=== PATIENT | female | born 1945 | race Caucasian/White ===

== ENCOUNTER 2023-09-14 02:06 | Emergency (ER) | payer MEDICARE, SELFPAY ==
[2023-09-14] VITALS (9 sets, daily range): BP systolic 131–160; BP diastolic 70–80; PULSE 89–99; RESP 15–29; TEMP 37.3; O2SAT 95–96; BMI 35.7
--- NOTE | 2023-09-14 02:33 | ECG_ITS ---
[facility] Test Date: 2023-09-14 Pat Name: JOJO DE SANTIAGO Department: Room: - Gender: Female Family Services Coordinator: : 1945 Requested By: MICHELE BRIONES Order Number: [id number] Reading MD: SHAKIRA WILDER Measurements Intervals Western Rate: 96 P: 40 SD: 178 QRS: 1 QRSD: 86 T: -46 QT: 366 QTc: 419 Interpretive Statements 1100 Sinus rhythm 4664 Twave abnormality, possible inferolateral ischemia 9150 abnormal ECG No previous ECG available for comparison Electronically Signed On 09-14-2023 7:16:05 EST by SHAKIRA WILDER
--- NOTE | 2023-09-14 02:44 | ED_ITS ---
HPI - Nausea/Vomiting/Diarrhea General Chief complaint: Nausea/Vomiting/Diarrhea Stated complaint: VOMITING Time Seen by Provider: 09/14/23 02:23 Source: patient Mode of arrival: Wheelchair History of Present Illness HPI Narrative: This 78-year-old female presents for evaluation of one day of nausea vomiting and diarrhea. The patient states she woke up yesterday morning with some diarrhea and took an Imodium. Starting around 3 PM she started having nausea and has had 7 or 8 episodes of vomiting since that time. She has had some chills. She denies any chest pain or shortness of breath. She states that she and her went to a [employer] in [place] and everybody was sick. The patient states that the head host/hostess was sick with a vomiting illness that only lasted 1 day. She has had a hysterectomy and cholecystectomy. Dates that she is diabetic and gets gastroparesis. She took a Zofran earlier but is fairly certain that she promptly vomited it back up. Related Data Home Medications Medication Instructions Recorded Confirmed allopurinol 300 mg tablet mg 09/14/23 atorvastatin 20 mg tablet mg 09/14/23 baclofen 10 mg tablet mg 09/14/23 cyanocobalamin (vitamin B-12) mcg PO 09/14/23 1,000 mcg tablet,extended release diazepam 5 mg tablet mg 09/14/23 empagliflozin 10 mg tablet mg 09/14/23 (Jardiance) famotidine 40 mg tablet mg 09/14/23 fluoride (sodium) 1.1 % dental applic 09/14/23 cream (Denta 5000 Plus) gabapentin 300 mg capsule mg 09/14/23 hydrochlorothiazide 25 mg tablet mg 09/14/23 levothyroxine 88 mcg tablet mcg 09/14/23 meloxicam 15 mg tablet mg 09/14/23 metoprolol succinate 100 mg mg PO 09/14/23 tablet,extended release 24 hr cneuygux-hmkigrcsb-dfljhqzv 3.5 drp ophthalmic (eye) 09/14/23 mg/mL-10,000 unit/mL-0.1% eye drops omeprazole 40 mg capsule,delayed mg 09/14/23 release ondansetron HCl 8 mg tablet mg 09/14/23 Allergies Allergy/AdvReac Type Severity Reaction Status Date / Time meperidine [From Demerol] Allergy Intermediate Nausea Verified 09/14/23 02:24 CODINE Allergy Intermediate Nausea Uncoded 09/14/23 02:24 Review of Systems ROS Status of ROS 10 or more systems reviewed and unremark able except as noted in h istory and below [facility] Medical History (Updated 09/14/23 @ 05:19 by Lola Mclaughlin MD) Diabetes ?E11.9 - Type 2 diabetes mellitus without complications (ICD-10) Gastroparesis ?K31.84 - Gastroparesis (ICD-10) Hypertension ?I10 - Essential (primary) hypertension (ICD-10) Social History Smoking status: Never smoker Exam Narrative Exam Narrative: Nurses note and vital signs reviewed and patient is not hypoxic.Blood pressure is elevated at 160/80 General: Uncomfortable appearing female, no respiratory distress, no active vomiting Skin: Warm, dry, no pallor noted. There is no rash noted. Head: Normocephalic, atraumatic Eye: Normal conjunctiva, no drainage, EOMI.No scleral icterus Ears, Nose, Mouth, and Throat: oral mucosa is dry Cardiovascular: Regular Rate and Rhythm S1S2, pulses are brisk and equal bilaterally Respiratory: Patient is in no distress, no accessory muscle use, lungs are clear to auscultation, no wheezing, rales or rhonchi Back: non-tender, no CVA tenderness bilaterally to percussion. GI: Increased bowel sounds, no tenderness to palpation, no masses appreciated. No rebound, guarding, or rigidity noted. Musculoskeletal: The patient has no evidence of calf tenderness, no pitting edema, symmetrical pulses noted bilaterally Neurological: A&O x4, normal speech Psychiatric: Cooperative Constitutional Vital Signs, click to edit/add: Last Vital Signs Temp 99.2 F 09/14/23 02:18 Pulse 89 09/14/23 04:25 Resp 15 09/14/23 04:25 BP 131/70 09/14/23 05:14 Pulse Ox 96 09/14/23 03:50 O2 Del Method Room Air 09/14/23 02:18 Course Vital Signs Vital signs: Vital Signs Temperature 99.2 F 09/14/23 02:18 Pulse Rate 99 H 09/14/23 02:18 Respiratory Rate 18 09/14/23 02:18 Blood Pressure 160/80 H 09/14/23 02:18 Pulse Oximetry 95 09/14/23 02:18 Oxygen Delivery Method Room Air 09/14/23 02:18 Temperature 99.2 F 09/14/23 02:18 Pulse Rate 89 09/14/23 04:25 Respiratory Rate 15 09/14/23 04:25 Blood Pressure 131/70 09/14/23 05:14 Pulse Oximetry 96 09/14/23 03:50 Oxygen Delivery Method Room Air 09/14/23 02:18 MDM - Nausea/Vomiting/Diarrhea MDM Narrative Medical decision making narrative: 78 year old female presents for evaluation of nausea vomiting and diarrhea. She and her have similar symptoms. She states she had diarrhea yesterday morning and took an Imodium and around 3 PM started having nausea and multiple episodes of vomiting. Her developed similar symptoms later in the day. She does not have any jens abdominal pain. Upon arrival she was tearful and tremulous. She had a very low-grade fever at 99.2. An EKG done upon arrival was a sinus rhythm at 96 bpm with no acute changes. An IV was placed and she was medicated with IV fluids, Zofran and Pepcid. Routine labs are reviewed. She has a normal white count and hemoglobin.Her glucose is elevated at 191. Creatinine is mildly elevated. Lactic acid and lipase are normal. She was cold and shivering and was medicated with oral Tylenol when she was able to tolerate it. In reevaluation she is feeling better and tolerating clear liquids. She was negative for Covid 19 and influenza but tested positive for rhi novirus/enterovirus. The patient and her both went [place] [facility] celebration and which many of the people at the event were sick including the head host/hostess who had stomach flu symptoms. The patient does have Zofran at home. She will be remedicated with a dose of Zofran prior to the removal of her IV. Lab Data Labs: Lab Results 09/14/23 09/14/23 Range/Units 02:30 02:30 WBC 6.7 (4.0-11.0) 10^3/uL RBC 4.04 L (4.20-5.40) 10^6/uL Hgb 12.5 (12.0-16.0) g/dL Hct 39.6 (36.0-48.0) % MCV 98.0 (81.0-99.0) fL MCH 30.9 (26.7-34.0) pg MCHC 31.6 (29.9-35.2) g/dL RDW 13.5 (11.0-15.0) % Plt Count 199 (150-450) 10^3/uL MPV 12.3 (9.5-13.5) fL Neut % (Auto) 82.2 H (43.0-75.0) % Lymph % (Auto) 9.9 L (20.5-60.0) % [place] % (Auto) 4.5 (1.7-12.0) % Eos % (Auto) 1.8 (0.9-7.0) % Baso % (Auto) 0.1 L (0.2-2.0) % Neut # (Auto) 5.5 (1.4-6.5) 10^3/uL Lymph # (Auto) 0.7 L (1.2-3.8) 10^3/uL [place] # (Auto) 0.3 (0.3-0.8) 10^3/uL Eos # (Auto) 0.1 (0.0-0.7) 10^3/uL Baso # (Auto) 0.0 (0.0-0.1) 10^3/uL Abs Immat Gran (auto) 0.10 H (0.00-0.03) 10^3/uL Imm/Tot Granulo (auto) 1.5 H (0.0-0.5) % Sodium 143 (136-145) mmol/L Potassium 3.7 (3.5-5.1) mmol/L Chloride 104 (98-107) mmol/L Carbon Dioxide 25.4 (21.0-32.0) mmol/L Anion Gap 17.3 BUN 17.0 (7.0-18.0) mg/dL Creatinine 1.03 H (0.55-1.02) mg/dL Est GFR ( Amer) >60 (>=60) Est GFR (Non-Af Amer) 52 L (>=60) BUN/Creatinine Ratio 16.5 Glucose 191 H (74-106) mg/dL Lactate 1.4 (0.4-2.0) mmol/L Calcium 9.8 (8.5-10.1) mg/dL Total Bilirubin 2.1 H (0.2-1.0) mg/dL AST 24 (15-37) U/L ALT 27 (14-59) U/L Alkaline Phosphatase 105 (46-116) U/L Total Protein 7.1 (6.4-8.2) g/dL Albumin 3.9 (3.4-5.0) g/dL Globulin 3.2 g/dL Albumin/Globulin Ratio 1.2 Lipase 30.0 (16.0-77.0) U/L Adenovirus (PCR) Not detected (NOT DETECTE) C. pneumoniae DNA (PCR) Not detected (NOT DETECTE) Coronavirus Type OC43 Not detected (NOT DETECTE) Coronavirus Type HKU1 Not detected (NOT DETECTE) Coronavirus Type 229E Not detected (NOT DETECTE) SARS-CoV-2 (PCR) Negative Not detected (NEGATIVE) Coronavirus Type NL63 Not detected (NOT DETECTE) Human Metapneumovir PCR Not detected (NOT DETECTE) Influenza Type A Ag Negative Influenza Type B Ag Negative M. pneumoniae (PCR) Not detected (NOT DETECTE) Parainfluenza PCR Not detected (NOT DETECTE) Parainfluenza 2 (PCR) Not detected (NOT DETECTE) Parainfluenza 3 (PCR) Not detected (NOT DETECTE) Parainfluenza 4 (PCR) Not detected (NOT DETECTE) RSV (RT-PCR) Not detected (NOT DETECTE) Entero/Rhino (PCR) Detected A (NOT DETECTE) Bordetella pertussis (PCR) Not detected (NOT DETECTE) B parapertussis DNA PCR Not detected (NOT DETECTE) Influenza Type A (PCR) Not detected (NOT DETECTE) Influenza Type B (PCR) Not detected (NOT DETECTE) ECG Data Attestation: I personally reviewed and interpreted this ECG as follows: (Sinus rhythm at 96 beats for minute, nonspecific ST changes, normal axis, no acute ST segment elevation or T-wave inversion) Discharge Plan Discharge Chief Complaint: Nausea/Vomiting/Diarrhea Clinical Impression: Enteroviral infection, Rhinovirus infection, Gastroenteritis Patient Disposition: Home, Self-Care Time of Disposition Decision: 05:18 Condition: Good Prescriptions / Home Meds: No Action cyanocobalamin (vitamin B-12) 1,000 mcg tablet extended release PO atorvastatin 20 mg tablet ondansetron HCl 8 mg tablet meloxicam 15 mg tablet famotidine 40 mg tablet metoprolol succinate 100 mg tablet extended release 24 hr PO omeprazole 40 mg capsule,delayed release(DR/EC) levothyroxine 88 mcg tablet baclofen 10 mg tablet neomycin-polymyxin B-dexameth 3.5mg/mL-10,000 unit/mL-0.1 % drops,suspension OPHTHALMIC (EYE) gabapentin 300 mg capsule allopurinol 300 mg tablet hydrochlorothiazide 25 mg tablet diazepam 5 mg tablet fluoride (sodium) [Denta 5000 Plus] 1.1 % cream Jardiance 10 mg tablet Instructions: Gastroenteritis (ED), Acute Nausea and Vomiting (DC) Stand Alone Forms: Portal Instructions Referrals: MICHELE BRIONES [Primary Care Provider] - 1 week
[2023-09-14] MEDS: ONDANSETRON PF 4 MG/2 ML VIAL IV ×2 (02:50→05:38)
[2023-09-14] MEDS: 0.9 % SODIUM CHLORIDE 1,000 ML 1000 ML IV (02:50)
[2023-09-14] MEDS: FAMOTIDINE/PF 20 MG/2 ML VIAL IV (02:50)
[2023-09-14 03:18] LABS: Basophils Percent Auto 0.1 % (0.2-2.0); Eosinophils Absolute Auto 0.1 10^3/uL (0.0-0.7); Eosinophils Percent Auto 1.8 % (0.9-7.0); Hematocrit 39.6 % (36.0-48.0); Hemoglobin 12.5 g/dL (12.0-16.0); Immature Granulocytes Pct Auto 1.5 % (0.0-0.5); Lymphocytes Absolute Auto 0.7 10^3/uL (1.2-3.8); Lymphocytes Percent Auto 9.9 % (20.5-60.0); Mean Corpuscular HGB Conc 31.6 g/dL (29.9-35.2); Mean Corpuscular Hemoglobin 30.9 pg (26.7-34.0); Mean Platelet Volume 12.3 fL (9.5-13.5); Monocytes Absolute Auto 0.3 10^3/uL (0.3-0.8); Monocytes Percent Auto 4.5 % (1.7-12.0); Neutrophils Absolute Auto 5.5 10^3/uL (1.4-6.5); Neutrophils Percent Auto 82.2 % (43.0-75.0); Platelet Count 199 10^3/uL (150-450); Red Blood Count 4.04 10^6/uL (4.20-5.40); Red Cell Distribution Width 13.5 % (11.0-15.0); White Blood Count 6.7 10^3/uL (4.0-11.0)
[2023-09-14 03:26] LABS: Influenza Virus A Antigen Negative; Influenza Virus B Antigen Negative; Internal Control Within Normal Limits; SARS-CoV-2 Ag NEGATIVE (NEGATIVE)
[2023-09-14 03:32] LABS: Lactate/Lactic Acid 1.4 mmol/L (0.4-2.0)
[2023-09-14 03:39] LABS: Alanine Aminotransferase 27 U/L (14-59); Albumin Globulin Ratio 1.2; Albumin Level 3.9 g/dL (3.4-5.0); Alkaline Phosphatase 105 U/L (46-116); Anion Gap 17.3; Aspartate Amino Transferase 24 U/L (15-37); BUN Creatinine Ratio 16.5; Bilirubin Total 2.1 mg/dL (0.2-1.0); Calcium 9.8 mg/dL (8.5-10.1); Carbon Dioxide 25.4 mmol/L (21.0-32.0); Chloride 104 mmol/L (98-107); Estimated GFR (African America >60 (>=60); Estimated GFR (Non-African Ame 52 (>=60); Globulin 3.2 g/dL; Glucose 191 mg/dL (74-106); Potassium 3.7 mmol/L (3.5-5.1); Sodium 143 mmol/L (136-145); Total Protein 7.1 g/dL (6.4-8.2)
[2023-09-14 03:51] LABS: Adenovirus NOT DETECTED (NOT DETECTE); Bordetella parapertussis NOT DETECTED (NOT DETECTE); Coronavirus 229E NOT DETECTED (NOT DETECTE); Coronavirus HKU1 NOT DETECTED (NOT DETECTE); Coronavirus NL63 NOT DETECTED (NOT DETECTE); Coronavirus OC43 NOT DETECTED (NOT DETECTE); Human Metapneumovirus NOT DETECTED (NOT DETECTE); Influenza A NOT DETECTED (NOT DETECTE); Influenza B NOT DETECTED (NOT DETECTE); Mycoplasma pneumoniae NOT DETECTED (NOT DETECTE); Parainfluenza Virus 1 NOT DETECTED (NOT DETECTE); Parainfluenza Virus 2 NOT DETECTED (NOT DETECTE); Parainfluenza Virus 3 NOT DETECTED (NOT DETECTE); Parainfluenza Virus 4 NOT DETECTED (NOT DETECTE); Respiratory Syncytial Virus NOT DETECTED (NOT DETECTE); SARS-CoV-2 NOT DETECTED (NOT DETECTE)
[2023-09-14] MEDS: ACETAMINOPHEN 325 MG TABLET 650 MG PO (04:12)
[2023-09-14] MEDS: 0.9 % SODIUM CHLORIDE 500 ML IV (04:12)
[2023-09-14 04:41] LABS: Human Rhinovirus/Enterovirus DETECTED (NOT DETECTE)
[2023-09-15 08:29] LABS: SARS-CoV-2 NAA INCONCLUSIVE (NOT DETECTE)
== END 2023-09-14 06:00 | disposition home or self-care (01) ==
PROVIDERS: Emergency Provider Emergency Medicine; PCP Internal Medicine
DX: K52.9 Noninfective gastroenteritis and colitis, unspecified (principal); B34.8 Other viral infections of unspecified site; Z90.49 Acquired absence of other specified parts of digestive tract; B34.1 Enterovirus infection, unspecified; Z90.710 Acquired absence of both cervix and uterus; E11.9 Type 2 diabetes mellitus without complications; Z79.899 Other long term (current) drug therapy; I10 Essential (primary) hypertension; R50.9 Fever, unspecified; Z79.84 Long term (current) use of oral hypoglycemic drugs
CPT/HCPCS: 0202U; 36415; 80053; 83605; 83690; 85025; 87635; 87804; 87811; 93005; 96361; 96374; 96375; 96376; 99284

== ENCOUNTER 2023-12-21 12:41 | Emergency (ER) | payer MEDICARE, SELFPAY ==
[2023-12-21 12:53] VITALS: BP 169/88; PULSE 78; TEMP 36.7; O2SAT 96; BMI 34.2
--- NOTE | 2023-12-21 13:24 | ED.GENADUL1 ---
HPI HPI - General Adult General Chief complaint: Upper Respiratory Infection Stated complaint: FLU LIKE SYMPTOMS Time Seen by Provider: 12/21/23 13:05 Source: patient Mode of arrival: Wheelchair Limitations: no limitations History of Present Illness HPI narrative: Patient is a 78-year-old female who presents to the emergency department for 2-day history of flulike illness. She reports headache, nausea, diarrhea, body aches. She states she believes she had a fever at home, no medications taken prior to arrival. She denies sick contacts in the home. She has had no visual changes, neck pain, paresthesias. She denies abdominal pain or urinary symptoms.She states she has no significant cough or congestion, she denies sore throat. Related Data Home Medications ?Medication ?Instructions ?Recorded ?Confirmed allopurinol 300 mg tablet mg 09/14/23 atorvastatin 20 mg tablet mg 09/14/23 baclofen 10 mg tablet mg 09/14/23 cyanocobalamin (vitamin B-12) mcg PO 09/14/23 1,000 mcg tablet,extended release diazepam 5 mg tablet mg 09/14/23 empagliflozin 10 mg tablet mg 09/14/23 (Jardiance) famotidine 40 mg tablet mg 09/14/23 fluoride (sodium) 1.1 % dental applic 09/14/23 cream (Denta 5000 Plus) gabapentin 300 mg capsule mg 09/14/23 hydrochlorothiazide 25 mg tablet mg 09/14/23 levothyroxine 88 mcg tablet mcg 09/14/23 meloxicam 15 mg tablet mg 09/14/23 metoprolol succinate 100 mg mg PO 09/14/23 tablet,extended release 24 hr gtmhtwvd-awegnpkgl-bubdvkeb 3.5 drp ophthalmic (eye) 09/14/23 mg/mL-10,000 unit/mL-0.1% eye drops omeprazole 40 mg capsule,delayed mg 09/14/23 release ondansetron HCl 8 mg tablet mg 09/14/23 Previous Rx's ?Medication ?Instructions ?Recorded ondansetron 4 mg disintegrating 4 mg PO Q6H PRN nausea and 12/21/23 tablet vomiting #12 tabs Allergies Allergy/AdvReac Type Severity Reaction Status Date / Time meperidine [From Demerol] Allergy Intermediate Nausea Verified 12/21/23 12:53 CODINE Allergy Intermediate Nausea Uncoded 12/21/23 12:53 Opioid HPI Opioid Management Most Recent Opioid Data: Last Pain Scale 5 09/14/23 02:30 Last MAR Pain Assessment 12/21/23 13:49 Review of Systems ROS Constitutional Reports: chills Ears, nose, mouth, and throat Denies: throat pain or nasal congestion Respiratory Denies: shortness of breath or cough Gastrointestinal Reports: nausea and diarrhea; Denies: abdominal pain or vomiting Integumentary/Breast Denies: rash Neurological Reports: headache; Denies: numbness in extremities or dizziness Hematologic/Lymphatic Denies: easy bruising or easy bleeding [facility] Medical History (Updated 12/21/23 @ 14:45 by DWAYNE Bolaños) Diabetes ?E11.9 - Type 2 diabetes mellitus without complications (ICD-10) Gastroparesis ?K31.84 - Gastroparesis (ICD-10) Hypertension ?I10 - Essential (primary) hypertension (ICD-10) Social History Smoking status: Never smoker Exam Narrative Exam Narrative: Gen.: Awake, alert, in no distress Head: Normocephalic, atraumatic, No nuchal rigidity ENT: Moist mucous membranes, Bilateral TMs clear, no pharyngeal erythema Respiratory: No respiratory distress, lungs clear bilaterally Cardio: Regular rate and rhythm Gastrointestinal: Abdomen is soft, nondistended and nontender to palpation Extremities: Moves extremities equally Psych: Normal mood and affect Neuro: No focal neuro deficit Skin: Warm, dry, intact Constitutional Vital Signs, click to edit/add: Last Vital Signs Temp 98.1 F 12/21/23 12:53 Pulse 78 12/21/23 12:53 Resp 16 12/21/23 12:53 BP 169/88 H 12/21/23 12:53 Pulse Ox 96 12/21/23 12:53 O2 Del Method Room Air 12/21/23 12:53 Course Vital Signs Vital signs: Vital Signs Temperature 98.1 F 12/21/23 12:53 Pulse Rate 78 12/21/23 12:53 Respiratory Rate 16 12/21/23 12:53 Blood Pressure 169/88 H 12/21/23 12:53 Pulse Oximetry 96 12/21/23 12:53 Oxygen Delivery Method Room Air 12/21/23 12:53 Temperature 98.1 F 12/21/23 12:53 Pulse Rate 78 12/21/23 12:53 Respiratory Rate 16 12/21/23 12:53 Blood Pressure 169/88 H 12/21/23 12:53 Pulse Oximetry 96 12/21/23 12:53 Oxygen Delivery Method Room Air 12/21/23 12:53 Medical Decision Making MDM Narrative Medical decision making narrative: Patient was treated with IV fluids, Zofran, [place]. She is resting comfortably on reevaluation by attending physician. Lab studies and viral testing is negative. She has stable vital signs in the ER, benign exam consistent with viral syndrome. She was reevaluated by attending physician prior to discharge. She will be discharged home with nausea medication to follow-up with PCP. Return to the ER if symptoms change or worsen. At time of discharge, patient is still reporting significant headache and nausea and was remedicated with Reglan and Toradol. She was sent for CT of the brain to rule out other acute abnormalities. Medical Records Medical records reviewed: Yes I reviewed the patient's medical records Lab Data Lab results reviewed: Yes I reviewed the patient's lab results Labs: Lab Results 12/21/23 12/21/23 12/21/23 Range/Units 13:26 13:30 13:32 WBC 5.8 (4.0-11.0) 10^3/uL RBC 4.27 (4.20-5.40) 10^6/uL Hgb 12.9 (12.0-16.0) g/dL Hct 41.8 (36.0-48.0) % MCV 97.9 (81.0-99.0) fL MCH 30.2 (26.7-34.0) pg MCHC 30.9 (29.9-35.2) g/dL RDW 13.7 (11.0-15.0) % Plt Count 202 (150-450) 10^3/uL MPV 11.5 (9.5-13.5) fL Neut % (Auto) 55.5 (43.0-75.0) % Lymph % (Auto) 35.5 (20.5-60.0) % [place] % (Auto) 6.9 (1.7-12.0) % Eos % (Auto) 1.2 (0.9-7.0) % Baso % (Auto) 0.7 (0.2-2.0) % Neut # (Auto) 3.2 (1.4-6.5) 10^3/uL Lymph # (Auto) 2.1 (1.2-3.8) 10^3/uL [place] # (Auto) 0.4 (0.3-0.8) 10^3/uL Eos # (Auto) 0.1 (0.0-0.7) 10^3/uL Baso # (Auto) 0.0 (0.0-0.1) 10^3/uL Abs Immat Gran (auto) 0.01 (0.00-0.03) 10^3/uL Imm/Tot Granulo (auto) 0.2 (0.0-0.5) % Sodium 144 (136-145) mmol/L Potassium 3.9 (3.5-5.1) mmol/L Chloride 107 (98-107) mmol/L Carbon Dioxide 27.4 (21.0-32.0) mmol/L Anion Gap 13.5 BUN 12.0 (7.0-18.0) mg/dL Creatinine 0.85 (0.55-1.02) mg/dL Est GFR ( Amer) >60 (>=60) Est GFR (Non-Af Amer) >60 (>=60) BUN/Creatinine Ratio 14.1 Glucose 116 H (74-106) mg/dL Calcium 9.5 (8.5-10.1) mg/dL Total Bilirubin 1.6 H (0.2-1.0) mg/dL AST 14 L (15-37) U/L ALT 18 (14-59) U/L Alkaline Phosphatase 93 (46-116) U/L Total Protein 6.6 (6.4-8.2) g/dL Albumin 4.1 (3.4-5.0) g/dL Globulin 2.5 g/dL Albumin/Globulin Ratio 1.6 Influenza Type A Ag Negative Influenza Type B Ag Negative SARS-CoV-2 Ag (CV2AG) Negative (NEGATIVE) POC Glucose 104 (74-106) mg/dL Discharge Plan Discharge Stand Alone Forms: Portal Instructions Chief Complaint: Upper Respiratory Infection Clinical Impression: Flu-like symptoms Patient Disposition: Home, Self-Care Time of Disposition Decision: 14:45 Condition: Good Prescriptions / Home Meds: New ondansetron 4 mg tablet,disintegrating 4 mg PO Q6H PRN (Reason: nausea and vomiting) Qty: 12 0RF No Action cyanocobalamin (vitamin B-12) 1,000 mcg tablet extended release PO atorvastatin 20 mg tablet ondansetron HCl 8 mg tablet meloxicam 15 mg tablet famotidine 40 mg tablet metoprolol succinate 100 mg tablet extended release 24 hr PO omeprazole 40 mg capsule,delayed release(DR/EC) levothyroxine 88 mcg tablet baclofen 10 mg tablet neomycin-polymyxin B-dexameth 3.5mg/mL-10,000 unit/mL-0.1 % drops,suspension OPHTHALMIC (EYE) gabapentin 300 mg capsule allopurinol 300 mg tablet hydrochlorothiazide 25 mg tablet diazepam 5 mg tablet fluoride (sodium) [Denta 5000 Plus] 1.1 % cream Jardiance 10 mg tablet Print Language: Romansh Instructions: Viral Syndrome (ED) Referrals: MICHELE BRIONES [Primary Care Provider] - 1 week
[2023-12-21 13:35] LABS: Glucometer 104 mg/dL (74-106)
[2023-12-21] MEDS: 0.9 % SODIUM CHLORIDE 1,000 ML 1000 ML IV (13:49)
[2023-12-21] MEDS: HYDROCODONE/ACET 5-325 MG TABLET 1 TAB PO (13:49)
[2023-12-21] MEDS: ONDANSETRON PF 4 MG/2 ML VIAL IV (13:49)
[2023-12-21 14:07] LABS: Basophils Percent Auto 0.7 % (0.2-2.0); Eosinophils Absolute Auto 0.1 10^3/uL (0.0-0.7); Eosinophils Percent Auto 1.2 % (0.9-7.0); Hematocrit 41.8 % (36.0-48.0); Hemoglobin 12.9 g/dL (12.0-16.0); Immature Granulocytes Abs Auto 0.01 10^3/uL (0.00-0.03); Immature Granulocytes Pct Auto 0.2 % (0.0-0.5); Lymphocytes Absolute Auto 2.1 10^3/uL (1.2-3.8); Lymphocytes Percent Auto 35.5 % (20.5-60.0); Mean Corpuscular HGB Conc 30.9 g/dL (29.9-35.2); Mean Corpuscular Hemoglobin 30.2 pg (26.7-34.0); Mean Corpuscular Volume 97.9 fL (81.0-99.0); Mean Platelet Volume 11.5 fL (9.5-13.5); Monocytes Absolute Auto 0.4 10^3/uL (0.3-0.8); Monocytes Percent Auto 6.9 % (1.7-12.0); Neutrophils Absolute Auto 3.2 10^3/uL (1.4-6.5); Neutrophils Percent Auto 55.5 % (43.0-75.0); Platelet Count 202 10^3/uL (150-450); Red Blood Count 4.27 10^6/uL (4.20-5.40); Red Cell Distribution Width 13.7 % (11.0-15.0); White Blood Count 5.8 10^3/uL (4.0-11.0)
[2023-12-21 14:24] LABS: Alanine Aminotransferase 18 U/L (14-59); Albumin Globulin Ratio 1.6; Albumin Level 4.1 g/dL (3.4-5.0); Alkaline Phosphatase 93 U/L (46-116); Anion Gap 13.5; Aspartate Amino Transferase 14 U/L (15-37); BUN Creatinine Ratio 14.1; Bilirubin Total 1.6 mg/dL (0.2-1.0); Calcium 9.5 mg/dL (8.5-10.1); Carbon Dioxide 27.4 mmol/L (21.0-32.0); Chloride 107 mmol/L (98-107); Estimated GFR (African America >60 (>=60); Estimated GFR (Non-African Ame >60 (>=60); Globulin 2.5 g/dL; Glucose 116 mg/dL (74-106); Potassium 3.9 mmol/L (3.5-5.1); Sodium 144 mmol/L (136-145); Total Protein 6.6 g/dL (6.4-8.2)
[2023-12-21 14:27] LABS: Influenza Virus A Antigen Negative; Influenza Virus B Antigen Negative; Internal Control Within Normal Limits; SARS-CoV-2 Ag NEGATIVE (NEGATIVE)
--- NOTE | 2023-12-21 14:49 | CT_ITS ---
The [address] [address] Patient Name: JOJO DE SANTIAGO MRN: [id number] date: 1945 Sex: F Assigned Patient Location: ER Current Patient Location: ED.MAIN Accession/Order Number: [id number] Exam Date: 12/21/2023 14:52 Report Date: 12/21/2023 15:15 At the request of: ATA GALLARDO Procedure: CT head/brain wo con EXAM: CT head/brain wo con HISTORY: headache COMPARISON: None. TECHNIQUE: CT head without contrast. Multiplanar reformats obtained. The current study utilizes one or more of the following dose-reduction techniques: automated exposure control, iterative reconstruction, and/or manual adjustment of tube current and voltage for size. FINDINGS: No acute intracranial hemorrhage. No midline shift. Hernandez-white matter differentiation is maintained. Ventricles reflect volume loss. Basal cisterns are patent. Regional nonspecific white matter hypoattenuation. Prior lens replacement. Mastoid air cells clear. Partially imaged paranasal sinuses are clear. No displaced skull fracture. CT/CT head/brain wo con IMPRESSION: No acute intracranial findings. Electronically authenticated by: AGUEDA GRULLON Date: 12/21/2023 15:15
[2023-12-21] MEDS: METOCLOPRAMIDE HCL 10 MG/2 ML VIAL IVP (15:02)
[2023-12-21] MEDS: KETOROLAC TROMETHAMINE 30 MG/ML VIAL 15 MG IVP (15:02)
[2023-12-21 15:42] LABS: Bilirubin Urine NEGATIVE (NEGATIVE); Blood Urine TRACE-I (NEGATIVE); Clarity Urine SL CLOUDY (CLEAR); Color Urine LT. YELLOW (YELLOW); Glucose Urine UA >=1000 mg/dL (NEGATIVE); Ketones Urine 15 mg/dL (NEGATIVE); Leukocyte Esterase Urine SMALL (NEGATIVE); Nitrite Urine NEGATIVE (NEGATIVE); Protein Urine NEGATIVE (NEG/TRACE); Urobilinogen Urine 0.2 EU/dL (0.2-1.0); pH Urine 5.5 (5.0-9.0)
[2023-12-21 15:43] LABS: Urine Microscopic Indicated YES
[2023-12-21 15:55] LABS: Bacteria Urine LARGE #/HPF (NONE SEEN); Cast Seen? NONE SEEN #/LPF (NONE SEEN); Crystals Seen? None Seen #/HPF (None Seen); Mucus Urine NONE SEEN (NONE SEEN); Squamous Epithelial Cell Urine FEW #/LPF (NONE/RARE); Urine Culture Indicated YES; WBC Urine 20-50 #/HPF (NONE SEEN)
== END 2023-12-21 15:52 | disposition home or self-care (01) ==
PROVIDERS: Physician Assistant; Emergency Provider Emergency Medicine Emergency Medical Services; PCP Internal Medicine
DX: R19.7 Diarrhea, unspecified (principal); R11.0 Nausea; R51.9 Headache, unspecified; R68.83 Chills (without fever); Z79.85 Long-term (current) use of injectable non-insulin antidiabetic drugs; Z79.899 Other long term (current) drug therapy; E11.9 Type 2 diabetes mellitus without complications; I10 Essential (primary) hypertension
CPT/HCPCS: 36415; 36416; 70450; 80053; 81001; 82948; 85025; 87086; 87150; 87186; 87804; 87811; 96361; 96374; 96375; 99285

== ENCOUNTER 2024-01-24 18:07 | Emergency (ER) | payer MEDICARE, SELFPAY ==
[2024-01-24 18:11] VITALS: BP 200/94; PULSE 66; TEMP 36.6; O2SAT 97; BMI 32.6
--- NOTE | 2024-01-24 18:56 | ED_ITS ---
HPI - Abdominal Pain General Chief Complaint: Abdominal Pain Stated Complaint: Abdominal Pain Time Seen by Provider: 01/24/24 18:46 Source: patient Mode of arrival: Wheelchair Limitations: no limitations History of Present Illness HPI narrative: 78 year old female presents to the ED for LUQ pain, N/V. Onset was today. Denies fever, chills, diarrhea, back pain, urinary sx. Denies CP, SOB, cough. States she has hx gastroparesis. Related Data Home Medications ?Medication ?Instructions ?Recorded ?Confirmed allopurinol 300 mg tablet mg 09/14/23 atorvastatin 20 mg tablet mg 09/14/23 baclofen 10 mg tablet mg 09/14/23 cyanocobalamin (vitamin B-12) mcg PO 09/14/23 1,000 mcg tablet,extended release diazepam 5 mg tablet mg 09/14/23 empagliflozin 10 mg tablet mg 09/14/23 (Jardiance) famotidine 40 mg tablet mg 09/14/23 fluoride (sodium) 1.1 % dental applic 09/14/23 cream (Denta 5000 Plus) gabapentin 300 mg capsule mg 09/14/23 hydrochlorothiazide 25 mg tablet mg 09/14/23 levothyroxine 88 mcg tablet mcg 09/14/23 meloxicam 15 mg tablet mg 09/14/23 metoprolol succinate 100 mg mg PO 09/14/23 tablet,extended release 24 hr [id number] 3.5 drp ophthalmic (eye) 09/14/23 mg/mL-10,000 unit/mL-0.1% eye drops omeprazole 40 mg capsule,delayed mg 09/14/23 release ondansetron HCl 8 mg tablet mg 09/14/23 Previous Rx's ?Medication ?Instructions ?Recorded ondansetron 4 mg disintegrating 4 mg PO Q6H PRN nausea and 12/21/23 tablet vomiting #12 tabs dicyclomine 10 mg capsule 10 mg PO TID PRN abdominal pain 01/24/24 #10 caps metronidazole 500 mg tablet 500 mg PO Q8H 10 days #30 tabs 01/24/24 ondansetron 4 mg disintegrating 4 mg PO Q8H 3 days #9 tabs 01/24/24 tablet Allergies Allergy/AdvReac Type Severity Reaction Status Date / Time meperidine [From Demerol] Allergy Intermediate Nausea Verified 12/21/23 12:53 CODINE Allergy Intermediate Nausea Uncoded 12/21/23 12:53 Review of Systems ROS Constitutional Denies: fever or chills Ears, nose, mouth, and throat Denies: throat pain or neck pain Cardiovascular Denies: chest pain Respiratory Denies: shortness of breath or cough Gastrointestinal Reports: abdominal pain, nausea and vomiting; Denies: diarrhea Genitourinary Denies: painful urination, urinary frequency, urinary urgency or blood in urine Musculoskeletal Denies: back pain or neck pain Integumentary/Breast Denies: rash Neurological Denies: headache or dizziness [facility] Medical History Diabetes ?E11.9 - Type 2 diabetes mellitus without complications (ICD-10) Gastroparesis ?K31.84 - Gastroparesis (ICD-10) Hypertension ?I10 - Essential (primary) hypertension (ICD-10) Social History Smoking status: Never smoker Exam Constitutional Vital Signs, click to edit/add: Last Vital Signs Temp 97.8 F 01/24/24 18:11 Pulse 66 01/24/24 18:11 Resp 20 01/24/24 18:11 BP 168/98 H 01/24/24 20:01 Pulse Ox 97 01/24/24 18:11 O2 Del Method Room Air 01/24/24 18:11 Common normals: no apparent distress and oriented x3 General appearance: cooperative HENMT Mouth: oral and palatal mucosa normal, lip normal and tongue normal Eye Common normals: conjunctivae normal and no scleral icterus Neck & C-Spine Common normals: supple Chest Chest: symmetrical chest wall rise Respiratory Common normals: normal respiratory effort and clear to auscultation bilaterally Effort & inspection: able to speak in complete sentences and symmetric chest movement Cardio Common normals: regular rate and regular rhythm GI Common normals: Normal to inspection, nondistended, normoactive bowel sounds present and soft to palpation Palpation: tender Details: LUQ Neuro Common normals: oriented x3 Sensorium/orientation: awake and alert Speech: speech normal Course Vital Signs Vital signs: Vital Signs Temperature 97.8 F 01/24/24 18:11 Pulse Rate 66 01/24/24 18:11 Respiratory Rate 20 01/24/24 18:11 Blood Pressure 200/94 H 01/24/24 18:11 Pulse Oximetry 97 01/24/24 18:11 Oxygen Delivery Method Room Air 01/24/24 18:11 Temperature 97.8 F 01/24/24 18:11 Pulse Rate 66 01/24/24 18:11 Respiratory Rate 20 01/24/24 18:11 Blood Pressure 168/98 H 01/24/24 20:01 Pulse Oximetry 97 01/24/24 18:11 Oxygen Delivery Method Room Air 01/24/24 18:11 MDM - Abdominal Pain MDM Narrative Medical decision making narrative: Blood work was unremarkable when compared to previous. CT scan showed an area of questionable mild nonspecific colitis. Findings were discussed with the patient. She was given medication with relief of her symptoms. She has an appointment scheduled with Dr. Irizarry (GI) in [place] in 1-2 weeks. Prescriptions were provided for Zofran, Bentyl, and Flagyl. Return precautions were discussed. Differential Diagnosis Differential diagnosis: Likely abdominal pain, diverticulitis, gastroenteritis, small bowel obstruction and other (gastroparesis, colitis.) Medical Records Attestation: I reviewed the patient's medical records. Lab Data Attestation: I reviewed the patient's lab results. Labs: Lab Results 01/24/24 Range/Units 18:55 WBC 7.2 (4.0-11.0) 10^3/uL RBC 4.40 (4.20-5.40) 10^6/uL Hgb 13.4 (12.0-16.0) g/dL Hct 41.7 (36.0-48.0) % MCV 94.8 (81.0-99.0) fL MCH 30.5 (26.7-34.0) pg MCHC 32.1 (29.9-35.2) g/dL RDW 13.9 (11.0-15.0) % Plt Count 213 (150-450) 10^3/uL MPV 12.0 (9.5-13.5) fL Neut % (Auto) 53.2 (43.0-75.0) % Lymph % (Auto) 35.7 (20.5-60.0) % [place] % (Auto) 7.6 (1.7-12.0) % Eos % (Auto) 2.6 (0.9-7.0) % Baso % (Auto) 0.6 (0.2-2.0) % Neut # (Auto) 3.8 (1.4-6.5) 10^3/uL Lymph # (Auto) 2.6 (1.2-3.8) 10^3/uL [place] # (Auto) 0.6 (0.3-0.8) 10^3/uL Eos # (Auto) 0.2 (0.0-0.7) 10^3/uL Baso # (Auto) 0.0 (0.0-0.1) 10^3/uL Abs Immat Gran (auto) 0.02 (0.00-0.03) 10^3/uL Imm/Tot Granulo (auto) 0.3 (0.0-0.5) % Sodium 143 (136-145) mmol/L Potassium 3.6 (3.5-5.1) mmol/L Chloride 104 (98-107) mmol/L Carbon Dioxide 26.1 (21.0-32.0) mmol/L Anion Gap 16.5 BUN 13.0 (7.0-18.0) mg/dL Creatinine 0.97 (0.55-1.02) mg/dL Est GFR ( Amer) >60 (>=60) Est GFR (Non-Af Amer) 56 L (>=60) BUN/Creatinine Ratio 13.4 Glucose 120 H (74-106) mg/dL Calcium 10.1 (8.5-10.1) mg/dL Total Bilirubin 2.4 H (0.2-1.0) mg/dL AST 19 (15-37) U/L ALT 20 (14-59) U/L Alkaline Phosphatase 93 (46-116) U/L Total Protein 7.1 (6.4-8.2) g/dL Albumin 4.4 (3.4-5.0) g/dL Globulin 2.7 g/dL Albumin/Globulin Ratio 1.6 Lipase 33.0 (16.0-77.0) U/L Imaging Data CT scan - abdomen: Attestation: I have reviewed the pertinent imaging results. Radiologist's impression: ITS Impressions Abdomen/Pelvis CT 01/24/24 19:41 IMPRESSION: 1. Question of some mild nonspecific colitis involving segment near junction of descending and sigmoid colon is raised with some mild uniform wall thickening with questionable trace pericolonic inflammation. There is diffuse diverticulosis but no specific findings of diverticulitis. See comments above. 2. Distal colonic stool retention/constipation. 3. Hepatic steatosis. 4. Cholecystectomy. 5. Chronic pancreatic atrophy. 6. Left renal cysts. Electronically authenticated by: RENY VILLEDA Date: 01/24/2024 21:17 Discharge Plan Discharge Stand Alone Forms: Portal Instructions Chief Complaint: Abdominal Pain Clinical Impression: Colitis, Nausea & vomiting, Abdominal pain Patient Disposition: Home, Self-Care Time of Disposition Decision: 21:27 Condition: Good Mode of Transportation: Private Vehicle Prescriptions / Home Meds: New metronidazole 500 mg tablet 500 mg PO Q8H 10 Days Qty: 30 0RF ondansetron 4 mg tablet,disintegrating 4 mg PO Q8H 3 Days Qty: 9 0RF dicyclomine 10 mg capsule 10 mg PO TID PRN (Reason: abdominal pain) Qty: 10 0RF No Action ondansetron 4 mg tablet,disintegrating 4 mg PO Q6H PRN (Reason: nausea and vomiting) Qty: 12 0RF cyanocobalamin (vitamin B-12) 1,000 mcg tablet extended release PO atorvastatin 20 mg tablet ondansetron HCl 8 mg tablet meloxicam 15 mg tablet famotidine 40 mg tablet metoprolol succinate 100 mg tablet extended release 24 hr PO omeprazole 40 mg capsule,delayed release(DR/EC) levothyroxine 88 mcg tablet baclofen 10 mg tablet neomycin-polymyxin B-dexameth 3.5mg/mL-10,000 unit/mL-0.1 % drops,suspension OPHTHALMIC (EYE) gabapentin 300 mg capsule allopurinol 300 mg tablet hydrochlorothiazide 25 mg tablet diazepam 5 mg tablet fluoride (sodium) [Denta 5000 Plus] 1.1 % cream Jardiance 10 mg tablet Print Language: Azeri Instructions: Acute Nausea and Vomiting (ED), Abdominal Pain (ED), Colitis (ED) Additional Instructions: Return to the ER if your condition worsens. Follow up with Dr. Irizarry as scheduled. Referrals: MICHELE BRIONES [Primary Care Provider] - 1 week
[2024-01-24 19:03] LABS: Basophils Percent Auto 0.6 % (0.2-2.0); Eosinophils Absolute Auto 0.2 10^3/uL (0.0-0.7); Eosinophils Percent Auto 2.6 % (0.9-7.0); Hematocrit 41.7 % (36.0-48.0); Hemoglobin 13.4 g/dL (12.0-16.0); Immature Granulocytes Abs Auto 0.02 10^3/uL (0.00-0.03); Immature Granulocytes Pct Auto 0.3 % (0.0-0.5); Lymphocytes Absolute Auto 2.6 10^3/uL (1.2-3.8); Lymphocytes Percent Auto 35.7 % (20.5-60.0); Mean Corpuscular HGB Conc 32.1 g/dL (29.9-35.2); Mean Corpuscular Hemoglobin 30.5 pg (26.7-34.0); Mean Corpuscular Volume 94.8 fL (81.0-99.0); Monocytes Absolute Auto 0.6 10^3/uL (0.3-0.8); Monocytes Percent Auto 7.6 % (1.7-12.0); Neutrophils Absolute Auto 3.8 10^3/uL (1.4-6.5); Neutrophils Percent Auto 53.2 % (43.0-75.0); Platelet Count 213 10^3/uL (150-450); Red Cell Distribution Width 13.9 % (11.0-15.0); White Blood Count 7.2 10^3/uL (4.0-11.0)
[2024-01-24] MEDS: FAMOTIDINE/PF 20 MG/2 ML VIAL IV (19:22)
[2024-01-24] MEDS: ONDANSETRON PF 4 MG/2 ML VIAL IV (19:22)
[2024-01-24] MEDS: 0.9 % SODIUM CHLORIDE 1,000 ML 100 ML IV (19:22)
[2024-01-24] MEDS: METOCLOPRAMIDE HCL 10 MG/2 ML VIAL IVP (19:22)
[2024-01-24 19:23] LABS: Alanine Aminotransferase 20 U/L (14-59); Albumin Globulin Ratio 1.6; Albumin Level 4.4 g/dL (3.4-5.0); Alkaline Phosphatase 93 U/L (46-116); Anion Gap 16.5; Aspartate Amino Transferase 19 U/L (15-37); BUN Creatinine Ratio 13.4; Bilirubin Total 2.4 mg/dL (0.2-1.0); Calcium 10.1 mg/dL (8.5-10.1); Carbon Dioxide 26.1 mmol/L (21.0-32.0); Chloride 104 mmol/L (98-107); Estimated GFR (African America >60 (>=60); Estimated GFR (Non-African Ame 56 (>=60); Globulin 2.7 g/dL; Glucose 120 mg/dL (74-106); Potassium 3.6 mmol/L (3.5-5.1); Sodium 143 mmol/L (136-145); Total Protein 7.1 g/dL (6.4-8.2)
--- NOTE | 2024-01-24 19:41 | CT_ITS ---
The [address] [address] Patient Name: JOJO DE SANTIAGO MRN: [id number] date: 1945 Sex: F Assigned Patient Location: ER Current Patient Location: Accession/Order Number: [id number] Exam Date: 01/24/2024 20:00 Report Date: 01/24/2024 21:17 At the request of: NILAY GAGE Procedure: CT abdomen pelvis w con CT OF THE ABDOMEN AND PELVIS WITH CONTRAST: 01/24/2024 8:00 PM EDT CLINICAL HISTORY: Bilateral upper quadrant pain. COMPARISONS: None. TECHNIQUE: Thin section axial CT images were obtained from the lung bases to the pubis symphysis. This CT exam was performed using one or more of the following dose reduction techniques: Automated exposure control, adjustment of the mA and/or kV according to patient size, or use of iterative reconstruction technique. Thin section coronal and sagittal images were reconstructed from the axial data set. All images were reviewed and interpreted. CONTRAST: Omnipaque 300, 100 mL IV without event. FINDINGS: LUNG BASES: No consolidation or pleural fluid. LIVER: Diffuse hepatic steatosis. No hepatic mass or cyst. Normal portal vein enhancement. GALLBLADDER: Cholecystectomy. BILIARY TREE: No ductal dilatation. PANCREAS: Diffuse atrophic pancreas. No acute pancreatitis. Pancreas otherwise negative. No duct dilation. SPLEEN: Normal. ADRENALS: Normal. RIGHT KIDNEY AND URETER: Normal, without urolithiasis or hydronephrosis. LEFT KIDNEY AND URETER: MULTIPLE SMALL LEFT RENAL PARAPELVIC CYSTS CYSTS MID AND LOWER POLE. SMALL SIMPLE CORTICAL CYST LOWER POLE LEFT KIDNEY MEASURING 1.5 CM. BOSN[place]K 1 CYST. LEFT KIDNEY OTHERWISE NEGATIVE. NO HYDRONEPHROSIS OR RETAINED URETERAL CALCULUS. URINARY BLADDER: Grossly unremarkable. PELVIC STRUCTURES: Unremarkable. SMALL BOWEL: No evidence of obstruction, gross mass, or inflammatory change. LARGE BOWEL: There is extensive mostly descending and sigmoid diverticulosis. No evidence for acute diverticulitis. Moderate colonic stool throughout the rectosigmoid. Mild to moderate more proximal stool. There is segment of uniform wall thickening involving descending the proximal small bowel extending approximately 11 to 12 cm in length on the left. Uncertain if this is acute or chronic wall thickening. There is some very mild pericolonic stranding. Nonspecific colitis. Could be related to infection or inflammatory bowel disease. Does not have typical appearance of acute diverticulitis despite diverticular disease. Correlate with labs and symptoms and history. No evidence of large bowel obstruction. APPENDIX: The appendix is not clearly identified and there are no secondary findings to suggest acute appendicitis. LYMPH NODES: No pathologically enlarged lymph nodes identified. PERITONEUM: No intraperitoneal free air. No free intraperitoneal fluid. MESENTERY: Unremarkable. RETROPERITONEUM: The retroperitoneum is unremarkable. AORTA: Normal caliber aorta and iliac arteries. An aortic out BODY WALL: No body wall mass. OSSEOUS STRUCTURES: Dextroscoliosis mid lumbar spine with multilevel degenerative disc disease. No fractures. No lytic or blastic lesion. CT/CT abdomen pelvis w con IMPRESSION: 1. Question of some mild nonspecific colitis involving segment near junction of descending and sigmoid colon is raised with some mild uniform wall thickening with questionable trace pericolonic inflammation. There is diffuse diverticulosis but no specific findings of diverticulitis. See comments above. 2. Distal colonic stool retention/constipation. 3. Hepatic steatosis. 4. Cholecystectomy. 5. Chronic pancreatic atrophy. 6. Left renal cysts. Electronically authenticated by: RENY VILLEDA Date: 01/24/2024 21:17
[2024-01-24 20:01] VITALS: BP 168/98
[2024-01-24] MEDS: DIPHENHYDRAMINE HCL 50 MG/ML (1ML) VIAL 25 MG IV (20:08)
[2024-01-24 22:16] VITALS: BP 160/90; PULSE 70; O2SAT 100
== END 2024-01-24 22:00 | disposition home or self-care (01) ==
PROVIDERS: Nurse Practitioner Family; Emergency Provider Emergency Medicine; PCP Internal Medicine
DX: K52.9 Noninfective gastroenteritis and colitis, unspecified (principal); R11.2 Nausea with vomiting, unspecified; R10.9 Unspecified abdominal pain; E11.9 Type 2 diabetes mellitus without complications; I10 Essential (primary) hypertension; Z79.890 Hormone replacement therapy; Z79.899 Other long term (current) drug therapy
CPT/HCPCS: 36415; 74177; 80053; 83690; 85025; 96361; 96374; 96375; 99285; Q9967

== ENCOUNTER 2024-01-27 18:34 | Emergency (ER) | payer MEDICARE, SELFPAY ==
[2024-01-27 18:39] VITALS: BP 194/101; PULSE 87; TEMP 36.8; O2SAT 98; BMI 32.6
--- OUTSIDE RECORDS SUMMARY | 2024-01-27 18:42 | XMS_ITS | CCD ---
Author Organization [facility] Care Team Providers Care Technical Support Analyst Name Role Phone Aruna Damico Primary Care Provider ARUNA DAMICO Primary Care Unavailable MAMADOU LOZANO Attending Unavailable ARUNA DAMICO Primary Care Unavailable CHEMO MCCAULEY Referring Unavailable Aruna Damico Primary Care Provider [phone] ALO THOMPSON Attending Unavailable ARUNA DAMICO Primary Care Unavailable Jason Ramos Unavailable BRIEN LOMELI Admitting Unavailable BRIEN LOMELI Attending Unavailable JOHNATHAN, DR MERLE Parra Consulting Unavailable SALVADOR, DR BAUTISTA Primary Care Unavailable BRIEN LOMELI Consulting Unavailable Florentino Newman Consulting Unavailable SALVADOR, DR BAUTISTA Primary Care Unavailable SALVADOR, DR BAUTISTA Consulting Unavailable SALVADOR, DR BAUTISTA Attending Unavailable SALVADOR, DR BAUTISTA Admitting Unavailable SALVADOR, DR BAUTISTA Primary Care Unavailable SALVADOR, DR BAUTISTA Consulting Unavailable SALVADOR, DR BAUTISTA Attending Unavailable SALVADOR, DR BAUTISTA Admitting Unavailable EDISON HAWKINS Consulting Unavailable BRAXTON, DR BORDEN Consulting Unavailable BRAXTON, DR BORDEN Attending Unavailable SALVADOR, DR BAUTISTA Primary Care Unavailable BRAXTON, DR BORDEN Admitting Unavailable DANNY PRICE Consulting Unavailable Rita Bailey Admitting Unavailable Rita Bailey Attending Unavailable Enrique Gray Referring Unavail able HAYDER FRANCO Primary Care Unavailable Eagle Seymoural Admitting Unavailable Marco Seymour Attending Unavailable HAYDER FRANCO Primary Care Unavailable Lion, Marco Admitting Unavailable Lion, Marco Attending Unavailable Florentino Hollis Consulting Unavailable HAYDER FRANCO Primary Care Unavailable Lion, Marco Admitting Unavailable Marco Seymour Attending Unavailable HAYDER FRANCO Primary Care Unavailable Hayder Franco MD Primary Care Provider [phone] Aruna Damico MD Primary Care Provider JONN ZAMORA JR. Attending Unavailable NEDRA JR., JONN Referring Unavailable FRANCO, HAYDER B Primary Care Unavailable NEDRA JR., JONN Admitting Unavailable ZAMORA JR., JONN Attending Unavailable FRANCO, HAYDER B Referring Unavailable FRANCO, HAYDER B Primary Care Unavailable EDNA IBANEZ Attending Unavailable FRANCO, HAYDER B Primary Care Unavailable NIENBERGVIKY Attending Unavailable FRANCO, HAYDER B Referring Unavailable FRANCO, HAYDER B Primary Care Unavailable NIENBERG, VIKY Referring Unavailable FRANCO, HAYDER B Primary Care Unavailable NIENBERG, VIKY Attending Unavailable FRANCO, HAYDER B Referring Unavailable FRANCO, HAYDER B Primary Care Unavailable NIENBERG, VIKY Attending Unavailable NIENBERG, VIKY Referring Unavailable FRANCO, HAYDER B Primary Care Unavailable NIENBERG, VIKY Attending Unavailable FRANCO, HAYDER B Referring Unavailable FRANCO, HAYDER B Primary Care Unavailable ZAMORA JR., JONN Admitting Unavailable ZAMORA JR., JONN Attending Unavailable FRANCO, HAYDER B Referring Unavailable FRANCO, HAYDER B Primary Care Unavailable FRANCO, HAYDER B Referring Unavailable FRANCO, HAYDER B Primary Care Unavailable ALY, JARRED Admitting Unavailable ALY, JARRED Attending Unavailable ALY, JARRED Referring Unavailable FRANCO, HAYDER B Primary Care Unavailable KESHAV PIMENTEL Attending Unavailable FRANCO, HAYDER B Primary Care Unavailable ZAMORA JR., JONN Attending Unavailable ZAMORA JR., JONN Referring Unavailable FRANCO, HAYDER B Primary Care Unavailable MACARENA PAZ Attending Unavailable FRANCO, HAYDER B Primary Care Unavailable FRANCO, HAYDER B Referring Unavailable FRANCO, HAYDER B Primary Care Unavailable FRANCO, HAYDER B Referring Unavailable FRANCO, HAYDER B Primary Care Unavailable ALY, JARRED Referring Unavailable FRANCO, HAYDER B Primary Care Unavailable NIENBERGVIKY Attending Unavailable FRANCO, HAYDER B Referring Unavailable FRANCO, HAYDER B Primary Care Unavailable ALY, JARRED Admitting Unavailable ALY, JARRED Attending Unavailable ALY, JARRED Referring Unavailable FRANCO, HAYDER B Primary Care Unavailable KESHAV PIMENTEL Attending Unavailable FRANCO, HAYDER B Primary Care Unavailable SHAZIA SUH Attending Unavailable FRANCO, HAYDER B Referring Unavailable FRANCO, HAYDER B Primary Care Unavailable MARVIN BULL Attending Unavailable FRANCO, HAYDER B Referring Unavailable MARVIN BULL Attending Unavailable RFANCO, HAYDER B Referring Unavailable FRANCO, HAYDER B Attending Unavailable Salvador LOVE MD, Daniel B Primary Care Provider TRAVIS FRANCO Attending Unavailable ARUNA DAMICO Primary Care Unavailable DAMICO ARUNA ILANA [facility] Unavailable TRAVIS FRANCO Referring Unavailable ARUNA DAMICO [facility] Unavailable MARGUERITETRAVIS Quijano Attending Unavailable DAMICO ARUNA ILANA [facility] Unavailable TRAVIS FRANCO Referring Unavailable Allergies Allergy Classification Reported Allergen(s) Allergy Type Date of Onset Reaction(s) Facility (2 sources) Acetaminophen Drug Allergy 05-08-20 19 Nausea Only [facility] (10 sources) Acetaminophen / oxyCODONE; Translations: [OXYCODONE-ACETAM INOPHEN] Drug Allergy 06-30-20 15 Itching, Nausea And Vomiting [employer] Phone: (6 sources) Amoxicillin; Translations: [AMOXICILLIN] Drug Allergy 01-06-20 17 Other (See Comments), Other: See Comments [facility] (16 sources) Cephalexin; Translations: [CEPHALEXIN] Drug Allergy 06-10-20 15 Hives, Swelling, Rash, Other: See Comments [employer] Phone: (16 sources) Ciprofloxacin; Translations: [CIPROFLOXACIN] Drug Allergy 11-04-19 15 Hives, Swelling, Rash, Other: See Comments [employer] Phone: (16 sources) Clindamycin; Translations: [CLINDAMYCIN] Drug Allergy 12-08-19 17 Other (See Comments), Diarrhea [employer] Phone: (14 sources) Codeine; Translations: [CODEINE] Drug Allergy 12-09-19 11 Nausea And Vomiting, Intolerance [employer] Phone: (14 sources) cyclobenzaprine; Translations: [CYCLOBENZAPRINE] Drug Allergy 11-04-19 15 Hives, Nausea Only, Rash [employer] Phone: (16 sources) Meperidine; Translations: [MEPERIDINE] Drug Allergy 12-09-19 11 Nausea And Vomiting, Intolerance [employer] Phone: (10 sources) Penicillins; Translations: [PENICILLINS] Propensity to adverse reactions to drug 01-06-20 17 Other (See Comments) [employer] Phone: (3 sources) Thyrotropin-Relea sing Hormone Drug Allergy 09-14-20 15 [employer] [facility] Work Phone: (2 sources) Wheat gluten extract Drug Allergy 11-04-19 15 Nausea Only, Other (See Comments) [employer] Work Phone: (2 sources) Acetaminophen / oxyCODONE Drug Allergy Unknown [facility] Other (11 sources) Lisinopril; Translations: [lisinopril] Drug Allergy 04-11-20 18 Unknown [facility] Repository (3 sources) metFORMIN; Translations: [Glucophage] Drug Allergy Unknown [facility] (2 sources) Fexeril, Codeine Propensity to adverse reactions (Jacoby) 05/08/2013 Nausea/Vomitin g/Diarrhea Nausea/Vomitin g/Diarrhea [facility] Other (1 source) Acetaminophen / oxyCODONE Drug Allergy 10-13-19 16 [facility] (1 source) Amino Acids Drug Allergy 09-14-20 15 [facility] (1 source) Cephalexin Drug Allergy 10-13-19 16 [facility] (1 source) Ciprofloxacin Drug Allergy 10-13-19 16 [facility] (1 source) Codeine Drug Allergy 10-13-19 16 [facility] (2 sources) Meperidine; Translations: [Demerol] Drug Allergy 09-29-19 16 [facility] (1 source) Flu Vaccine tv 2011-08(60 yr+) Drug allergy (disorder) 10-13-19 16 [facility] (8 sources) metFORMIN; Translations: [METFORMIN] Drug Allergy 04-11-20 18 [employer] (4 sources) oxyCODONE; Translations: [OXYCODONE] Drug Allergy 03-10-20 17 Intolerance [facility] Work Phone: Medications Current Medications Medication Drug Class(es) Dates Sig (Normalized) Sig (Original) Albuterol (2 sources) beta2-Adrenergic Agonist take 1 puff(s) by inhalation three times daily as needed ALBUTEROL SULFATE HFA IN Indications: Bronchitis Inhale 1 puff into the lungs 3 times daily as needed. Indications: Bronchitis 0 Active allopurinol 300 mg oral tablet (10 sources) Xanthine Oxidase Inhibitor Start: 04-09-2018 take 1 tablet by mouth in the morning allopurinol (ZYLOPRIM) 300 mg tablet Take 1 tablet (300 mg total) by mouth in the morning. 0 04/09/2018 Active Allopurinol Acti ve amitriptyline hydrochloride 25 mg oral tablet (3 sources) Tricyclic Antidepressant Start: 12-08-2010 take 1 tablet by mouth once daily at bedtime amitriptyline 25 mg ORAL tablet Take 1 tablet by mouth daily at bedtime. 0 12/08/2010 Active Comment on above: Take 1 tablet by maddi th daily at bedtime. atorvastatin 20 mg oral tablet (8 sources) HMG-CoA Reductase Inhibitor Start: 06-21-2022 take 1 tablet by mouth in the morning atorvastatin (LIPITOR) 20 mg tablet Take 1 tablet (20 mg total) by mouth in the morning. 0 06/21/2022 Active Start: 10-06-2020 take 1 tablet by maddi th once daily atorvastatin (LIPITOR) 20 MG tablet Take 1 tablet by mouth daily 0 10/06/2020 Active bifidobacterium animalis [id number] unt / lactobacillus acidophilus [id number] unt oral capsule (2 sources) take 1 capsule by mouth once daily Probiotic Product (PROBIOTIC & ACIDOPHILUS EX ST) CAPS Take 1 capsule by mouth daily VSL #3 0 Active biotin 1 mg oral tablet (5 sources) Start: 12-08-2010 take 1 tablet by mouth once daily Biotin 1 mg ORAL Tab Take 1 tablet by mouth once daily. 0 12/08/2010 Active take 1 tablet by mouth once wyatt y Biotin 1000 MCG TABS Take 1 tablet by mouth daily. 0 Active Comment on above: Take 1 tablet by maddi th once daily. Calcium Carb-Cholecalciferol (CALCIUM + D3 PO) (2 sources) Start: 011 take 1 tablet by mouth twice daily Calcium Carb-Cholecalcifer ol (CALCIUM + D3 PO) Take 1 tablet by mouth 2 times daily 0 08/05/2011 Active calcium carbonate 1250 mg / cholecalciferol 200 unt oral tablet (3 sources) Vitamin D Start: 011 take 1 tablet by mouth three times daily at mealtime calcium-carbonate- vitamin D3 500 mg(1,250mg) -200 unit ORAL per tablet Take 1 tablet by mouth three times daily with meals. 90 tablet 1 08/05/2011 Active Comment on above: Take 1 tablet by maddi three times daily with meals. celecoxib 200 mg oral capsule (2 sources) Nonsteroidal Anti-inflammatory Drug Start: 021 take 1 capsule by mouth once daily celecoxib (CELEBREX) 200 MG capsule Take 1 capsule by mouth daily 0 09/20/2020 Active cholecalciferol 0.025 mg oral capsule (2 sources) Vitamin D Start: 015 take 1 capsule by mouth twice daily [facility] VITAMIN D3 1000 UNITS CAPS Take 1 capsule by mouth 2 times daily 0 10/17/2014 Active dicyclomine hydrochloride 20 mg oral tablet (5 sources) Anticholinergic Start: take 1 tablet by mouth twice daily dicyclomine (BENTYL) 20 MG tablet Take 1 tablet by mouth 2 times daily 0 09/20/2020 Active take 1 capsule by mouth at bedti me dicyclomine (BENTYL) 10 mg capsule Take 10 mg by mouth before meals and at bedtime. 0 Active Comment on above: Take 10 mg by mouth before meals and at bedtime. empagliflozin 10 mg oral tablet (6 sources) Sodium-Glucose Cotransporter 2 Inhibitor Start: 08-08-20 23 take 1 tablet by mouth in the morning empagliflozin (JARDIANCE) 10 mg tablet tablet Take 1 tablet (10 mg total) by mouth in the morning. 0 08/08/2023 Active estrogens, conjugated (chcf) 0.625 mg/ml vaginal cream (7 sources) Estrogen Start: 03-14-20 17 PREMARIN vaginal cream USE 0.5GR VAGINALLY EVERY MON, WED AND FRI, APPLY WITH FINGERTIP, STOP FOR 3 TO 5 DAYS PRIOR TO SURG 30 g 0 03/14/2017 Active conjugated estro gens (PREMARIN) 0.625 MG/GM vaginal cream Place vaginally three times a week 0 Active Premarin 0.625 M G/GM USE 0.5GR VAGINALLY EVERY MON, WED AND FRI, APPLY WITH FINGERTIP, STOP FOR 3 TO 5 DAYS PRIOR TO SURG Vaginal for 5 Active Comment on above: USE 0.5GR VAGINALLY EVERY MON, WED AND FRI, APPLY WITH FINGERTIP, STOP FOR 3 TO 5 DAYS PRIOR TO SURG famotidine 40 mg oral tablet (10 sources) Histamine-2 Receptor Antagonist Start: 08-02-2022 take 1 tablet by mouth once daily in the morning famotidine (PEPCID) 40 mg tablet TAKE 1 TABLET BY MOUTH EVERY MORNING AND 1 TABLET AT BEDTIME 0 08/02/2022 Active Start: 11-26-2021 End: 11-26-2021 famotidine (PEPCID) injectio n 20 mg Comment on above: Take 40 mg by mouth once daily. ferrous sulfate 325 mg oral tablet (2 sources) take 1 tablet by mouth once daily at breakfast ferrous sulfate (IRON 325) 325 (65 Fe) MG tablet Take 325 mg by mouth daily (with breakfast) 0 Active fluorouracil 50 mg/ml topical cream (2 sources) Nucleoside Metabolic Inhibitor Start: 12-08-19 17 fluorouracil (EFUDEX) 5 % cream Apply topically 2 times daily x 4 weeks. 1 Tube 0 12/07/2016 Active furosemide 20 mg oral tablet (2 sources) Loop Diuretic furosemide (LASI X) 20 MG tablet Take 20 mg by mouth as needed 0 Active gabapentin 300 mg oral capsule (9 sources) Anti-epileptic Agent Start: 09-13-20 17 take 1 capsule by mouth three times daily gabapentin (NEURONTIN) 300 mg capsule Indications: Bladder pain Take 1 capsule by mouth three times daily. 270 capsule 3 09/13/2017 Active take 2 capsules by m outh in the morning, then take 2 capsules by mouth at bedtime gabapentin (NEURONTIN) 300 mg capsule Take 2 capsules (600 mg total) by mouth in the morning and 2 capsules (600 mg total) before bedtime. 0 Active Comment on above: Take 1 capsule by mo uth three times daily. hydroCHLOROthiazide 25 mg oral tablet (8 sources) Thiazide Diuretic Start: 022 take 1 tablet by mouth once daily hydroCHLOROthiazide (HYDRODIURIL) 25 mg tablet Take 1 tablet (25 mg total) by mouth daily. 0 06/29/2022 Active Start: 10-20-2020 take 1 tablet by maddi th once daily hydroCHLOROthiazide (HYDRODIURIL) 25 MG tablet Take 1 tablet by mouth daily 0 10/20/2020 Active ibuprofen 600 mg oral tablet (4 sources) Nonsteroidal Anti-inflammatory Drug Start: 10-27-2020 take 1 tablet by mouth three times daily ibuprofen (ADVIL;MOTRIN) 600 MG tablet Take 1 tablet by mouth three times daily 120 tablet 1 10/27/2020 Active ibuprofen (ADVIL ;MOTRIN) 200 MG tablet Take 600-800 mg by mouth every 8 hours as needed for Pain 0 Active levothyroxine sodium 0.088 mg oral tablet (13 sources) l-Thyroxine Start: 08-22-2020 take 1 tablet by mouth once daily levothyroxine (SYNTHROID) 88 MCG tablet Take 1 tablet by mouth daily 0 08/22/2020 Active Start: 05-08-2013 Synthroid 112 MCG ORAL daily for -3 Apr, Active Start: 08-05-2011 take 1 tablet by maddi th once daily levothyroxine 137 mcg ORAL tablet Take 1 tablet by mouth once daily. 30 tablet 11 08/05/2011 Active Comment on above: Take 1 tablet by maddi th once daily. linaclotide 0.072 mg oral capsule (6 sources) Guanylate Cyclase-C Agonist take 1 capsule by mouth once daily as needed linaCLOtide (LINZESS) 72 mcg capsule Take 1 capsule (72 mcg total) by mouth daily as needed. 0 Active loperamide hydrochloride 2 mg oral tablet (2 sources) Opioid Agonist Start: 7 take 2 tablets by mouth every twenty-four hours Imodium A-D 2 MG 2 tablet Orally daily for 1 month Feb, Active losartan potassium 100 mg oral tablet (10 sources) Angiotensin 2 Receptor Ochoa Start: 2 take 1 tablet by mouth in the morning losartan (COZAAR) 100 mg tablet Take 1 tablet (100 mg total) by mouth in the morning. 0 06/29/2022 Active Start: 08-16-2014 take 1 tablet by maddi th once daily losartan (COZAAR) 100 MG tablet Take 100 mg by mouth daily. 0 08/16/2014 Active meloxicam 15 mg oral tablet (7 sources) Nonsteroidal Anti-inflammatory Drug Start: 2022 take 1 tablet by mouth once daily meloxicam (MOBIC) 15 mg tablet TAKE 1 TABLET BY MOUTH EVERY DAY FOR 90 DAYS 0 2022 Active Start: 07-29-2021 meloxicam (MOB IC) 15 MG tablet 24 hr metoprolol succinate 100 mg extended release oral tablet (13 sources) beta-Adrenergic Ochoa Start: 05-08-2013 Metopr olol Tartrate 100MG ORAL twice daily for -3 Apr, Active Start: 12-08-2010 take 1 tablet by maddi th once daily metoprolol succinate XL (TOPROL XL) 100 mg ORAL Tb24 Take 1 tablet by mouth once daily. 0 12/08/2010 Active take 1 tablet by maddi th every twenty-four hours in the morning metoprolol succinate XL (TOPROL-XL) 100 mg 24 hr tablet Take 1 tablet (100 mg total) by mouth in the morning. 0 Active Comment on above: Take 1 tablet by maddi th once daily. Multiple Vitamins-Minerals (THERAPEUTIC MULTIVITAMIN-MINERAL S) tablet (2 sources) take 1 tablet by mouth once daily Multiple Vitamins-Minerals (THERAPEUTIC MULTIVITAMIN-MINERALS) tablet Take 1 tablet by mouth daily 0 Active 24 hr naproxen 500 mg extended release oral tablet (3 sources) Nonsteroidal Anti-inflammatory Drug take 1 tablet by mouth once daily at breakfast Naproxen Sodium 500 mg 24 hr tablet Take 500 mg by mouth daily with breakfast. 0 Active Comment on above: Take 500 mg by mouth daily with breakfast. nitrofurantoin, macrocrystals 25 mg / nitrofurantoin, monohydrate 75 mg oral capsule (2 sources) Nitrofuran Antibacterial Start: 022 End: 022 nitrofurantoin (macrocrystal-monohydr ate) (MACROBID) capsule 100 mg olmesartan medoxomil 20 mg oral tablet (3 sources) Angiotensin 2 Receptor Ochoa Start: 011 take 1 tablet by mouth once daily olmesartan (BENICAR) 20 mg ORAL tablet Take 1 tablet by mouth once daily. 0 06/22/2011 Active Comment on above: Take 1 tablet by maddi th once daily. omeprazole 20 mg delayed release oral capsule (11 sources) Proton Pump Inhibitor Start: 022 take 1 capsule by mouth twice daily omeprazole (PRILOSEC) 20 MG delayed release capsule Indications: NSAID long-term use , Gastroesophageal reflux disease, unspecified whether esophagitis present TAKE 1 CAPSULE BY MOUTH TWICE A DAY 120 capsule 1 09/29/2021 Active Start: 12-08-2010 take 1 capsule by mo [facility] once daily omeprazole (PRILOSEC) 20 mg ORAL capsule Take 1 capsule by mouth once daily. 0 12/08/2010 Active take 1 capsule by mo [facility] at bedtime omeprazole (PriLOSEC) 40 mg capsule Take 1 capsule (40 mg total) by mouth in the morning and at bedtime. 0 Active Comment on above: Take 1 capsule by mo [facility] once daily. ondansetron 8 mg oral tablet (9 sources) Serotonin-3 Receptor Antagonist Start: 01-12-2023 ondansetron (ZOFRAN) 8 mg tablet Start: 11-26-2021 End: 11-26-2021 ondansetron (ZOFRAN) injecti on 4 mg Start: 07-27-2021 End: 07-27-2021 ondansetron (ZOFRAN) injecti on 4 mg pravastatin sodium 20 mg oral tablet (7 sources) HMG-CoA Reductase Inhibitor Start: 12-08-2010 take 1 tablet by mouth once daily at bedtime pravastatin (PRAVACHOL) 20 mg ORAL tablet Take 1 tablet by mouth daily at bedtime. 0 12/08/2010 Active Comment on above: Take 1 tablet by maddi th daily at bedtime. prednisoLONE acetate 10 mg/ml ophthalmic suspension (3 sources) Corticosteroid Start: 10-23-2023 take 1 drop(s) into the eye(s) in the morning prednisoLONE acetate (PRED FORTE) 1 % ophthalmic suspension Administer 1 drop into the left eye in the morning and 1 drop before bedtime. 0 10/23/2023 Active Probiotic - (2 sources) Probiotic - Oral ly Active Semaglutide (OZEMPIC, 0.25 OR 0.5 MG/DOSE, SC) (1 source) Semaglutide (OZEMPIC, 0.25 OR 0.5 MG/DOSE, SC) Inject into the skin 0 Active 5 ml sodium chloride 9 mg/ml injection (2 sources) Start: 11-26-2021 sodium chloride flush 0.9 % injection 10 mL Start: 11-26-2021 End: 11-26-2021 0.9 % sodium chloride bolus Specialty Vitamins Products ([facility] HAIR/SKIN/NAILS PO) (1 source) Specialty Vitami ns Products ([facility] HAIR/SKIN/NAILS PO) Take by mouth 0 Active sulfamethoxazole 800 mg / trimethoprim 160 mg oral tablet (1 source) Dihydrofolate Reductase Inhibitor Antibacterial, Sulfonamide Antimicrobial Start: End: take 1 tablet by mouth twice daily sulfamethoxazole-trim ethoprim (BACTRIM DS) 800-160 MG per tablet Take 1 tablet by mouth 2 times daily for 5 days 10 tablet 0 07/28/2021 08/02/2021 Active SUMAtriptan 50 mg oral tablet (3 sources) Serotonin-1b and Serotonin-1d Receptor Agonist Start: 011 sumatriptan 50 mg ORAL tablet Take 1 tablet by mouth as needed. 0 12/08/2010 Active Comment on above: Take 1 tablet by maddi th as needed. traMADol hydrochloride 50 mg oral tablet (3 sources) Opioid Agonist Start: 024 take 1 tablet by mouth in the morning traMADoL (ULTRAM) 50 mg tablet Indications: Lumbosacral spondylosis without myelopathy Take 1 tablet (50 mg total) by mouth in the morning. 30 tablet 0 11/30/2023 Active vitamin b12 2.5 mg sublingual tablet (9 sources) Vitamin B12 Start: 011 Cyanocobalamin 2,500 mcg SUBLINGUAL Subl Dissolve under the tongue once daily. 0 12/08/2010 Active take 1 tablet by mouth [facility] cyanocobalamin (vitamin B-12) 500 MCG tablet Take 1 tablet (500 mcg total) by mouth in the morning. 0 Active Comment on above: Dissolve under the t ongue once daily. vitamin b6 100 mg oral tablet (3 sources) Start: 12-08-2010 take 1 tablet by mouth once daily pyridoxine (VITAMIN B-6) 100 mg ORAL tablet Take 1 tablet by mouth once daily. 0 12/08/2010 Active Comment on above: Take 1 tablet by maddi th once daily. Vitamin D3 1000 UNIT (2 sources) take 1 capsule by mouth once daily Vitamin D3 1000 UNIT 1 capsule Orally Once a day Active Completed/Discontinued Medications Medication Drug Class(es) Dates Sig (Normalized) Sig (Original) acetaminophen 500 mg oral tablet (4 sources) Start: 11-26-2021 End: 11-26-2021 acetaminophen (TYLENOL) tablet 1,000 mg Start: 07-27-2021 End: 07-27-2021 acetaminophen (TYLENOL) tabl et 650 mg take 2 tablets by mo ut every six hours as needed for pain acetaminophen (TYLENOL EXTRA STRENGTH) 500 mg tablet Take 2 tablets (1,000 mg total) by mouth every 6 (six) hours as needed for pain. 0 Active baclofen 10 mg oral tablet (5 sources) gamma-Aminobutyric Acid-ergic Agonist Start: 12-22-2022 End: 12-04-2023 take 1 tablet by mouth in the morning, then take 1 tablet by mouth at bedtime baclofen (LIORESAL) 10 mg tablet Take 1 tablet (10 mg total) by mouth in the morning and 1 tablet (10 mg total) before bedtime. 60 tablet 3 12/22/2022 12/04/2023 Discontinued (Therapy completed) diazePAM 5 mg oral tablet (1 source) Benzodiazepine Start: 09-05-2023 End: 09-28-2023 take 1 tablet by mouth in the morning diazePAM (VALIUM) 5 mg tablet Indications: Test anxiety Take 1 tablet (5 mg total) by mouth in the morning. Before mri. 1 tablet 0 09/05/2023 09/28/2023 Discontinued (Therapy completed) 2 ml fentaNYL 0.05 mg/ml injection (3 sources) Opioid Agonist Start: 11-26-2021 End: 11-26-2021 fentaNYL (SUBLIMAZE) injection 50 mcg Start: 07-27-2021 End: 07-27-2021 fentaNYL (SUBLIMAZE) injecti on 50 mcg iopamidol (ISOVUE-370) 76 % injection 75 mL (2 sources) Start: 11-26-2021 End: 11-26-2021 iopamidol (ISOVUE-370) 76 % injection 75 mL Start: 07-28-2021 End: 07-28-2021 iopamidol (ISOVUE-370) 76 % injection 75 mL 1 ml ketorolac tromethamine 30 mg/ml cartridge (1 source) Nonsteroidal Anti-inflammatory Drug, Cyclooxygenase Inhibitor Start: 11-26-2021 End: 11-26-2021 ketorolac (TORADOL) injection 30 mg microencapsulated potassium chloride 20 meq extended release oral tablet (1 source) Start: 07-28-2021 End: 07-28-2021 potassium chloride (KLOR-CON M) extended release tablet 40 mEq Zinc (2 sources) End: 10-25-2023 take 1 tablet by mouth in the morning zinc 50 mg tablet tablet Take 1 tablet (50 mg total) by mouth in the morning. 0 10/25/2023 Discontinued (Therapy completed) take 1 tablet by mouth in the mo rning zinc 50 mg tablet tablet Take 1 tablet (50 mg total) by mouth in the morning. 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; Translations: [Combined forms of age-related cataract, left eye] Onset: 4 11-05-2023 Chronic Diabetes mellitus without complication (7 sources) Type 2 diabetes mellitus; Translations: [Type 2 diabetes mellitus without complications] Onset: 1 01-25-2021 Chronic 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; 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 Disorders of lipid metabolism (6 sources) Hyperlipidemia; Translations: [Hyperlipidemia, unspecified] Onset: 1 12-06-2016 Chronic Diverticulosis and diverticulitis (2 sources) Diverticular disease; Translations: [Diverticulosis of intestine, part unspecified, without perforation or abscess without bleeding] Chronic Esophageal disorders (6 sources) Gastroesophageal reflux disease; Translations: [Gastro-esophageal reflux disease without esophagitis] Onset: 1 12-06-2016 Chronic Essential hypertension (9 sources) Hypertensive disorder; Translations: [Essential (primary) hypertension] Onset: 1 12-06-2016 Chronic Fluid and electrolyte disorders (1 source) Hypokalemia; Translations: [Hypokalemia] Episodic Genitourinary symptoms and ill-defined conditions (5 sources) Incontinence; Translations: [Mixed incontinence] Onset: 6 12-06-2016 Chronic Heart valve disorders (2 sources) Mitral valve prolapse; Translations: [Nonrheumatic mitral (valve) prolapse] 05-04-2016 Chronic Heart valve disorders (2 sources) Heart murmur; Translations: [Cardiac murmur, unspecified] 05-04-2016 Episodic Menopausal disorders (5 sources) Atrophy of vagina; Translations: [Postmenopausal atrophic vaginitis] Onset: 6 12-06-2016 Chronic Neoplasms of unspecified nature or uncertain behavior (6 sources) Neoplastic disease; Translations: [Neoplasm of unspecified behavior of bone, soft tissue, and skin] Onset: 5 12-02-2014 Episodic Osteoarthritis (1 source) Unilateral primary osteoarthritis, left hip; Translations: [UNI PRIM OSTEOARTHRITIS LT HIP] Onset: 2 Chronic Other aftercare (1 source) Other shelter (current) drug therapy; Translations: [OTH [employer]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 DRUG THERAPY] Onset: 2 Episodic Other aftercare (1 source) manager terminal (current) use of opiate analgesic; Translations: [MCFP (current) use of opiate analgesic] Onset: 4 Episodic Other aftercare (1 source) Admission statuses; Translations: [MCFP (current) use of opiate analgesic] 11-30-2023 Episodic Other female genital disorders (5 sources) Dyspareunia due to non-psychogenic cause in the female; Translations: [Unspecified dyspareunia] Onset: 6 12-06-2016 Chronic Other gastrointestinal disorders (2 sources) Irritable bowel syndrome with diarrhea; Translations: [Irritable bowel syndrome with diarrhea] Chronic Other injuries and conditions due to external causes (1 source) History of falling; Translations: [HISTORY OF FALLING] Onset: 2 Episodic Other nervous system disorders (6 sources) Mononeuropathy of lower limb; Translations: [Other specified mononeuropathies of left lower limb] Onset: 3 06-20-2023 Chronic Other nervous system disorders (1 source) Idiopathic peripheral neuropathy; Translations: [Hereditary and idiopathic neuropathy, unspecified] 10-19-2023 Chronic Other nervous system disorders (1 source) Paresthesia; Translations: [Paresthesia of skin] 01-17-2024 Episodic Other non-epithelial cancer of skin (2 sources) History of malignant neoplasm of skin; Translations: [Personal history of other malignant neoplasm of skin] 05-04-2016 Episodic Other non-traumatic joint disorders (4 sources) Pain in left hip; Translations: [PAIN IN LEFT HIP] Onset: 2 Episodic Other nutritional; endocrine; and metabolic disorders (4 sources) Body mass index 30+ - obesity; Translations: [Body mass index (BMI) 36.0-36.9, adult] Chronic Other nutritional; endocrine; and metabolic disorders (2 sources) Obese class II; Translations: [Body mass index (BMI) 37.0-37.9, adult] Chronic Other screening for suspected conditions (not mental disorders or infectious disease) (8 sources) Other specified abnormal findings of blood chemistry; Translations: [Serum creatinine raised] Onset: 2 Episodic Prolapse of female genital organs (5 sources) Vaginal vault prolapse; Translations: [Female genital prolapse, unspecified] Onset: 6 12-06-2016 Chronic Residual codes; unclassified (2 sources) Denture present; Translations: [Presence of dental prosthetic device (complete) (partial)] 05-04-2016 Episodic Screening and history of mental health and substance abuse codes (3 sources) Ex-very heavy cigarette smoker (40+/day); Translations: [Personal history of nicotine dependence] Onset: 2 05-04-2016 Episodic Spondylosis; intervertebral disc disorders; other back problems (11 sources) Lumbosacral spondylosis without myelopathy; Translations: [Spondylosis without myelopathy or radiculopathy, lumbosacral region] Onset: 3 03-09-2023 Chronic Spondylosis; intervertebral disc disorders; other back problems (20 sources) Thoracic back pain; Translations: [Pain in thoracic spine] Onset: 2 09-28-2023 Episodic Thyroid disorders (6 sources) Goiter; Translations: [Nontoxic goiter, unspecified] Onset: 1 12-06-2016 Chronic Unclassified (1 source) Kidney Function Onset: 4 Urinary tract infections (2 sources) Bacterial urinary infection; Translations: [Urinary tract infection, site not specified] Episodic Past or Other Problems Problem Classification Problem Date Documented Da te Episodic/Chronic Abdominal pain (6 sources) Flank pain; Translations: [Unspecified abdominal pain] Onset: 10-21-2021 Episodic Administrative/social admission (4 sources) Patient encounter status; Translations: [Dietary counseling and surveillance] Episodic Bacterial infection; unspecified site (2 sources) Clostridioides difficile infection; Translations: [Other specified bacterial agents as the cause of diseases classified elsewhere] Episodic Diseases of mouth; excluding dental (2 sources) Lesion of tongue; Translations: [Other diseases of tongue] Onset: 09-18-2013 05-04-2016 Episodic Disorders of teeth and jaw (4 sources) Dental abscess; Translations: [Periapical abscess without sinus] Onset: 05-07-2019 05-07-2019 Episodic Gastritis and duodenitis (2 sources) Gastritis; Translations: [Other gastritis without bleeding] Episodic Genitourinary symptoms and ill-defined conditions (18 sources) Dysfunctional voiding of urine; Translations: [Other specified disorders of urinary system] Onset: 03-11-2016 12-06-2016 Episodic Hemorrhoids (2 sources) Hemorrhoids; Translations: [Unspecified hemorrhoids] Episodic Other and unspecified benign neoplasm (2 sources) Neoplasm of soft tissue; Translations: [Other benign neoplasm of skin, unspecified] Onset: 01-26-2017 01-26-2017 Episodic Other and unspecified benign neoplasm (2 sources) Benign neoplasm of soft tissue; Translations: [Melanocytic nevi, unspecified] Onset: 02-06-2017 02-06-2017 Episodic Other connective tissue disease (2 sources) Trigger thumb of right hand; Translations: [Trigger thumb, right thumb] Onset: 10-27-2020 10-27-2020 Episodic Other female genital disorders (2 sources) Vaginal discomfort; Translations: [Unspecified condition associated with female genital organs and menstrual cycle] Onset: 03-11-2016 12-06-2016 Episodic Other female genital disorders (5 sources) Stricture of vagina; Translations: [Stricture and atresia of vagina] Onset: 03-11-2016 12-06-2016 Episodic Other female genital disorders (2 sources) Disorder of female genital organs; Translations: [Unspecified condition associated with female genital organs and menstrual cycle] Episodic Other female genital disorders (3 sources) Burning sensation of vagina; Translations: [Unspecified condition associated with female genital organs and menstrual cycle] Onset: 03-11-2016 03-11-2016 Episodic Other gastrointestinal disorders (2 sources) Diarrhea; Translations: [Diarrhea, unspecified] Episodic Other gastrointestinal disorders (2 sources) Constipation alternates with diarrhea; Translations: [Other specified symptoms and signs involving the digestive system and abdomen] Episodic Other infections; including parasitic (5 sources) History of Clostridium difficile intestinal infection; Translations: [Personal history of other infectious and parasitic diseases] Onset: 03-10-2017 11-23-2020 Episodic Other non-traumatic joint disorders (6 sources) Pain in right hip joint; Translations: [Pain in right hip] Onset: 11-10-2022 12-15-2022 Episodic Other skin disorders (2 sources) Epidermoid cyst; Translations: [Epidermal cyst] Onset: 07-23-2015 07-23-2015 Episodic Residual codes; unclassified (5 sources) H/O: urinary disease; Translations: [Personal history of other specified conditions] Onset: 03-10-2017 11-23-2020 Episodic Results Test Name Value Interpretation Reference Range Facility CNOVon 01-17-2024 CNOV Office Visit (NEURAV ) -------- VIDA LIMA ([id number]) 1945 F Date Time Provider Department 01/17/24 12:00 PM TRAVIS FRANCO NEURAV During your visit today, we recorded the following information about you: Pulse Blood pressure 76/minute 140/66 Travis Franco MD 01/17/2024 11:28 AM Signed NEUROLOGY PROGRESS NOTE Vida Lima is a 78 year old female. Who has a history of paresthesias comes in for follow up. Interval History Vida Lima is a 78 year old female, with a history of chronic low back pain, weakness left lower extremity, diabetes, hypothyroidism, hypertension who presents with left lower extremity weakness? Daughter is here as well today patient states that about over a year ago she had fallen and landed on the left side of her hip and left lower extremity thigh area. Since then she has had chronic low back pain going to pain management. She has had weakness of the proximal left lower extremity has difficulty climbing up stairs. She also states that she does have a history of left shoulder pain but could not really tell if she also had weakness of the left upper extremity at that time. Symptoms persisting she has had physical therapy did not really help. EMG shows severe neuropathy. Did talk about doing upper extremity EMG but she wants to hold off on this for now. She does state that her diabetes has not been controlled. It is probably from neuropathy from the diabetes. She does have also low back pain so here pain actually is more of the left lower extremity not really consistent with neuropathy of the lower extremities when you would expect both feet involved. She has been seeing pain management already has been on the higher dose of gabapentin but to no avail. Will have her see spine medicine for another opinion as per her request. 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 Current Outpatient Medications on File Prior to Visit Medication Sig gabapentin (NEURONTIN) 300 mg capsule Take 1 capsule by mouth three times daily. PREMARIN vaginal cream USE 0.5GR VAGINALLY EVERY MON, WED AND FRI, APPLY WITH FINGERTIP, STOP FOR 3 TO 5 DAYS PRIOR TO SURG dicyclomine (BENTYL) 10 mg capsule Take 10 mg by mouth before meals and at bedtime. famotidine (PEPCID) 40 mg tablet Take 40 mg by mouth once daily. Naproxen Sodium 500 mg 24 hr tablet Take 500 mg by mouth daily with breakfast. levothyroxine 137 mcg ORAL tablet Take 1 tablet by mouth once daily. qxwplxt-tscsxchfw-wswzgw n D3 500 mg(1,250mg) -200 unit ORAL per tablet Take 1 tablet by mouth three times daily with meals. olmesartan (BENICAR) 20 mg ORAL tablet Take 1 tablet by mouth once daily. metoprolol succinate XL (TOPROL XL) 100 mg ORAL Tb24 Take 1 tablet by mouth once daily. pravastatin (PRAVACHOL) 20 mg ORAL tablet Take 1 tablet by mouth daily at bedtime. amitriptyline 25 mg ORAL tablet Take 1 tablet by mouth daily at bedtime. sumatriptan 50 mg ORAL tablet Take 1 tablet by mouth as needed. omeprazole (PRILOSEC) 20 mg ORAL capsule Take 1 capsule by mouth once daily. Cyanocobalamin 2,500 mcg SUBLINGUAL Subl Dissolve under the tongue once daily. pyridoxine (VITAMIN B-6) 100 mg ORAL tablet Take 1 tablet by mouth once daily. Biotin 1 mg ORAL Tab Take 1 tablet by mouth once daily. No current facility-administered medications on file prior to visit. Social History Tobacco Use Smoking status: Former Packs/day: 2.00 Years: 18.00 Additional pack years: 0.00 Total pack years: 36.00 Types: Cigarettes Quit date: 09/18/1988 Years since quittin.3 Smokeless tobacco: Former Substance Use Topics Alcohol use: No family history is not on file. GENERAL:No weight loss, malaise or fevers., SEE HPI HEENT:Negative for frequent or significant headaches, No changes in hearing or vision, no nose bleeds or other nasal problems NECK:Negative for lumps, goiter, pain and significant neck swelling RESPIRATORY: Negative for cough, wheezing or shortness of breath. CARDIOVASCULAR: Negative for chest pain, leg swelling or palpitations. GASTROINTESTINAL: Negative for abdominal discomfort, blood in stools or black stools or change in bowel habits See HPI. All systems reviewed and are negative 01/17/24 1112 BP: 140/66 Pulse: 76 PHYSICAL EXAMINATION: General appearance: well appearing, alert, in no acute distress Neck: Supple Neurological exam: MENTAL STATUS: Alert, oriented to person, place and time and Follows commands CRANIAL NERVES: PERRLA, EOM's intact, Face symmetric, No dys (more content not included)... Normal [facility] Benzodiazepines Screen Ql (U )on 11-30-2023 Benzodiazepines Ql (U) Negative Negative^Neg ative [facility] Comment on above: Benzodiazepines scre ening cut off value = 200 ng/mL This report is intended for use in clinical monitoring or management of patients. [facility] Benzodiazepines Ql (U) Negative Normal NEG [facility] Comment on above: Result Comment: Collin odiazepines screening cut off value = 200 ng/mL This report is intended for use in clinical monitoring or management of patients. Performed By: #### 1 [id number] #### [facility] ([id number]) [address] [place] [address], [place] [address] CCL GENERIC ORDERon 11-30-19 TEST NAME UQNTPP QUANTITATIVE PAIN PANEL,URINE Normal [facility] Comment on above: Result Comment: Mendez ected on 11/29 AT 2241: Previously reported as UQNTPP Performed By: #### C GO #### [facility] ([id number]) [address] [facility], [place] [address] TEST RESULT See Below Normal [facility] Comment on above: Result Comment: NOTE TEST RESULT FLAG UNIT REF.RANGE ---- Morphine Quant, Urine <10 ng/mL <10 Morphine is a metabolite of codeine and heroin. Oxymorphone Quant, Urine <5 ng/mL <5 Oxymorphone is a metabolite of oxycodone. Hydromorphone Quant, Urine <5 ng/mL <5 Hydromorphone is a metabolite of hydrocodone. Dihydrocodeine Quant, Urine <5 ng/mL <5 Codeine Quant, Urine <11 ng/mL <11 Amphetamine, Urine <5 ng/mL <5 Desmethyltramadol,Ur <20 ng/mL <20 Desmethyltramadol is a metabolite of tramadol. Benzoylecognine,Ur Qnt <24 ng/mL <24 Benzoylecgonine is a metabolite of cocaine. Oxycodone Quant, Urine <10 ng/mL <10 Methamphetamine, Urine <8 ng/mL <8 6-Acetylmorphine Quant, Urine <5 ng/mL <5 6-VICKI (6-monoacetylmorphine, also known as 6-acetylmorphine) is a unique metabolite of heroin. Presence of 6-VICKI indicates use of heroin. 6-VICKI is further metabolized to morphine and absence of 6-VICKI does not rule out the use of heroin. Hydrocodone Quant, Urine <8 ng/mL <8 Hydrocodone is a metabolite of dihydrocodeine. Norfentanyl, Urine <6 ng/mL <6 Norfentanyl is a metabolite of fentanyl. Tramadol, Urine <25 ng/mL <25 Norbuprenorphine, Ur <20 ng/mL <20 Norbuprenorphine is the primary active metabolite of buprenorphine. Cannabinoid, Urine <16 ng/mL <16 Tetrahydrocannabinol carboxylic acid (THCA) is a metabolite of jziep-2-mneowhhpfxknyrjemaho which is the main active component of marijuana. Fentanyl, Urine <6 ng/mL <6 Buprenorphine, Ur <20 ng/mL <20 Methadone Urine <16 ng/mL <16 Methadone metabolite Urine <6 ng/mL <6 EDDP is a metabolite of methadone. Note See Below This test is for medical use only. This test was developed and its performance characteristics determined by [facility] [place] ([facility]). It has not been cleared or approved by the FDA. [facility] is regulated under CLIA as qualified to perform high-complexity testing. This test is used for clinical purposes. It should not be regarded as investigational or for research. QUANTITATIVE PAIN PANEL,URINE Specimen Validity Quality See below Specimen quality results within acceptable limits Specimen Validity Creatinine 87.7 mg/dL 20.0-300.0 Specimen Validity PH 5.1 4.5-8.0 Specimen Validity Specific [place] 1.011 1.003-1.035 Specimen Validity Oxidants <38 mg/L <200 Specimen Validity Nitrites <50 mg/L <500 Specimen Validity Chromate <10 mg/L <50 QUANTITATIVE PAIN PANEL,URINE Test Performed By: [facility] [address] [place] [address] Medical Review Coordinator: Robb Hodges III, M.D. [facility] #[id number] Performed By: #### C GO #### [facility] ([id number]) [address] [place] [address], [place] [address] Glucose Glucometer (BldC) [M ass/Vol]on 11-17-2023 Glucose [Mass/Vol] 134 mg/dL High 65-99 [facility] CNPNena 11-01-2023 CNPN Telephone (NEURAV) -------- VIDA LIMA ([id number]) 1945 F Date Time Provider Department 11/01/23 TRAVIS FRANCO During your visit today, we recorded the following information about you: Allergies As of Date: 11/01/2023 Noted Allergy Reaction AMOXICILLIN 03/10/2017 14 - Other: See Comments Comments: History of c-dif; told to avoid this medication CEPHALEXIN 03/10/2017 14 - Other: See Comments Comments: Keflex may have caused diffuse rash / hives on hands, swelling of lower lip. However, this was started, abruptly stopped, and switched to Cipro, after which the hives on the hands became worse. CIPROFLOXACIN 03/10/2017 14 - Other: See Comments Comments: Cipro caused diffuse rash / hives on hands, swelling of lower lip. Cipro was prescribed after Keflex was started and abruptly discontinued to be switched to Cipro. However, after starting Cipro, hives worsened on hands. CLINDAMYCIN 03/10/2017 6 - Diarrhea Comments: History of c-dif after taking Clindamycin; told to avoid this medication CYCLOBENZAPRINE 03/10/2017 4 - Hives Comments: Hives and nausea DEMEROL (MEPERIDINE) 12/08/2010 5 - Intolerance Comments: N/V OXYCODONE 03/10/2017 5 - Intolerance Comments: Itching, N/V TYLENOL #3 (CODEINE) 12/08/2010 5 - Intolerance Comments: N/V Date Reviewed: 10/11/2023 Reviewed by: Albert De Luna LPN - Fully Assessed Reason for Visit: Results [95] Cmt: Discussed MRI brain and Emg. States that her diabetes is not well controlled. Does not really have pain from neuropathy she states. Prescriptions as of 11/01/2023 - gabapentin (NEURONTIN) 300 mg capsule Take 1 capsule by mouth three times daily. - PREMARIN vaginal cream USE 0.5GR VAGINALLY EVERY MON, WED AND FRI, APPLY WITH FINGERTIP, STOP FOR 3 TO 5 DAYS PRIOR TO SURG - dicyclomine (BENTYL) 10 mg capsule Take 10 mg by mouth before meals and at bedtime. - famotidine (PEPCID) 40 mg tablet Take 40 mg by mouth once daily. - Naproxen Sodium 500 mg 24 hr tablet Take 500 mg by mouth daily with breakfast. - levothyroxine 137 mcg ORAL tablet Take 1 tablet by mouth once daily. - ibtjmln-cflziidbh-qunesq n D3 500 mg(1,250mg) -200 unit ORAL per tablet Take 1 tablet by mouth three times daily with meals. - olmesartan (BENICAR) 20 mg ORAL tablet Take 1 tablet by mouth once daily. - metoprolol succinate XL (TOPROL XL) 100 mg ORAL Tb24 Take 1 tablet by mouth once daily. - pravastatin (PRAVACHOL) 20 mg ORAL tablet Take 1 tablet by mouth daily at bedtime. - amitriptyline 25 mg ORAL tablet Take 1 tablet by mouth daily at bedtime. - sumatriptan 50 mg ORAL tablet Take 1 tablet by mouth as needed. - omeprazole (PRILOSEC) 20 mg ORAL capsule Take 1 capsule by mouth once daily. - Cyanocobalamin 2,500 mcg SUBLINGUAL Subl Dissolve under the tongue once daily. - pyridoxine (VITAMIN B-6) 100 mg ORAL tablet Take 1 tablet by mouth once daily. - Biotin 1 mg ORAL Tab Take 1 tablet by mouth once daily. Problem List As Of Date 11/01/2023 Noted Resolved Goiter [E04.9] 12/08/2010 HTN (hypertension) [I10] 07/11/2011 GERD (gastroesophageal reflux disease) [K21.9] 07/11/2011 Hyperlipidemia [E78.5] 07/11/2011 Vaginal burning [N94.9] 03/11/2016 Mixed incontinence [N39.46] 03/11/2016 Vaginal vault prolapse [N81.9] 03/11/2016 Vaginal atrophy [N95.2] 03/11/2016 Dyspareunia due to medical condition in female *03/11/2016 Vaginal stricture [N89.5] 03/11/2016 Voiding dysfunction [N39.8] 03/11/2016 History of Clostridium difficile colitis [Z86.1*03/10/2017 H/O urinary retention [Z87.898] 03/10/2017 Urinary urgency [R39.15] 07/18/2017 Encounter Status:Closed by TRAVIS FRANCO on 11/01/23 Normal [facility] BASIC METABOLIC PANLon 10-25 Anion gap [Moles/Vol] 11 mmol/L Normal 5-15 [facility] Comment on above: Performed By: #### B MP #### [facility] ([id number]) [address] [place] [address] Calcium [Mass/Vol] 9.9 mg/dL Normal 8.5-10.5 [facility] Comment on above: Performed By: #### B MP #### [facility] ([id number]) [address] [address] [place] [address] Chloride [Moles/Vol] 105 mmol/L Normal 98-109 [facility] Comment on above: Performed By: #### B MP #### [facility] ([id number]) [address], [address] [place] [address] CO2 [Moles/Vol] 27 mmol/L Normal 22-32 [facility] Comment on above: Performed By: #### B MP #### [facility] ([id number]) [address] [address] [place] [address] Creatinine [Mass/Vol] 1.05 mg/dL High 0.40-1.00 [facility] Comment on above: Result Comment: METH OD TRACEABLE TO IDMS STANDARD Performed By: #### B MP #### [facility] ([id number]) [address] [place] [address] GFR/1.73 sq M.predicted among non-blacks MDRD (S/P/Bld) [Vol rate/Area] 55 mL/min/{1.73_m2} Low >59 [facility] Comment on above: Result Comment: Reported eGFR is based on the CKD-EPI 1 equation that does not use a race coefficient. Performed By: #### B MP #### [facility] ([id number]) [address] [address] [place] [address] Glucose [Mass/Vol] 150 mg/dL High 65-99 [facility] Comment on above: Performed By: #### B MP #### [facility] ([id number]) [address] [place] [address] Potassium [Moles/Vol] 3.7 mmol/L Normal 3.5-5.0 [facility] Comment on above: Performed By: #### B MP #### [facility] ([id number]) [address], [address] [place] [address] Sodium [Moles/Vol] 143 mmol/L Normal 134-146 [facility] Comment on above: Performed By: #### B MP #### [facility] ([id number]) [address] [place] [address] Urea nitrogen [Mass/Vol] 29 mg/dL High 5-27 [facility] Comment on above: Performed By: #### B MP #### [facility] ([id number]) [address], [address] [place] [address] MRI BRAIN WO IVCONon 024 MRI BRAIN WO IVCON * * *Final Report* * * DATE OF EXAM: Oct 24 2023 3:34PM [facility] 0294 - MRI BRAIN WO IVCON / PROCEDURE REASON: Transient cerebral ischemia, unspecified type * * * * Physician Interpretation * * * * EXAMINATION: MRI BRAIN WO IVCON CLINICAL HISTORY: Transient cerebral ischemia, unspecified type TECHNIQUE: Routine noncontrast MRI protocol including diffusion images. MQ: [id number] COMPARISON: None. RESULT: Acute Change: There is no evidence of restricted diffusion to suggest an acute infarct. Hemorrhage: No evidence of prior parenchymal hemorrhage on the gradient echo images. Mass Lesion/ Mass Effect: No evidence of an intracranial mass or extra-axial fluid collection. No significant mass effect. Chronic Change: Scattered punctate foci of increased T2 and FLAIR signal are noted in the supratentorial white matter which is a nonspecific finding, but likely represents minimal chronic microvascular ischemia. Parenchyma: There is mild generalized parenchymal volume loss. The brain parenchyma is otherwise within normal limits of signal intensity and morphology. Ventricles: Ventriculomegaly corresponds to the degree of parenchymal volume loss. Skull Base: Hypothalamic and pituitary region are grossly normal. Craniocervical junction is normal. No significant marrow replacement process. Vasculature: Major intracranial arterial structures, and dural venous sinuses show typical flow void, suggesting patency by spin echo criteria. Other: The visualized paranasal sinuses and mastoid air cells are clear. The orbits and extracranial soft tissues are unremarkable. IMPRESSION: No acute findings. No acute infarction, intracranial hemorrhage or intracranial mass lesion. Packing And Stamping Machine Operator: MAX Transcribe Date/Time: Oct 24 2023 4:01P Dictated by : MARIVEL MACKAY MD This examination was interpreted and the report reviewed and electronically signed by: MARIVEL MACKAY MD on Oct 24 2023 4:05PM EST [id number] Normal [facility] EMG(NEURO/NI)on 10-19-2023 [facility] Glucose Glucometer (BldC) [M ass/Vol]on 10-13-2023 Glucose [Mass/Vol] 189 mg/dL High 65-99 [facility] CNOVon 10-11-2023 CNOV Office Visit (NEURAV ) -------- VIDA LIMA ([id number]) 1945 F Date Time Provider Department 10/11/23 9:00 AM TRAVIS FRANCO NEURAV During your visit today, we recorded the following information about you: Pulse Blood pressure 71/minute 141/60 Travis Franco MD 10/11/2023 9:49 AM Signed NEUROLOGY CONSULT NOTE PATIENT NAME: Vida Lima DATE: October 11, 2023 PRIMARY CARE PHYSICIAN: Aruna Damico MD REASON FOR CONSULT: Left lower extremity weakness/left-sided weakness REQUESTING PHYSICIAN: Self My final recommendations will be communicated to the requesting health care provider by way of shared medical record for internal providers. ASSESSMENT: This is Vida Lima is a 78 year old female with a history of chronic low back pain, weakness left lower extremity, diabetes, hypothyroidism, hypertension who presents with left lower extremity weakness? Left-sided weakness. 1. 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 Left proximal lower extremity weakness PLAN: MRI of the brain will be ordered. EMG will be ordered as well. Any problems or concerns to call me or primary care physician immediately or go straight to the emergency department HISTORY OF PRESENT ILLNESS: Vida Lima is a 78 year old female, with a history of chronic low back pain, weakness left lower extremity, diabetes, hypothyroidism, hypertension who presents with left lower extremity weakness? Daughter is here as well today patient states that about over a year ago she had fallen and landed on the left side of her hip and left lower extremity thigh area. Since then she has had chronic low back pain going to pain management. She has had weakness of the proximal left lower extremity has difficulty climbing up stairs. She also states that she does have a history of left shoulder pain but could not really tell if she also had weakness of the left upper extremity at that time. Symptoms persisting she has had physical therapy did not really help. She was then advised to see neurology. COMPLETE REVIEW OF SYSTEMS: GENERAL: No weight loss, malaise or fevers RESPIRATORY: Negative for cough, hemoptysis, wheezing, COPD, dyspnea or shortness of breath CARDIOVASCULAR: Negative for chest pain, leg swelling, hypertension, CHF or palpitations GI: No nausea, vomiting, or diarrhea See HPI. All other systems reviewed and are negative. PAST MEDICAL HISTORY Diagnosis Date Fracture legs ankles nose tail bone GERD (gastroesophageal reflux disease) 07/11/2011 Goiter 12/08/2010 HTN (hypertension) 07/11/2011 Hyperlipidemia 07/11/2011 Personal history of unspecified urinary disorder Seizures (HCC) with migraines 4 years ago Thyroid cancer (HCC) s/p thyroidectomy No past surgical history on file. No family history on file. Social History Tobacco Use Smoking status: Former Packs/day: 2.00 Years: 18.00 Additional pack years: 0.00 Total pack years: 36.00 Types: Cigarettes Quit date: 09/18/1988 Years since quittin.0 Smokeless tobacco: Former Substance Use Topics Alcohol use: No MEDICATIONS: Current Outpatient Medications Medication Sig Dispense Refill gabapentin (NEURONTIN) 300 mg capsule Take 1 capsule by mouth three times daily. 270 capsule 3 PREMARIN vaginal cream USE 0.5GR VAGINALLY EVERY MON, WED AND FRI, APPLY WITH FINGERTIP, STOP FOR 3 TO 5 DAYS PRIOR TO SURG 30 g 0 dicyclomine (BENTYL) 10 mg capsule Take 10 mg by mouth before meals and at bedtime. famotidine (PEPCID) 40 mg tablet Take 40 mg by mouth once daily. Naproxen Sodium 500 mg 24 hr tablet Take 500 mg by mouth daily with breakfast. levothyroxine 137 mcg ORAL tablet Take 1 tablet by mouth once daily. 30 tablet 11 dvahfus-oqwilqisr-xkubff n D3 500 mg(1,250mg) -200 unit ORAL per tablet Take 1 tablet by mouth three times daily with meals. 90 tablet 1 olmesartan (BENICAR) 20 mg ORAL tablet Take 1 tablet by mouth once daily. 0 metoprolol succinate XL (TOPROL XL) 100 mg ORAL Tb24 Take 1 tablet by mouth once daily. 0 pravastatin (PRAVACHOL) 20 mg ORAL tablet Take 1 tablet by mouth daily at bedtime. 0 amitriptyline 25 mg ORAL tablet Take 1 tablet by mouth daily at bedtime. 0 sumatriptan 50 mg ORAL tablet Take 1 tablet by mouth as needed. 0 omeprazole (PRILOSEC) 20 mg ORAL capsule Take 1 capsule by mouth once daily. 0 Cyanocobalamin 2,500 mcg SUBLINGUAL Subl Dissolve under the tongue once daily. 0 pyridoxine (VITAMIN B-6) 100 mg ORAL tablet Take 1 tablet by mouth once daily. 0 Biotin 1 mg ORAL Tab Take 1 tablet by mouth once daily. 0 No current facility-administered medications for this visit. Problem List ACTIVE PROBLEM LIST Goiter Htn (Hypertension) Gerd (Gastroesophageal Reflux Disease) Hyperlipidemia Vaginal Burning Mixed Incontinence Vaginal Vault Prolapse Vaginal Atrophy Dyspareunia Du (more content not included)... Normal [facility] 10-03-2023 [facility] Telephone (INTMLN) -------- VIDA LIMA ([id number]) 1945 F Date Time Provider Department 10/03/23 TRAVIS FRANCO INTMLN During your visit today, we recorded the following information about you: Donn Syed 10/03/2023 11:53 AM Signed Vida is calling Travis Franco MD today has questions of what to expect at upcoming appointment. Please give a call back. No chief complaint on file. Patient has been identified by name and birthdate. Duration of symptoms: N/A Person calling: self Call patient at: at home [phone] (home) [phone] (cell) Was an appointment scheduled: No Closing statement: Results or non-symptom based questions: Thank you for calling [facility], your call will be returned within the next business day. Donn Syed Albert De Luna LPN 10/03/2023 1:28 PM Signed Called patient and spoke to her. Advised her appointment is just a consult. Patient verbalized understanding. Allergies As of Date: 10/03/2023 Noted Allergy Reaction AMOXICILLIN 03/10/2017 14 - Other: See Comments Comments: History of c-dif; told to avoid this medication CEPHALEXIN 03/10/2017 14 - Other: See Comments Comments: Keflex may have caused diffuse rash / hives on hands, swelling of lower lip. However, this was started, abruptly stopped, and switched to Cipro, after which the hives on the hands became worse. CIPROFLOXACIN 03/10/2017 14 - Other: See Comments Comments: Cipro caused diffuse rash / hives on hands, swelling of lower lip. Cipro was prescribed after Keflex was started and abruptly discontinued to be switched to Cipro. However, after starting Cipro, hives worsened on hands. CLINDAMYCIN 03/10/2017 6 - Diarrhea Comments: History of c-dif after taking Clindamycin; told to avoid this medication CYCLOBENZAPRINE 03/10/2017 4 - Hives Comments: Hives and nausea DEMEROL (MEPERIDINE) 12/08/2010 5 - Intolerance Comments: N/V OXYCODONE 03/10/2017 5 - Intolerance Comments: Itching, N/V TYLENOL #3 (CODEINE) 12/08/2010 5 - Intolerance Comments: N/V Date Reviewed: 12/19/2017 Reviewed by: Ale Arteaga ([facility]) - Fully Assessed Reason for Visit: Patient Question [7221] Prescriptions as of 10/04/2023 - gabapentin (NEURONTIN) 300 mg capsule Take 1 capsule by mouth three times daily. - PREMARIN vaginal cream USE 0.5GR VAGINALLY EVERY MON, WED AND FRI, APPLY WITH FINGERTIP, STOP FOR 3 TO 5 DAYS PRIOR TO SURG - dicyclomine (BENTYL) 10 mg capsule Take 10 mg by mouth before meals and at bedtime. - famotidine (PEPCID) 40 mg tablet Take 40 mg by mouth once daily. - Naproxen Sodium 500 mg 24 hr tablet Take 500 mg by mouth daily with breakfast. - levothyroxine 137 mcg ORAL tablet Take 1 tablet by mouth once daily. - fhweled-wyjobuame-rubxkt n D3 500 mg(1,250mg) -200 unit ORAL per tablet Take 1 tablet by mouth three times daily with meals. - olmesartan (BENICAR) 20 mg ORAL tablet Take 1 tablet by mouth once daily. - metoprolol succinate XL (TOPROL XL) 100 mg ORAL Tb24 Take 1 tablet by mouth once daily. - pravastatin (PRAVACHOL) 20 mg ORAL tablet Take 1 tablet by mouth daily at bedtime. - amitriptyline 25 mg ORAL tablet Take 1 tablet by mouth daily at bedtime. - sumatriptan 50 mg ORAL tablet Take 1 tablet by mouth as needed. - omeprazole (PRILOSEC) 20 mg ORAL capsule Take 1 capsule by mouth once daily. - Cyanocobalamin 2,500 mcg SUBLINGUAL Subl Dissolve under the tongue once daily. - pyridoxine (VITAMIN B-6) 100 mg ORAL tablet Take 1 tablet by mouth once daily. - Biotin 1 mg ORAL Tab Take 1 tablet by mouth once daily. Problem List As Of Date 10/03/2023 Noted Resolved Goiter [E04.9] 12/08/2010 HTN (hypertension) [I10] 07/11/2011 GERD (gastroesophageal reflux disease) [K21.9] 07/11/2011 Hyperlipidemia [E78.5] 07/11/2011 Vaginal burning [N94.9] 03/11/2016 Mixed incontinence [N39.46] 03/11/2016 Vaginal vault prolapse [N81.9] 03/11/2016 Vaginal atrophy [N95.2] 03/11/2016 Dyspareunia due to medical condition in female *03/11/2016 Vaginal stricture [N89.5] 03/11/2016 Voiding dysfunction [N39.8] 03/11/2016 History of Clostridium difficile colitis [Z86.1*03/10/2017 H/O urinary retention [Z87.898] 03/10/2017 Urinary urgency [R39.15] 07/18/2017 Encounter Status:Closed by DONN SYED on 10/04/23 Normal [facility] MR LUMBAR SPINE WO CONTon MR LUMBAR SPINE WO CONT MR LUMBAR SPINE WO CONT HISTORY: A 78-year-old female with the history of the chronic low back pain and lumbar radiculopathy. Lumbar spinal stenosis. TECHNIQUE: Multiplanar and multisequence MRI examination of the lumbar spine is performed. COMPARISON: Comparison is made with the CT scan of the abdomen and pelvis of 01/24/2018. FINDINGS: Vertebral heights are normal. There are diffuse degenerative changes in the lumbar spine. There is no evidence of spondylolisthesis. No marrow signal abnormality seen to suggest acute bony pathology. Both sacroiliac joints are intact. No significant paravertebral soft tissue abnormality seen. At L1-L2, there is no evidence of disc herniation, spinal stenosis or narrowing of the neural foramina. At L2-L3, there is a disc degenerative disease with minimal disc bulging causing mild degree of spinal stenosis but neural foramina are patent. At L3-L4 and L4-L5, there is a disc bulging causing mild degree of spinal stenosis but neural foramina are patent. At L5-S1, there is some minimal disc bulging without evidence of spinal stenosis or narrowing of the neural foramina. Facet arthropathy seen. Conus is seen at the level of T12-L1. No intrathecal signal abnormality is identified. IMPRESSION: * Diffuse degenerative arthritis in the lumbar spine and facet arthropathy at a few levels. Associated disc bulging is seen at multiple levels. Mild degree of spinal stenosis is seen at multiple levels as described above. Neural foramina are patent. * No evidence of spondylolisthesis. Finalized by Erick Singh MD on 09/20/2023 12:16 PM Normal [facility] Phone Message/Callon 08-09-2 022 Phone Message/Call - From: Naye Blum RN ([facility] Management Clerical [facility] [place] [place] To: Centralized Scheduling Pool [place] [place] Sent: 08/03/2022 15:04:48 EST Subject: PT Caller Name: VIDA LIMA; Caller Number: Ludin , M Please auth and schudule pt for aqua therapy. Pt to begin therapy after completion of pain management injection. Visit Summary For VIDA LIMA Age: 77 years Sex: FEMALE : 1945 Address: [address] [place] [address], [facility] Home: Work: -- Primary Care Provider: HAYDER FRANCO Race: White Ethnicity: Not or Language: Syrian Health Plan: 1?MEDICARE, 2?[employer] 1st ATTEMPT TO SCHED PT EVAL - NO VOICE MAIL/mb From: Meera Barrera (Centralized Scheduling Pool ([facility] [place] To: Pain Management Clerical Pool [place] [place] Sent: 08/09/2022 11:25:44 EST Subject: PT Caller Name: VIDA LIMA; Caller Number: Ludin , M PATIENT IS SCHEDULED FOR PT EVAL ON 08/18/2022 @ 1530/mb Patient called in and stated she wasn't supposed to get this done until after completion of her pain mgmt injection. I transferred the patient to Pain [facility] to get clarification on this. I told patient I wasn't going to cancel the appointment for 08/18/2022 at 1530, unless I heard from her. [facility] Advance Beneficiary Notifica tionson 08-08-2022 Advance Beneficiary Notifications [id number] TIFF [facility] Coding Summaryon 08-04-2022 Coding Summary HTMLBase 64 KlryoowdIVg0mEg+PGhlYWQ+ AI3OGGNqO23fqKDnbX5CX1fW AM9OEGTXSKWPIA1LKH3nvLI3 NHprL6LztqPr VaofdCNkXW72XXk9FFU5iHye WSygwI3yrEDyD4s7OpVnWE77 sG52FBqrIDPoNuZ1InQksnev bWFy D8cqZsOtlJUjXxu+PHRhYmxl IHdpZHRoPScxMDAlJyBzdHls RK0wLy8bEFQhOUQbyJpfbRQu OiBj r3kuUCXdUVasJZ0usRsaX7Do pQQ6VUDxt6x8Sb12cMS+PHRk SSA0dNvtUJixy200UzLna9cg IDM3 wYJcBGaeIMZ9Y44kn5G4SLZq OYQcCLY2tKM7wM3nwCsoxjxa F8PltURbIxG1SAI5rUXpiE9m bGln pgsdrH4vGno+W75MNA4VZIJH FE4JDie0W4MnXorlmRG+PC90 YARvQL29lVRlpDQjo8oytVh2 JzEw YKXpJYZ9lLufOItvr4YuEQIj N32ufHBau9Q4IBMmuDiacXBu PsEfiSQ0uK0sWMuhvwlnv6we dzsn Hsoqm2dqak99vG82A01eWEwj NCUfFMG3UUDcTQGjuBfaxa8z oI4nSl0+ERdbo1vau2adoSd7 IjIw KRYzxeAuaGzvLDP8d6VhBd08 Y1UmoQxrh3JqUap6uc27mTIe x7D2aOJ0SLizIERxzH1uYVqy ZnQ6 SNTqLdCelV79nFHeOMxvBq0t mTkgsWicLO6uGPVbqohrHMXy zW0pBMWavTFncPtbDO5pZUIw bjtm s867TrOwZFW3TZYigXXkO8Fq sV0oWwUoPSYbNXAlM7FqwEAk BFniH799EEubRsP3JFYslqKr Y2Fs WWGupOkmZzG0c0G2Xn6Ux6Al fjinGVP3LVybGEBxEpL9PtGe LwQ1A7JmNkt7VZCtlQwqVI9e J3Bh LJBdzhkplekveAP9LXWmDZGu xZ30eFNsSQvlZz7ix7T7d646 TUNlCWEatZ23Yy1vkHpdFLVo dCBU vG7nfiktk4kehllzUtZvOCMg SLb1TIk1PEJilNtyNwJfOYK8 SbD1CSH2bWSxbT5xpTtwfppt dG9w Oyc+D69tzH0lRXW9LTE8fnrn RCRkxiVeLM00PX03T4IbYqjo dGFibGU+KFIkvzVgiGutPJ9x YmFj q1yto0IpDNemE1LjYXNqCUwe Ekw4UBExLTF4xKU5fD1pUWZz PEzfx7Y6fPC3S5MaceNmaz0l b2xs QXKwRDdqZ06niGUyh7S1GGZu tAI2EGLrlFxmHhGbnI76Uce+ KMYzaDqck3ZgSbqtk1afq3df dGg9 JmNdTTTmtnDtfActGVU0a3Kr Hj98X88tCSueNZQbXAUjWCNp SVIprJqhpm7gqK5yXx1+PGNv bCB3 dMU9rG3pZPStYmP2PYixI773 RjJnfTGuXwjtn9fqy5ykwNk5 CvNmAAPwduGdrErjISD4m4Fb Lz48 S25dFRpjZHCcVRIqLFMrLSOw mGdvof6nqJ2eLo9+CX5va7dc ce56eW13eGY+JZJdGHS5nFmc PSdw HWHbzJ6eFOvmIvV7ERQiOqVt xB56vTTlQEffYm9ipPemaIqi PI0cMDMxbmhfz272EbQna0lv IDEw jNLjBWuyVJI0T59uy4Q2SJRs XRKbVDP2hUT3rW0jwHvmvmha bGVmdDsgdmVydGljYWwtYWxp Z246 IHRvcDsnPlBhdGllbnQgTmFt XIh5Y5CwOft6MCBmfGmsWD0p hFJzWIhjRe1dnMtjnOglKA3t NTBp nvqwd538CiDko3ojJENqwEWe SQxkNJK0P50tx7K7RGSrLGZc ASN8lXG9kT7hkYqttxjriVKw dDsg unJqhJytIEiuFEkpT545UBBw iQmbCrKcnkPwXPPmjIU4PS92 PT01qHWwp9M0pCS0A0JjZXYq bmct etdjdIV2JRQyNBLklR12Wq5y pJpsVq5pAOQhLUF9VMNdxDEv R9MmnG6qArKxMRHnHVVbN9If eHQt RPuiX395KOwbJxP0KAQatgWa W2BhWHAgeGrzGyZ0l7Z3Gn3W X4D6FI98VN17bWLuz1U0wOE8 J3Bh BKTveriegvburLW5FUVtSKEp wM08Zg7wkDdyDt3xAWGbPLQ4 NNIuzTOqM2AahS4wWgBbOMHm MDAw X3YulJCaSVcyF208XRldXkP6 XZFvslXcG7ToMWTvjUklLqH0 k0Y6Vl5KVZi2NQ98FF56hTQd c3R5 uSP9T5QcPJLwmnnbqjjptRK9 UCTiFNRuaA39Un6hzWdgCr7p OFNtBYL8PQGrmADaZ0VhxX0f OiAj YOBoNYUpY9YfwBCeTCmfH938 NRjxAxF3NRXnelHyI0AmREYj dGavTdI4k8Z3Eu9OXGBzMW78 IFR5 aAJ6HJ54QU40W3DmDnyghGOa bGU+PHRhYmxlIHdpZHRoPScx JZNvMsLwiLvpLG9lGh6wLCXo LWNv tReukAOaZkEld9ifMKTaKMal IL5uiPudI4MfxFW1OEXyy9m4 Gb32D59mR1CwcDP+PGNvbCB3 aWR0 aE4kLaWaIbX5KQgiK407JhMi wCDdEaejg9oud7npiPr7NnV6 NWYrawCosNzqUBK5v8KkSd32 Y29s IHdpZHRoPSIxNSUiIHZhbGln bm7inF8nOl6+KHCzpSD1uID5 zZ1bEdFrTtJ1JRxqA845OeZw cCIv Acmkf4ben9jubFy8FbHsKKLo aqCvhVaxUYH5g4LaGq75M7Ay rTixe7MdWtj1es27kYJxq0Z5 bGU9 T5NqBVXhhatcrTDbjYtgSK9b HJVvwxgnEFRssY4fKAJaX8n9 VkLoSrM6FPgbV0YkwoB3DBAi cHQg AZrkURA9S30vf1L4UIKuOJUg HFN2fVW4kB2obSmksdfweAYw gMvowlLkoBmbWOsoGMofI539 IHRv tOfsUJGysJ6fZWUneTKnqKvq UE7jYYXxwazlYpDCZWzYRSLa IEJFVFRZIEtBWTwvdGQ+PHRk IHN0 aJmwCQdlWNCbzS2vGSWmI8m1 CeEnNzZ8VRpbU6TaDTWdsvyv Tu09jF8fWbIlTsU8YUbxD2Ch bnQ6 APLonXVeAOroMNO5N66ry4T1 TSEqNDIyKGG8tAE3hB3ubFpj bjogbGVmdDsgdmVydGljYWwt YWxp O808OKBnpZciUfHxPrL6FmR2 RKd8C5FnOnh2MVZdaCpjAR3m sARgXSsgZt2alPphbHmkPH1v NTBp tltjTLMjlV1vGDXtoIQzqMdl BG1xPMJrwbjko393LgDhRHC2 ACDluHSnX0MhxD5xZwZyLRCf MDAw M0UpuCUvXBnrF475IAvwWwS6 RQVzegZeA9OgWDWysVrdLoM7 h9H1Rw21HSGOISQggrbjqGN+ PHRk DAR5lJghFOwgCMQwtE8pZHZa G7y5WjNnEgO0MKuaB5YkGLBs shkoIp17rI7kKvWlQcK1EIka O2Zv snO5MWKdqNEkUIfjLZJ5H00t p2O4GWBqKBUuMRC7fDG3mK3n bGlnbjogbGVmdDsgdmVydGlj YWwt JOidT242NVWujWjvFiJQCFGH RTwvdGQ+BZBvXNT0dQcjRYmy GJBzfO4yNKHzX9a0NvLyKaK8 MGlu M8EvVOJardziYn29mR2fGhAx AsV4KKjnU8IpcjB4JFOdxMLe QMghTGW2X56jb4O4VSAnZCGu MDA7 qQS4oL5axHjnzejakPMjtKrr ncYgoUosPDtrOAqyE186ZBIh lPinVh1UOB06WJ19C3AfXusz dGFi bGU+PHRhYmxlIHdpZHRoPScx SVJnTeCmdHcmRD3gKq7jDXGn NSSbmJdduCMqUtIuo2rwMBXs ZTsg YG0onQxaE2EijMF4SULnx4w4 Hx87T67uN4AzlFD+PGNvbCB3 mLI8vJ6dPcFcWyY2GUslK263 InRv xZIuAkfqn0nso9isvVf2TjFu TTGqunMhaBjeMNH6v7QiQd18 Z89lOJogPKDfCKEmDKRjSRYi bGln hb5dgB5rNo3+MBAboYV0hCR8 vZ5tWkNaCyW6DVesL105UiUk qSJrVmqdY32pG1GerLN+PHRy Pjx0 VCBqjZinMT6vaMRpPPzjAf2x WXG6NgXjYyFbYUbnU0UoJDNe fpmexryooJU2UCUeREQbwC04 Zm9u hIxvVk9tOHTgWDZ2FBCzkUQz H4WsvT8tOsHkGGRtNXLkY4Ei oEScTZpxU093GMzjNqV8VICa cnRp D4BqHZGzpAmuZkN1k5U7Pw0G lNqirINjOG9jEsOcUKt5D7Hd Nce8QMDybNhlEX4nqWZzNPrj Zy1y gYxsnVbfYZ0fOQSjwicsx241 NcSrw1rbOJCxpDMzPIlcTOF5 Q05gy0I3KOTfEUTmIQL0nGN2 dC1h bGlnbjogbGVmdDsgdmVydGlj AQvnDYkmH589NLLlgGxcSrQC Coi5Z5KkXol8LUMklRvrDY9s cGFk SHbjWs5xsNqjuWjxZX4sXYGq hkzbe013KjMcm8nyRVEfgRWy WDklKFU5F12gd9F5WXFoKSLb MDA7 pQL9yR7ibBuxkbsjyEPuxPgk nqXhuPciMJftRPruY727FBMe hGxfKg5KYqp5R9WaGhg6XULi dHls TB8gpEGlYAucQm8zcCnrlSvb YU9jOOGtcmokt348ExYje7pe LKZbyDRwXEotTXW6G96nt4J8 ICMw RGQjSPP8jPN3aD8dpGuaxfrm bGVmdDsgdmVydGljYWwtYWxp G858DLDwpRpzSpCtgBCnXuja dGQ+ CY73ho13V6KeQyjhIth4MCNu DBX5qDI9fJ7lPLPcIEliz9U0 dBR9X4FrqzKmpx0av1fxQPWm ZTog Y29 (more content not included)... Normal [facility] Progress Note - Provideron 1 10-04-2021 Progress Note - Provider [id number] TIFF Normal [facility] Progress Note-Physicianon Progress Note-Physician DATE OF VISIT: 08/03/2022 CHIEF COMPLAINT: 1. Low back pain. 2. Left lower extremity weakness. HISTORY OF PRESENT ILLNESS: This is a very pleasant 77-year-old female who is status post transforaminal epidural steroid injection at the level of L4 on the left-hand side. This afforded the patient improvement of her pain however, the patient is noticing weakness in her left leg to the point where she has difficulty in getting off of the bathroom stool. Standing, transitioning and walking aggravate the patient's pain. The patient currently takes Meloxicam 15 mg, hydrochlorothiazide/losa rtan, allopurinol, Biotin, a multi-vitamin and Reglan 5 mg along with gabapentin 800 mg bid which we will decrease to q pm. The patient's past medical history, surgical history and review of systems are noted on the chart along with a medication list, allergies, and radiological images including an MRI that the patient had done at [facility]. PHYSICAL EXAMINATION: This is a pleasant cooperative female who does not appear to be in any acute distress. VITAL SIGNS: Stable at 144/85 with a heart rate of 62. At a height of 157 cm, the patient weighs 79 kg. HEAD: Atraumatic. NECK: Crepitus is noted. HEART: No orthopnea. LUNGS: Non-labored breathing. ABDOMEN: Soft. BACK: Paravertebral tightness is noted. There is some discomfort. EXTREMITIES: No pedal edema. MUSCULOSKELETAL: Weakness along the quad on the left-hand side. Anterior tibialis is at 4/5. Extensor hallicis on the left-hand side is slightly weaker than compared to the right. The remainder are within normal to functional limits. NEUROLOGICALLY: Hyporeflexia on the right side with absence of patellar reflex on the left. Achilles are diminished bilaterally. CURRENT WORKING DIAGNOSES: 1. Chronic low back pain. 2. Lumbar radiculopathy, L3 with improvement of L4. PLAN: 1. We will request for the images again on the MRI. 2. We have instructed the patient to proceed with a rail in the bathroom to help with her safety. 3. With regards to her muscle deconditioning and atrophy, testosterone cypionate 75 mg will be given to her IM. 4. The patient will be scheduled for a lumbar epidural steroid injection at the level of L2-L3 on the left-hand side. 5. The patient will be following that with aquatics on a biweekly basis. 6. The patient understands and would like to proceed. Marco Seymour M.D. JOB #: [id number] ul [Electronically Signed on: 08/17/2022 11:59 EST] Marco Seymour MD [Verified on: 08/17/2022 11:59 EST] Marco Seymour MD [Transcribed on: 08/04/2022 11:43 EST] [facility] Coding Summaryon 07-14-2022 Coding Summary [facility] QaslpmklPLt6uMf+PGhlYWQ+ YG4GFBWbM45xkVWejL7LI1wY FD5GUUIEBLSCRF6NVN7iqND1 MZqdQ5CajqXg VlcbiUExVM33YLm6SHF9qIwz XGaynS7elSZiP5u3YhGpKR60 kG69MAfcMUFcEiL5HsPlodlx bWFy K4wbNqMgyYXkFtf+PHRhYmxl IHdpZHRoPScxMDAlJyBzdHls ZS5mTh2mZSNmFXSphRfdrPWg OiBj l9eaNKFoRSqpGP3yiDatZ1Tc rHH4ZVNeq5k3Nj24yLQ+PHRk HCB8iNbxGScsr438FiNmp7mm IDM3 nIPoXBtcCPA3F41zo8F6DHBy PGRhFCR3bAB7qR8yuRtdhobv I3MlvOMjMkS9AXP7pBUvtV2q bGln mvmtvM7vPtl+O58KXQ7XIBZG OY4CUwm4V2RpNkoyaDP+PC90 BXMiNT54qZCjoNIsh6onwBi1 JzEw NLKbZCS2nGslLYujz7BnVCJq V32flFLme4N5KOJbgNxrxAXl YjQrhOJ4tP0iSJxwbjfng8vw dzsn Fgzcr5cogv24iS04F64sCYyy FACnIXR9UULqNETvnQknhh6g qA6wWl0+DMwll4rzw8hahCl1 IjIw THQzleNzfBmqLDG5b8FyDv78 P8KriCjrr5JuXzf1lw27mJTu y0O0pXG2XTczODRgqO0qNQea ZnQ6 VDFfCjQdbG20zQCjYOoiYe0y vCqorWppIB2kOMZptkegKNYx bB4jFQJkqQJdtFygRE7nUJCc bjtm l415FaOmHWS4RRXkaRIpN2Yf kX9eZbEyXOCtDXVtI5ZcgAZj WGjoY793CWzjCaD8TECiqhYe Y2Fs CSUmoZrwSyB7m0I4Sp9Gp7Kl jtlgEGF4CKgwFXIzYyU1FwDr UaC1I3ZxHoo2WYSxrKlvHW7p J3Bh FRGbcevcrqsjcSL7JVUnHROg vE37aASnIDtiEl0dq0T5l879 PXJgKKMuxE90Db6mpUgnTNWa dCBU wS3xumuuq5unncpjPqPcAGCt KLy4FUc3YLHykFevMdGjUFU0 ObP3MHJ4hHFgpU9afCxrrikz dG9w Oyc+B22ecE2cGTS0KFJ1zeng JYQgehJdTE99VY86M3CzHtob dGFibGU+FOHfztNhnUdjXO6j YmFj w7prr8GfGUjfK1AqUXLwTNtr Oge3DCDnRFK6sBM4tL0fWGGc SXiwk0B3yDJ2W6UptlGymy4k b2xs TQWfZWngN43djRDsl6F9GZZb nPY1VUCzqJqfTlDgkD94Ruz+ TIZvdSrit7WjXduig0wmb1by dGg9 AiNkQMNtqlPyuPcyRPC0n5Sw Ow01Z96cUAqtHNSdVTFwODRq RQPtpZcxou0lzB8fOu6+PGNv bCB3 hEM5hB3hCLHxQbN6XStfS914 HaDqiGGaCreia7pzq7mimIs1 BjWsNMZwzrEqfUjdTFR6h1Zd Lz48 O42eDVgoFTNkJSPqVZWgZRZa vZgrok4jvF8qCr5+MG8wq3yc jp96zL12wRZ+UVKxLOU6iAsn PSdw LOPosQ0fNWuyZxZ5TLLmAoEa rT54zLQvJOllOk7apNbdaZfg LZ4fRSOymvtqn919NaAmk5nq IDEw jZYrDPwoXKY2N41jp8J9IMBg RAIdOXX0vSL7oF9dkZjtczcy bGVmdDsgdmVydGljYWwtYWxp Z246 IHRvcDsnPlBhdGllbnQgTmFt USf3C4VuSun2PIAndLvrWO2u gMQpGOlsWa9beNdnhHtxNL8o NTBp gtgpg104TcSwu7dpTUEqzXFr INioNRN2M01ry0I9GJYzMAPn XWF9dTX6wY8prCatfxtsdNUp dDsg quZixBgcJMmvSYylJ562AWBo iVmoBbIdhdMvMZPbdWB8PN95 PT53iEOdv6F2xVW1R4AvJZMa bmct gkgywYN3BKOdWUViqJ65Ev4j rOaiTn7aPKMzMGQ5LKUdzFJk V3WieD3eYgQuYCZhPSIbE5Us eHQt RMltB289IXikHrG3EPWphqJf W3PbWMRcfMtnXuN0z8S7Tp9L D6F2RY49HA22lEOwa0K2yJV0 J3Bh XDPalrhkncbmhLJ4FNPnKPMl mS82Mt3wdNvjFt1dAVYjMLT8 LCTheALsW5EioV8iAvGtHUNo MDAw S0FwsBGjVIgcD454YIwuXqS5 ILAehzGyD7UmSJYokAjoKiF5 a2O9Rm2EKCo5LU47DP89rTFy c3R5 kWD0E7JeERDvpdbcyivpeNG9 UXCyUCNoqZ06Dt5thIqmTp5t QVFiBVJ8DOFajFNbP1AguG0l OiAj XIYbFGXiL1AumXIgKDqgU058 FLieNzM9HOOnqjAtJ2OdYSUr oWhhJzS4p9M0Zk7UQDEgBQ27 IFR5 tIO7VI95OU57Q0YeXpntuPSd bGU+PHRhYmxlIHdpZHRoPScx UXNoTiCudNjtVF5sGc2xSDSg LWNv eUywhEFvHgVag8dtPGSsWOod KH8kvHflG6EryDI6BQZgh5m6 Vu62Q93mL3JpiWX+PGNvbCB3 aWR0 aM8eOeFmNdV8EQuoH760PuYk rGOhHswfi9wgs6lojLj0AvF6 MTLcrkXjkLrxNGY9q5QjBz09 Y29s IHdpZHRoPSIxNSUiIHZhbGln xn0fzI8rFv2+IOPvoSU4bYX5 dM1fWzIvBmU6RXvuY619VgTj cCIv Mhwqo2iky1mtvEf2FyXqPTWz riPswDllTOS4p3DeUf82K3Oe mLxxl1VjPon3tv64yWYnq4D1 bGU9 B0XfKRBpcmrziBBzdDzqYS4t TYGhkxgqXDSggG8qCWKmR3g2 YvLkEtN2QWaiV4DtmcP3CRRf cHQg DQmmSDC4B26te2Q2VVUdPLAi AGK7eGT3xH9ttMccmvjtmKHt wUmscjDdaHkdVYlvFLrfJ789 IHRv uVvbQNTljB4iIMQynNHqbPtf PM9sYSYbqeheZgUAVItRNXPx IEJFVFRZIEtBWTwvdGQ+PHRk IHN0 cKhzPWjoXMPsnR3zUAYxW3s4 KrMwPyP0TAfkI9WlGRVglebe Rj46zS7oJyFfZaK6JLncS3Ph bnQ6 LVCdtSAqWZmoUMY5I11pr7Y8 JPSwRYUfNIP7kBH1kW3wcYrm bjogbGVmdDsgdmVydGljYWwt YWxp I646HROwtDovFeRjJxP4ZlW2 ZOm6Q6GqFha0YRCpbKwbQM8a cDCiOUinTy7kgGhgqEskOM8j NTBp wicnMEKfgM2mGVUypGPypXjx CK7qHOKczohtf682CyNmAUZ1 TDOgaQSdZ0PugG6cFwErDWFd MDAw H5XzvNPzSOzgD531GRjtYcV7 TRIzddNmS3WyYKMiyPyqRsR3 y5E9Bk67GEOWHXRffbbblCG+ PHRk YFC6hAfeCTuzYURfwL3aYSTl F6t1XzGcRmD3PRgzH9MaMWNk vvguIh12rW7jVxRjOvH9SLsg O2Zv evQ4BHUddHHyPExhGQN8N47j g2W0TROyRYCyDDG9mNV7tF0h bGlnbjogbGVmdDsgdmVydGlj YWwt EMkyP744XMPmeSfeClSRETNY RTwvdGQ+TPHvBFO3cUrtBZyi GWSueL8zRMNdY2h2RdLnHxK6 MGlu Q8TvXBRpnuwsCh96oD1yBiKl MtC8QShuC2QsbyM9BQWxnZRh RUfxGRY7E25nr3X6EMBrDEIl MDA7 xYC0qZ0pqLwpynqdmSQtxAvo kkYcvOvqMTpuAMvxT278KLFn kXxvAjTxoUHXuQLuRVY2QB47 ZD48 P9NiWkodhLQgmSQ+PHRhYmxl IHdpZHRoPScxMDAlJyBzdHls CR4yWx3vTVMaUTQttPxjiWKf OiBj k5bwJLLiFSaiSM8jcTkjO1Dx pYO0RDWge8o9Hr99N62bJ6Ii dXA+UPLnzFB8aHN7mS8mLlIl IiB2 KLpmL462GsPvuAQfRlwvu3za y7jhsBv5UnWgZPPwuvKxwPcb NWW3o6WzDj01C27uOWysEJAs PSIy YKYbHAAwiSewpd5ukG2eIy6+ JLKyqWI8mEE1sL6yEbShEoB3 TLmqE223CnDryFIoJkalJ04t Z3Jv dXA+PCHeMgi1LKThhUdcZI5u xLEdYYdcFv8gSMF6RdVzZeJq YNtlE2DfMJYsutsdaeacdIS1 IDAu OICnfW74Ra9bxXkxQs9pUHCn FKG2MMErcPVnF5BxxR3lYgMf PNPjNUGpU0PhtAIzLUuaF687 IGxl WwF9WZAfmuNfD2MzWALbyUxo NoS5n4N0Nt2FxIfvpTBmAE8j KlWzNFu0N9EqLso9UOVdkFmm ZT0n eBBgLRatKf9rjLkpsFbkTP7f EQTuqlddl951SaGts0vqRADa xUXlGIgsDPD6S18mg5F2RQGn MDAw SWH4pTI5xL1qrVpgnmcoyXBf nCmqxcDreYcyHSdiDPnwV785 IPYwlBczDhKFLzz6J2SlTml4 ZCBz aDowJK6amINnRPniUn7emXpb rQneBG6oWPIfmhcyp912LoBl i8cxODDhbUDgGCgvOOY9L45v b3I6 SBLcALFfCYI1yOX7qQ6knLss bjogbGVmdDsgdmVydGljYWwt KKfzG985ACIdoJmfPa5FFti7 L3Rk Yaq3KFQpkXdiRG5ydQPaDIqv Jh8wtLvczQvoQZ4lXEWcvxfp z635XnQwg7udWPUfcRIlXCah ZXM7 E24qn6G9ZMJtJWUlVJR4rHE0 sV7ycGoaareqlEEhbTqfiyBf aSbtKMbwSJilU121WHDidDgu PlBh eWVyOjwvdGQ+KU61tm79X5Wf TngkJeo2FEZpJKG7mRQ9rN4p LHYdLCjqb8W9dCX0C9ZaivDc ci1j b2x (more content not included)... [facility] Consent Formson 07-14-2022 Consent Forms [id number] IFF [facility] Anesthesia Noteon 07-13-2022 Anesthesia Note Patient: PETER LIMA Age: 77 years Sex: FEMALE : 1945 Associated Diagnoses: None Author: Florentino Hollis DO Postoperative Information Post Operative Note: Post Anesthesia Care Unit. Physical Examination VS/Measurements Vital Signs 07/13/2022 9:07 EDT Heart Rate Monitored 66 bpm Respiratory Rate 16 br/min Systolic Blood Pressure 153 mmHg HI Diastolic Blood Pressure 79 mmHg Mean Arterial Pressure, Cuff 104 mmHg HI SpO2 99 % Oxygen Therapy Room air General: Alert and oriented. Review / Management Condition: Stable. Assessment Anesthetic outcome No anesthetic complications noted. Plan Transfer/ Discharge: Patient can be discharged from PACU when criteria met. Condition good. [Electronically Signed on: 07/13/2022 10:14 EDT] Florentino Hollis DO [Verified on: 07/13/2022 10:14 EDT] Florentino Hollis DO [facility] Anesthesia Note Patient: PETER LIMA Age: 77 years Sex: FEMALE : 1945 Associated Diagnoses: None Author: Florentino Hollis DO Preoperative Information Anesthesia history: Patient history: No difficult intubation, No malignant hyperthermia. Family history: No malignant hyperthermia, No prior anesthesia problems. Review of Systems Constitutional: Negative. Eye Ear/Nose/Mouth/Throat Respiratory: No shortness of breath, No cough. Cardiovascular: No chest pain. Gastrointestinal: Heartburn. Musculoskeletal: Back pain. Integumentary Neurologic: Alert and oriented X4. Health Status Allergies: Allergic Reactions (All) Moderate Lisinopril- Cough. Unknown Demerol- No reactions were documented. Glucophage- Stomach discomfort. Current medications: Home Medications (19) Active !-hydrochlorothiazide-tr iamterene 25 mg-50 mg oral capsule 1 cap(s), PO, Daily allopurinol 300 mg oral tablet 300 mg = 1 tab(s), PO, Daily biotin , PO, Daily cranberry 1 tab(s), PO, Daily dicyclomine 20 mg oral tablet gabapentin 300 mg oral capsule 300 mg = 1 cap(s), PO, BID Hair, skin and Nails Multiple Vitamins with Minerals oral tablet 1 tab(s), PO, Daily levothyroxine 77 mcg, PO, Daily Linzess 72 mcg oral capsule , Daily liothyronine 25 mcg oral tablet 25 mcg = 1 tab(s), PO, Once a day (at bedtime) losartan 100 mg oral tablet 100 mg = 1 tab(s), PO, Daily meloxicam 15 mg oral tablet 15 mg = 1 tab(s), PO, Daily metoclopramide 5 mg oral tablet metoprolol 100 mg, PO, Daily omeprazole 42 mg, PO, BID Pepcid 20 mg, PO, BID Vital-D , PO, Daily Vitamin D3 1 tab(s), PO, Daily Zinc , PO, Daily Problem list (past medical history): All Problems Nerve compression / SNOMED CT 715486968 / Confirmed Lumbar degenerative disc disease / SNOMED CT 79971082 / Confirmed Gastroparesis / SNOMED CT 406529074 / Confirmed History of hysterectomy / SNOMED CT 699624845 / Confirmed History of thyroid cancer / SNOMED CT 4087782803 / Confirmed High blood pressure / SNOMED CT 3077525006 / Confirmed Lumbago / SNOMED CT 420281965 / Confirmed Lumbar radiculitis / SNOMED CT 4538243619 / Confirmed Lumbar spondylosis / SNOMED CT 010734056 / Confirmed Foraminal stenosis of lumbar region / SNOMED CT 0260304712 / Confirmed Bladder stones / SNOMED CT 517250635 / Confirmed Histories Family History: No family history items have been selected or recorded. Procedure history: Bilateral ruptured cyst of ovaries ([id number]). Comments: 06/28/2022 8:27 Dinorah Head MA 1981 Bladder ([id number]). Comments: 06/28/2022 8:29 Dinorah Head MA prolapsed- 1989 Appendix ([id number]). Comments: 06/28/2022 8:26 Dinorah Head MA 1956 H/O: hysterectomy ([id number]). Comments: 06/28/2022 8:27 Dinorah Head MA 1979 Social History Electronic Cigarette/Vaping Assessment Electronic Cigarette Use: Never. Tobacco Assessment Never tobacco user Tobacco Use:. Substance Abuse Assessment Substance use: Never. . Social & Psychosocial Habits Substance Abuse 06/27/2022 Substance use: Never Tobacco 06/27/2022 Smoking tobacco use: Never tobacco user Electronic Cigarette/Vaping 06/27/2022 Electronic Cigarette Use: Never . Physical Examination VS/Measurements Measurements from flowsheet : Measurements 07/13/2022 7:24 EDT Height 157.480 cm Height/Length Dosing 157.480 cm Weight 79.900 kg Weight Dosing 79.900 kg Body Mass Index 32.220 kg/m2 , Vital Signs (last 24 hrs) Last Charted Heart Rate Peripheral 65 bpm (JUL 13 07:24) Resp Rate 16 br/min (JUL 13 07:24) SBP H 176 mmHg (JUL 13 07:24) DBP 83 mmHg (JUL 13 07:24) Weight 79.900 kg (JUL 13 07:24) Height 157.48 cm (JUL 13 07:24) General: Alert and oriented, No acute distress. Airway: Mallampati classification: II (soft palate, fauces, uvula visible). Temporomandibular joint mobility: Good. Mouth: Teeth ( Missing ). Respiratory: Lungs are clear to auscultation. Cardiovascular: Normal rate, Regular rhythm. Neurologic: Alert, Oriented. Review / Management Laboratory Results Plan [employer] [employer]#(ASA) physical status classification: Class III. Anesthetic Preoperative Plan Anesthesia: Monitored anesthesia care. Anesthetic plan, risks, benefits, and alternatives discussed with the patient and/or family. Patient verbalized understanding. Informed consent was given. Consent was signed by the patient. [Electronically Signed on: 07/13/2022 08:02 EDT] Florentino Hollis DO [Verified on: 07/13/2022 08:02 EDT] Florentino Hollis DO [facility] Inpatient Patient Summaryon 07-13-2022 Inpatient [place] [address] Patient Discharge Instructions Name: VIDA LIMA : 1945 Patient Address: [address] [address] Primary Care Provider: Name: HAYDER FRANCO After you are discharged if you find you have any questions, please, call [phone] ext [phone] to speak to a nurse. Discharge Diagnosis: Foraminal stenosis of lumbar region; Lumbar radiculitis Prescription Information: If you have been given a prescription for narcotics, seek immediate medical attention if you have any difficulty breathing or any sudden status changes such as confusion and sleepiness. If you or anyone you know is experiencing suicidal thoughts, mental health, alcohol and/or drug addiction problems; contact the [facility] 10/04 Crisis Hotline -Text 4HGYG to 132957. If you received any narcotics, sedation, or any other medication that causes drowsiness for the next 24 hours, unless otherwise directed: ? Do not drive a car. ? Do not operate machinery such as power tools, lawn mowers, drills, sewing machines, or stoves ? Avoid alcoholic beverages and drugs for allergies, nerves, or sleep ? Do not make important personal or business decisions or sign any legal documents [facility] would like to thank you for allowing us to assist you with your healthcare needs. The following includes patient education materials and information regarding your injury/illness. VIDA LIMA has been given the following list of follow-up instructions, prescriptions, and patient education materials: Follow-up Instructions Medications During the course of your visit, your medication list was updated with the most current information. The details of those changes are reflected below: Medications to Continue That Have Not Changed Other Medications allopurinol (allopurinol 300 mg oral tablet) 1 tab(s) Oral every day. biotin Oral every day. cholecalciferol (Vitamin D3) 1 tab(s) Oral every day. cranberry 1 tab(s) Oral every day. dicyclomine (dicyclomine 20 mg oral tablet) 0.5 tabs TID. famotidine (Pepcid) 20 Milligram Oral 2 times a day. gabapentin (gabapentin 300 mg oral capsule) 1 cap(s) Oral 2 times a day. hydrochlorothiazide-tria mterene (!-hydrochlorothiazide-t riamterene 25 mg-50 mg oral capsule) 1 cap(s) Oral every day. levothyroxine 77 Microgram Oral every day. linaclotide (Linzess 72 mcg oral capsule) every day. liothyronine (liothyronine 25 mcg oral tablet) 1 tab(s) Oral once a day (at bedtime). losartan (losartan 100 mg oral tablet) 1 tab(s) Oral every day. meloxicam (meloxicam 15 mg oral tablet) 1 tab(s) Oral every day. metoclopramide (metoclopramide 5 mg oral tablet) TAKE 1 TABLET BY MOUTH TWICE A DAY BEFORE MEALS FOR 30 DAYS. metoprolol 100 Milligram Oral every day. multivitamin with minerals (Hair, skin and Nails Multiple Vitamins with Minerals oral tablet) 1 tab(s) Oral every day. multivitamin with minerals (Vital-D) Oral every day. omeprazole 42 Milligram Oral 2 times a day. zinc sulfate (Zinc) Oral every day. It is important to always keep an active list of medications available so that you can share with other providers and manage your medications appropriately. As an additional courtesy, we are also providing you with your final active medications list that you can keep with you. allopurinol (allopurinol 300 mg oral tablet) 1 tab(s) Oral every day. biotin Oral every day. cholecalciferol (Vitamin D3) 1 tab(s) Oral every day. cranberry 1 tab(s) Oral every day. dicyclomine (dicyclomine 20 mg oral tablet) 0.5 tabs TID. famotidine (Pepcid) 20 Milligram Oral 2 times a day. gabapentin (gabapentin 300 mg oral capsule) 1 cap(s) Oral 2 times a day. hydrochlorothiazide-tria mterene (!-hydrochlorothiazide-t riamterene 25 mg-50 mg oral capsule) 1 cap(s) Oral every day. levothyroxine 77 Microgram Oral every day. linaclotide (Linzess 72 mcg oral capsule) every day. liothyronine (liothyronine 25 mcg oral tablet) 1 tab(s) Oral once a day (at bedtime). losartan (losartan 100 mg oral tablet) 1 tab(s) Oral every day. meloxicam (meloxicam 15 mg oral tablet) 1 tab(s) Oral every day. metoclopramide (metoclopramide 5 mg oral tablet) TAKE 1 TABLET BY MOUTH TWICE A DAY BEFORE MEALS FOR 30 DAYS. metoprolol 100 Milligram Oral every day. multivitamin with minerals (Hair, skin and Nails Multiple Vitamins with Minerals oral tablet) 1 tab(s) Oral every day. multivitamin with minerals (Vital-D) Oral every day. omeprazole 42 Milligram Oral 2 times a day. zinc sulfate (Zinc) Oral every day. Take only the medications listed above. Contact your doctor prior to taking any medications not on this list. Diet & Activity Patient Activity Level: Patient Diet: Patient Activity Restrictions: Comment: Patient education materials, if any, will display below Vir (more content not included)... Normal [facility] MAGR [facility] Intra-Op Record Summary Primary Physician: Marco Seymour MD Finalized Date/Time: 07/13/22 08:59:11 Pt. Name: ANYI VIDA ADWOA /Sex: 1945 FEMALE Med Rec #: [id number] Physician: Marco Seymour MD Financial #: [id number] Pt. Type: D Room/Bed: / Admit/Disch: 07/13/22 06:56:00 - Institution: Case Times MAGR Entry 1 Patient In Room Time 07/13/22 08:51:00 Out Room Time 07/13/22 08:58:00 Anesthesia Start Time 07/13/22 08:51:00 Stop Time 07/13/22 08:56:00 Surgery Start Time 07/13/22 08:54:00 Stop Time 07/13/22 08:56:00 Last Modified By: Amanda Ross RN 07/13/22 08:59:02 Case Attendance MAGR Entry 1 Entry 2 Entry 3 Case Attendee Seymour, Marco MD Ross, Amanda RN Kokinda, Michelle RN Role Performed Surgeon - Primary Tie Puller Tie Puller Time In 07/13/22 08:51:00 07/13/22 08:51:00 07/13/22 08:51:00 Time Out 07/13/22 08:58:00 07/13/22 08:58:00 07/13/22 08:58:00 Procedure Epidural Steroid Epidural Steroid Epidural Steroid Injection(Left) Injection(Left) Injection(Left) Last Modified By: Amanda Ross RN, Jacquelyn RN Burns, Jacquelyn RN 07/13/22 08:59:04 07/13/22 08:59:04 07/13/22 08:59:04 Entry 4 Entry 5 Entry 6 Case Attendee Dinorah Shields MA, David DO Calmes, Luke T RT (R) ARRT Role Performed Wood Car Builder Anesthesiologist of Senior Android Software Engineer Record Time In 07/13/22 08:51:00 07/13/22 08:51:00 07/13/22 08:51:00 Time Out 07/13/22 08:58:00 07/13/22 08:58:00 07/13/22 08:58:00 Procedure Epidural Steroid Epidural Steroid Epidural Steroid Injection(Left) Injection(Left) Injection(Left) Last Modified By: Amanda Ross RN, Jacquelyn RN Burns, Jacquelyn RN 07/13/22 08:59:04 07/13/22 08:59:04 07/13/22 08:59:04 Entry 7 Case Attendee Jacqueline Mcmullen FIRER KILN Role Performed Scrub Personnel Time In 07/13/22 08:51:00 Time Out 07/13/22 08:58:00 Procedure Epidural Steroid Injection(Left) Last Modified By: Amanda Ross RN 07/13/22 08:59:04 Surgical Procedures MAGR Pre-Care Text: A.20 Verifies operative procedure, surgical site, and laterality Im.150 Develops individualized plan of care Entry 1 Procedure Epidural Steroid Primary Procedure Yes Injection Primary Surgeon Marco Seymour MD Modifiers Left Surgeon Comment LEFT TRANSFORAMINAL Start 07/13/22 08:54:00 EPIDURAL STEROID INJECTION L4 Stop 07/13/22 08:56:00 Anesthesia Type MAC Surgical Service Pain Management Wound Class Clean Technique Details Closure Technique N/A Entire procedure No was performed via laparoscope or robotic assistance Last Modified By: Amanda Ross RN 07/13/22 08:56:20 Post-Care Text: O.730 The patient's care is consistent with the individualized perioperative plan of care General Case Data MAGR Pre-Care Text: A.350.1 Classifies surgical wound Entry 1 Case Information OR MAGR OR 02 Case Level None Wound Class Clean Specialty Pain Management ASA Class 3 Diagnosis Preop Diagnosis LOW BACK PAIN Postop Same As Preop Yes Postop Diagnosis LOW BACK PAIN Blunt or No Is the procedure No penetrating injury considered occured prior to Emergent/Urgent? the start of the procedure: Last Modified By: Amanda Ross RN 07/13/22 08:51:52 Post-Care Text: O.760 Patient receives consistent and comparable care regardless of the setting Time Out MAGR Entry 1 Time out date/time 07/13/22 08:53:00 All team members Yes have introduced themselves by name and role Surgeon, Yes Surgeon reviews Yes anesthesia, nurse critical or confirm patient, unexpected steps, site, procedure operative duration, anticipated blood loss Anesthesia team Yes Nursing team Yes reviews any reviews sterility patient-specific (including concerns indicator results) and equipment issues/concerns Antibiotic Antibiotic N/A prophylaxis given within the last 60 minutes Is essential Yes imaging displayed? Last Modified By: Amanda Ross RN 07/13/22 08:54:45 Patient Positioning MAGR Pre-Care Text: A.280 Identifies baseline musculoskeletal status Im.40 Positions the patient Im.80 Applies safety devices Entry 1 Procedure Epidural Steroid Body Position Prone Injection(Left) Left Arm Position Resting at Side Right Arm Position Resting at Side Left Leg Position Extended Right Leg Position Extended Feet Uncrossed? Yes Press Points Checked Yes Positioning Device Pillow, Safety Strap Outcome Met (O.80) Yes Last Modified By: Amanda Ross RN 07/13/22 08:52:04 Post-Care Text: E.290 Evaluates musculoskeletal status O.80 Patient is free from signs and symptoms of injury related to positioning Skin Prep MAGR Pre-Care Text: A.30 Verifies allergies Im.270 Performs skin preparation Im.270.1 Implements protective measures to prevent skin and tissue injury due to chemical sources Entry 1 Skin Prep Syntegrity Prep Agents (Im.270) Povidone-Iodine Prep By Jacqueline Mcmullen FIRER KILN (more content not included)... [facility] MAGR Preoperative Recordon 1 MAGR Preoperative Record MAGR Pre-Op Record Summary Primary Physician: Marco Seymour MD Finalized Date/Time: 07/13/22 09:16:14 Pt. Name: VIDA LIMA /Sex: 1945 FEMALE Med Rec #: [id number] Physician: Marco Seymour MD Financial #: [id number] Pt. Type: D Room/Bed: / Admit/Disch: 07/13/22 06:56:00 - Institution: Pre-Op Case Times MAGR Pre-Care Text: Patient will be optimally prepared for surgery. Patient is free from s/s of injury. Provide information to patient/family related to plan of care. Verify patient allergies. Confirm identity and verify consent before the operative or invasive procedure. Entry 1 Patient Arrival Time 07/13/22 07:16:00 Preop Departure 07/13/22 08:48:00 Last Modified By: Tash Og RN 07/13/22 09:16:07 Post-Care Text: Patient is prepared mentally and physically and is ready for surgery. The patient remains free from s/s of injury. Patient/family express understanding of plan of care and participate in decisions affecting his or her perioperrative plan of care. Allergies documented appropriately. Patient identifiers and consent correct. General Comments: Pt arrives to w ambulatroy. Pt denies cp, sob, cough or flu like symptoms. PT denies paceamker/defibillator or sleep apnea. Finalized By: Tash Og RN Document Signatures Signed By: Tash Og RN 07/13/22 09:16 [facility] Operative Report - Surgeon/P javier 07-13-2022 Operative Report - Surgeon/Physician Patient: VIDA LIMA Age: 77 years Sex: FEMALE : 1945 Associated Diagnoses: None Author: Marco Seymour MD Lumbar Transforaminal Epidural Preoperative Diagnosis: Lumbar Radiculitis, Chronic Low Back Pain Postoperative Diagnosis: Same Procedure Performed: Fluoroscopically guided Transforaminal Epidural L 4 on the left side Surgeon: Dr. Marco Seymour MD Anesthesia: mac Estimated Blood Loss: 1 ml Complications: None Description of procedure: Risks, benefits, and alternatives were reviewed with the patient. All questions were answered appropriately. Subsequent to obtaining consent, the patient was taken to the operative room. Time out was called. The operative site and procedure were confirmed with the patient. The patient was then placed in a prone position, Betadine was applied to the lumbar spine and sterile drapes were placed. Using oblique fluoroscopy, the chin and superior articular process of the Andrews dog of the above levels was identified; we used 22 gauge stimuplex needles for the procedure. The needle was guided by fluoroscopy just underneath the chin of the Andrews dog of L 4 vertebrum on the _ side. Under AP fluoroscopy, the needle was advanced to the 6 o'clock position of the pedicle. After negative aspiration for CSF, blood Injected with 1 mL of Omnipaque dye and an epidurogram defined, negative aspiration for CSF, blood .Marcaine 0.125 percent and Depo Medrol 80mg were injected per site. The patient tolerated the procedure well without any overt complications. The patient is taken to the recovery room where home going instructions and a pain diary is given for the follow-up [Electronically Signed on: 07/13/2022 08:56 EDT] Marco Seymour MD [Verified on: 07/13/2022 08:56 EDT] Marco Seymour MD [facility] Patient Handouton 07-13-2022 Patient Handout [facility] Controlled Substances Agreem entson 07-06-2022 Controlled Substances Agreements [id number] IFF [facility] Consent Formson 06-30-2022 Consent Forms [id number]#1.00[facility] 06-30-2022 Outside Records [id number]#1.00OTG [facility] Outside Records [id number]#1.00OTG [facility] Progress Note - Provideron 1 Progress Note - Provider [id number]#1.00OTG [facility] Provider Orderson 06-30-2022 Provider Orders [id number]#1.00OTG [facility] Coding Summaryon 06-28-2022 [facility]oding Summary [facility] BlfcoalkTVo6nVk+PGhlYWQ+ MN1JPTIwM92vjBEroS2RA9mP CA9ITBIKZYCJHL3VQU3njFY5 KPjvB7ClceTz NfanyANtFK04RSt0SRF6xJmb OIilcX9ghMEuD2d9SxUsBA31 pX75JRbcJZDnNbZ7MaGmqtmk bWFy O4ixIxKmcOKiAao+PHRhYmxl IHdpZHRoPScxMDAlJyBzdHls GL6vIp0bKHGsDFYgbNkrwGEz OiBj j4muULNsSGrvEA9zqXriY6Ql cQV7CAIbe5w8Lw50pDG+PHRk DGH3ePucXDbsw353DoSqh0ce IDM3 iUEbPMveLBJ3A13ia9C4FZSj TJKtDRI7rSB7xO7rnWhnbwts E8LnvOWpLyV0COJ8aIKmsQ9w bGln vyzgzL1rFlh+Z92ZHY8THRKF JL3TYke3L7JeEobpsCG+PC90 KNRjXN85dLVwtYKpn3nvxTb7 JzEw ILLjZRZ8mZtmOQrno8PlRCVn Z86xdNQsw7N6JGYorObphYRn ZuBkeOU4lG6uWEtatqvcw6ot dzsn Lqygq8xwzp64bW99Z83pOGjx NTSfQKZ3QFAqWIRekOylvd3g dU5hHt5+CCefk1ykf6ifuLp1 IjIw EGRfowFncCjlTLO6n7JoTc95 H6HpsXtij7OwEiz6ld03vOJq s6B1hGI1XIwwNGKuiH4tTElu ZnQ6 BOCuCfOwbR47bFRkPWgnKw9w oInpaKcfGN3iVNRwfnjhNWXu sP5dKKRtxGGsnCfkPZ6zVAMu bjtm r796YxOfGFA5HRJovACxH6Dl uO7uJwSxQOUyAWBiS2SubTAa AOuqB388SWraYnZ2LGVlvwCg Y2Fs VOUkqSfdJhD6k2F7Gc6Lp6Xk axmfMKB0ARhbDJKcIjXdTaVs YgL1X1OmIwi4URGjxCqmPQ1f J3Bh NKQpxuentrtusRF6HAUnVSEx dP75vTBdGDtuUm4ls9E9e417 BTPuTSFljB25Cd6ekPckACXs dCBU bT9rcpcrm2ldmfguOhUlZIZn PXw0NNh1GPLvkWhjPjBuDTK0 PfG4AWC6eEGlqT0waTxdwmyf dG9w Oyc+Z43qhQ8lIZV3CBL4qnyf ESKvxjOaUX90BI57B8KuYcea dGFibGU+OIEzunLdsOdjTS8n YmFj l4ijl3EhEUszC7KzQZAzZElt Wsa0PKRsHGW5qVN0uS6lRNCr JQtfo6W7tCI8C1KycqZlsj7t b2xs ARQdEIeeH27unEDeu4M9OYGh wKN5OQCnvMmzZkMxaT22Twx+ JKZrfHszv4BxInzai9gmz4qp dGg9 ZiPjSROnlkYgsAwuPQO2g3Gl Tz91K63eETbgTIUoEHMzIXTs XDAtgWqpjq8fcW7zDu6+PGNv bCB3 aLM9yC6hEXXwMvM1NYxyZ552 KsYayGLqQjymx6fkr0ylwAa5 EsTrEPLhsnFprWpyFPQ6j8Xm Lz48 J25kXTbaHWZbOHUfQUIuZLGq jKcrtc8kmW8lLg2+FR9tt6yi pw93yE98aZR+JNOjHTJ3gBlf PSdw HGBatE1lSLesXhY9YXJfGkMn hU24pTXbTOyhJm9xaCmlpSro OO2rZXCsprbbq047DiSzd0qg IDEw pQNhNNeoAXH0J86rc8C7JMCl TQNhOKY1vVT0jF0mjIqyzyqd bGVmdDsgdmVydGljYWwtYWxp Z246 IHRvcDsnPlBhdGllbnQgTmFt RPo7N9EjFnn2MMRqiGxrIE7i gLRiJQkvMm0fcDlrwAdnRF4v NTBp migzy851DsIak5qcQSYozRQg VVrrDCD9G23pr3V1CNHoBTDh TJX7yPU1tY5mlBrvydlixWJj dDsg slSkpKrkSScbAJxsX541YJMv rWmwNzBdozZsYEDleZB3FW06 GR01rWDif9O6cTN5O5ObEPIy bmct joptwYO8ITNoGHRjpL14Xn5j lTpoKe8mSHFgVDB7DFAivYXu G5GcfS9bYmEbCEOyARCbK0Fb eHQt GTswY409HXauReA7MZHaewWd V0IwWNFwnKdeEgF6j0N8Az6K N2E4CY02VA66eHEvl6O7qEC4 J3Bh UVQdbkiwyzrsoIH9HLKzDPTo wA48Ct0faMkqGb4aCSZxPTO6 CPIbzTOhE4TbsB0jFoQiFHGo MDAw F3ZgnJYnGJhvK569LSfkFjT9 JZNdqhRoS1FfDCMskRztVrV1 s9S9Eh6ZAOs1EF02IC04dKNg c3R5 qFW6T9IjWAGnflporelowSZ0 EKSvMZMdhN44Fv2nqRrkWl1s NXFwUXM2AUJtlUVjC1WmqT4b OiAj JOCeUQXmX9KpsDQaNHcnS788 ZHmfIqT9MRVlxgMwS9ByWNXn xShcHtK8p8O8Xf7EDXVzTY23 IFR5 eVS3OY23UY99E5EtJjcwwZJu bGU+PHRhYmxlIHdpZHRoPScx MSFrXmSzlFgpER1jMd5fNVRo LWNv uKkrkAXoJwLde4jaAWXdFZat IC4ewCbjF4NcbTO8OKUcn2p6 Gk23B70aI3TevIR+PGNvbCB3 aWR0 bI2cAfPbJvD4PEumD045OjCo nCPkMngwx8vsj9gfrAb8RzI7 HFLyhzYszWmcPYQ8m8XmHo68 Y29s IHdpZHRoPSIxNSUiIHZhbGln zt0qaN8fIx4+TPOjeUS3yXB6 pT7xMqNhFgQ4OMpzD148WjMz cCIv Cckue1jes3cwpGh4YlJjQJLk sfBcnHyeHZZ6q0HiRx07Z1Id aAzuy0RySkp0kr85tBLbl6L8 bGU9 C2SwWREfqslipNIquMqvDX7y LRGmgcsfPGUcgX3wJYGeG9q3 YtTiKbX5YRqbX1QhqeZ5YFTv cHQg PAxtGVX4Y43be9W0SWHdDWFk SYO2zOZ4fK7ceWnpsyfbsLQo aLtjebJunJfjNXbaRTagI463 IHRv nIxvYMCprP7jTOUqyRIpeMzh SG3tDUXjmmfvCtPDSAbGVDLx DZCFKSITFYy8W7YxTpk6ECXj dHls ER9qrDIyXQyfBs8xvBirmHfk AQ3zVWRrmehrNVOrvS4kFCMy bZQkyUrmHA5sUUZpoxihn492 OiAx RJW6NKPgxOVnE9EqiI0iZsJk GGFqOJQjF1NchMSfGOerH303 XUrbNsD2VBRpcoUdB3KyZLZa aWdu SsP3p9A7Xq8iDJ7eSa1mZSE0 PE89TG38hIDzn8G1jSM4R9Iu QRFderdgvfkvnHI3XAOvSTLl aW47 mUXuRDbpSv2ds8D0h628RDLr DZQpiJ74Va2biMoqGAJueIKH aJ7tcgjkj9eoswylPfZiDDIy MDt0 XRl8SOXfeQebFpXwNYY4RcS0 WQJ4jDWvwL1jvArelldqzF9e Oyc+RiImANUtrcL0Q8EuPce4 ZCBz zTarDV4apVJiGHfbBn5crLte xVdyQW7lEAHscvdrGSQehG9n FJMdyMGdzXlaJG9kOTJmcyeh b250 EqQuXWB5HXQozWXxK3OffH2v OdMiMJEtMBSuX0TtbQZnJVws B490SSqvNvX7QWZzqkCcO4Qa LWFs wKkjHeW2t6L3Si0XVJ0NPRK4 N9LnYub5ODKxlStzLA8mnVDw ILhhTl0azKnrmLgbVR2eHFWg bjtw FLVftA2aQQSxhIBgrWslOJ1y EKUhupuul225FnDoVZK7MSFa tRFbG9FteN9dCdWdAOPbNZPl O3Rl wTMzQGbfT645RYqmEwU8DYNu kaJuF8ShRNFqyRrjRfG8k1L2 Sy9RQVrmxYO+XV42le54J3Ng Ymxl Uml8XAQpAAO2oIG3jT9aVEAe HBpkm7R6aCW9R0XcqfGnaa8a v7hvOMZkLGucF26feCIeb0H1 IGVt kTL7LZTmoJqaYzJmcG16Pmz+ KTSwrNqzk9FpQknxl9yau8jr xHt9AiHmEXUgyqKtsKrlXZZ1 b3Ai Vb17F86qULmfHIMcOPMhGHWw PWWrwXxgtk9hgK7lXv2+PGNv cDQ9eUM2wV4kQmCmZyL7NGme Z249 HfWurMNoPfttl5xji3hnhRu5 FbUsABXrlmBmqSkpKCQ1p2We Pp33E0XxyHrgy0KuMhv1tq08 dGQg y4U7dWW2Z7SwFIYmootpoZQh hHzqBO8bLEPythybCEQwpO4r IZYgI7l4OeJvDcG6JZtkH0Jt bnQ6 XHCadGBlEXWagZUGcC9bcolh i4ebylbeXiTtZCKvRXy5IZx9 LPUwoQuiZqYrDQM2WsK4QYA0 aWNh wY1vbPrncenqcZ8lQhh+UGh5 t3hrbQQzHE8fnQH8MK59GJ60 nLGir8B8uDC4Q5FfKXWjixtg cmln iDG6VNNyQQBfjZ61Ud0cxMdv Ny8kMUAiZTT3FZCgxWQkZ6Fc sW4uYdMcEXJeLELnM4SwjYMa YWxp D781FRylJtI9NDDlulDnU5Nv IDVfjAmoXpX8p2E9Jj7JMF71 WV75NL95fJZgt8M1eEA0X7Bw ZGRp ynzityoqpZW5GFWsZYMhkA84 Cp3rvFogEu2rZUFcFMY9YJAv vWIcO0LhrQ5wOuPoGNMkXXAp O3Rl aRZiNIroD400TAbuXxC0DXBo pbAmL5KcQEZkwYxvEdV9t7W5 Mh4OOo90ZO06JN02qIVsp3N0 bGU9 P6ZmKGCsmdvoctqjtBD3PHJp MLKvrB68Bg6rwSnnQf3qCCZg GKM8USTlgVTjM2RmmK1cEvPs MDAw QWMrV1GhhDDeSTmiC224LMpe EzP4IQUevfGcQ8LvYBUefPzn FjI9i8L9Vk2WUDznsdz3F3Mr Pjwv dHI+PN43CWGhZN77fRZdxIOl a6uivOv4NeUtJCMtVAP6oAws GSpnb9EmWOFgD95yoGXmb0K9 IGNv bGx (more content not included)... Normal [facility] XR HIP LT 2 3V W PELVISon XR HIP LT 2 3V W PELVIS IMAGES REVIEWED: XR HIP LT 2 3V W PELVIS COMPARISON: 05/27/2022. CLINICAL INDICATION: History of fall FINDINGS/IMPRESSION: 1. No evidence of acute osseous abnormality of the left hip/pelvis. 2. Osteopenia. Electronically authenticated by: DANNY PRICE Date: 2022-06-17 18:[address] [facility] [address] HIP LT WO CONon 2 CT HIP LT WO CON EXAMINATION: CT HIP LT WO CON HISTORY: Pain ; acute left hip pain since falling 5 days ago COMPARISON: No relevant comparison available. TECHNIQUE: Multi-planar CT images were created without IV contrast. Dose reduction techniques were achieved by using automated exposure control and/or adjustment of mA and/or kV according to patient size and/or use of iterative reconstruction technique. FINDINGS: BONES: No significant arthropathy or acute abnormality. SOFT TISSUES: Negative. No visible soft tissue swelling. EFFUSION: None visible. OTHER: Marked diverticulosis of the distal colon without appreciable inflammatory changes. IMPRESSION: 1. No acute bone abnormality or significant degenerative changes of the left hip joint. 2. No appreciable mass, hematoma, fluid collection. 3. Colonic diverticulosis. Electronically authenticated by: MERLE MANN Date: 2022-05-27 18:48 Normal [facility] XR HIP LT 2 3V W PELVISon XR HIP LT 2 3V W PELVIS EXAM: XR HIP LT 2 3V W PELVIS HISTORY: Pain COMPARISON: Abdomen and pelvic CT 01/24/2018. TECHNIQUE: AP pelvis and 2 views of the left hip FINDINGS: IMPRESSION: Persistent pelvic side bending to the left No fracture, dislocation, subluxation or osseous lesion. The hip joints are normal. Degenerative changes of the pubic symphysis. Age-related changes of the sacroiliac joints. Spondylitic changes of the lumbar spine. Surgical clips within the right upper quadrant. The bowel gas pattern is nonobstructed. Electronically authenticated by: FLORENTINO NEWMAN Date: 2022-05-27 17:30 Normal [facility] FREE T3on 03-19-2022 FREE T3 1.95 pg/mlL Critically low 2.18-3.98 [facility] Comment on above: Performed By: #### T SH, FT3 #### [facility] [address] [address] [address] Carmen Esqueda FREE T4on 03-19-2022 Free T4 [Mass/Vol] 1.06 ng/dL Normal 0.76-1.46 [facility] Comment on above: Performed By: #### F T4 #### [facility] [address] [address] [address] Carmen Esqueda TSHon 03-19-2022 TSH 0.581 uIU/mL Normal 0.358-3.740 [facility] Comment on above: Performed By: #### T SH, FT3 #### [facility] [address] [address] [address] Carmen Esqueda CLOSTRIDIUM DIFFICILE (RT-PC R)on 12-18-2021 C. DIFFICILE BY PCR, STOOL Negative Normal (NEG) [facility] Comment on above: Result Comment: Dete ction of C. difficle nucleic acid in stools confirms the presence of these organisms in diarrheal patients but may not indicate that C. difficile are the etiologic agents of the diarrhea. False-negative results may occur when the infecting organism has genomic mutations, insertions, deletions, or re-arrangements or when performed very early in the course of illness. Results should be interpreted in conjunction with other laboratory and clinical data. Performed By: #### L IP, TIBC+, CHEM-C, CBC/D #### [facility] [address] [facility], [id number] DGP,IGA/IGG + TTG, IGA/IGGon 12-18-2021 ANTI-TTG, IGA <0.2 Normal (0.0 - 10.0) [facility] Comment on above: Order Comment: FACIL ITY: [facility] [id number] Performed By: #### C ELIC4, ESRCRP, TSHFX, C-STL, O/P, CDPCR, IGA #### [facility] [address] [facility], [id number] ANTI-TTG, IGG <0.6 Normal (0.0 - 10.0) [facility] Comment on above: Order Comment: FACIL ITY: [facility] [id number] Result Comment: REFERENCE RANGE DEAMIDATED GLIADIN PEPTIDE, IGA & IGG : < 7.0 U/mL = NEGATIVE 7.0 - 10.0 U/mL = BORDERLINE > 10.0 U/mL = POSITIVE REFERENCE RANGE ANTI-TTG, IGA & IGG: < 7.0 U/mL = NEGATIVE 7.0 - 10.0 U/mL = BORDERLINE > 10.0 U/mL = POSITIVE PERFORMED ON NextGxDX EFFECTIVE 12-03-2021 Performed By: #### C ELIC4, ESRCRP, TSHFX, C-STL, O/P, CDPCR, IGA #### [facility] [address] [facility], [id number] DEAMIDATED GLIADIN PEPTIDE, IGA <0.2 Normal (0.0 - 10.0) [facility] Comment on above: Order Comment: FACIL ITY: [facility] [id number] Performed By: #### C ELIC4, ESRCRP, TSHFX, C-STL, O/P, CDPCR, IGA #### [facility] [address] [place] [address] Rd. [facility], [address] DEAMIDATED GLIADIN PEPTIDE, IGG <0.6 Normal (0.0 - 10.0) [facility] Comment on above: Order Comment: FACIL ITY: [facility] [place] [id number] Performed By: #### C ELIC4, ESRCRP, TSHFX, C-STL, O/P, CDPCR, IGA #### [facility] [address] [place] [address] Rd. [facility], [address] IgA, TOTALon 12-18-2021 IgA, TOTAL 72 MG/DL Normal (70 - 400) [facility] Comment on above: Performed By: #### L IP, TIBC+, CHEM-C, CBC/D #### [facility] [address] [place] [address] Rd. [facility], [address] OVA AND PARASITEon CRYPTOSPORIDIUM, STOOL Negative Normal (NEG) [facility] Comment on above: Performed By: #### C ELIC4, ESRCRP, TSHFX, C-STL, O/P, CDPCR, IGA #### [facility] [address] [place] [address] Rd. [facility], [address] GIARDIA, STOOL Negative [facility]NEG[facility] Comment on above: Performed By: #### C ELIC4, ESRCRP, TSHFX, C-STL, O/P, CDPCR, IGA #### [facility] [address] [place] [address] Rd. [facility], [address] SED RATE - CRPon 12-18-2021 CRP EXTENDED RANGE 0.44 MG/L Normal (0.00 - 3.20) [facility] Comment on above: Performed By: #### C ELIC4, ESRCRP, TSHFX, C-STL, O/P, CDPCR, IGA #### [facility] [address] [facility], [address] SED RATE WEST. 0 MM/HR Normal (0 - 25) [facility] Comment on above: Performed By: #### C ELIC4, ESRCRP, TSHFX, C-STL, O/P, CDPCR, IGA #### [facility] [address] [facility], [address] STOOL CULTUREon 12-18-2021 CONSISTENCY UNFORM Normal (FORME - LIQUI) [facility] Comment on above: Performed By: #### C ELIC4, ESRCRP, TSHFX, C-STL, O/P, CDPCR, IGA #### [facility] [address] [facility], [address] TSH WITH REFLEXon 12-18-2021 REFLEX T4, FREE NO Normal () [facility] Comment on above: Performed By: #### C ELIC4, ESRCRP, TSHFX, C-STL, O/P, CDPCR, IGA #### [facility] [facility], [address] TSH Qn 0.745 m[IU]/L Normal (0.470 - 4.680) [facility] Comment on above: Performed By: #### C ELIC4, ESRCRP, TSHFX, C-STL, O/P, CDPCR, IGA #### [facility] [address] [facility], [address] SARS COV-2 NASAL - PCRon COV-2 NASAL by PCR Negative Normal (NEG) [facility] Comment on above: Order Comment: LISA MERCER: [facility] FACILITY: [facility] BLDG 4 - LAB SERV [id number] Result Comment: This Ruth Direct SARS-CoV-2 assay is a nucleic acid amplified probe PCR test intended for the qualitative detection and differentiation of SARS-CoV-2 viral RNA. SARS-CoV-2 RNA identified by this test is generally detectable in upper respiratory specimens during the acute phase of infection. Positive results are indicative of the presence of the identified virus, but do not rule out bacterial infection or co-infection with other pathogens not detected by the test. Clinical correlation with patient history and other diagnostic information is necessary to determine patient infection status. The agent detected may not be the definite cause of disease. Negative results do not preclude SARS-CoV-2, and should not be used as the sole basis for treatment or other patient management decisions. Negative results must be combined with clinical observations, patient history, and/or epidemiological information. Performed By: #### C V-L #### [facility] [address] [facility], [address] Cult,Urineon 11-28-2021 Cult,Urine Specimen Description .CLEAN CATCH URINE Culture NO SIGNIFICANT GROWTH Report Status FINAL 11/27/[address] [facility] Comment on above: Performed By: #### U RC #### [facility] [address] [place], [place] [id number] Lace Cutter: Ciro Cui MD [facility] [employer] [address] [place], [place] [id number] Lace Cutter: Jimmy Fernandez MD CBC with Auto Differentialon 11-26-2021 Absolute Eos # 0.12 [facility] th Absolute Immature Granulocyte 0.03 [facility] Absolute Lymph # 3.17 [facility] alth Absolute [place] # 0.45 [facility] lt Basophils (Bld) [#/Vol] 0.03 10*3/uL [facility] Basophils/100 WBC (Bld) 0 % 0 - 2 % [facility] Eosinophils/100 WBC (Bld) 2 % 1 - 4 % [facility] Hematocrit (Bld) [Volume fraction] 37.2 % 36.3 - 47.1 % [facility] Hemoglobin.gastroin testinal spec 1 Ql (Stl) 12.1 g/dL 11.9 - 15.1 g/dL [facility] Immature granulocytes/100 WBC (Bld) 0 % 0 [facility] Interpretation and review of laboratory results Abnormal [facility] Lymphocytes/100 WBC (Bld) 40 % 24 - 43 % [facility] MCH (RBC) [Entitic mass] 30.7 pg 25.2 - 33.5 pg [facility] MCHC (RBC) [Mass/Vol] 32.5 g/dL 28.4 - 34.8 g/dL [facility] MCV (RBC) [Entitic vol] 94.4 fL 82.6 - 102.9 fL [facility] Monocytes/100 WBC (Bld) 6 % 3 - 12 % [facility] NRBC Automated 0.0 0.0 per 100 WBC [facility] Platelet distribution width (Bld) [Ratio] 12.7 % 11.8 - 14.4 % [facility] Platelet mean volume (Bld) [Entitic vol] 12.1 fL 8.1 - 13.5 fL [facility] Platelets (Bld) [#/Vol] 212 10*3/uL [facility] RBC (Bld) [#/Vol] 3.94 10*6/uL Low 3.95 - 5.1 1 m/uL [facility] Segmented neutrophils/100 WBC (Bld) 52 % 36 - 65 % [facility] Segs Absolute 4.22 [facility] W[facility] (Bld) [#/Vol] 8.0 10*3/uL [facility] CBC with Diffon 11-26-2021 Abs. Basophil 0.03 k/uL Normal 0.00-0.20 [facility] Comment on above: Performed By: #### L IP, MG, CMPX, CDP #### [facility] [address] [place] [address] Lace Cutter: Ciro Cui MD Abs.Imm.Granulocyte 0.03 k/uL Normal 0.00-0.30 [facility] Comment on above: Performed By: #### L IP, MG, CMPX, CDP #### [facility] [address] [place] [address] Lace Cutter: Ciro Cui MD Abs.Neutrophil (Seg) 4.22 k/uL Normal 1.50-8.10 [facility] Comment on above: Performed By: #### L IP, MG, CMPX, CDP #### [facility] [address] [place] [address] Lace Cutter: Ciro Cui MD Basophils/100 WBC (Bld) 0 % Normal 0-2 [facility] Comment on above: Performed By: #### L IP, MG, CMPX, CDP #### [facility] [place] [address] Lace Cutter: Ciro Cui MD Eosinophils (Bld) [#/Vol] 0.12 10*3/uL Normal 0.00-0.44 [facility] Comment on above: Performed By: #### L IP, MG, CMPX, CDP #### [facility] [address] [place] [address]. [place] [address] Lace Cutter: Ciro Cui MD Eosinophils/100 WBC (Bld) 2 % Normal 1-4 [facility] Comment on above: Performed By: #### L IP, MG, CMPX, CDP #### [facility] [address] [place] [address]. [place] [address] Lace Cutter: Ciro Cui MD Erythrocyte distribution width (RBC) [Ratio] 12.7 % Normal 11.8-14.4 [facility] Comment on above: Performed By: #### L IP, MG, CMPX, CDP #### [facility] [address] [place], [place] [address]ia [facility] [place] [address] Lace Cutter: Ciro Cui MD Hematocrit (Bld) [Volume fraction] 37.2 % Normal 36.3-47.1 [facility] Comment on above: Performed By: #### L IP, MG, CMPX, CDP #### [facility] [address] [place], [place] [address] [place] [address] Lace Cutter: Ciro Cui MD Hemoglobin (Bld) [Mass/Vol] 12.1 g/dL Normal 11.9-15.1 [facility] Comment on above: Performed By: #### L IP, MG, CMPX, CDP #### [facility] [address] [place] [address]. [place] [address] Lace Cutter: Ciro Cui MD Immature granulocytes/100 WBC (Bld) 0 % Normal 0 [facility] Comment on above: Performed By: #### L IP, MG, CMPX, CDP #### [facility] [address] [place] [address]. [place] [address] Lace Cutter: Ciro Cui MD Lymphocytes (Bld) [#/Vol] 3.17 10*3/uL Normal 1.10-3.70 [facility] Comment on above: Performed By: #### L IP, MG, CMPX, CDP #### [facility] [address] [place] [address]. [place] [address] Lace Cutter: Ciro Cui MD Lymphocytes/100 WBC (Bld) 40 % Normal 24-43 [facility] Comment on above: Performed By: #### L IP, MG, CMPX, CDP #### [facility] [address] [place] [address]. [place] [address] Lace Cutter: Ciro Cui MD MCH (RBC) [Entitic mass] 30.7 pg Normal 25.2-33.5 [facility] Comment on above: Performed By: #### L IP, MG, CMPX, CDP #### [facility] [address] [place] [address]. [place] [address] Lace Cutter: Ciro Cui MD MCHC (RBC) [Mass/Vol] 32.5 g/dL Normal 28.4-34.8 [facility] Comment on above: Performed By: #### L IP, MG, CMPX, CDP #### [facility] [address] [place], [place] [address], [place] [address] Lace Cutter: Ciro Cui MD MCV (RBC) [Entitic vol] 94.4 fL Normal 82.6-102.9 [facility] Comment on above: Performed By: #### L IP, MG, CMPX, CDP #### [facility] [address] [place] [address]. [place] [address] Lace Cutter: Ciro Cui MD Monocytes (Bld) [#/Vol] 0.45 10*3/uL Normal 0.10-1.20 [facility] Comment on above: Performed By: #### L IP, MG, CMPX, CDP #### [facility] [address] [place] [address]. [place] [address] Lace Cutter: Ciro Cui MD Monocytes/100 WBC (Bld) 6 % Normal 3-12 [facility] Comment on above: Performed By: #### L IP, MG, CMPX, CDP #### [facility] [address] [place] [address]. [place] [address] Lace Cutter: Ciro Cui MD Neutrophil (Seg) 52 % Normal 36-65 [facility] Comment on above: Performed By: #### L IP, MG, CMPX, CDP #### [facility] [address] [place] [address]. [place] [address] Lace Cutter: Ciro Cui MD NRBC Automated 0.0 per [address] [facility] Comment on above: Performed By: #### L IP, MG, CMPX, CDP #### [facility] [address] [place] [address]. [place] [address] Lace Cutter: Ciro Cui MD Platelet mean volume (Bld) [Entitic vol] 12.1 fL Normal 8.1-13.5 [facility] Comment on above: Performed By: #### L IP, MG, CMPX, CDP #### [facility] [address] [place] [address] Lace Cutter: Ciro Cui MD Platelets (Bld) [#/Vol] 212 10*3/uL Normal 138-453 [facility] Comment on above: Performed By: #### L IP, MG, CMPX, CDP #### [facility] [address] [place] [address] Lace Cutter: Ciro Cui MD RBC (Bld) [#/Vol] 3.94 10*6/uL Low 3.95-5.11 [facility] Comment on above: Performed By: #### L IP, MG, CMPX, CDP #### [facility] [address] [facility] [place] [address] Lace Cutter: Ciro Cui MD WBC (Bld) [#/Vol] 8.0 10*3/uL Normal 3.5-11.3 [facility] Comment on above: Performed By: #### L IP, MG, CMPX, CDP #### [facility] [address] [facility] [place] [address] Lace Cutter: Ciro Cui MD CT[facility]A ABDOMEN PELVIS W WO CONTRAST EXAMINATION: CTA OF THE ABDOMEN AND PELVIS WITH AND WITHOUT CONTRAST 11/26/2021 8:12 pm: TECHNIQUE: CTA of the abdomen and pelvis was performed without and with the administration of intravenous contrast. Multiplanar reformatted images are provided for review. MIP images are provided for review. Dose modulation, iterative reconstruction, and/or weight based adjustment of the mA/kV was utilized to reduce the radiation dose to as low as reasonably achievable. COMPARISON: CT abdomen pelvis done 07/28/2021. HISTORY: ORDERING SYSTEM PROVIDED HISTORY: R sided flank pain that radiates to RLQ with BM and eating TECHNOLOGIST PROVIDED HISTORY: R sided flank pain that radiates to RLQ with BM and eating Decision Support Exception - unselect if not a suspected or confirmed emergency medical condition->Emergency Medical Condition (MA) Reason for Exam: Right flank pain that radiates to RLQ, intermittent x 6 months but occurring consistantly after eating or having a bowel movement. R/O stone or stenosis. Hx hysterectomy, hernia repair, gallbladder, appendectomy FINDINGS: CTA ABDOMEN: The abdominal aorta is patent. No hemodynamically significant stenosis, aneurysm, acute injury or dissection. Nijv-aj-fhdhquzg atherosclerotic disease. The celiac trunk, superior mesenteric artery, bilateral renal arteries and inferior mesenteric artery are patent. No hemodynamically significant stenosis at the origins of these vessels. No periaortic hemorrhage. Asymmetric beading of the right renal artery. No intraperitoneal free air, ascites or drainable fluid collection. No pathologic lymphadenopathy in the abdomen or pelvis. No obvious mesenteric mass. Prior cholecystectomy. The liver, spleen, pancreas and adrenal glands demonstrate no focal abnormality. Diffuse heterogeneous enhancement in the spleen likely relates to arterial phase of contrast. Diffuse pancreatic atrophy without focal mass, main duct dilatation or peripancreatic inflammation. Similar-appearing small bilateral renal cysts, left greater than right. No suspicious hyperenhancing renal mass. No hydronephrosis. No urinary stones. Both ureters are normal in course and caliber. The stomach is decompressed and not well evaluated. The small bowel and colon are normal in caliber. Colonic diverticulosis without acute diverticulitis. Prior appendectomy. No acute fracture or destructive osseous lesion. Multilevel degenerative changes in the visualized spine. No acute abnormality in the visualized lower chest. Small fat containing periumbilical hernia. CTA PELVIS: Mild to moderate atherosclerotic disease in the large arteries in the pelvis. No hemodynamically significant stenosis, aneurysm, acute injury or dissection. Normal aortic bifurcation. No suspicious pelvic mass or fluid collection. The inferior margin of the urinary bladder is low lying suggesting cystocele. This is similar to the prior study. Prior hysterectomy. No acute fracture or destructive osseous lesion. Degenerative changes in the pelvis. IMPRESSION: 1. Normal caliber abdominal aorta without acute injury or dissection. Kciu-ii-kaubqezs atherosclerotic disease. 2. Asymmetric beading of the right renal artery may relate to senescent changes or component of fibromuscular dysplasia. 3. Otherwise, no acute abnormality in the abdomen or pelvis. No obstructive uropathy. Interpreted by: Shahzad Miles DO Signed by: Shahzad Miles DO 3/11/[address] [facility] 1. Normal caliber abdominal aorta without acute injury or dissection. Zcvh-sx-xokrmbwd atherosclerotic disease. 2. Asymmetric beading of the right renal artery may relate to senescent changes or component of fibromuscular dysplasia. 3. Otherwise, no acute abnormality in the abdomen or pelvis. No obstructive uropathy. [facility] RIS CONSOLIDATED EXAMINATION: CTA OF THE ABDOMEN AND PELVIS WITH AND WITHOUT CONTRAST 11/26/2021 8:12 pm: TECHNIQUE: CTA of the abdomen and pelvis was performed without and with the administration of intravenous contrast. Multiplanar reformatted images are provided for review. MIP images are provided for review. Dose modulation, iterative reconstruction, and/or weight based adjustment of the mA/kV was utilized to reduce the radiation dose to as low as reasonably achievable. COMPARISON: CT abdomen pelvis done 07/28/2021. HISTORY: ORDERING SYSTEM PROVIDED HISTORY: R sided flank pain that radiates to RLQ with BM and eating TECHNOLOGIST PROVIDED HISTORY: R sided flank pain that radiates to RLQ with BM and eating Decision Support Exception - unselect if not a suspected or confirmed emergency medical condition->Emergency Medical Condition (MA) Reason for Exam: Right flank pain that radiates to RLQ, intermittent x 6 months but occurring consistantly after eating or having a bowel movement. R/O stone or stenosis. Hx hysterectomy, hernia repair, gallbladder, appendectomy FINDINGS: CTA ABDOMEN: The abdominal aorta is patent. No hemodynamically significant stenosis, aneurysm, acute injury or dissection. Umzg-pq-fnyfoazr atherosclerotic disease. The celiac trunk, superior mesenteric artery, bilateral renal arteries and inferior mesenteric artery are patent. No hemodynamically significant stenosis at the origins of these vessels. No periaortic hemorrhage. Asymmetric beading of the right renal artery. No intraperitoneal free air, ascites or drainable fluid collection. No pathologic lymphadenopathy in the abdomen or pelvis. No obvious mesenteric mass. Prior cholecystectomy. The liver, spleen, pancreas and adrenal glands demonstrate no focal abnormality. Diffuse heterogeneous enhancement in the spleen likely relates to arterial phase of contrast. Diffuse pancreatic atrophy without focal mass, main duct dilatation or peripancreatic inflammation. Similar-appearing small bilateral renal cysts, left greater than right. No suspicious hyperenhancing renal mass. No hydronephrosis. No urinary stones. Both ureters are normal in course and caliber. The stomach is decompressed and not well evaluated. The small bowel and colon are normal in caliber. Colonic diverticulosis without acute diverticulitis. Prior appendectomy. No acute fracture or destructive osseous lesion. Multilevel degenerative changes in the visualized spine. No acute abnormality in the visualized lower chest. Small fat containing periumbilical hernia. CTA PELVIS: Mild to moderate atherosclerotic disease in the large arteries in the pelvis. No hemodynamically significant stenosis, aneurysm, acute injury or dissection. Normal aortic bifurcation. No suspicious pelvic mass or fluid collection. The inferior margin of the urinary bladder is low lying suggesting cystocele. This is similar to the prior study. Prior hysterectomy. No acute fracture or destructive osseous lesion. Degenerative changes in the pelvis. [facility] Ginger, Shahzad, DO - 11/26/2021 EXAMINATION: CTA OF THE ABDOMEN AND PELVIS WITH AND WITHOUT CONTRAST 11/26/2021 8:12 pm: TECHNIQUE: CTA of the abdomen and pelvis was performed without and with the administration of intravenous contrast. Multiplanar reformatted images are provided for review. MIP images are provided for review. Dose modulation, iterative reconstruction, and/or weight based adjustment of the mA/kV was utilized to reduce the radiation dose to as low as reasonably achievable. COMPARISON: CT abdomen pelvis done 07/28/2021. HISTORY: ORDERING SYSTEM PROVIDED HISTORY: R sided flank pain that radiates to RLQ with BM and eating TECHNOLOGIST PROVIDED HISTORY: R sided flank pain that radiates to RLQ with BM and eating Decision Support Exception - unselect if not a suspected or confirmed emergency medical condition->Emergency Medical Condition (MA) Reason for Exam: Right flank pain that radiates to RLQ, intermittent x 6 months but occurring consistantly after eating or having a bowel movement. R/O stone or stenosis. Hx hysterectomy, hernia repair, gallbladder, appendectomy FINDINGS: CTA ABDOMEN: The abdominal aorta is patent. No hemodynamically significant stenosis, aneurysm, acute injury or dissection. Wzkl-qm-halsduaq atherosclerotic disease. The celiac trunk, superior mesenteric artery, bilateral renal arteries and inferior mesenteric artery are patent. No hemodynamically significant stenosis at the origins of these vessels. No periaortic hemorrhage. Asymmetric beading of the right renal artery. No intraperitoneal free air, ascites or drainable fluid collection. No pathologic lymphadenopathy in the abdomen or pelvis. No obvious mesenteric mass. Prior cholecystectomy. The liver, spleen, pancreas and adrenal glands demonstrate no focal abnormality. Diffuse heterogeneous enhancement in the spleen likely relates to arterial phase of contrast. Diffuse pancreatic atrophy without focal mass, main duct dilatation or peripancreatic inflammation. Similar-appearing small bilateral renal cysts, left greater than right. No suspicious hyperenhancing renal mass. No hydronephrosis. No urinary stones. Both ureters are normal in course and caliber. The stomach is decompressed and not well evaluated. The small bowel and colon are normal in caliber. Colonic diverticulosis without acute diverticulitis. Prior appendectomy. No acute fracture or destructive osseous lesion. Multilevel degenerative changes in the visualized spine. No acute abnormality in the visualized lower chest. Small fat containing periumbilical hernia. CTA PELVIS: Mild to moderate atherosclerotic disease in the large arteries in the pelvis. No hemodynamically significant stenosis, aneurysm, acute injury or dissection. Normal aortic bifurcation. No suspicious pelvic mass or fluid collection. The inferior margin of the urinary bladder is low lying suggesting cystocele. This is similar to the prior study. Prior hysterectomy. No acute fracture or destructive osseous lesion. Degenerative changes in the pelvis. IMPRESSION: 1. Normal caliber abdominal aorta without acute injury or dissection. Dzkc-qu-tubzxlru atherosclerotic disease. 2. Asymmetric beading of the right renal artery may relate to senescent changes or component of fibromuscular dysplasia. 3. Otherwise, no acute abnormality in the abdomen or pelvis. No obstructive uropathy. [employer] Phone: Radiology Study observation (narrative) [employer] Phone: CTA ABDOMEN PELVIS W WO CONT RASTOrdered By: Shahzad Miles on 11-26-2021 [employer] Phone: Comp Metabolic Pr/rfx MGon 0 11-26-2021 Potassium [Moles/Vol] 3.4 mmol/L Low 3.7-5.3 [facility] Comment on above: Performed By: #### L IP, MG, CMPX, CDP #### [facility] [address] [place] [address] Lace Cutter: Ciro Cui MD (cont.) Normal [facility] Comment on above: Result Comment: Aver age GFR for 70 or more years old: 75 mL/min/1.73sq m Chronic Kidney Disease: <60 mL/min/1.73sq m Kidney failure: <15 mL/min/1.73sq m eGFR calculated using average adult body mass. Additional eGFR calculator available at: http://www.[employer].Epocrates/multiple_crcl_2012.htm Performed By: #### L IP, MG, CMPX, CDP #### [facility] [address] [facility] [place] [address] Lace Cutter: Ciro Cui MD Albumin [Mass/Vol] 4.7 g/dL Normal 3.5-5.2 [facility] Comment on above: Performed By: #### L IP, MG, CMPX, CDP #### [facility] [place] [address] Lace Cutter: Ciro Cui MD Alkaline Phos 83 U/L Normal 35-104 [facility] Comment on above: Performed By: #### L IP, MG, CMPX, CDP #### [facility] [facility] [place] [address] Lace Cutter: Ciro Cui MD ALT [Catalytic activity/Vol] 23 U/L Normal 5-33 [facility] Comment on above: Performed By: #### L IP, MG, CMPX, CDP #### [facility] [facility] [place] [address] Lace Cutter: Ciro Cui MD Anion gap [Moles/Vol] 11 mmol/L Normal 9-17 [facility] Comment on above: Performed By: #### L IP, MG, CMPX, CDP #### [facility] [facility] [place] [address] Lace Cutter: Ciro Cui MD AST [Catalytic activity/Vol] 23 U/L Normal <32 [facility] Comment on above: Performed By: #### L IP, MG, CMPX, CDP #### [facility] [address] [place] [address] Lace Cutter: Ciro Cui MD Bilirubin [Mass/Vol] 1.32 mg/dL High 0.3-1.2 [facility] Comment on above: Performed By: #### L IP, MG, CMPX, CDP #### [facility] [address] [place] [address]. [place] [address] Lace Cutter: Ciro Cui MD BUN/CRE Ratio 38 High 9-20 [facility] Comment on above: Performed By: #### L IP, MG, CMPX, CDP #### [facility] [address] [place] [address]. [place] [address] Lace Cutter: Ciro Cui MD Calcium [Mass/Vol] 10.3 mg/dL Normal 8.6-10.4 [facility] Comment on above: Performed By: #### L IP, MG, CMPX, CDP #### [facility] [address] [place] [address]. [place] [address] Lace Cutter: Ciro Cui MD Chloride [Moles/Vol] 97 mmol/L Low 98-107 [facility] Comment on above: Performed By: #### L IP, MG, CMPX, CDP #### [facility] [address] [place] [address]. [place] [address] Lace Cutter: Ciro Cui MD CO2 [Moles/Vol] 28 mmol/L Normal 20-31 [facility] Comment on above: Performed By: #### L IP, MG, CMPX, CDP #### [facility] [address] [place] [address]. [place] [address] Lace Cutter: Ciro Cui MD Creatinine [Mass/Vol] 0.77 mg/dL Normal 0.50-0.90 [facility] Comment on above: Performed By: #### L IP, MG, CMPX, CDP #### [facility] [facility] [place] [address] Lace Cutter: Ciro Cui MD GFR, Amer >60 Normal >60 [facility] Comment on above: Performed By: #### L IP, MG, CMPX, CDP #### [facility] [address] [place] [address]. [place] [address] Lace Cutter: Ciro Cui MD GFR,non Amer >60 Normal >60 [facility] Comment on above: Performed By: #### L IP, MG, CMPX, CDP #### [facility] [address] [place] [address]. [place] [address] Lace Cutter: Ciro Cui MD Glucose [Mass/Vol] 112 mg/dL High 70-99 [facility] Comment on above: Performed By: #### L IP, MG, CMPX, CDP #### [facility] [address] [place] [address]. [place] [address] Lace Cutter: Ciro Cui MD Protein [Mass/Vol] 7.1 g/dL Normal 6.4-8.3 [facility] Comment on above: Performed By: #### L IP, MG, CMPX, CDP #### [facility] [address] [place] [address]. [place] [address] Lace Cutter: Ciro Cui MD Sodium [Moles/Vol] 136 mmol/L Normal 135-144 [facility] Comment on above: Performed By: #### L IP, MG, CMPX, CDP #### [facility] [address] [place] [address]. [place] [address] Lace Cutter: Ciro Cui MD Urea nitrogen [Mass/Vol] 29 mg/dL High 8-23 [facility] Comment on above: Performed By: #### L IP, MG, CMPX, CDP #### [facility] [address] [place] [address] Lace Cutter: Ciro Cui MD Comprehensive Metabolic Pane l w/ Reflex to MGon 11-26-2021 Albumin [Mass/Vol] 4.7 g/dL 3.5 - 5.2 g/dL [facility] ALP (Bld) [Catalytic activity/Vol] 83 U/L 35 - 104 U/L [facility] [employer] ALT [Catalytic activity/Vol] 23 U/L 5 - 33 U/L [facility] [employer] Anion gap [Moles/Vol] 11 mmol/L 9 - 17 mmol/L [facility] AST [Catalytic activity/Vol] 23 U/L <32 [facility] Bilirubin [Mass/Vol] 1.32 mg/dL High 0.3 - 1.2 mg/dL [employer] Calcium [Mass/Vol] 10.3 mg/dL 8.6 - 10. 4 mg/dL [facility] [employer] Chloride [Moles/Vol] 97 mmol/L Low 98 - 107 mmol/L [facility] CO2 [Moles/Vol] 28 mmol/L 20 - 31 mmol/L [facility] [employer] Creatinine [Mass/Vol] 0.77 mg/dL 0.50 - 0.90 mg/dL [facility] PSA/Total PSA [Mass fraction] 7.1 g/dL 6.4 - 8.3 g/dL [employer] GFR >60 >60 mL/min [facility] GFR Non- >60 >60 mL/min [facility] GFR/1.73 sq M.predicted MDRD (S/P/Bld) [Vol rate/Area] [facility] Comment on above: Average GFR for 70 o r more years old: 75 mL/min/1.73sq m Chronic Kidney Disease: <60 mL/min/1.73sq m Kidney failure: <15 mL/min/1.73sq m eGFR calculated using average adult body mass. Additional eGFR calculator available at: http://www.Software [employer].Epocrates/multiple_crcl_2011.htm Glucose [Mass/Vol] 112 mg/dL High 70 - 99 mg/dL [facility] Interpretation and review of laboratory results Abnormal [facility] Potassium [Moles/Vol] 3.4 mmol/L Low 3.7 - 5.3 mmol/L [facility] Sodium [Moles/Vol] 136 mmol/L 135 - 144 mmol/L [facility] Urea nitrogen (BldV) [Mass/Vol] 29 mg/dL High 8 - 23 mg/dL [facility] Urea nitrogen/Creatinine (Bld) [Mass ratio] 38 High [facility] Lipaseon 11-26-2021 Lipase [Catalytic activity/Vol] 60 U/L Normal 13-60 [facility] Comment on above: Performed By: #### L IP, MG, CMPX, CDP #### [facility] [address] [place] [id number] Lace Cutter: Ciro Cui MD Lipase [Catalytic activity/Vol] 60 U/L 13 - 60 U/L [facility] Magnesiumon 11-26-2021 Magnesium [Mass/Vol] 1.6 mg/dL Normal 1.6-2.6 [facility] Comment on above: Performed By: #### L IP, MG, CMPX, CDP #### [facility] [address] [place] [address] Lace Cutter: Ciro Cui MD Magnesium [Mass/Vol] 1.6 mg/dL 1.6 - 2.6 mg/dL [facility] Urinalysis w/ Microon 2021 ----- Normal [facility] Comment on above: Performed By: #### U AMIC #### [facility] [address] [place] [address] Lace Cutter: Ciro Cui MD Bacteria MODERATE Abnormal NONE [facility] Comment on above: Performed By: #### U AMIC #### [facility] [address] [place] [address] Lace Cutter: Ciro Cui MD Bilirubin, SemiQt,Ur Negative Normal NEG [facility] Comment on above: Performed By: #### U AMIC #### [facility] [address] [facility] [place] [address] Lace Cutter: Ciro Cui MD Blood, Urine Negative Normal NEG [facility] Comment on above: Performed By: #### U AMIC #### [facility] [address] [facility] [place] [address] Lace Cutter: Ciro Cui MD Clarity (U) SLIGHTLY CLOUDY Abnormal CLEAR [facility] Comment on above: Performed By: #### U AMIC #### [facility] [address] [place] [address]. [place] [address] Lace Cutter: Ciro Cui MD Color (U) Yellow Normal YEL [facility] Comment on above: Performed By: #### U AMIC #### [facility] [address] [facility] [place] [address] Lace Cutter: Ciro Cui MD Epithelial cells LM Ql (Urine sed) 20 TO 50 Normal 0-5 [facility] Comment on above: Performed By: #### U AMIC #### [facility] [facility] [place] [address] Lace Cutter: Ciro Cui MD Glucose Ql (U) Negative Normal NEG [facility] Comment on above: Performed By: #### U AMIC #### [facility] [address] [place] [address]. [place] [address] Lace Cutter: Ciro Cui MD Ketones Ql (U) Negative Normal NEG [facility] Comment on above: Performed By: #### U AMIC #### [facility] [place] [address] Lace Cutter: Ciro Cui MD Leukocyte esterase Test strip Ql (U) SMALL Abnormal NEG [facility] Comment on above: Performed By: #### U AMIC #### [facility] [address] [place] [address] Lace Cutter: Ciro Cui MD Nitrite,Ur Negative Normal NEG [facility] Comment on above: Performed By: #### U AMIC #### [facility] [address] [place] [address] Lace Cutter: Ciro Cui MD PH,Ur 5.5 Normal 5.0-8.0 [facility] Comment on above: Performed By: #### U AMIC #### [facility] [address] [place] [address] Lace Cutter: Ciro Cui MD Protein Ql (U) Negative Normal NEG [facility] Comment on above: Performed By: #### U AMIC #### [facility] [address] [place] [address] Lace Cutter: Ciro Cui MD Spec. [place],Ur 1.025 Normal 1.005-1.030 [facility] Comment on above: Performed By: #### U AMIC #### [facility] [address] [place] [address] Lace Cutter: Ciro Cui MD Urine RBC's 0 TO 2 Normal 0-2 [facility] Comment on above: Performed By: #### U AMIC #### [facility] [place] [address] Lace Cutter: Ciro Cui MD Urine WBC's 10 TO 20 Normal 0-5 [facility] Comment on above: Performed By: #### U AMIC #### [facility] [address] [place] [address] Lace Cutter: Ciro Cui MD Urobilinogen,Ur Normal Normal NORM [facility] Comment on above: Performed By: #### U AMIC #### [facility] [address] [place], [place] [id number] Lace Cutter: Ciro Cui MD Urinalysis with Microscopico n 11-26-2021 - [facility] Bacteria, UA MODERATE Abnormal None [facility] Bilirubin Urine Negative [facility] Color, UA Yellow Yellow [facility] Epithelial Cells UA 20 TO 50 [facility] Glucose, Ur Negative NEGATIVE [facility] Interpretation and review of laboratory results Abnormal [facility] Ketones Ql (U) Negative NEGATIVE [facility] Leukocyte esterase Test strip Ql (U) SMALL Abnormal NEGATIVE [facility] Nitrite, Urine Negative NEGATIVE [facility] pH, UA 5.5 [facility] Protein, UA Negative NEGATIVE [facility] RBC, UA 0 TO 2 [facility] Specific [place], UA 1.025 [facility] Turbidity UA SLIGHTLY CLOUDY Abnormal Clear [facility] ealt Urine Hgb Negative NEGATIVE [facility] Urobilinogen, Urine Normal Normal [facility] WBC, UA 10 TO 20 [facility] CBC WITH DIFFon 11-25-2021 ABS BASOPHIL 0.05 x10^3ul Normal (0.00 - 0.16) [facility] Comment on above: Order Comment: FACIL ITY: [facility] [id number] Performed By: #### L IP, TIBC+, CHEM-C, CBC/D #### [facility] [address] [place] [address] ABS EOSINOPHIL 0.18 x10^3ul Normal (0.00 - 0.40) [facility] Comment on above: Order Comment: FACIL ITY: [facility] [id number] Performed By: #### L IP, TIBC+, CHEM-C, CBC/D #### [facility] [address] [facility] ABS IMMATURE GRANS 0.03 x10^3ul Normal (0.00 - 0.11) [facility] Comment on above: Order Comment: FACIL ITY: [facility] [id number] Performed By: #### L IP, TIBC+, CHEM-C, CBC/D #### [facility] [address] [facility], [address] ABS LYMPHOCYTE 3.24 x10^3ul Normal (0.96 - 5.40) [facility] Comment on above: Order Comment: FACIL ITY: [facility] [id number] Performed By: #### L IP, TIBC+, CHEM-C, CBC/D #### [facility] [address] [facility], [address] ABS MONOCYTE 0.48 x10^3ul Normal (0.10 - 1.00) [facility] Comment on above: Order Comment: FACIL ITY: [facility] [id number] Performed By: #### L IP, TIBC+, CHEM-C, CBC/D #### [facility] [address] [facility], [address] ABS NEUTROPHIL 3.92 x10^3ul Normal (1.50 - 7.00) [facility] Comment on above: Order Comment: FACIL ITY: [facility] [id number] Performed By: #### L IP, TIBC+, CHEM-C, CBC/D #### [facility] [address] [facility], [address] Basophils/100 WBC (Bld) 0.6 % Normal () [facility] Comment on above: Order Comment: FACIL ITY: [facility] [id number] Performed By: #### L IP, TIBC+, CHEM-C, CBC/D #### [facility] [address] [facility], [address] Eosinophils/100 WBC (Bld) 2.3 % Normal () [facility] Comment on above: Order Comment: FACIL ITY: [facility] [id number] Performed By: #### L IP, TIBC+, CHEM-C, CBC/D #### [facility] Lab [address] [place], [address] Hematocrit (Bld) [Volume fraction] 38.6 % Normal (37.0 - 47.0) [facility] Comment on above: Order Comment: FACIL ITY: HS LAB [facility] [id number] Performed By: #### L IP, TIBC+, CHEM-C, CBC/D #### [facility] [facility] [address] [place], [address] Hemoglobin (Bld) [Mass/Vol] 12.6 g/dL Normal (12.0 - 16.0) [facility] Comment on above: Order Comment: FACIL ITY: LAB SERVICE CENTER [id number] Performed By: #### L IP, TIBC+, CHEM-C, CBC/D #### [facility] [facility] [address] [place], [address] IMMATURE GRANS (IG) 0.4 % Normal () [facility] Comment on above: Order Comment: FACIL ITY: LAB SERVICE [facility] [id number] Performed By: #### L IP, TIBC+, CHEM-C, CBC/D #### [facility] [facility] [address] [place], [address] LYMPS 41.0 % Normal () [facility] Comment on above: Order Comment: FACIL ITY: [facility] [id number] Performed By: #### L IP, TIBC+, CHEM-C, CBC/D #### [place] [facility] [address] [place], [address] MCH (RBC) [Entitic mass] 30.6 pg Normal (27.0 - 33.0) [facility] Comment on above: Order Comment: FACIL ITY: [facility] [id number] Performed By: #### L IP, TIBC+, CHEM-C, CBC/D #### [place] [facility] [address] [place], [address] MCHC (RBC) [Mass/Vol] 32.6 g/dL Normal (30.0 - 37.0) [facility] Comment on above: Order Comment: FACIL ITY: [facility] [id number] Performed By: #### L IP, TIBC+, CHEM-C, CBC/D #### [facility] [address] [facility], [address] MCV (RBC) [Entitic vol] 93.7 fL Normal (81.0 - 99.0) [facility] Comment on above: Order Comment: FACIL ITY: HS [facility] [id number] Performed By: #### L IP, TIBC+, CHEM-C, CBC/D #### [facility] [address] [facility], [address] MONOS 6.1 % Normal () [facility] Comment on above: Order Comment: FACIL ITY: HS [facility] [id number] Performed By: #### L IP, TIBC+, CHEM-C, CBC/D #### [facility] [address] [facility], [address] PLT 232 x10^3ul Normal (130 - 400) [place] [facility] Comment on above: Order Comment: FACIL ITY: LAB SERVICE CENTER [id number] Performed By: #### L IP, TIBC+, CHEM-C, CBC/D #### [facility] [address] [facility], [address] RBC 4.12 x10^6ul Low (4.20 - 5.40) [facility] Comment on above: Order Comment: FACIL ITY: [facility] [id number] Performed By: #### L IP, TIBC+, CHEM-C, CBC/D #### [facility] [address] [facility], [address] RDW-SD 43.8 fl Normal (37.0 - 49.0) [facility] Comment on above: Order Comment: FACIL ITY: [facility] [id number] Performed By: #### L IP, TIBC+, CHEM-C, CBC/D #### [place] [facility] [address] [place], [address] SEGS 49.6 % Normal () [facility] Comment on above: Order Comment: FACIL ITY: LAB SERVICE CENTER [id number] Performed By: #### L IP, TIBC+, CHEM-C, CBC/D #### [place] [facility] [address] [place], [address] WBC 7.91 x10^3ul Normal (3.80 - 10.60) [facility] Comment on above: Order Comment: FACIL ITY: LAB SERVICE [facility]ENTER [id number] Performed By: #### L IP, TIBC+, CHEM-C, CBC/D #### [place] [facility] [address] [place], [address] COMP METABOLIC PANEL W/GFRon 11-25-2021 Albumin [Mass/Vol] 5.1 g/dL High (3.5 - 5.0) [facility] Comment on above: Performed By: #### L IP, TIBC+, CHEM-C, CBC/D #### [place] [facility] [address] [place], [address] ALK PHOS 88 U/L Normal (38 - 126) [facility] Comment on above: Performed By: #### L IP, TIBC+, CHEM-C, CBC/D #### [place] [facility] [address] [place], [address] ALT [Catalytic activity/Vol] 24 U/L Normal (1 - 35) [facility] Comment on above: Performed By: #### L IP, TIBC+, CHEM-C, CBC/D #### [place] [facility] [address] [place], [address] AST [Catalytic activity/Vol] 34 U/L Normal (15 - 46) [facility] Comment on above: Performed By: #### L IP, TIBC+, CHEM-C, CBC/D #### [place] [facility] [address] [place], [address] Bilirubin [Mass/Vol] 1.5 mg/dL High (0.2 - 1.3) [place] [facility] Comment on above: Performed By: #### L IP, TIBC+, CHEM-C, CBC/D #### [place] [facility] [address] [place], [address] Calcium [Mass/Vol] 10.1 mg/dL Normal (8.6 - 10.6) [facility] Comment on above: Performed By: #### L IP, TIBC+, CHEM-C, CBC/D #### [place] [facility] [address] [place], [address] Chloride [Moles/Vol] 99 mmol/L Normal (98 - 107) [place] [facility] Comment on above: Performed By: #### L IP, TIBC+, CHEM-C, CBC/D #### [place] [facility] [address] [place], [address] CO2 [Moles/Vol] 29 mmol/L Normal (22 - 30) [place] [facility] Comment on above: Performed By: #### L IP, TIBC+, CHEM-C, CBC/D #### [place] [facility] [address] [place], [address] Creatinine [Mass/Vol] 0.79 mg/dL Normal (0.52 - 1.04) [place] [facility] Comment on above: Performed By: #### L IP, TIBC+, CHEM-C, CBC/D #### [place] [address] [place], [address] GFR- AMER 86.1 ML/M1.7 Normal (60.0 - 140.1) [place] [facility] Comment on above: Performed By: #### L IP, TIBC+, CHEM-C, CBC/D #### [place] [facility] [address] [place], [address] GFR-NON AFRIC-AMER 71.1 ML/M1.7 Normal (60.0 - 115.8) [facility] Comment on above: Performed By: #### L IP, TIBC+, CHEM-C, CBC/D #### [place] [facility] [address] [place], [address] Glucose [Mass/Vol] 101 mg/dL Normal (74 - 106) [facility] Comment on above: Performed By: #### L IP, TIBC+, CHEM-C, CBC/D #### [facility] [address] [place], [address] Potassium [Moles/Vol] 3.8 mmol/L Normal (3.5 - 5.1) [facility] Comment on above: Performed By: #### L IP, TIBC+, CHEM-C, CBC/D #### [facility] [address] [place], [address] Protein [Mass/Vol] 7.1 g/dL Normal (6.3 - 8.2) [facility] Comment on above: Performed By: #### L IP, TIBC+, CHEM-C, CBC/D #### [place] [facility] [address] [place], [address] Sodium [Moles/Vol] 139 mmol/L Normal (137 - 145) [facility] Comment on above: Performed By: #### L IP, TIBC+, CHEM-C, CBC/D #### [place] [facility] [address] [place], [address] Urea nitrogen [Mass/Vol] 21 mg/dL High (7 - 17) [facility] Comment on above: Performed By: #### L IP, TIBC+, CHEM-C, CBC/D #### [place] [facility] [address] [place], [address] IRON, TIBC AND FERRITINon % SATURATION 24 % Normal (20 - 55) [place] [facility] Comment on above: Performed By: #### L IP, TIBC+, CHEM-C, CBC/D #### [place] [facility] [address] [place], [address] Ferritin [Mass/Vol] 410.0 ng/mL Normal (11.0 - 415.0) [place] [facility] Comment on above: Performed By: #### L IP, TIBC+, CHEM-C, CBC/D #### [place] [facility] [address] [place], [address] Iron [Mass/Vol] 67 ug/dL Normal (37 - 170) [place] [facility] Comment on above: Performed By: #### L IP, TIBC+, CHEM-C, CBC/D #### [place] [facility] [address] [place], [address] TIBC 285 UG/DL Normal (250 - 450) [facility] [facility] Comment on above: Performed By: #### L IP, TIBC+, CHEM-C, CBC/D #### [place] [facility] [address] [place], [address] LIPASEon 11-25-2021 Lipase [Catalytic activity/Vol] 243 U/L Normal (23 - 300) [place] [facility] Comment on above: Performed By: #### L IP, TIBC+, CHEM-C, CBC/D #### [place] [facility] [address] [place], [address] MRI ABDOMEN WO CONon 022 MRI ABDOMEN WO CON EXAM: MRI ABDOMEN WO CON, 10/19/2021 HISTORY: Liver pain COMPARISON: CT scan from 2013. TECHNIQUE: Multiplanar MRI of the liver was performed including T1, T2 and fat-suppressed images with attention to the biliary tree. Some of the images are partially degraded due to motion artifact. FINDINGS: The patient is status post cholecystectomy. No focal liver mass lesion is seen. The intra and extrahepatic bile ducts demonstrate no dilatation or obvious filling defect. Status post cholecystectomy. Mild diffuse atrophy of the pancreas. The spleen shows no focal lesion and appears normal in size. Probable renal cortical cysts. IMPRESSION: No obvious liver mass given the limitation of noncontrast study. No intra or extrahepatic biliary dilatation. Postcholecystectomy. Mild diffuse atrophy of pancreas. Electronically authenticated by: EDISON HAWKINS Date: 2021-10-21 08:24 Normal [facility] Comprehensive Metabolic Pane milka 10-14-2021 Albumin [Mass/Vol] 5.3 g/dL High 3.6-5.1 [facility] Comment on above: Performed By: #### C KETTY, LIPD #### [facility] [address] [place], [place] [id number] Albumin/Globulin [Mass ratio] 3.1 {ratio} High 1.0-2.5 [facility] Comment on above: Performed By: #### C KETTY, LIPD #### [facility] [address] [place], [place] [id number] ALP [Catalytic activity/Vol] 121 U/L High 35-119 [facility] Comment on above: Performed By: #### C KETTY, LIPD #### [facility] [address] [place], [place] [id number] ALT [Catalytic activity/Vol] 19 U/L Normal 6-33 [facility] Comment on above: Result Comment: 08/18 Female reference range changed. Performed By: #### C KETTY, LIPD #### [facility] [address] [place], [place] [id number] Anion gap [Moles/Vol] 20 mmol/L Normal 12-20 [facility] Comment on above: Result Comment: Effe ctive 09/23/2019 reference range changed. Performed By: #### C KETTY, LIPD #### [facility] [address] [place], [place] [id number] AST [Catalytic activity/Vol] 21 U/L Normal 9-34 [facility] Comment on above: Performed By: #### C MP, LIPD #### [facility] [address] [place], [place] [id number] Bilirubin [Mass/Vol] 1.47 mg/dL High 0.30-1.20 [facility] Comment on above: Performed By: #### C KETTY LIPJacques #### [facility] [address] [place], [place] [id number] BUN/CREA 26 Ratio High 6-22 [facility] Comment on above: Performed By: #### C KETTY LIPD #### [facility] [address] [place], [place] [id number] Calcium [Mass/Vol] 10.6 mg/dL High 8.6-10.2 [facility] Comment on above: Performed By: #### C KETTY LIPD #### [facility] [address] [place], [place] [id number] Chloride [Moles/Vol] 101 mmol/L Normal 98-107 [facility] Comment on above: Performed By: #### C KETTY LIPD #### [facility] [address] [place], [place] [id number] CO2 [Moles/Vol] 25 mmol/L Normal 20-31 [facility] Comment on above: Performed By: #### C KETTY LIPD #### [facility] [address] [place], [place] [id number] Creatinine [Mass/Vol] 0.6 mg/dL Normal 0.6-1.4 [facility] Comment on above: Performed By: #### C KETTY LIPD #### [facility] [address] [place], [place] [id number] eGFRAA 116 mL/min/1.73m2 Normal >60 [facility] Comment on above: Performed By: #### C KETTY LIPD #### [facility] [address] [place], [place] [id number] eGFRNAA 96 mL/min/1.73m2 Normal >60 [facility] Comment on above: Performed By: #### C KETTY LIPD #### [facility] [address] [place], [place] [id number] Globulin (S) [Mass/Vol] 1.7 g/dL Low 1.9-3.7 [facility] Comment on above: Performed By: #### C KETTY LIPD #### [facility] [address] [place], [place] [id number] Glucose [Mass/Vol] 119 mg/dL High 65-99 [facility] Supervisor Comment on above: Result Comment: For FASTING Glucose --- ADA reference ranges: Normal 65-99 mg/dl Prediabetes 100-125 Diabetes >/= 126 Performed By: #### C MP, LIPD #### [facility] [address] [place], [place] [id number] Potassium [Moles/Vol] 3.8 mmol/L Normal 3.5-5.5 [facility] Supervisor Comment on above: Performed By: #### C MP, LIPD #### [facility] [address] [place], [place] [id number] Protein [Mass/Vol] 7.0 g/dL Normal 6.1-8.1 [facility] [place] [facility] [employer] Supervisor Comment on above: Performed By: #### C MP, LIPD #### [facility] [address] [place], [place] [id number] Sodium [Moles/Vol] 141 mmol/L Normal 135-146 [facility] Supervisor Comment on above: Performed By: #### C MP, LIPD #### [facility] [address] [place], [place] [id number] Urea nitrogen [Mass/Vol] 16 mg/dL Normal 7-25 [facility] Supervisor Comment on above: Performed By: #### C MP, LIPD #### [facility] [address] [place], [place] [id number] Lipid Panelon 10-14-2021 Cholesterol [Mass/Vol] 191 mg/dL Normal 125-200 [facility] Supervisor Comment on above: Result Comment: Low risk < 200mg/dL Borderline risk 201-239 mg/dl High risk > or equal to 240 Performed By: #### C MP, LIPD #### [facility] [address] [place], [place] [id number] Cholesterol in HDL [Mass/Vol] 72 mg/dL Normal >40 [facility] Supervisor Comment on above: Result Comment: High Cardiovascular Risk HDL <40 mg/dL Low Cardiovascular Risk HDL > or equal to 60 mg/dl Performed By: #### C MP, LIPD #### [facility] [address] [place], [place] [id number] Cholesterol in LDL [Mass/Vol] 93 mg/dL Normal [facility] Comment on above: Result Comment: LDL ATP III CLASSIFICATION LDL less than 100 mg/dl Optimal LDL 100-129 mg/dl Near or above optimal LDL 130-159 Borderline high LDL 160-189 High LDL greater than 189 mg/dl Very High Performed By: #### C MP, LIPD #### [facility] [address] [place], [place] [id number] Cholesterol in VLDL [Mass/Vol] 26 mg/dL Normal [facility] Comment on above: Performed By: #### C KETTY, LIPD #### [facility] [address] [place], [place] [id number] Cholesterol.total/C holesterol in HDL [Mass ratio] 3 {ratio} Normal [facility] Comment on above: Performed By: #### C KETTY, LIPD #### [facility] [address] [place], [place] [id number] Triglyceride [Mass/Vol] 131 mg/dL Normal 30-150 [facility] Comment on above: Result Comment: TRIG ATPIII CLASSIFICATIONS TRIG less than 150 mg/dl Normal TRIG 150-199 mg/dl Borderline High TRIG 200-500 mg/dl High TRIG greather than 500 mg/dl Very High Performed By: #### C KETTY, LIPD #### [facility] [address] [place], [place] [id number] Complete Blood Counton 10-04 Erythrocyte distribution width (RBC) [Ratio] 12.7 % Normal 11.0-15.0 [facility] Comment on above: Performed By: #### C BC #### [facility] [address] [place], [place] [id number] #### FERR #### [facility] [address] [place] [address] Hematocrit (Bld) [Volume fraction] 38.7 % Normal 35.0-47.0 [facility] Comment on above: Performed By: #### C BC #### [facility] [address] [place], [place] [id number] #### FERR #### [facility] [address] [place] [address] Hemoglobin (Bld) [Mass/Vol] 12.3 g/dL Normal 11.6-15.5 [facility] Comment on above: Performed By: #### C BC #### [facility] [address] [place], [place] [id number] #### FERR #### [facility] [address] [place] [address] MCH (RBC) [Entitic mass] 30.6 pg Normal 27.0-33.0 [facility] Comment on above: Performed By: #### C BC #### [facility] [address] [facility] [place] [id number] #### FERR #### [facility] [address] [place] [address] MCHC (RBC) [Mass/Vol] 31.8 g/dL Low 32.0-36.0 [facility] Comment on above: Performed By: #### C BC #### [facility] [address] [place], [place] [id number] #### FERR #### [facility] [address] [place] [address] MCV (RBC) [Entitic vol] 96 fL Normal 80-100 [facility] Comment on above: Performed By: #### C BC #### [facility] [address] [facility] [place] [id number] #### FERR #### [facility] [address] [place] [address] Platelet mean volume (Bld) [Entitic vol] 12.10 fL Normal 7.50-12.50 [facility] Comment on above: Performed By: #### C BC #### [facility] [address] [facility] [place] [place] [id number] #### FERR #### [facility] [address] [place] [address] Platelets (Bld) [#/Vol] 223 10*3/uL Normal 140-400 [facility] Comment on above: Performed By: #### C BC #### [facility] [address] [facility] [place] [place] [id number] #### FERR #### [facility] [address] [place] [address] RBC (Bld) [#/Vol] 4.02 10*6/uL Normal 3.90-5.20 [facility] Comment on above: Performed By: #### C BC #### [facility] [address] [place], [place] [id number] #### FERR #### [facility] [address] [place] [address] RDW-SD 45.1 fL Normal 37.0-50.0 [facility] Comment on above: Performed By: #### C BC #### [facility] [address] [place], [place] [id number] #### FERR #### [facility] [address] [place] [address] WBC (Bld) [#/Vol] 8.0 10*3/uL Normal 3.8-11.0 [facility] Comment on above: Performed By: #### C BC #### [facility] [address] [place], [place] [id number] #### FERR #### [facility] [address] [place] [address] Ferritinon 10-04-2021 FERR 447 ng/mL High 16-288 [facility] Comment on above: Order Comment: [facility] Testing performed at: QPT, [facility], [address] [place] [address], [address] [place] [address], [phone], Medical Review Coordinator: José Luis Andre MD [facility] Collection Date/Time: [facility] Results Received Date/Time: [facility] Reported Date/Time: Performed By: #### C BC #### [facility] [address] [place], [place] [id number] #### FERR #### [facility] [address] [place] [address] Cult,Urineon 07-29-2021 Cult,Urine Specimen Description .CLEAN CATCH URINE Special Requests NOT REPORTED Culture NO SIGNIFICANT GROWTH Report Status FINAL 07/28/2021 Normal [facility] Comment on above: Performed By: #### U RC #### [address] [address] Lace Cutter: Jimmy Fernandez MD CT ABDOMEN PELVIS W IV CONTR Daniel 07-28-2021 CT ABDOMEN PELVIS W IV CONTRAST EXAMINATION: CT OF THE ABDOMEN AND PELVIS WITH CONTRAST 07/28/2021 12:01 am TECHNIQUE: CT of the abdomen and pelvis was performed with the administration of intravenous contrast. Multiplanar reformatted images are provided for review. Dose modulation, iterative reconstruction, and/or weight based adjustment of the mA/kV was utilized to reduce the radiation dose to as low as reasonably achievable. COMPARISON: None. HISTORY: ORDERING SYSTEM PROVIDED HISTORY: Abdominal pain TECHNOLOGIST PROVIDED HISTORY: Abdominal pain Decision Support Exception - unselect if not a suspected or confirmed emergency medical condition->Emergency Medical Condition (MA) Reason for Exam: abd pain FINDINGS: Lower Chest: The heart is at the upper limits of normal in size. No pericardial effusion. Asymmetric atelectasis is noted in the lingula. Organs: The liver is unremarkable. Cholecystectomy clips are noted. The adrenal glands are unremarkable. The pancreas is atrophic. The spleen is normal in appearance. There are several benign cysts noted in the kidneys including parapelvic cysts. No suspicious renal masses. No hydronephrosis or nephrourolithiasis. GI/Bowel: Stool is noted in the colon. Scattered colonic diverticula are noted without adjacent inflammatory changes. The appendix is not visualized. No inflammatory changes are noted in the right lower quadrant of the abdomen. There is a duodenal diverticulum. No bowel obstruction. Pelvis: There is nonspecific thickening of the bladder wall which could be related to incomplete distension. Underlying infection cannot be excluded. Collateral veins are noted in the left inguinal region and to a lesser extent the right inguinal region. No inguinal or pelvic sidewall adenopathy. The uterus is surgically absent. Peritoneum/Retroperitone um: Atherosclerotic plaque is noted in the aorta and its branch vessels. No retroperitoneal adenopathy. There is an umbilical hernia containing fat. Bones/Soft Tissues: Degenerative changes are noted in the spine and sacroiliac joints. No areas of abnormal soft tissue swelling. IMPRESSION: 1. Nonspecific thickening of the bladder wall. This could be related to incomplete distension versus infection. Correlate with urinalysis. 2. No other acute findings in the abdomen or pelvis to account for the patient's pain. Interpreted by: Jayson Person MD Signed by: Jayson Person MD 07/28/21 Final result Normal [facility] Comp Metabolic Profon 2020 (cont.) Normal [facility] Comment on above: Result Comment: Aver age GFR for 70 or more years old: 75 mL/min/1.73sq m Chronic Kidney Disease: <60 mL/min/1.73sq m Kidney failure: <15 mL/min/1.73sq m eGFR calculated using average adult body mass. Additional eGFR calculator available at: http://[email or web address]/multiple_crcl_2011.htm Performed By: #### C BC CP, LIP #### [facility] [address] [place] [address] Lace Cutter: Jimmy Fernandez MD Albumin [Mass/Vol] 4.6 g/dL Normal 3.5-5.2 [facility] Comment on above: Performed By: #### C BC CP, LIP #### [address] [address] Lace Cutter: Jimmy Fernandez MD Albumin/Glob Ratio 2.0 Normal 1.0-2.5 [facility] Comment on above: Performed By: #### C BC CP, LIP #### [facility] [address] [place] [address] Lace Cutter: Jimmy Fernandez MD Alkaline Phos 93 U/L Normal 35-104 [facility] Comment on above: Performed By: #### C BC CP, LIP #### [facility] [address] [place] [address] Lace Cutter: Jimmy Fernandez MD ALT [Catalytic activity/Vol] 19 U/L Normal 5-33 [facility] Comment on above: Performed By: #### C BC CP, LIP #### [facility] [address] [place] [address] Lace Cutter: Jimmy Fernandez MD Anion gap [Moles/Vol] 14 mmol/L Normal 9-17 [facility] Comment on above: Performed By: #### C BC, CP, LIP #### [facility] [address] [place] [address] Lace Cutter: Jimmy Fernandez MD AST [Catalytic activity/Vol] 20 U/L Normal <32 [facility] Comment on above: Performed By: #### C BC, CP, LIP #### [facility] [address] [place] [address] Lace Cutter: Jimmy Fernandez MD Bilirubin [Mass/Vol] 1.15 mg/dL Normal 0.3-1.2 [facility] Comment on above: Performed By: #### C BC, CP, LIP #### [facility] [address] [place] [address] Lace Cutter: Jimmy Fernandez MD Calcium [Mass/Vol] 10.1 mg/dL Normal 8.6-10.4 [facility] Comment on above: Performed By: #### C BC, CP, LIP #### [facility] [address] [place] [address] Lace Cutter: Jimmy Fernandez MD Chloride [Moles/Vol] 104 mmol/L Normal 98-107 [facility] Comment on above: Performed By: #### C BC, CP, LIP #### [facility] [address] [place] [address] Lace Cutter: Jimmy Fernandez MD CO2 [Moles/Vol] 24 mmol/L Normal 20-31 [facility] Comment on above: Performed By: #### C BC, CP, LIP #### [facility] [facility] [address] [place] [address] [phone] Lace Cutter: Jimmy Fernandez MD Creatinine [Mass/Vol] 0.81 mg/dL Normal 0.50-0.90 [facility] Comment on above: Performed By: #### C BC, CP, LIP #### [facility] [address] [place] [address] [phone] Lace Cutter: Jimmy Fernandez MD GFR, Amer >60 Normal >60 [facility] Comment on above: Performed By: #### C BC, CP, LIP #### [facility] [address] [place] [address] [phone] Lace Cutter: Jimmy Fernandez MD GFR,non Amer >60 Normal >60 [facility] Comment on above: Performed By: #### C BC, CP, LIP #### [facility] [address] [place] [address] [phone] Lace Cutter: Jimmy Fernandez MD Glucose [Mass/Vol] 95 mg/dL Normal 70-99 [facility] Comment on above: Performed By: #### C BC, CP, LIP #### [facility] [address] [place] [address] 28438 Lace Cutter: Jimmy Fernandez MD Potassium [Moles/Vol] 3.3 mmol/L Low 3.7-5.3 [facility] Comment on above: Performed By: #### C BC, CP, LIP #### [facility] [address] [place] [address] [phone] Lace Cutter: Jimmy Fernandez MD Protein [Mass/Vol] 6.9 g/dL Normal 6.4-8.3 [facility] Comment on above: Performed By: #### C BC, CP, LIP #### [facility] [address] [place] [address] [phone] Lace Cutter: Jimmy Fernandez MD Sodium [Moles/Vol] 142 mmol/L Normal 135-144 [facility] Comment on above: Performed By: #### C BC, CP, LIP #### [facility] [address] [place] [address] [phone] Lace Cutter: Jimmy Fernandez MD Urea nitrogen [Mass/Vol] 20 mg/dL Normal 8-23 [facility] Comment on above: Performed By: #### C BC, CP, LIP #### [facility] [place] [address] Lace Cutter: Jimmy Fernandez MD Lipaseon 07-28-2021 Lipase [Catalytic activity/Vol] 39 U/L Normal 13-60 [facility] Comment on above: Performed By: #### C BC, CP, LIP #### [facility] [address] [place] [address] [phone] Lace Cutter: Jimmy Fernandez MD Urinalysis, Routineon 2020 Bilirubin, SemiQt,Ur Negative Normal NEG [facility] Comment on above: Performed By: #### U A, UMICAO #### [facility] [address] [place] [address] [phone] Lace Cutter: Jimmy Fernandez MD Blood, Urine Negative Normal NEG [facility] Comment on above: Performed By: #### U A, UMICAO #### [facility] [address] [place] [address] [phone] Lace Cutter: Jimmy Fernandez MD Clarity (U) Turbid Abnormal CLEAR [facility] Comment on above: Performed By: #### U A, UMICAO #### [facility] [address] [place] [address] [phone] Lace Cutter: Jimmy Fernandez MD Color (U) Yellow Normal YEL [facility] Comment on above: Performed By: #### U A, UMICAO #### [facility] [address] [place] [address] 47206 Lace Cutter: Jimmy Fernandez MD Glucose Ql (U) Negative Normal NEG [facility] Comment on above: Performed By: #### U A, UMICAO #### [facility] [address] [place] [address] [phone] Lace Cutter: Jimmy Fernandez MD Ketones Ql (U) Negative Normal NEG [facility] Comment on above: Performed By: #### U A, UMICAO #### [address] [address] Lace Cutter: Jimmy Fernadnez MD Leukocyte esterase Test strip Ql (U) MODERATE Abnormal NEG [facility] Comment on above: Performed By: #### U A, UMICAO #### [address] [address] Lace Cutter: Jimmy Fernandez MD Nitrite,Ur Negative Normal NEG [facility] Comment on above: Performed By: #### U A, UMICAO #### [address] [address] Lace Cutter: Jimmy Fernandez MD PH,Ur 5.5 Normal 5.0-8.0 [facility] Comment on above: Performed By: #### U A, UMICAO #### [address] [address] Lace Cutter: Jimmy Fernandez MD Protein Ql (U) Negative Normal NEG [facility] Comment on above: Performed By: #### U A, UMICAO #### [address] [address] Lace Cutter: Jimmy Fernandez MD Spec. [place],Ur 1.006 Normal 1.005-1.030 [facility] Comment on above: Performed By: #### U A, UMICAO #### [address] [address] Lace Cutter: Jimmy Fernandez MD Urobilinogen,Ur Normal Normal NORM [facility] Comment on above: Performed By: #### U A, UMICAO #### [address] [address] Lace Cutter: Jimmy Fernandez MD Urinalysis,Microon 1 ----- Normal [facility] Comment on above: Performed By: #### U SOLEDAD Burleson #### [facility] [address] [place] [address] [phone] Lace Cutter: Jimmy Fernandez MD Bacteria MODERATE Abnormal NONE [facility] Comment on above: Performed By: #### U SOLEDAD Burleson #### [facility] [address] [place] [address] 68254 Lace Cutter: Jimmy Fernandez MD Casts 0 TO 2 HYALINE Normal 0-8 [facility] Comment on above: Result Comment: Refe rence range defined for non-centrifuged specimen. Performed By: #### U SOLEDAD Burleson #### [facility] [address] [place] [address] [phone] Lace Cutter: Jimmy Fernandez MD Epithelial cells LM Ql (Urine sed) None Normal 0-5 [facility] Comment on above: Performed By: #### U SOLEDAD Burleson #### [facility] [address] [place] [address] [phone] Lace Cutter: Jimmy Fernandez MD Urine RBC's None Normal 0-4 [facility] Comment on above: Result Comment: Refe rence range defined for non-centrifuged specimen. Performed By: #### SOLEDAD Sanon #### [facility] [address] [place] [address] [phone] Lace Cutter: Jimmy Fernandez MD Urine WBC's 20 TO 50 Normal 0-5 [facility] Comment on above: Performed By: #### U CURTIS BurlesonO #### [facility] [address] [place] [address] [phone] Lace Cutter: Jimmy Fernandez MD CBCon 07-27-2021 Erythrocyte distribution width (RBC) [Ratio] 13.2 % Normal 11.8-14.4 [facility] Comment on above: Performed By: #### C BC, CP, LIP #### [facility] [address] [place] [address] [phone] Lace Cutter: Jimmy Fernandez MD Hematocrit (Bld) [Volume fraction] 35.8 % Low 36.3-47.1 [facility] Comment on above: Performed By: #### C BC, CP, LIP #### [facility] [address] [place] [address] [phone] Lace Cutter: Jimmy Fernandez MD Hemoglobin (Bld) [Mass/Vol] 11.9 g/dL Normal 11.9-15.1 [facility] Comment on above: Performed By: #### C BC, CP, LIP #### [facility] [address] [place] [address] 45446 Lace Cutter: Jimmy Fernandez MD MCH (RBC) [Entitic mass] 31.6 pg Normal 25.2-33.5 [facility] Comment on above: Performed By: #### C BC, CP, LIP #### [facility] [address] [place] [address] [phone] Lace Cutter: Jimmy Fernandez MD MCHC (RBC) [Mass/Vol] 33.2 g/dL Normal 28.4-34.8 [facility] Comment on above: Performed By: #### C BC, CP, LIP #### [facility] [address] [place] [address] 22118 Lace Cutter: Jimmy Fernandez MD MCV (RBC) [Entitic vol] 95.0 fL Normal 82.6-102.9 [facility] Comment on above: Performed By: #### C BC, CP, LIP #### [facility] [address] [place] [address] 92828 Lace Cutter: Jimmy Fernandez MD NRBC Automated 0.0 per 100 WBC Normal 0.0 [facility] Comment on above: Performed By: #### C BC, CP, LIP #### [facility] [address] [place] [address] Lace Cutter: Jimmy Fernandez MD Platelet mean volume (Bld) [Entitic vol] 12.3 fL Normal 8.1-13.5 [facility] Comment on above: Performed By: #### C BC, CP, LIP #### [facility] [place] [address] Lace Cutter: Jimmy Fernandez MD Platelets (Bld) [#/Vol] 213 10*3/uL Normal 138-453 [facility] Comment on above: Performed By: #### C BC, CP, LIP #### [facility] [address] [place] [address] [phone] Lace Cutter: Jimmy Fernandez MD RBC (Bld) [#/Vol] 3.77 10*6/uL Low 3.95-5.11 [facility] Comment on above: Performed By: #### C BC, CP, LIP #### [facility] [address] [place] [address] [phone] Lace Cutter: Jimmy Fernandez MD WBC (Bld) [#/Vol] 8.7 10*3/uL Normal 3.5-11.3 [facility] Comment on above: Performed By: #### C BC, CP, LIP #### [facility] [address] [place] [address] [phone] Lace Cutter: Jimmy Fernandez MD Hematocrit (Bld) [Volume fraction] 35.8 % Low 36.3 - 47.1 % [facility] Hemoglobin.gastroin testinal spec 1 Ql (Stl) 11.9 g/dL 11.9 - 15.1 g/dL [facility] Interpretation and review of laboratory results Abnormal [facility] MCH (RBC) [Entitic mass] 31.6 pg 25.2 - 33.5 pg [facility] MCHC (RBC) [Mass/Vol] 33.2 g/dL 28.4 - 34.8 g/dL [facility] MCV (RBC) [Entitic vol] 95.0 fL 82.6 - 102.9 fL [facility] NRBC Automated 0.0 0.0 per 100 WBC [facility] Platelet distribution width (Bld) [Ratio] 13.2 % 11.8 - 14.4 % [facility] Platelet mean volume (Bld) [Entitic vol] 12.3 fL 8.1 - 13.5 fL [facility] Platelets (Bld) [#/Vol] 213 10*3/uL [facility] RBC (Bld) [#/Vol] 3.77 10*6/uL Low 3.95 - 5.1 1 m/uL [facility] WBC (Bld) [#/Vol] 8.7 10*3/uL [facility] Comp Metabolic Profon 2020 BUN/CRE Ratio NOT REPORTED Normal 06-07 [facility] Comment on above: Performed By: #### C BC, CP, LIP #### [facility] [address] [place] [address] Lace Cutter: Jimmy Fernandez MD Staging: NOT REPORTED Normal [facility] Comment on above: Performed By: #### C BC, CP, LIP #### [facility] [address] [place] [address] Lace Cutter: Jimmy Fernandez MD Comprehensive Metabolic Pane milka 07-27-2021 Albumin [Mass/Vol] 4.6 g/dL 3.5 - 5.2 g/dL [facility] Albumin/Globulin [Mass ratio] 2.0 {ratio} [facility] ALP (Bld) [Catalytic activity/Vol] 93 U/L 35 - 104 U/L [facility] ALT [Catalytic activity/Vol] 19 U/L 5 - 33 U/L [facility] Anion gap [Moles/Vol] 14 mmol/L 9 - 17 mmol/L [facility] AST [Catalytic activity/Vol] 20 U/L <32 [facility] Bilirubin [Mass/Vol] 1.15 mg/dL 0.3 - 1.2 mg/dL [facility] Calcium [Mass/Vol] 10.1 mg/dL 8.6 - 10. 4 mg/dL [facility] Chloride [Moles/Vol] 104 mmol/L 98 - 107 mmol/L [employer] CO2 [Moles/Vol] 24 mmol/L 20 - 31 mmol/L [facility] Creatinine [Mass/Vol] 0.81 mg/dL 0.50 - 0.90 mg/dL [facility] Free PSA/Total PSA [Mass fraction] 6.9 g/dL 6.4 - 8.3 g/dL [facility] GFR >60 >60 mL/min [facility] GFR Non- >60 >60 mL/min [facility] GFR/1.73 sq M.predicted MDRD (S/P/Bld) [Vol rate/Area] [facility] Comment on above: Average GFR for 70 o r more years old: 75 mL/min/1.73sq m Chronic Kidney Disease: <60 mL/min/1.73sq m Kidney failure: <15 mL/min/1.73sq m eGFR calculated using average adult body mass. Additional eGFR calculator available at: http://www.Avtal[employer]/multiple_crcl_2012.htm GFR/1.73 sq M.predicted MDRD (S/P/Bld) [Vol rate/Area] NOT REPORTED [facility] Glucose [Mass/Vol] 95 mg/dL 70 - 99 mg/dL [facility] Interpretation and review of laboratory results Abnormal [employer] Potassium [Moles/Vol] 3.3 mmol/L Low 3.7 - 5.3 mmol/L [facility] Sodium [Moles/Vol] 142 mmol/L 135 - 144 mmol/L [facility] Urea nitrogen (BldV) [Mass/Vol] 20 mg/dL 8 - 23 mg/dL [facility] Urea nitrogen/Creatinine (Bld) [Mass ratio] NOT REPORTED [facility] Lipaseon 07-27-2021 Lipase [Catalytic activity/Vol] 39 U/L 13 - 60 U/L [facility] Microscopic [facility] Amorphous, UA NOT REPORTED None [facility] Bacteria, UA MODERATE Abnormal None [employer] Casts UA 0 TO 2 HYALINE Refer ence range defined for non-centrifuged specimen. [employer] Crystals, UA NOT REPORTED None /HPF [facility] th Epithelial Cells UA None [employer] Interpretation and review of laboratory results Abnormal [facility] Mucus, UA NOT REPORTED None [facility] Other Observations UA NOT REPORTED NOT REQ. [facility] RBC, UA None [facility] Comment on above: Reference range defi kal for non-centrifuged specimen. Renal Epithelial, UA NOT REPORTED 0 /HPF [facility] Trichomonas, UA NOT REPORTED None [facility] ealt WBC, UA 20 TO 50 [facility] Yeast, UA NOT REPORTED None [facility] No Panel Informationon 07-27 [facility] URINALYSISon 07-27-2021 Bilirubin Urine Negative NEGATIVE [facility] Color, UA Yellow Yellow [facility] Glucose, Ur Negative NEGATIVE [facility] Interpretation and review of laboratory results Abnormal [facility] Ketones Ql (U) Negative NEGATIVE [facility] Leukocyte esterase Test strip Ql (U) MODERATE Abnormal NEGATIVE [facility] Nitrite, Urine Negative NEGATIVE [facility] pH, UA 5.5 [facility] Protein, UA Negative NEGATIVE [facility] Specific [place], UA 1.006 [facility] Turbidity UA Turbid Abnormal Clear [facility] Urinalysis Comments NOT REPORTED [facility] Urine Hgb Negative NEGATIVE [facility] Urobilinogen, Urine Normal Normal [facility] Urinalysis, Routineon 2020 Comment NOT REPORTED Normal [facility] Comment on above: Performed By: #### U SOLEDAD Burleson #### [employer] [address] [place] [address] [phone] Lace Cutter: Jimmy Fernandez MD Urinalysis,Microon 1 Amorphous sediment LM Ql (Urine sed) NOT REPORTED Normal [facility] Comment on above: Performed By: #### U SOLEDAD Burleson #### [employer] [address] [place] [address] [phone] Lace Cutter: Jimmy Fernandez MD Crystals LM Nom (Urine sed) NOT REPORTED Normal [facility] Comment on above: Performed By: #### U SOLEDAD Burleson #### [employer] [address] [place] [address] [phone] Lace Cutter: Jimmy Fernandez MD Epithelial, Renal NOT REPORTED Normal 0 [facility] Comment on above: Performed By: #### U A, UMICAO #### [facility] [address] [place] [address] Lace Cutter: Jimmy Fernandez MD Mucus Strands NOT REPORTED Normal NONE [facility] Comment on above: Performed By: #### U A, UMICAO #### [facility] [address] [place] [phone] Lace Cutter: Jimmy Fernandez MD Other Observations NOT REPORTED Normal [facility] Comment on above: Performed By: #### U A, UMICAO #### [facility] [address] [place] [address] [phone] Lace Cutter: Jimmy Fernandez MD Trichomonas NOT REPORTED Normal [facility] Comment on above: Performed By: #### U A, UMICAO #### [facility] [address] [place] [address] 26190 Lace Cutter: Jimmy Fernandez MD Yeast NOT REPORTED Normal NONE [facility] Comment on above: Performed By: #### U A, UMICAO #### [facility] [address] [place] [address] [phone] Lace Cutter: Jimmy Fernandez MD Stool Occult Bl. Scr. (Guaia c)on 12-02-2020 Stool Occult Bl. Scr. (Guaiac) Reason for Exam Alternating constipation and diarrhea Stool Reason for Exam: Alternating constipation and diarrhea : Stool Occult Blood Negative for Occult Blood by Guaiac Methodology Reference range = Negative PERFORMED BY: [facility] [address] [place] [id number] PATHOLOGIST MAILING MANAGER TAYLOR LEMUS M.D. Normal [facility] Comment on above: Performed By: #### O BS-GUAIAC #### [facility] [address] Clinical Event Noteon 08-27- 2019 Clinical Event Note Event: Details: Hospitalist Follow Up Call Phone Number Called: [phone] Call Type: follow up call Patient Reports Symptoms are: pretty good Any Medication Issues: no Discharge Instructions Clear: yes Patient Has Follow Up Appointment: pending Comments: Electronic Signatures: Sherry Taylor (GLADYS) (Signed 14-May-2019 00:48) Authored: Event Last Updated: 14-May-2019 00:48 by Sherry Taylor (GLADYS) Normal [facility] CBCon 05-11-2019 Erythrocyte distribution width (RBC) [Ratio] 12.9 % Normal 11.5 - 14.5 [facility] Comment on above: Performed By: #### C BC ####[id number] [place] [address] Hematocrit (Bld) [Volume fraction] 37.6 % Normal 36.0 - 46.0 [facility] Comment on above: Performed By: #### C BC ####[id number] [place] [address] Hemoglobin (Bld) [Mass/Vol] 12.2 g/dL Normal 12.0 - 16.0 [facility] Comment on above: Performed By: #### C BC ####[id number] [place] [address] MCHC (RBC) [Mass/Vol] 32.4 g/dL Normal 32.0 - 36.0 [facility] Comment on above: Performed By: #### C BC ####[id number] [place] [address] MCV (RBC) [Entitic vol] 96 fL Normal 80 - 100 [facility] Comment on above: Performed By: #### C BC ####[id number] [place] [address] Nucleated RBC/100 WBC (Bld) [Ratio] 0.0 /100 WBC Normal 0.0-0.0 [facility] Comment on above: Performed By: #### C BC ####[id number] [place] [address] Platelets (Bld) [#/Vol] 230 10*3/uL Normal 150 - 450 [facility] Comment on above: Performed By: #### C BC ####[id number] [place] [address] RBC (Bld) [#/Vol] 3.92 x10E12/L Low 4.00 - 5.20 [facility] Comment on above: Performed By: #### C BC ####[id number] [place] [address] WBC (Bld) [#/Vol] 7.2 10*3/uL Normal 4.4 - 11.3 [facility] Comment on above: Performed By: #### C BC ####[id number] [place] [address] Daily Progress Note-Oral and Maxillofacial Surgeryon 05-11-2019 Daily Progress Note-guest services coordinator Service: Oral & Maxillofacial Surgery Subjective Data: VIDA LIMA is a 73 year old Female who is Hospital Day # 3. Overnight Events: Patient had an uneventful night. Objective Data: Objective Information: T PRBPSpO2 [id number]% Date/Time05/11 7: 7: 7: 7: 7:46 Range(36.8C - 37C ) (59 - 63 ) (18 - 20 ) (117 - 127 )/ (70 - 78 ) (93% - 95% ) Highest temp of 37 C was recorded at 05/11 7:46 Pain reported at 05/11 9:39: 2 = Mild Pain reported at 05/11 8:40: 6 = Moderate T PRBPSpO2 [id number]% Date/Time05/11 7: 7: 7: 7: 7:46 Range(36.8C - 37C ) (59 - 63 ) (18 - 20 ) (117 - 127 )/ (70 - 78 ) (93% - 95% ) Highest temp of 37 C was recorded at 05/11 7:46 Pain reported at 05/11 9:39: 2 = Mild Pain reported at 05/11 8:40: 6 = Moderate Physical Exam: Constitutional: Well developed, awake/alert/oriented x3, no distress, alert and cooperative Eyes: PERRL, EOMI, clear sclera ENMT: Extraction socket in lower left quadrant hemostatic. submandibular abscess noted on imaging. floor of the mouth firm to the touch. mouth opening limited to 20 mm and increases to 35 with digital assistance, guarding present. No pus observed draining intraorally. Ecchymosis observed on floor of the mouth. Head/Neck: Left facial swelling, left lateral neck firm to the touch. Respiratory/Thorax: Patent airways, CTAB, normal breath sounds with good chest expansion Cardiovascular: Regular, rate and rhythm Gastrointestinal: Nondistended, soft, non-tender, no rebound tenderness or guarding Genitourinary: No Discharge, vesicles or other abnormalities Musculoskeletal: ROM intact, no joint swelling, normal strength Extremities: normal extremities Neurological: alert and oriented x3, intact senses, motor, response and reflexes, normal strength. Senses and motor function intact following Incision and drainage of submandibular abscess. Psychological: Appropriate mood and behavior Skin: Warm and dry, no lesions, no rashes Medication: Medications: Continuous Medications -------- No continuous medications are active Scheduled Medications -------- 1. Allopurinol: 300 mg Oral Every 24 Hours 2. Ampicillin - Sulbactam 3 gm/NaCL 0.9% IVPB Soln 100 mL: 3 gram(s) IntraVenous Piggyback Every 6 Hours 3. Atorvastatin: 20 mg Oral Daily 4. Chlorhexidine Gluconate 0.12% Mucous Mem: 15 mL Topical 2 Times a Day 5. Cholecalciferol (Vitamin D3): 1000 International Unit(s) Oral Daily 6. Docusate: 100 mg Oral 2 Times a Day 7. Ferrous Sulfate: 325 mg Oral Daily 8. Insulin Lispro Mild Corrective Scale: unit(s) SubCutaneous 3 Times a Day Before Meals 9. Levothyroxine: 88 microgram(s) Oral Daily 10. Lidocaine 2% Injectable: 10 mL SubCutaneous Once 11. Metoprolol Succinate Extended Release: 100 mg Oral Daily 12. Multivitamin with Minerals: 1 tablet(s) Oral Daily 13. Non-Formulary Medication: Visbiome Probiotic Capsule Dose = 1 capsule(s) Oral 2 Times a Day PATIENTS OWN MEDS: 14. Pantoprazole: 20 mg Oral Daily PRN Medications -------- 1. Dextrose 50% in Water Injectable: 25 gram(s) IntraVenous Push Every 15 Minutes 2. Glucagon Injectable: 1 mg IntraMuscular Every 15 Minutes 3. Loperamide: 2 mg Oral Every 4 Hours 4. Magnesium Hydroxide -Al Hydrox -Simethicone Oral Liquid: 30 mL Oral Every 6 Hours 5. Morphine Injectable: 2 mg IntraVenous Push Every 4 Hours 6. Morphine Injectable: 4 mg IntraVenous Push Every 4 Hours Currently Suspended Medications -------- 1. hydroCHLOROthiazide: 25 mg Oral Daily Recent Lab Results: Results: I have reviewed these laboratory results: Glucose_POCT 11-May-2019 12:01:00 ResultValue Glucose-POCT 128 H Renal Function Panel 11-May-2019 06:58:00 ResultValue Glucose, Serum 73 L NA 143 K 3.6 CL 106 Bicarbonate, Serum 25 Anion Gap, Serum 16 BUN 12 CREAT 0.56 GFR-Non >60 GFR- >60 Calcium, Serum 9.2 Phosphorus, Serum 2.9 ALB 3.7 Complete Blood Count 11-May-2019 06:58:00 ResultValue White Blood Cell Count 7.2 Nucleated Erythrocyte Count 0.0 Red Blood Cell Count 3.92 L HGB 12.2 HCT 37.6 MCV 96 MCHC 32.4 PLT 230 RDW-CV 12.9 Radiology Results: Results: uploaded ct scan shows well defined collection of fluid in the lower left lingual mandibular area consistent with abscess Assessment and Plan: Admitting Dx: Abscess of mandible: Entered Date: 09-May-2019 22:53 Assessment: Assessment: 73yo female with medical history of HTN, HLD, DM, Hypothyroidism, IBS, Vitamin D deficiency, Yeast infection while on Jardiance (on Fluconazole Q3days), Iron deficiency anemia, Hx of Cdiff transferred from [facility] to [facility] with diagnosis of mandibular abscess. Assessment/Plan: Acute Medical Issues: # Left mandibular abscess - CT Neck @ outside facility showed developing abscess formation around left mandible likely sequelae of recently pulled tooth. No significant osseus destruction of bone (image uploaded). F- patient on soft food diet and aggressive hydration protocol by mouth. A- Morphine, Hydromorphone ( 2 doses ) , Local lidocaine 2% injectable for surgical Incision and drainage of submandibular abscess. V- Intake total: 200ml Output total: 0 ml Net total 200ml O- Chlorhexidine swish and spit. R- Normal breath sounds with appropriate chest expansions. I - Unisen course day 3, fluconazole. Wound culture sent in. T- No drains placed. E- moderate risk. T- CBC, Blood culture H- HTN management : Hydrochlorothiazide. Rec: augmentin PO BID for a total of 7 days antibiotic coverage. [facility] [address] Call to schedule with Jeremy [phone] preferably by monday05/13/19. Patient is cleared for discharge from OMFS perspective. Impression 1: Abscess of mandible Signature/Cosignature/At testation: Note Completion: Attending AttestationI saw and evaluated the patient. I personally obtained the kauffman and critical portions of the history and physical exam or was physically present for kauffman and critical portions performed by the resident/fellow. I reviewed the resident/fellows documentation and discussed the patient with the resident/fellow. I agree with the resident/fellows medical decision making as documented in the note. I personally evaluated the patient [id number] Electronic Signatures: Stefan Guillen (DDS) (Signed 11-May-2019 14:53) Authored: Service, Assessment/Plan Review, Subjective Data, Objective Data, Assessment and Plan, Signature/Cosignature/At testation Philip Jacinto (BUCKY) (Signed 31-May-2019 14:21) Authored: Signature/Cosignature/At testation Co-Signer: Assessment and Plan, Signature/Cosignature/At testation Last Updated: 31-May-2019 14:21 by Philip Jacinto (BUCKY) Normal [facility] Discharge [id number] Discharge Profile2 Discharge Orders: Anticipated Discharge Date: Anticipated Discharge [id number] Anticipated Discharge Time10:00 Problem List: Admitting Dx: Abscess of mandible: Catalog Name: Inflammatory conditions of jaws Diet: Dietregular, soft Call Provider If (Homegoing Patients): Breathing harder than normal or having retractions. Fever of 100.4 F (38 C) or higher. Chills. Not being able to go 4-6 hours between albuterol treatments. Vomiting (throwing up) and not able to eat or drink for 12 hours. worsening diarrhea, increased jaw swelling or pain, drainage from mouth. Hospital Course (Home Care/Gold Form): Hospital Course: Hospital Course: include significant abnormal lab values 73yo female with medical history of HTN, HLD, DM, Hypothyroidism, IBS, Vitamin D deficiency, Yeast infection while on Jardiance (on Fluconazole Q3days), Iron deficiency anemia, Hx of Cdiff transferred from [facility] to [facility] with diagnosis of mandibular abscess. Patient assessed and OSH image reviewed by OMFS which showed developing abscess formation around left mandible likely sequelae of recently pulled tooth. No significant osseus destruction of bone. She underwent drainage of abscess at bedside, no organism seen on smear, culture pending. She was switched from IV unasyn to PO Augmentin and will complete a 7 day course of abx (last day 05/17) and peridex (chlorhexidine gluconate 0.12%) mouth rinse, rinse twice daily for 5 days (last day 05/16) and follow up with [facility] department [address] Provider FINAL REVIEW of Orders: Final Review: Final Review of Medication Reconciliation and Orders Completedby Physician Reviewing ProviderShanna Otero MD at 11-May-2019 17:37:01 Appointments: Follow-Up Appointment 01: Physician/Dept/ServiceOr omaxillary facial surgery clinic Reason for Referralmandibular abscess 2/2 recently pulled tooth Call to Schedule in2-3 days [facility] department [address] Commentsplease call Jeremy [phone], needs appt preferably by monday05/13/19 Electronic Signatures: Shanna Otero) (Signed 11-May-2019 17:37) Authored: Discharge Orders, Hospital Course (Home Care/Gold Form), Provider FINAL REVIEW of Orders, Appointments, Gold Form - Marine Oiler Summary Last Updated: 11-May-2019 17:37 by Shanna Otero) Normal [facility] GLUCOSE-POCTon 05-11-2019 Glucose [Mass/Vol] 128 mg/dL High 74 - 99 [facility] Comment on above: Performed By: #### G KARLEE ####[id number] [place] [address] Glucose [Mass/Vol] 78 mg/dL Normal 74 - 99 [facility] Comment on above: Performed By: #### G KARLEE ####[id number] [place] [address] RENAL FUNCTION PANELon 05-11 Albumin [Mass/Vol] 3.7 g/dL Normal 3.4 - 5.0 [facility] Comment on above: Performed By: #### R ENAL ####[id number] [place] [address] Anion gap [Moles/Vol] 16 mmol/L Normal 10 - 20 [facility] Comment on above: Performed By: #### R ENAL ####[id number] [place] [address] Calcium [Mass/Vol] 9.2 mg/dL Normal 8.6 - 10.6 [facility] Comment on above: Performed By: #### R ENAL ####[id number] [place] [address] Chloride [Moles/Vol] 106 mmol/L Normal 98 - 107 [facility] Comment on above: Performed By: #### R ENAL ####[id number] [place] [address] Creatinine [Mass/Vol] 0.56 mg/dL Normal 0.50 - 1.05 [facility] Comment on above: Performed By: #### R ENAL ####[id number] [place] [address] GFR- AM. >60 Normal >60 [facility] [place] Comment on above: Result Comment: CALC ULATIONS OF ESTIMATED GFR ARE PERFORMED USING THE MDRD STUDY EQUATION FOR THE IDMS-TRACEABLE CREATININE METHODS. CLIN CHEM 2007;53:766-72 Performed By: #### R ENAL ####[id number] [place] [address] GFR-NON AM. >60 Normal >60 [facility] Comment on above: Performed By: #### R ENAL ####[id number] [place] [address] Glucose [Mass/Vol] 73 mg/dL Low 74 - 99 [facility] Comment on above: Performed By: #### R ENAL ####[id number] [place] [address] HCO3 (Bld) [Moles/Vol] 25 mmol/L Normal 21 - 32 [facility] Comment on above: Performed By: #### R ENAL ####[id number] [place] [address] Phosphate [Mass/Vol] 2.9 mg/dL Normal 2.5 - 4.9 [facility] Comment on above: Result Comment: The performance characteristics of phosphorus testing in heparinized plasma have been validated by the individual laboratory site where testing is performed. Testing on heparinized plasma is not approved by the FDA; however, such approval is not necessary. Performed By: #### R ENAL ####[id number] [place] [address] Potassium [Moles/Vol] 3.6 mmol/L Normal 3.5 - 5.3 [facility] Comment on above: Performed By: #### R ENAL ####[id number] [place] [address] Sodium [Moles/Vol] 143 mmol/L Normal 136 - 145 [facility] Comment on above: Performed By: #### R ENAL ####[id number] [place] [address] Urea nitrogen [Mass/Vol] 12 mg/dL Normal 6 - 23 [facility] Comment on above: Performed By: #### R ENAL ####[id number] [place] [address] CBC AND DIFFERENTIALon 05-10 % AUTOMATED IMMATURE GRAN 2.2 % High 0.0 - 0.9 [facility] Comment on above: Result Comment: Perc ent differential counts (%) should be interpreted in the context of the absolute cell counts (cells/L). Performed By: #### C BCDF #### [facility] [address] [place] [address] Basophils (Bld) [#/Vol] 0.02 10*3/uL Normal 0.00 - 0.10 [facility] Comment on above: Performed By: #### C BCDF #### [facility] [address] [place] [address] Basophils/100 WBC (Bld) 0.3 % Normal 0.0 - 2.0 [facility] Comment on above: Performed By: #### C BCDF #### [facility] [address] [place] [address] Eosinophils (Bld) [#/Vol] 0.00 10*3/uL Normal 0.00 - 0.40 [facility] Comment on above: Performed By: #### C BCDF #### [facility] [address] [place] [address] Eosinophils/100 WBC (Bld) 0.0 % Normal 0.0 - 6.0 [facility] Comment on above: Performed By: #### C BCDF #### [facility] [address] [place] [address] Erythrocyte distribution width (RBC) [Ratio] 12.9 % Normal 11.5 - 14.5 [facility] Comment on above: Performed By: #### C BCDF #### [facility] [address] [place] [address] Hematocrit (Bld) [Volume fraction] 39.8 % Normal 36.0 - 46.0 [facility] Comment on above: Performed By: #### C BCDF #### [place] [address] [place] [address] Hemoglobin (Bld) [Mass/Vol] 12.5 g/dL Normal 12.0 - 16.0 [facility] Comment on above: Performed By: #### C BCDF #### [facility] [address] [place] [address] Lymphocytes (Bld) [#/Vol] 1.25 10*3/uL Normal 0.80 - 3.00 [facility] Comment on above: Performed By: #### C BCDF #### [facility] [address] [place] [address] Lymphocytes/100 WBC (Bld) 20.9 % Normal 13.0 - 44.0 [facility] Comment on above: Performed By: #### C BCDF #### [facility] [address] [place] [address] MCHC (RBC) [Mass/Vol] 31.4 g/dL Low 32.0 - 36.0 [facility] Comment on above: Performed By: #### C BCDF #### [facility] [address] [place] [address] MCV (RBC) [Entitic vol] 97 fL Normal 80 - 100 [facility] Comment on above: Performed By: #### C BCDF #### [facility] [address] [place] [address] Monocytes (Bld) [#/Vol] 0.27 10*3/uL Normal 0.05 - 0.80 [facility] Comment on above: Performed By: #### C BCDF #### [facility] [address] [place] [address] Monocytes/100 WBC (Bld) 4.5 % Normal 2.0 - 10.0 [facility] Comment on above: Performed By: #### C BCDF #### [facility] [address] [place] [address] Neutrophils (Bld) [#/Vol] 4.31 10*3/uL Normal 1.60 - 5.50 [facility] Comment on above: Performed By: #### C BCDF #### [facility] [address] [place] [address] Neutrophils/100 WBC (Bld) 72.1 % Normal 40.0 - 80.0 [facility] Comment on above: Performed By: #### C BCDF #### [facility] [address] [place] [address] Nucleated RBC/100 WBC (Bld) [Ratio] 0.2 /100 WBC Normal 0.0-0.0 [facility] Comment on above: Performed By: #### C BCDF #### [facility] [address] [place] [address] Platelets (Bld) [#/Vol] 234 10*3/uL Normal 150 - 450 [facility] Comment on above: Performed By: #### C BCDF #### [facility] [address] [place] [address] RBC (Bld) [#/Vol] 4.10 x10E12/L Normal 4.00 - 5.20 [facility] Comment on above: Performed By: #### C BCDF #### [facility] [address] [place] [address] WBC (Bld) [#/Vol] 6.0 10*3/uL Normal 4.4 - 11.3 [facility] Comment on above: Performed By: #### C BCDF #### [facility] [address] [place] [address] COAGULATION SCREENon 019 aPTT Coag (Bld) [Time] 34 s Normal 28 - 38 [facility] Comment on above: Result Comment: THE APTT IS NO LONGER USED FOR MONITORING UNFRACTIONATED HEPARIN THERAPY. FOR MONITORING HEPARIN THERAPY, USE THE HEPARIN ASSAY. Performed By: #### C OAGS #### [facility] [address] [place] [address] INR Coag (PPP) [Relative time] 1.0 {INR} Normal 0.9 - 1.1 [facility] Comment on above: Performed By: #### C OAGS #### [facility] [address] [place] [address] PT Coag (PPP) [Time] 11.1 s Normal 9.7 - 12.7 [facility] Comment on above: Performed By: #### C OAGS #### [facility] [address] [place] [address] COMPREHENSIVE PANELon 2018 Albumin [Mass/Vol] 3.9 g/dL Normal 3.4 - 5.0 [facility] Comment on above: Performed By: #### C MP #### [facility] [address] [place] [address] ALP [Catalytic activity/Vol] 114 U/L Normal 33 - 136 [facility] Comment on above: Performed By: #### C MP #### [facility] [address] [place] [address] ALT [Catalytic activity/Vol] 24 U/L Normal 7 - 45 [facility] Comment on above: Result Comment: Santa ents treated with Sulfasalazine may generate falsely decreased results for ALT. Performed By: #### C MP #### [facility] [address] [place] [address] Anion gap [Moles/Vol] 16 mmol/L Normal 10 - 20 [facility] Comment on above: Performed By: #### C MP #### [facility] [address] [place] [address] AST [Catalytic activity/Vol] 21 U/L Normal 9 - 39 [facility] Comment on above: Performed By: #### C MP #### [facility] [address] [place] [address] Bilirubin [Mass/Vol] 0.5 mg/dL Normal 0.0 - 1.2 [facility] Comment on above: Performed By: #### C MP #### [facility] [address] [place] [address] Calcium [Mass/Vol] 9.6 mg/dL Normal 8.6 - 10.6 [facility] Comment on above: Performed By: #### C MP #### [facility] [address] [place] [address] Chloride [Moles/Vol] 107 mmol/L Normal 98 - 107 [facility] Comment on above: Performed By: #### C MP #### [facility] [address] [place] [address] Creatinine [Mass/Vol] 0.59 mg/dL Normal 0.50 - 1.05 [facility] Comment on above: Performed By: #### C MP #### [facility] [address] [place] [address] GFR- AM. >60 Normal >60 [facility] [place] Comment on above: Result Comment: CALC ULATIONS OF ESTIMATED GFR ARE PERFORMED USING THE MDRD STUDY EQUATION FOR THE IDMS-TRACEABLE CREATININE METHODS. CLIN CHEM 2007;53:766-72 Performed By: #### C MP #### [facility] [address] [place] [address] GFR-NON AM. >60 Normal >60 [facility] Comment on above: Performed By: #### C MP #### [facility] [address] [place] [address] Glucose [Mass/Vol] 112 mg/dL High 74 - 99 [facility] Comment on above: Performed By: #### C MP #### [facility] [address] [place] [address] HCO3 (Bld) [Moles/Vol] 25 mmol/L Normal 21 - 32 [facility] Comment on above: Performed By: #### C MP #### [facility] [address] [place] [address] Potassium [Moles/Vol] 4.1 mmol/L Normal 3.5 - 5.3 [facility] Comment on above: Performed By: #### C MP #### [facility] [address] [place] [address] Protein [Mass/Vol] 6.1 g/dL Low 6.4 - 8.2 [facility] Comment on above: Performed By: #### C MP #### [facility] [address] [place] [address] Sodium [Moles/Vol] 144 mmol/L Normal 136 - 145 [facility] Comment on above: Performed By: #### C MP #### [facility] [address] [place] [address] Urea nitrogen [Mass/Vol] 14 mg/dL Normal 6 - 23 [facility] Comment on above: Performed By: #### C MP #### [facility] [address] [place] [address] Consult-Oral and Maxillofaci al Surgeryon 05-10-2019 Consult-guest services coordinator Service: Service: Oral & Maxillofacial Surgery History of Present Illness: HPI: CC: Patient is a 73yo female who presented to the [facility] transferred from [facility] with diagnosis of mandibular abscess. HPI: pt reports that she had her tooth extracted on April 24 2019 which she reported as a complicated procedure , shortly after the extraction patient reported increase pain around tooth site, where she returned to her dentist twice at which she was given antibiotic at each occasion. after the 2nd treatment course she noted return of pain as prior but also with worsening swelling around the left mandibular region, never had any pus or drainage intraorally. pain now is sharp radiating to the ear with tenderness and swelling on the lower left area , pain is relieved by ice pack and aggravated by eating or touching of the affected area. limited mouth openning Past Medical History: HTN, HLD, DM, Hypothyroidism, IBS, Iron deficiency anemia, HX of C. Diff Allergies: percocet, keflex, cipro, codeine, lisnopril, meperidine and metformin Medications:ibuprofen 800mg, tylenol 1000 mg, probiotic, synthroid, jardiance, fluconazole, Imodium, metoprolol succinate, losartan, HCTZ, nabumetone, omeprazole, allopurinol, atorvastatin, Biotin, Vit. D3, Iron and mutlivitmin Past Surgical History:Appendectomy, bladder suspension surgery, hysterectomy, thyroidectomy and cholecystectomy Social History Alcohol: denies Tobacco:former smoker quit 1988 Recreational Drugs: denies Review of Systems (Negative unless otherwise noted): GENERAL Recent Weight loss/gain: Denies Fatigue: Denies Fever/Chills/Night sweats: Denies Difficulty Sleeping: Denies Appetite Changes: Denies EYES/VISION Visual Changes: Denies Double Vision: Denies HEENT Chronic Neck Pain: Denies Changes in Hearing Acuity: Denies Ear Pain or Discharge: ear pain that radiate from the lower left abscess area Nasal Discharge: Denies Difficulty Swallowing: Denies PULMONARY Shortness of Breath at rest or exertion: Denies Cough: Denies Wheezing: Denies Snoring: Denies CARDIOVASCULAR Chest Pain: Denies Orthopnea: Denies Lower Extremity Edema: Denies Physical Exam: Constitutional: Well developed, awake/alert/oriented x3 EYES PERRLA, EOMI ORAL CAVITY/ORAL CAVITY GINA: 25mm TMJ Clicking or Popping: Negative Throat: Uvula Symmetric on Animation, Patient tolerating own secretions. Neck: left area below the mandible tender to palpation, moderate indurated swelling at the left sub-mandibular area Cardiovascular: No edema in hands/feet, normal S1,S2 Neuro: CN V and VII intact Psych: Appropriate mood and behavior Labs/Imaging: uploaded ct scan shows well defined collection of fluid in the lower left lingual mandibular area consistent with abscess Procedure: went over the procedure with the patient , consent form signed, risk and benefit discussed with the patient with the alternative options . time out was done before starting the procedure. Pt anasthezied with 15 cc 2% Lidocaine IA block and infiltration on the buccal and lingual area, crestal incision made over the edentulous ridge on the left posterior area with care to avoid extension of incision to the retromolar region to avoid lingual nerve , a small caliber blunt hemostat was then used to elevate and access the abscess cavity in a subperiosteal plane, abscess was drained and sent for culture, copious irrigation with normal saline was performed at the area. Recommendation : -continue Unasyn until the culture result for more specific antibiotic -peridex (chlorhexidine gluconate 0.12%) mouth rinse, rinse twice daily for 5 days -regular diet -follow up at the [facility] within a week. Contact Jeremy at [phone] for scheduling -Okay to resume DVT prophylaxis Vita Stark [facility] correctional corporal ([id number]) Allergies: Cipro: Hives/Urticaria lisinopril: Other metformin: Other meperidine: Other oxycodone: Other codeine: Other Keflex: Hives/Urticaria Electronic Signatures: Philip Jacinto (BUCKY) (Signed 31-May-2019 14:21) Authored: Signature/Cosignature/At testation Co-Signer: Service, History of Present Illness, Allergies, Signature/Cosignature/At testation Vita Stark (BUCKY) (Signed 10-May-2019 22:11) Authored: Service, History of Present Illness, Allergies, Signature/Cosignature/At testation Last Updated: 31-May-2019 14:21 by Philip Jacinto (BUCKY) Normal [facility] Daily Progress Note-General Internal Medicineon 05-10-2019 Daily Progress Note-General Internal Medicine ANYI Service: General Internal Medicine Subjective Data: VIDA LIMA is a 73 year old Female who is Hospital Day # 2. No acute event overnight. Denies fever, does endorse chills, denies dyspnea or wheezing. Feels left jaw swelling not improving and causing ear pain as well. Objective Data: Objective Information: T PRBPSpO2 [id number]/7395% Date/Time05/10 7: 7: 7: 7: 7:37 Range(36.5C - 37C ) (62 - 86 ) (18 - 18 ) (108 - 136 )/ (62 - 73 ) (92% - 95% ) Highest temp of 37 C was recorded at 05/10 2:20 Pain reported at 05/10 12:27: 4 = Moderate Pain reported at 05/10 11:39: 6 = Moderate Physical Exam: Constitutional: NAD, resting comfortably in bed Eyes: PERRLA, EOMI, no scleral icterus Head/Neck: NCAT, unable to open mouth completely open due to moderate left lower jaw swelling, +fluctulance around jaw tender to palpation, no significant lymphadenopathy appreciated Respiratory/Thorax: normal resp effort, clear to auscultation bilaterally Cardiovascular: rrr, normal s1s2, no mrg Gastrointestinal: soft, NTND, no rebound or guarding Extremities: moving all 4 extremities, no LE edema Neurological: Aox3, PERRLA, nonfocal, moving all 4 extremities Psychological: pleasant and cooperative Skin: warm, dry Medication: Medications: 1. Non-Formulary Medication: Visbiome Probiotic Capsule Dose = 1 capsule(s) Oral 2 Times a Day PATIENTS OWN MEDS: ANTI-INFECTIVES: 1. Ampicillin - Sulbactam 3 gm/NaCL 0.9% IVPB Soln 100 mL: 3 gram(s) IntraVenous Piggyback Every 6 Hours CARDIOVASCULAR AGENTS: 1. Metoprolol Succinate Extended Release: 100 mg Oral Daily CENTRAL NERVOUS SYSTEM AGENTS: 1. Morphine Injectable: 2 mg IntraVenous Push Every 4 Hours PRN 2. Morphine Injectable: 4 mg IntraVenous Push Every 4 Hours PRN GASTROINTESTINAL AGENTS: 1. Magnesium Hydroxide -Al Hydrox -Simethicone Oral Liquid: 30 mL Oral Every 6 Hours PRN 2. Loperamide: 2 mg Oral Every 4 Hours PRN 3. Docusate: 100 mg Oral 2 Times a Day 4. Pantoprazole: 20 mg Oral Daily HORMONES/HORMONE MODIFIERS: 1. Levothyroxine: 88 microgram(s) Oral Daily METABOLIC AGENTS: 1. Insulin Lispro Mild Corrective Scale: unit(s) SubCutaneous 3 Times a Day Before Meals 2. Allopurinol: 300 mg Oral Every 24 Hours 3. Atorvastatin: 20 mg Oral Daily 4. Dextrose 50% in Water Injectable: 25 gram(s) IntraVenous Push Every 15 Minutes PRN 5. Glucagon Injectable: 1 mg IntraMuscular Every 15 Minutes PRN NUTRITIONAL PRODUCTS: 1. Ferrous Sulfate: 325 mg Oral Daily 2. Multivitamin with Minerals: 1 tablet(s) Oral Daily 3. Cholecalciferol (Vitamin D3): 1000 International Unit(s) Oral Daily TOPICAL AGENTS: 1. Chlorhexidine Gluconate 0.12% Mucous Mem: 15 mL Topical 2 Times a Day Currently Suspended Medications -------- 1. hydroCHLOROthiazide: 25 mg Oral Daily Recent Lab Results: Results: I have reviewed these laboratory results: Glucose_POCT Trending View [id number] 12:11:00 10-May-2019 07:35:00 Glucose-POCT91 105 H Complete Blood Count + Differential 10-May-2019 06:50:00 ResultValue White Blood Cell Count 6.0 Nucleated Erythrocyte Count 0.2 Red Blood Cell Count 4.10 HGB 12.5 HCT 39.8 MCV 97 MCHC 31.4 L PLT 234 RDW-CV 12.9 Neutrophil % 72.1 Immature Granulocytes % 2.2 H Lymphocyte % 20.9 Monocyte % 4.5 Eosinophil % 0.0 Basophil % 0.3 Neutrophil Count 4.31 Lymphocyte Count 1.25 Monocyte Count 0.27 Eosinophil Count 0.00 Basophil Count 0.02 Comprehensive Metabolic Panel 10-May-2019 06:49:00 ResultValue Glucose, Serum 112 H NA 144 K 4.1 CL 107 Bicarbonate, Serum 25 Anion Gap, Serum 16 BUN 14 CREAT 0.59 GFR-Non >60 GFR- >60 Calcium, Serum 9.6 ALB 3.9 ALKP 114 T Pro 6.1 L T Bili 0.5 Alanine Aminotransferase, Serum 24 Aspartate Transaminase, Serum 21 Assessment and Plan: Assessment: 73yo female with medical history of HTN, HLD, DM, Hypothyroidism, IBS, Vitamin D deficiency, Yeast infection while on Jardiance (on Fluconazole Q3days), Iron deficiency anemia, Hx of Cdiff transferred from [facility] to [facility] with diagnosis of mandibular abscess. Assessment/Plan: Acute Medical Issues: # Left mandibular abscess - CT Neck @ outside facility showed developing abscess formation around left mandible likely sequelae of recently pulled tooth. No significant osseus destruction of bone (image uploaded to PACS) - Continue Unasyn 3g IV Q6hr for antibiotic therapy - Pain regimen: Morphine 2mg IV Q4hr PRN moderate, Morphine 4mg IV Q4hr PRN severe (Note patient allergies to other opiate) - consult oromaxillafacial service # Difficulty swallowing whole foods - Secondary to pain related to mandibular abscess/swelling - CT neck did not report any significant oropharyngeal involvement - Can consider ENT if unresolving issue for evaluation of oral cavity/throat - Full liquid diet for now. # Mild leukocytosis - While definitely can be related to mandibular abscess also likely that collected sample may have been hemoconcentrated from patient dehydration as has not been able to tolerate significant oral intake. Chronic Medical Issues: # Hypertension Continue Losartan 100mg QD, Metoprolol succinate 100mg QD, HCTZ 25mg QD # Hyperlipidemia Continue Atorvastatin 20mg QD # Diabetes mellitus type 2 If patient can bring Jardiance then can have pharmacy verify and give pt. Mild Insulin Lispro Mealtime sliding scale for now # Hypothyroidism Continue Synthroid 88mcg QD # Vitamin D deficiency Continue Vitamin D3 1000IU QD # IBS Loperamide PRN. Stool softeners as getting pain meds # Iron deficiency anemia Continue Ferrous sulfate 325mg PO QD # History of Cdiff Cautious with antibiotic use. Probiotic verified Fluids: No maintenance fluids for now. May need D5 if NPO if sugars dropping Electrolytes: Monitor and replete as needed Nutrition: Full liquid diet, NPO for now GI prophylaxis: Protonix 20mg QD DVT prophylaxis: SCD Disposition: Patient transferred from [facility] to [facility] for further management of mandibular abscess. IV antibiotics at this time and pain control. Pending oromaxillofacial recommendation based on review of OSH image. Anticipate hospitalization >2 midnights. FULL CODE confirmed with patient Electronic Signatures: Shanna Otero) (Signed 10-May-2019 15:50) Authored: Service, Subjective Data, Objective Data, Assessment and Plan, Signature/Cosignature/At testation Last Updated: 10-May-2019 15:50 by Shanna Otero) Normal [facility] GLUCOSE-POCTon 05-10-2019 Glucose [Mass/Vol] 98 mg/dL Normal 74 - 99 [facility] Comment on above: Performed By: #### G KARLEE ####[id number] [place] [address] Glucose [Mass/Vol] 91 mg/dL Normal 74 - 99 [facility] Comment on above: Performed By: #### G KARLEE #### [place] [id number] [place] [address] Glucose [Mass/Vol] 105 mg/dL High 74 - 99 [facility] Comment on above: Performed By: #### G KARLEE #### [facility] [address] [place] [address] History and Physicalon 05-10 History and Physical History of Present Illness: Admission Reason: Left mandibular abscess HPI: This is a 73yo female with medical history of HTN, HLD, DM, Hypothyroidism, IBS, Vitamin D deficiency, Yeast infection while on Jardiance (on Fluconazole Q3days), Iron deficiency anemia, Hx of Cdiff transferred from [facility] to [facility] with diagnosis of mandibular abscess. Patient reports that she initially had a tooth pulled on April 24, 2019 which she reports as very complicated procedure. Shortly after procedure patient reported increased pain around tooth site. She returned to her dentist on 2 separate occasionals at which time she was given a 5 day course of Azithromycin x 2 treatments. After completion of each treatment, her pain returned. Note that she did feel improvement while on the antibiotic. After the 2nd treatment of Azithromycin, she noted return of pain as prior but also progressively worsening swelling around the left mandibular region. Never noticed any pus or drainage from oral cavity as well as exterior mandibular region. She does then state that on initial followup with dentist, the dentist did scrape some pus from the site of tooth extraction and then on another visit packed her tooth area with some kind of pellet. Pain is now a 10/10, sharp pain mainly in area of swelling but also has some progression up towards her left ear. No tinnitus reported. No fever but associated chills. Due to swelling she does report difficulty opening mouth fully and has not been able to tolerate much oral solid intake and has only been consuming liquids to maintain some form of hydration and intake. She does have some discomfort in her throat which she thinks is related to the swelling occurring on left side. No difficulty breathing though patient states that if swelling progresses, she worries about being able to breath. Hospital Course @ [facility]: Vitals Stable Labs Review: Mild leukocytosis (11.1) otherwise unremarkable labs CT Neck Soft Tissue: Developing abscess formation around left mandible likely sequelae of recently pulled tooth. No significant osseus destruction of bone. Allergies/Intolerances: Percocet, Keflex, Cipro, Codeine, Lisinopril, Meperidine, Metformin Home medications: Ibuprofen 800mg @630PM, Tylenol 1000mg @0830, Probiotic daily, Synthroid 88mcg QD, Jardiance 25mg QD, Fluconazole 100mg Q3days, Imodium PRN, Metoprolol succinate 100mg QD, Losartan 100mg QD, HCTZ 25mg QD, Nabumetone 500mg QD/BID, Omeprazole 20mg QD, Allopurinol 300mg QD, Atorvastatin 20mg QD, Biotin 1000mcg QD, Vitamin D3 1000IU QD, Iron 65mg, Multivitamin, Cranberry Past Medical History: HTN, HLD, DM, Hypothyroidism, IBS, Vitamin D deficiency, Yeast infection while on Jardiance (on Fluconazole Q3days), Iron deficiency anemia, Hx of Cdiff Past Surgical History: Appendectomy, Bladder suspension surgery, Hysterectomy, Thyroidectomy, Cholecystectomy Family History: Denies Social History: Former smoker Quit 1988 / No alcohol or illicit drug use Comorbidities: Comorbid Conditionsdiabetes, hypertension Diabtetes TypeType 2 Insulin Dependentno DM Acuity or Statusunknown DM Complicationsunknown Family History: Family History: reviewed and not pertinent to presenting problem Social History: Social History: Smoking Statusformer smoker Alcohol Usedenies Drug Usedenies Allergies: Cipro: Hives/Urticaria lisinopril: Other metformin: Other meperidine: Other oxycodone: Other codeine: Other Keflex: Hives/Urticaria Medications Prior to Admission: Ibuprofen 800mg @630PM, Tylenol 1000mg @0830, Probiotic daily, Synthroid 88mcg QD, Jardiance 25mg QD, Fluconazole 100mg Q3days, Imodium PRN, Metoprolol succinate 100mg QD, Losartan 100mg QD, HCTZ 25mg QD, Nabumetone 500mg QD/BID, Omeprazole 20mg QD, Allopurinol 300mg QD, Atorvastatin 20mg QD, Biotin 1000mcg QD, Vitamin D3 1000IU QD, Iron 65mg, Multivitamin, Cranberry. Review of Systems: Constitutional: POSITIVE: Chills; NEGATIVE: Fever, Malaise Eyes: NEGATIVE: Vision Loss/ Change ENMT: POSITIVE: Throat Pain; NEGATIVE: Nasal Congestion; COMMENTS: Left mandibular pain radiating to left ear Respiratory: NEGATIVE: Dry Cough, Productive Cough, Shortness of Breath Cardiac: NEGATIVE: Chest Pain, Palpitations Gastrointestinal: NEGATIVE: Nausea, Vomiting, Diarrhea, Constipation, Abdominal Pain Genitourinary: NEGATIVE: Flank Pain Musculoskeletal: NEGATIVE: Pain, Swelling, Weakness Neurological: NEGATIVE: Dizziness, Headache Psychiatric: NEGATIVE: Anxiety Endocrine: NEGATIVE: Sweat All Other Systems: All other systems reviewed and are negative Objective: Objective Information: T PRBPSpO2 [id number]% Date/Time05/09 23: 23: 23: 23: 23:25 Range(36.5C - 36.7C ) (62 - 70 ) (18 - 18 ) (113 - 117 )/ (69 - 72 ) (92% - 93% ) Physical Exam: Constitutional: Pleasant. Awake/Alert/Oriented to person, place and time. No acute distress noted Eyes: EOMI, ANTOLIN, Clear sclera. ENMT: On dry end of normal mucus membranes. Unable to open oral cavity fully due to pain from left sided swelling. Cannot appreciate posterior pharynx view. Site of left lower tooth extraction appears clear without any erythema, significant swelling and drainage noted. Head/Neck: Atraumatic, Normocephalic. No lymphadenopathy noted on exam but note as above the swelling around the left mandibular region. Respiratory/Thorax: Clear to auscultation bilaterally in anterior and posterior lung godwin. No wheezing, rales or rhonchi. Good chest wall expansion with adequate airflow throughout. No stridor Cardiovascular: Regular rate and rhythm, S1, S2. No extra heart sounds or murmurs. Radial and dorsalis pedis pulses 2+/4 bilaterally. Negative for peripheral edema Gastrointestinal: Soft and nontender. Obese. Bowel sounds present x4. No guarding or rigidity. Musculoskeletal: Muscle strength of upper and lower extremity 5/5 bilaterally. Incinerator Operator strength 5/5 bilaterally. Extremities: Warm and dry. No acute lesions noted on examination. No peripheral edema appreciated Neurological: Sensation grossly intact throughout upper and lower extremities. Lymphatic: No significant lymphadenopathy noted on examination Psychological: Appropriate mood and affect Skin: Warm and dry. She does however have swelling appreciated around the left mandibular region with what feels to be some fluctuance in the area likely where abscess located. No erythema. Area is painful. No trismus. No lymphadenopathy. Medications: Medications: 1. Non-Formulary Medication: Visbiome Probiotic Capsule Dose = 1 capsule(s) Oral 2 Times a Day PATIENTS OWN MEDS: ANTI-INFECTIVES: 1. Ampicillin - Sulbactam 3 gm/NaCL 0.9% IVPB Soln 100 mL: 3 gram(s) IntraVenous Piggyback Every 6 Hours CARDIOVASCULAR AGENTS: 1. Metoprolol Succinate Extended Release: 100 mg Oral Daily 2. hydroCHLOROthiazide: 25 mg Oral Daily CENTRAL NERVOUS SYSTEM AGENTS: 1. Morphine Injectable: 2 mg IntraVenous Push Every 4 Hours PRN 2. Morphine Injectable: 4 mg IntraVenous Push Every 4 Hours PRN GASTROINTESTINAL AGENTS: 1. Magnesium Hydroxide -Al Hydrox -Simethicone Oral Liquid: 30 mL Oral Every 6 Hours PRN 2. Loperamide: 2 mg Oral Every 4 Hours PRN 3. Docusate: 100 mg Oral 2 Times a Day 4. Pantoprazole: 20 mg Oral Daily HORMONES/HORMONE MODIFIERS: 1. Levothyroxine: 88 microgram(s) Oral Daily METABOLIC AGENTS: 1. Insulin Lispro Mild Corrective Scale: unit(s) SubCutaneous 3 Times a Day Before Meals 2. Allopurinol: 300 mg Oral Every 24 Hours 3. Atorvastatin: 20 mg Oral Daily 4. Dextrose 50% in Water Injectable: 25 gram(s) IntraVenous Push Every 15 Minutes PRN 5. Glucagon Injectable: 1 mg IntraMuscular Every 15 Minutes PRN NUTRITIONAL PRODUCTS: 1. Ferrous Sulfate: 325 mg Oral Daily 2. Multivitamin with Minerals: 1 tablet(s) Oral Daily 3. Cholecalciferol (Vitamin D3): 1000 International Unit(s) Oral Daily TOPICAL AGENTS: 1. Chlorhexidine Gluconate 0.12% Mucous Mem: 15 mL Topical 2 Times a Day Recent Lab Results: Results: Labs from [facility]: CBC: 11.1 / 13.3 / 39.8 / 234 BMP: 137/ 3.5 / 102 / 23 / 27 / 1.03 / Glu 118 Radiology Results: Results: CT Neck Soft Tissue @ [facility]: Developing abscess formation around left mandible likely sequelae of recently pulled tooth. No significant osseus destruction of bone Assessment and Plan: Assessment: This is a 73yo female with medical history of HTN, HLD, DM, Hypothyroidism, IBS, Vitamin D deficiency, Yeast infection while on Jardiance (on Fluconazole Q3days), Iron deficiency anemia, Hx of Cdiff transferred from [facility] to [facility] with diagnosis of mandibular abscess. Assessment/Plan: Acute Medical Issues: # Left mandibular abscess - CT Neck @ outside facility showed developing abscess formation around left mandible likely sequelae of recently pulled tooth. No significant osseus destruction of bone - Continue Unasyn 3g IV Q6hr for antibiotic therapy - Pain regimen: Morphine 2mg IV Q4hr PRN moderate, Morphine 4mg IV Q4hr PRN severe (Note patient allergies to other opiate) - Recommend consult oromaxillafacial service in AM as mandibular abscess more relating to their service vs ENT - Can consider a dental consult as well however likely is not required given no mention of abscess of oral cavity and physical examination of oral cavity albeit limited based on inability to open mouth entirely appeared benign without sign of oral abscess and drainage. # Difficulty swallowing whole foods - Secondary to pain related to mandibular abscess/swelling - CT neck did not report any significant oropharyngeal involvement - Can consider ENT if unresolving issue for evaluation of oral cavity/throat - Full liquid diet for now. # Mild leukocytosis - While definitely can be related to mandibular abscess also likely that collected sample may have been hemoconcentrated from patient dehydration as has not been able to tolerate significant oral intake. Chronic Medical Issues: # Hypertension Continue Losartan 100mg QD, Metoprolol succinate 100mg QD, HCTZ 25mg QD # Hyperlipidemia Continue Atorvastatin 20mg QD # Diabetes mellitus type 2 If patient can bring Jardiance then can have pharmacy verify and give pt. Mild Insulin Lispro Mealtime sliding scale for now # Hypothyroidism Continue Synthroid 88mcg QD # Vitamin D deficiency Continue Vitamin D3 1000IU QD # IBS Loperamide PRN. Stool softeners as getting pain meds # Iron deficiency anemia Continue Ferrous sulfate 325mg PO QD # History of Cdiff Cautious with antibiotic use. Probiotic verified Fluids: No maintenance fluids for now. May need D5 if NPO if sugars dropping Electrolytes: Monitor and replete as needed Nutrition: Full liquid diet, NPO for now GI prophylaxis: Protonix 20mg QD DVT prophylaxis: SCD Disposition: Patient transferred from [facility] to [facility] for further management of mandibular abscess. IV antibiotics at this time and pain control. Likely Oromaxillofacial consult in AM for evaluation vs ENT service. Anticipate hospitalization >2 midnights. Signatures/Attestation/C ertification: Note Completion: Attending Provider Inpatient Certification StatementI certify this patients need for inpatient care based on the above documentation including; the order to admit as inpatient, the anticipated length of stay, diagnosis, problem list and plan of care, and discharge plan. Admission Order - View OnlyCurrent Admission Order. Admit to Inpatient Adult [facility] Admitting Diagnosis, M27.2 Abscess of mandible Transfer to, [facility]: [place] [address] Division Admitting Service, General Internal Medicine Level of Care, Med/Surg Enrique Zhou Admission Order Certification order has been placed by Enrique Zhou Electronic Signatures: Enrique Zhou () (Signed 09-May-2019 23:41) Authored: History of Present Illness, Comorbidities, Family History, Social History, Allergies, Medications Prior to Admission, Review of Systems, Objective, Assessment and Plan, Signatures/Attestation/C ertification Last Updated: 09-May-2019 23:41 by Enrique Zhou () Normal [facility] MISCELLANEOUS CULT./SM.BACT. on 05-10-2019 MISCELLANEOUS CULT./SM.BACT. PATIENT: VIDA LIMA LOCATION: [place] [address] BILL#: [id number] : 49 AGE: SEX: F ORDERED BY: SHANNA OTERO SOURCE: WOUND/ABSCESS COLLECTED: 05/10/19 20:18 ANTIBIOTICS AT [facility].: RECEIVED : 05/10/19 22:47 SITE: left mandibular abcess R E S U L T S GRAM STAIN FINAL 05/11/19 15:20 2+ GRANULOCYTES. NO ORGANISMS SEEN. MISCELLANEOUS CULT./SM.BACT. FINAL 05/17/19 09:11 1+ AEROBIC MIXED GRAM POSITIVE BACTERIA Normal [facility] Comment on above: Performed By: #### M [facility] ####[id number] [place] [address] Patient Profile - Adult v2on 05-10-2019 Patient Profile - Adult v2 Profile: Initial Info: How to be AddressedBetty Spoken Language PreferredEnglish Are you currently using the Personal Electronic Health Record or InCorta Stated Reason for AdmissionTooth pain Arrived Fromemergency department Patient Belongingsremains with patient Medications Brought to Hospitalyes Medication Dispositionlocked in unit medication cabinet General Health: Weight in kg84.9 kilogram(s) Weight in anu361.2 pound(s) Height in feet5 feet Height in inches2 inch(es) Height in cm157.4 centimeter(s) BMI (kg/m2)34.268 square meter Weight Methodactual (measured) Scale Typebed Height Methodstated [facility] Based Care: How would you like to participate in your carenone What is the number one concern for you during this hospitalizationTooth pain What is the most important thing we can do to support you during this hospitalizationnone Is there anything we need to know to best care for younone Substance: Current or Former Substance Use never: Cigarette/Tobacco, e-Cigarette/Vaping, Alcohol, Street Drugs Health Mgmt: Symptoms/Conditions Managed at HomeHEENT (head, eyes, ears, nose, throat) HEENT Symptoms/Conditionstooth problem(s) HEENT Managementnot managed Relationship/Environ: Primary Source of Support/Comfortspouse Lives Withspouse Living Arrangementshouse Resource/Environmental Concernsnone [facility] Anticipated at Transitionnone Significant IndicatorsComplete Information Review: Allergies, Home Meds and Significant Events have been Reviewed and Verified with Patient/Familyyes ALLERGY, INTOLERANCE, ADVERSE EVENT: Allergies: Cipro: Drug, Hives/Urticaria, Active lisinopril: Drug, Other, Active metformin: Drug, Other, Active meperidine: Drug, Other, Active oxycodone: Drug, Other, Active codeine: Drug, Other, Active Keflex: Drug, Hives/Urticaria, Active Electronic Signatures: Claudia Helton (STAFF N) (Signed 09-May-2019 23:26) Authored: Profile, Additional Information Last Updated: 09-May-2019 23:26 by Claudia Helton (STAFF N) Normal [facility] TYPE + SCREENon 05-10-2019 ABO TYPE O Normal [facility] Comment on above: Performed By: #### T +S #### [facility] [id number] [place] [address] RH TYPE Positive Normal [facility] Comment on above: Performed By: #### T +S #### [facility] [id number] [place] [address] Admission Risk Screen - Adul ton 05-09-2019 Admission Risk Screen - Adult Allergies: Allergies: No Known Allergies: Patient Verification: New W ID Band Applied in my Departmentyes Patient Identity Verified Bypatient ID Band FULL Name, include Middle, spelling matches patient's ID used for verificationyes ID Band Matches Patient ID used for Verficationyes ID Band MRN Matches EMR MRNyes Advance Directive: Advance Directive/DNRyes Advance Directive typeDurable Power of Honey Producer for Healthcare Durable Power of Honey Producer AvailabilityDPOA not available now Durable Power of Honey Producer [id number] Durable Power of Honey Producer contact (name and number)Gali Alex [phone] Falls Screen: Type of Assessmentadmission Moderate Risk Factorspatient care equipment (scds, ivs, chest tubes, smith, etc) Risk for Injury Associated with Fallnone Fall Risk Conclusionmoderate falls risk with low risk for associated injury [place] Safety InterventionsWDL *orient to call system *instruct to call for assistance before getting out of bed *non-slip footwear when patient is out of bed *call russo in reach *personal items and telephone in reach *physically safe environment (no spills or clutter) *bed in lowest position with wheels locked *appropriate side rails in place *room/bathroom lighting operational, light cord in reach *appropriate signage on door Family Violence Screen: Are you or have you been threatened or abused physically, emotionally, or sexually by anyoneno Do you feel UNSAFE going back to the place where you are livingno Clinical assessment: Are there any apparent signs of injuries/behaviors that could be related to abuse/neglectno Social Service Consult for abuse/neglect needed this visitno Functional screen: Functional Screen: In the recent/past 2-4 weeks, patient or family have noticedno issues that require a rehabilitation consult at this time Learning Assessment (Patient): Patient is Able to be Assessed for Learningyes Factors Influencing Readiness to Learnacuteness of illness Factors that Impact Ability to Learnacuteness of illness Devices/Methods Used to Communicatenone Learning Preferencesverbal instruction Cultural Considerationsnone Developmental Considerationsnone Moravian Considerationsnone Learning Assessment (Other Learner): Other learner availableno Suicide/Depression Screen: During the past month, have you often been bothered by feeling down, depressed or hopelessno During the past month, have you often had little interest or pleasure in doing thingsno Have you had any thoughts of harming yourselfno Have you had any thoughts of harming anyone elseno Adult Nutrition Screen: Have you recently lost weight without tryingyes; unsure Have you been eating poorly because of a decreased appetiteyes Malnutrition Screening Tool Score3 Malnutrition Screening Tool RiskMST = 0 or 1 Not at risk. Eating well with little or no weight loss Nutrition Consult needed this visitno Can Patient Participate in Room Serviceyes Patient requires Paper Dishes/Plastic Utensilsno Pain Screen: Pain Scalenumerical 0-10 Pain Scale Educationteaching provided Current Pain Level8 = Severe Acceptable Pain Level0 = None Expression of Pain (nonverbal)none Chronic Painno Spiritual Screen: Are there any cultural, spiritual, synagogue practices/values/needs that are important for us to knowno CAGE: Is this an injured patient at a Trauma Center ([facility]/[place] /[place]): no Vaccinations: Vaccination - Influenza Vaccination Screen: Is it flu season (between and January 15)No Vaccination - Pneumonia Vaccination Screen: Patient has received a previous pneumonia vaccine:yes Neri: Skin - Neri Scale: Neri: Sensory Perception (response to environment)(4) no impairment Neri: Moisture (degree skin exposed to moisture)(4) rarely moist Neri: Activity (ability to walk)(4) walks frequently Neri: Mobility (amount/control of body movement)(4) no limitation Neri: Nutrition (quality of food intake)(2) probably inadequate Neri: Friction and Shear(3) no apparent problem Neri: Score21 Significant Indicatiors: Significant Indicators: Complete Pressure Injury: Pressure Injury Present on Admissionno Electronic Signatures: Claudia Helton (STAFF N) (Signed 09-May-2019 22:52) Authored: Admission Risk Screens, Vaccinations, Neri, Pressure Injury Last Updated: 09-May-2019 22:52 by Claudia Helton (STAFF N) Normal [facility] Vital Signs Date Time Vital Sign Value Performing Clinician Facility 01-17-2024 11:12-0400 Diastolic blood pressure 66 mm[Hg] Travis Franco MD Work Phone: [facility] 01-17-2024 11:12-0400 Heart rate 76 /min Travis Franco MD Work Phone: [facility] 01-17-2024 11:12-0400 Systolic blood pressure 140 mm[Hg] Travis Franco MD Work Phone: [facility] 12-06-2023 13:39-0400 Body height 157.5 cm Shazia Suh MD Work Phone: [facility] 12-06-2023 13:39-0400 Body mass index (BMI) [Ratio] 34.2 kg/m2 [facility] Su[facility] 12-06-2023 13:39-0400 Body weight 84.82 kg [facility] Su[facility] [employer] [facility] 12-06-2023 13:39-0400 Diastolic blood pressure 74 mm[Hg] Shazia Suh MD [facility] 12-06-2023 13:39-0400 Heart rate 65 /min [facility]az[facility] Suh [facility] 12-06-2023 13:39-0400 Systolic blood pressure 141 mm[Hg] Shaz[facility] Suh MD [facility] 11-30-2023 12:39-0400 Body height 157.5 cm Viky RICE [facility] Comment on above: stated 11-30-2023 12:39-0400 Body mass index (BMI) [Ratio] 34.2 kg/m2 Viky RICE [facility] [employer] [facility] 11-30-2023 12:39-0400 Body weight 84.82 kg Viky Nienberg PA Work Phone: [facility] 11-30-2023 12:39-0400 Diastolic blood pressure 73 mm[Hg] Viky Micheleenberg PA Work Phone: [facility] 11-30-2023 12:39-0400 Heart rate 72 /min Viky Nienberg PA Work Phone: [facility] 11-30-2023 12:39-0400 Respiratory rate 14 /min Viky Nienberg PA Work Phone: [facility] 11-30-2023 12:39-0400 SaO2% (BldA) [Mass fraction] 100 % Viky Nienberg PA Work Phone: [facility] 11-30-2023 12:39-0400 Systolic blood pressure 143 mm[Hg] Viky Nienberg PA Work Phone: [facility] 10-31-2023 11:01-0500 Diastolic blood pressure 73 mm[Hg] Viky Micheleenberg PA Work Phone: [facility] 10-31-2023 11:01-0500 Heart rate 69 /min Viky Nienberg PA Work Phone: [facility] 10-31-2023 11:01-0500 Respiratory rate 18 /min Viky Nienberg PA Work Phone: [facility] 10-31-2023 11:01-0500 SaO2% (BldA) [Mass fraction] 99 % Viky Micheleenberg PA Work Phone: [facility] 10-31-2023 11:01-0500 Systolic blood pressure 159 mm[Hg] Viky Nienberg PA Work Phone: [facility] 10-25-2023 14:27-0500 Body height 157.5 cm Pmh 2 [facility] 10-25-2023 14:27-0500 Body mass index (BMI) [Ratio] 34.2 kg/m2 Pm 2 [facility] 10-25-2023 14:27-0500 Body [facility] 84.82 [facility] 11:30-0500 Body height 157.5 cm [facility]y RICE [facility] 09-28-2023 11:30-0500 Body mass index (BMI) [Ratio] 36.03 kg/m2 Viky RICE [facility] 09-28-2023 11:30-0500 Body weight 89.36 kg Viky RICE [facility] 09-28-2023 11:30-0500 Diastolic blood pressure 76 mm[Hg] Viky RICE [facility] 09-28-2023 11:30-0500 Heart rate 67 /min Viky RICE [facility] 09-28-2023 11:30-0500 Respiratory rate 18 /min Viky RICE [facility] 09-28-2023 11:30-0500 SaO2% (BldA) [Mass fraction] 98 % Viky RICE [facility] 09-28-2023 11:30-0500 Systolic blood pressure 156 mm[Hg] Viky RICE [facility] 11-26-2021 18:42-0500 Body temperature 98.4 [degF] Valentina Lopes DO Work Phone: [employer] 11-26-2021 18:41-0500 Body height 157.5 cm Valentina Lopes DO Work Phone: [employer] 11-26-2021 18:41-0500 Body mass index (BMI) [Ratio] 31.09 kg/m2 Valentina Lopes DO Work Phone: [employer] 11-26-2021 18:41-0500 Body weight 77.11 kg Valentina Lopes DO Work Phone: [employer] 11-26-2021 18:41-0500 Diastolic blood pressure 94 mm[Hg] Valentina Lopes DO Work Phone: [employer] 11-26-2021 18:41-0500 Heart rate 72 /min Valentina Lopes DO Work Phone: [employer] 11-26-2021 18:41-0500 Respiratory rate 16 /min Valentina Lopes DO Work Phone: [employer] 11-26-2021 18:41-0500 SaO2% (BldA) [Mass fraction] 99 % Valentina Lopes DO Work Phone: [employer] 11-26-2021 18:41-0500 Systolic blood pressure 138 mm[Hg] Valentina Lopes DO Work Phone: [employer] 07-28-2021 01:39-0500 Heart rate 77 /min [employer] 07-28-2021 01:39-0500 Respiratory rate 18 /min [employer] 07-28-2021 01:39-0500 SaO2% (BldA) [Mass fraction] 98 % [employer] 07-27-2021 18:07-0500 Body temperature 97.9 [degF] [employer] 07-27-2021 18:07-0500 Diastolic blood pressure 76 mm[Hg] [employer] 07-27-2021 18:07-0500 Systolic blood pressure 138 mm[Hg] [facility] En[facility]ters Encounter Date Encounter Type Care Provider Facility Start: 01-17-2024 End: 01-17-2024 ambulatory ARUNA PRECIADO DAMICO Facility:[facility] Start: 01-17-2024 End: 01-17-2024 Patient encounter procedure Travis Franco MD Work Phone: Neurology Comment on above: Paresthesia of skin (Primary Dx); Mechanical low back pain Start: 01-04-2024 End: 01-04-2024 ambulatory HAYDER FRANCO Not Available Start: 12-07-2023 End: 12-07-2023 ambulatory MARVIN BULL Not Available Start: 12-06-2023 End: 12-06-2023 ambulatory SHAZIA SUH [facility] Start: 12-06-2023 End: 12-06-2023 Office outpatient new 45 minutes Shazia Suh MD Work Phone: [facility] Comment on above: Kidney stone (Primar y Dx); Elevated serum creatinine Start: 12-04-2023 End: 12-04-2023 Evaluation and management of inpatient KESHAV PIMENTEL [facility] Start: 12-04-2023 End: 12-04-2023 Evaluation and management of inpatient JARRED NIFANTE [facility] Start: 12-01-2023 End: 12-01-2023 ambulatory [facility] Pat Phone Call Provider 1 [facility] Start: 11-30-2023 End: 12-01-2023 ambulatory [facility] Start: 11-30-2023 End: 11-30-2023 ambulatory [facility] Start: 11-30-2023 End: 11-30-2023 Office outpatient visit 25 minutes Viky RICE Work Phone: [facility] Comment on above: 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 [facility] Start: 11-06-2023 End: 11-06-2023 Evaluation and management of inpatient KESHAV PIMENTEL [facility] Start: 11-06-2023 End: 11-06-2023 Evaluation and management of inpatient JARRED INFANTE [facility] Start: 11-01-2023 Telephone encounter Travis roberts MD Work Phone: Neurology Comment on above: Results (Discussed M RI brain and Emg. States that her diabetes is not well controlled. Does not really have pain from neuropathy she states.) Start: 10-31-2023 End: 10-31-2023 ambulatory VIKY PRETTY [facility] Start: 10-31-2023 End: 10-31-2023 Office outpatient visit 25 minutes Viky RICE Work Phone: [facility] Comment on above: Lumbosacral spondylo sis without myelopathy (Primary Dx) Start: 10-25-2023 End: 10-26-2023 ambulatory JARRED ALY [facility] Start: 10-25-2023 Encounter for other preprocedural examination JONN ZAMORA JR. [facility] Start: 10-25-2023 End: 10-25-2023 Patient encounter procedure P[facility] Pre-Admission Testing 2 [facility] Start: 10-24-2023 End: 10-24-2023 ambulatory [facility] Facility:[facility] Start: 10-19-2023 End: 10-19-2023 ambulatory [facility] Facility:[facility] Start: 10-19-2023 End: 10-19-2023 ambulatory Emg 400) Work Phone: Neurology Comment on above: EMG Start: 10-19-2023 End: 10-19-2023 Patient encounter procedure Emg 2 [facility]ur [facility] Rej (Max Weight: 400) Work Phone: [facility] Start: 10-14-2023 End: 10-14-2023 ambulatory MACARENA PAZ [facility] Start: 10-13-2023 End: 10-14-2023 ambulatory JONN ZAMORA JR. [facility] Start: 10-11-2023 End: 10-11-2023 ambulatory TRAVIS FRANCO Facility:[facility] Start: 09-28-2023 End: 09-28-2023 ambulatory [facility] Start: 09-28-2023 End: 09-28-2023 Office outpatient visit 25 minutes Viky RICE Work Phone: [facility] Comment on above: Spinal stenosis of l umbar region with neurogenic claudication (Primary Dx) Start: 09-20-2023 End: 09-21-2023 ambulatory [facility] Start: 09-05-2023 End: 09-05-2023 ambulatory [facility] Start: 08-08-2023 End: 08-08-2023 ambulatory MARVIN BULL Not Available Start: 10-24-2022 End: 10-24-2022 ambulatory [facility] Facility:[facility] Start: 08-03-2022 End: 08-04-2022 ambulatory [facility] Facility:[facility] Start: 07-13-2022 End: 07-13-2022 ambulatory [facility] Facility:[facility] Start: 06-27-2022 End: 06-28-2022 ambulatory Rita Bailey Facility:[facility] Start: 06-17-2022 End: 06-17-[address] SUHA LIMON Facility:[facility] Start: 05-27-2022 End: 05-27-2022 ambulatory BRIEN LOMELI Facility:[facility] Start: 03-19-2022 End: 03-20-[address] HAYDER FRANCO Facility:[facility] Start: 11-26-2021 End: 11-27-2021 Emergency department patient visit ALO Parra [facility] Start: 11-26-2021 End: 11-26-2021 Emergency department patient visit Valentina Lopes DO Work Phone: [facility] Comment on above: Flank pain (Primary Dx); Acute cystitis without hematuria; Hypokalemia Start: 10-19-2021 End: 10-20-[address] HAYDER FRANCO Facility:[facility] Start: 10-11-2021 End: 10-11-2021 ambulatory Jason Ramos Other [employer] Other Start: 10-11-2021 Telephone encounter Jason Yepez [facility] Start: 10-05-2021 End: 10-05-2021 ambulatory Jason Ramos Other [employer] Other Start: 10-05-2021 Telephone encounter Jason Yepez [facility]k [facility] Start: 08-16-2021 End: 08-21-2021 ambulatory [facility] Start: 07-27-2021 End: 07-28-2021 Emergency department patient visit ARUNA A [facility] Start: 07-27-2021 End: 07-28-2021 Emergency department patient visit Hu Perez DO [facility] ED Comment on above: UTI (urinary tract i nfection), bacterial (Primary Dx) Procedures Date Procedure Procedure Detail Performing Clinician Start: 10-19-2023 Nerve conduction radha dies 5-6 studies Travis Franco MD Work Phone: Start: 12-18-2021 Stool culture Comment on above: Result Comment: SOUR CE: STOOL NO PATHOGENS ISOLATED - NORMAL WESLEY NO CAMPYLOBACTER, NO SALMONELLA, NO SHIGELLA, NO PLESIOMONAS AND NO AEROMONAS ISOLATED. Performed By: #### C ELIC4, ESRCRP, TSHFX, C-STL, O/P, CDPCR, IGA #### [facility] [address] [facility], [address] Start: 11-26-2021 Ct angio abd&plvis c ntrst mtrl w/wo cntrst img Valentina Lopes DO Work Phone: Start: 11-26-2021 Assay of lipase Bunny Lopes DO Work Phone: Start: 11-26-2021 Urnls dip stick/tabl et reagent auto microscopy Valentina Lopes DO Work Phone: Start: 07-28-2021 Ct abdomen & pelvis w/contrast material Kerline Luis MD Work Phone: Start: 07-27-2021 Urinalysis microscopic only Kerline Luis MD Work Phone: Start: 07-27-2021 Urnls dip stick/tabl et rgnt auto w/o microscopy Kerline Luis MD Work Phone: Start: 07-27-2021 Comprehensive metabo lic panel Hu Perez DO Start: 05-10-2019 Antibody screen Comment on above: Performed By: #### T +S #### [facility] [address] [place] [address] Plan of Treatment Date Care Activity Detail Author Start: 08-31-2032 DTaP,Tdap and Td Vaccines (2 - Td or Tdap) DTaP,Tdap and Td Vaccines (2 - Td or Tdap) [facility] Start: 08-31-2032 Urine microalbumin profile DTaP,Tdap,Td Vaccine (2 - Td or Tdap) [facility] Start: 12-06-2026 Diabetes Screening Diabetes Screening [facility] Start: 12-08-2025 Diabetes Screening Diabetes Screening [facility] Start: 12-05-2024 Adult BMI Screening Adult BMI Screening [facility] Start: 12-05-2024 Tobacco Screening Tobacco Screening [facility] Start: 11-29-2024 Adult BMI Screening Adult BMI Screening [facility] Start: 11-29-2024 Tobacco Screening Tobacco Screening [facility] Start: 10-31-2024 Tobacco Screening Tobacco Screening [facility] Start: 10-25-2024 Adult BMI Screening Adult BMI Screening [facility] Start: 10-25-2024 Tobacco Screening Tobacco Screening [facility] Start: 09-28-2024 Adult BMI Screening Adult BMI Screening [facility] Start: 09-28-2024 Tobacco Screening Tobacco Screening [facility] Start: 07-19-2024 End: 07-19-2024 Patient encounter procedure 07/19/2024 11:20 AM EDT Office Visit Neurology [address] [place] [address] [place] [address] [place] [address] Return in about 6 months (around 07/19/2024). Neurology Comment on above: Return in about 6 months (around 07/19/20 24). Start: 01-31-2024 End: 01-31-2024 Patient encounter procedure 01/31/2024 1:15 PM EDT Office Visit Spine Medicine [address] [place] [address] Shazia Fountain, PA-C [address] [place] [address] Mechanical low back pain [M54.59] Spine Medicine Comment on above: Mechanical low back pain [M54.59] Start: 01-29-2024 End: 01-29-2024 Patient encounter procedure 01/29/2024 3:45 PM EDT Office Visit [facility] [address] [place] [address] [place] [address] Shazia Suh MD [address] [place] [address] [facility] Start: 12-28-2023 End: 12-28-2023 Patient encounter procedure 12/28/2023 9:15 AM EDT Office Visit [facility] [address] [place] [phone] Viky Pretty PA [address] [place] [address] [facility] Start: 12-06-2023 End: 12-06-2023 Patient encounter procedure 12/06/2023 3:30 PM EDT Office Visit [facility] [address] [place] [address] [place] [address] Shazia Suh MD [address] [place] [address] [phone] [facility] Start: 12-06-2023 End: 12-05-2024 US Retroperitoneum Ultrasound retroperitoneal complete Imaging Routine Kidney stone Expected: 12/06/2023, Expires: 12/05/2024 [facility] Work Phone: Comment on above: Expected: 12/06/2023, Expires: Start: 12-06-2023 End: 12-05-2024 XR Abdomen AP X-ray abdomen ap 1 view Imaging Routine Kidney stone Expected: 12/06/2023, Expires: 12/05/2024 [facility] Comment on above: Expected: 12/06/2023, Expires: Start: 12-04-2023 End: 12-04-2023 Admission to same day surgery center 12/04/2023 10:15 AM EDT - 12/04/2023 11:[address] [facility] [address] [place] [address] Jarred Infante, [address] [place] [address] EXTRACTION CATARACT INTRAOCULAR LENS [51129 (CPT )] [facility] Comment on above: EXTRACTION CATARACT INTRAOCULAR LENS [66 984 (CPT )] Start: 12-04-2023 End: 12-04-2023 Anesthesia consultation 12/04/2023 10:15 AM EDT An[address] [facility] [address] [place] [address] Keshav Pimentel, DO [address] [place], [place] [id number] [facility] Start: 12-04-2023 Subsequent hospital visit by physician 12/04/2023 10:15 AM EDT Hospital Encounter [facility] [address] [place] [address] Jarred Infante, DO [address] [place] [address] [facility] Start: 12-04-2023 End: 03-18-2024 Xcapsl ctrc rmvl insj io lens prosth w/o ecp EXTRACTION CATARACT INTRAOCULAR LENS cataract right eye 12/04/2023 10:15 AM EDT [facility] Start: 11-30-2023 End: 11-30-2023 Patient encounter procedure 11/30/2023 12:30 PM EDT Office Visit [facility] [address] [place] [phone] Viky Pretty PA [address] [place] [address] [facility] Start: 11-17-2023 End: 11-17-2023 Admission to same day surgery center 11/17/2023 9:16 AM EST - 11/17/2023 9:23 AM EST Surgery [facility] [address] [place] [phone] Jonn Zamora MD [address], [place] [phone] INJECTION BLOCK NERVE MEDIAL BRANCH: bilat L45 51 [26065 (CPT )] [facility] Comment on above: INJECTION BLOCK NERVE MEDIAL BRANCH: eula at L45 51 [72036 (CPT )] Start: 11-17-2023 End: 11-17-2023 Njx dx/ther agt pvrt facet jt lmbr/sac 1 level INJECTION BLOCK NERVE MEDIAL BRANCH Lumbosacral spondylosis without myelopathy 11/17/2023 9:16 AM EST [facility] Start: 11-17-2023 Subsequent hospital visit by physician 11/17/2023 9:16 AM EST Hospital Encounter [facility] [address] [place] [phone] Jonn Zamora MD [address], [place] [phone] [facility] Start: 11-06-2023 End: 11-06-2023 Admission to same day surgery center 11/06/2023 8:00 AM EST - 11/06/2023 8:[address] [facility] [address] [place] [address] Jarred Infante, DO [address] [place], [place] [phone] EXTRACTION CATARACT INTRAOCULAR LENS [01056 (CPT )] [facility] Comment on above: EXTRACTION CATARACT INTRAOCULAR LENS [66 984 (CPT )] Start: 11-06-2023 End: 11-06-2023 Anesthesia consultation 11/06/2023 8:00 AM EST Anesthesia Event [facility] [address] [place] [address] Keshav Pimentel, DO [address] [place] [address] [facility] Start: 11-06-2023 Subsequent hospital visit by physician 11/06/2023 8:00 AM EST Hospital Encounter [facility] [address] [place] [address] Jarred Infante, DO [address] [place], [place] [phone] [facility] Start: 11-06-2023 End: 11-06-2023 Xcapsl ctrc rmvl insj io lens prosth w/o ecp EXTRACTION CATARACT INTRAOCULAR LENS cataract left eye 11/06/2023 8:00 AM [facility] Start: 11-03-2023 Covid-19 Vaccine ( season) Covid-19 Vaccine () [facility] Start: 10-31-2023 End: 10-31-2023 Patient encounter procedure 10/31/2023 10:45 AM EST Office Visit [facility] [address] [place] [address] Viky Pretty PA [address] [place] [address] [facility] Start: 10-13-2023 End: 10-13-2023 Admission to same day surgery center 10/13/2023 7:10 AM EST - 10/13/2023 7:16 AM EST Surgery [facility] [address] [place] [phone] Jonn Zamora MD [address] [place] [phone] INJECTION BLOCK EPIDURAL CAUDAL STEROID [24211 (CPT )] [facility] Comment on above: INJECTION BLOCK EPIDURAL CAUDAL STEROID [33955 (CPT )] Start: 10-13-2023 End: 10-13-2023 Njx dx/ther sbst intrlmnr lmbr/sac w/img gdn INJECTION BLOCK EPIDURAL CAUDAL STEROID Spinal stenosis of lumbar region with neurogenic claudication 10/13/2023 7:10 AM EST [facility] Start: 10-13-2023 Subsequent hospital visit by physician 10/13/2023 7:10 AM EST Hospital Encounter [facility] [address] [place] [phone] Jonn Zamora MD [address] [facility] [place] [phone] [facility] Start: 09-18-2023 Advance Directive Discussion Advance Directive Discussion [facility] Start: 09-18-2023 Behavioral Health Screening Behavioral Health Screening [facility] Start: 09-18-2023 Depression Assessment Depression Assessment [facility] Start: 03-11-2023 Screening for malignant neoplasm of breast Breast cancer screen [facility] Start: 11-26-2022 Creatinine measurement Creatinine monitoring [facility] Start: 11-26-2022 Potassium monitoring Potassium monitoring [facility] Start: 07-27-2022 Creatinine measurement Creatinine monitoring [facility] Start: 07-27-2022 Potassium monitoring Potassium monitoring [facility] Start: 07-16-2022 Hemoglobin A1c measurement A1C test (Diabetic or Prediabetic) [facility] Start: 10-18-2020 Annual Wellness Visit (AWV) Annual Wellness Visit (AWV) [facility] Start: 2012 Fall Risk Screening Fall Risk Screening [facility] Start: 2012 Screening for osteoporosis Bone Density Screening [facility] Start: 2007 RSV Vaccine (1 - 1-dose 60+ series) RSV Vaccine (1 - 1-dose 60+ series) [facility] Start: 2002 Screening for osteoporosis DEXA (modify frequency per FRAX score) [facility] Start: 1997 Administration of varicella zoster vaccine Zoster (Shingles) Vaccine (1 of 2) [facility] Start: 1997 Shingles Vaccine (1 of 2) Shingles Vaccine (1 of 2) [facility] Start: 1997 Shingrix Vaccine (1 of 2) Shingrix Vaccine (1 of 2) [facility] Start: 1992 Screening for malignant neoplasm of colon [facility] Start: 1966 DTaP/Tdap/Td vaccine (1 - Tdap) DTaP/Tdap/Td vaccine (1 - Tdap) [facility] Start: 1965 Adult BMI Follow Up Plan Adult BMI Follow Up Plan [facility] Start: 1965 Annual PCP Team Chronic Disease Visit Annual PCP Team Chronic Disease Visit [facility] Start: 1965 BP Controlled (<130/80) BP Controlled (<130/80) [facility] Start: 1965 Diabetic microalbuminuria test Diabetic microalbuminuria test [facility] Start: 1965 Diabetic retinal exam Diabetic retinal exam [facility] Start: 1965 Hepatitis C screening Hepatitis C Screening [facility] Start: 1965 Urine screening for protein Diabetic microalbuminuria test [facility] Start: 1959 Depression Screen Depression Screen [facility] Start: 1959 Depression Screening Depression Screening [facility] Start: 1957 Diabetic foot examination Diabetic foot exam [employer] Start: 1957 Diabetic retinal exam Diabetic retinal exam [employer] [facility] Start: 1957 Hemoglobin A1c measurement A1C test (Diabetic or Prediabetic) [employer] Start: 1957 Lipid panel Lipid screen [employer] Start: 1947 Hepatitis C screening Hepatitis C screen [employer] [facility] Start: 1947 Medicare Annual Wellness Visit Medicare Annual Wellness Visit [facility] End: 12-05-2024 Basic metabolic 2000 panel - Serum or Plasma Basic Metabolic Panel Lab Routine Kidney stone 1 Occurrences starting 12/06/2023 until 12/05/2024 [facility] Comment on above: 1 Occurrences starting 12/06/2023 until 12/05/2024 CT ABDOMEN PELVIS W IV CONTRAST Additional Contrast? None CT ABDOMEN PELVIS W IV CONTRAST Additional Contrast? None Imaging STAT 07/28/2021 12:28 AM EST [employer] Phone: End: 07-27-2021 Culture, Urine [employer] Phone: Comment on above: One Time for 1 Occurrences starting 05/2021 until 07/27/2021 End: 11-26-2021 Culture, Urine [employer] Phone: Comment on above: One Time for 1 Occurrences starting 11/16 until 11/26/2021 [facility] Immunizations Immunization Date Immunization Notes Care Provider Demarcus zheng 11-04-2020 COVID-19, Pfizer, PF , 30mcg/0.3mL Hu Chris [employer] Phone: 10-12-2020 COVID-19, Pfizer, PF , 30mcg/0.3mL Hu Chris [employer] Phone: 06-18-2020 influenza, high dose seasonal, preservative-free Hu Chris [employer] Phone: 06-30-2019 influenza, high dose seasonal, preservative-free Hu Chris [facility] Work Phone: 05-31-2018 influenza, high dose seasonal, preservative-free Hu Perez DO [employer] Phone: 05-31-2018 pneumococcal conjuga te vaccine, 13 valent Hu Perez [employer] Phone: 08-06-2015 influenza, high dose seasonal, preservative-free Hu Perez [employer] Phone: 06-18-2015 influenza, injectabl e, madin aly canine kidney, preservative free Hu Perez [employer] Phone: 06-18-2014 pneumococcal polysaccharide vaccine, 23 valent Hu Perez [employer] Phone: 08-06-2011 pneumococcal polysaccharide vaccine, 23 valent Hu Perez [employer] Phone: Payers Date Payer Category Payer Private Health Insurance [id number] 2012 Medicare [id number] 1959 Medicare [id number] 1959 Private Health Insurance [id number] [id number] 1947 Unknown [id number] 2.16.8 40.1.949200.3.579.2.175 1947 Unknown [id number] 2.16.8 40.1.992124.3.579.2.176 1947 Unknown [id number] 2.16.8 40.1.447205.3.579.2.177 1947 Unknown [id number] 2.16.84 0.1.767655.3.579.2.593 1947 Unknown [id number] 2.16.84 0.1.775936.3.579.2.593 1947 Unknown [id number] 2.16.84 0.1.274655.3.579.2.593 1947 Unknown [id number] 2.16.84 0.1.428380.3.579.2.593 1947 Unknown [id number] 2.16.8 40.1.769096.3.579.2.718 1947 Unknown [id number] 2.16.84 0.1.185446.3.579.2.718 1947 Unknown [id number] 2.16.84 0.1.238813.3.579.2.718 1947 Unknown [id number] 2.16.84 0.1.828646.3.579.2.718 1947 Unknown [id number] 2.16.8 40.1.831789.3.579.2.1286 1947 Unknown [id number] 2.16.8 40.1.853623.3.579.2.1286 1947 Unknown [id number] 2.16.8 40.1.663743.3.579.2.1286 1947 Unknown [id number] 2.16.8 40.1.940577.3.579.2.1286 1947 Unknown [id number] 2.16.8 40.1.836857.3.579.2.1286 1947 Unknown [id number] 2.16.8 40.1.826154.3.579.2.1286 1947 Unknown [id number] 2.16.8 40.1.724808.3.579.2.1286 1947 Unknown [id number] 2.16.8 40.1.496675.3.579.2.1286 1947 Unknown [id number] 2.16.8 40.1.617386.3.579.2.1286 1947 Unknown [id number] 2.16.8 40.1.406659.3.579.2.1286 1947 Unknown [id number] 2.16.8 40.1.287998.3.579.2.1285 1947 Unknown [id number] 2.16.8 40.1.130446.3.579.2.1286 1947 Unknown [id number] 2.16.8 40.1.179658.3.579.2.1285 1947 Unknown [id number] 2.16.8 40.1.862810.3.579.2.1285 1947 Unknown [id number] 2.16.8 40.1.322912.3.579.2.1285 1947 Unknown [id number] 2.16.8 40.1.147640.3.579.2.128 1947 Unknown [id number] 2.16.8 40.1.281288.3.579.2.6 1947 Unknown [id number] 2.16.8 40.1.673584.3.579.2.1285 1947 Unknown [id number] 2.16.8 40.1.947492.3.579.2.6 1947 Unknown [id number] 2.16.8 40.1.711318.3.579.2.128 1947 Unknown [id number] 2.16.8 40.1.203606.3.579.2.1285 1947 Unknown [id number] 2.16.84 0.1.916600.3.579.2.1285 1947 Unknown [id number] 2.16.84 0.1.962459.3.579.2.1287 Unknown [id number] 2.16.840 .1.244765.3.579.2.1286 1947 Unknown [id number] 2.16.8 40.1.647681.3.579.2.1286 1947 Unknown [id number] 2.16.84 0.1.210755.3.579.2.1259 1947 Unknown [id number] 2.16.84 0.1.839016.3.579.2.1259 1947 Unknown [id number] 2.16.840 .1.567943.3.579.2.1259 Social History Date Type Detail Facility Start: 11-04-2014 End: 10-11-2023 Tobacco smoking status DCIS Ex-smoker [employer] Phone: End: 04-11-1989 History of tobacco use Current smoker [employer] Phone: End: 04-11-1989 History of tobacco use Cigarette Smoker [employer] Phone: Start: 11-04-2014 End: 10-11-2023 Cigarettes smoked current (pack per day) - Reported 3 [facility] Start: 11-04-2014 End: 11-06-2023 Tobacco use and exposure Smokeless tobacco non-user [employer] Phone: Start: 07-27-2021 End: 08-03-2021 Alcohol intake Current drinker of alcohol (finding) [employer] Phone: Start: 11-04-2014 History SDOH Alcohol Comment Occasional, maybe once every few months, if that. [employer] Phone: Start: 11-04-2014 Tobacco Comment Quit at 1:13p m on 04/11/1989. [employer] Phone: Start: 1945 Sex Assigned At Not on file [facility] [employer] Phone: Exposure to SARS-CoV -2 (event) Not sure [employer] Start: 09-28-2023 End: 10-11-2023 Sex Assigned At [facility] Start: 09-28-2023 End: 01-17-2024 Alcohol intake Current non-drinker of alcohol (finding) [facility] Housing Instability Unknown [facility] Start: 10-11-2023 Tobacco use and exposure [facility] smokeless tobacco user [facility] Medical Equipment Procedure Code Equipment Code Equipment Origin al Text Equipment Identifier Dates USE DIRECTED TO TEST ONCE DAILY [id number] Start: 03-08-2023 [facility] [id number] Start: 11-06-2023 [facility] [id number] Start: 12-04-2023 Clinical Notes 06-03-2013 to 01-17-2024 Albert De Luna LPN - 01/17/2024 11:12 AM Travis Long MD - 01/17/2024 11:10 AM Rubi Suh MD - 12/06/2023 1:30 PM DWAYNE Ludwig - 11/30/2023 12:30 PM EDTInstructions Note Date & Type Note Facility 01-17-2024 Note HNO ID: [id number] Author: ALBERT DE LUNA LPN Service: ? Author Type: LICENSED NURSE Type: Progress Notes Filed: 01/17/2024 11:28 Note Text: [facility] 01-17-2024 Note HNO ID: [id number] Author: TRAVIS FRANCO MD Service: ? Author Type: Physician Type: Progress Notes Filed: 01/17/2024 11:28 Note Text: NEUROLOGY PROGRESS NOTE Vida Lima is a 78 year old female. Who has a history of paresthesias comes in for follow up. Interval History Vida Lima is a 78 year old female, with a history of chronic low back pain, weakness left lower extremity, diabetes, hypothyroidism, hypertension who presents with left lower extremity weakness? Daughter is here as well today patient states that about over a year ago she had fallen and landed on the left side of her hip and left lower extremity thigh area. Since then she has had chronic low back pain going to pain management. She has had weakness of the proximal left lower extremity has difficulty climbing up stairs. She also states that she does have a history of left shoulder pain but could not really tell if she also had weakness of the left upper extremity at that time. Symptoms persisting she has had physical therapy did not really help. EMG shows severe neuropathy. Did talk about doing upper extremity EMG but she wants to hold off on this for now. She does state that her diabetes has not been controlled. It is probably from neuropathy from the diabetes. She does have also low back pain so here pain actually is more of the left lower extremity not really consistent with neuropathy of the lower extremities when you would expect both feet involved. She has been seeing pain management already has been on the higher dose of gabapentin but to no avail. Will have her see spine medicine for another opinion as per her request. 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 Current Outpatient Medications on File Prior to Visit Medication Sig gabapentin (NEURONTIN) 300 mg capsule Take 1 capsule by mouth three times daily. PREMARIN vaginal cream USE 0.5GR VAGINALLY EVERY MON, WED AND FRI, APPLY WITH FINGERTIP, STOP FOR 3 TO 5 DAYS PRIOR TO SURG dicyclomine (BENTYL) 10 mg capsule Take 10 mg by mouth before meals and at bedtime. famotidine (PEPCID) 40 mg tablet Take 40 mg by mouth once daily. Naproxen Sodium 500 mg 24 hr tablet Take 500 mg by mouth daily with breakfast. levothyroxine 137 mcg ORAL tablet Take 1 tablet by mouth once daily. nfwrwvb-todpijtqz-ctftmrd D3 500 mg(1,250mg) -200 unit ORAL per tablet Take 1 tablet by mouth three times daily with meals. olmesartan (BENICAR) 20 mg ORAL tablet Take 1 tablet by mouth once daily. metoprolol succinate XL (TOPROL XL) 100 mg ORAL Tb24 Take 1 tablet by mouth once daily. pravastatin (PRAVACHOL) 20 mg ORAL tablet Take 1 tablet by mouth daily at bedtime. amitriptyline 25 mg ORAL tablet Take 1 tablet by mouth daily at bedtime. sumatriptan 50 mg ORAL tablet Take 1 tablet by mouth as needed. omeprazole (PRILOSEC) 20 mg ORAL capsule Take 1 capsule by mouth once daily. Cyanocobalamin 2,500 mcg SUBLINGUAL Subl Dissolve under the tongue once daily. pyridoxine (VITAMIN B-6) 100 mg ORAL tablet Take 1 tablet by mouth once daily. Biotin 1 mg ORAL Tab Take 1 tablet by mouth once daily. No current facility-administered medications on file prior to visit. Social History Tobacco Use Smoking status: Former Packs/day: 2.00 Years: 18.00 Additional pack years: 0.00 Total pack years: 36.00 Types: Cigarettes Quit date: 09/18/1988 Years since quittin.3 Smokeless tobacco: Former Substance Use Topics Alcohol use: No family history is not on file. GENERAL:No weight loss, malaise or fevers., SEE HPI HEENT:Negative for frequent or significant headaches, No changes in hearing or vision, no nose bleeds or other nasal problems NECK:Negative for lumps, goiter, pain and significant neck swelling RESPIRATORY: Negative for cough, wheezing or shortness of breath. CARDIOVASCULAR: Negative for chest pain, leg swelling or palpitations. GASTROINTESTINAL: Negative for abdominal discomfort, blood in stools or black stools or change in bowel habits See HPI. All systems reviewed and are negative 01/17/24 1112 BP: 140/66 Pulse: 76 PHYSICAL EXAMINATION: General appearance: well appearing, alert, in no acute distress Neck: Supple Neurological exam: MENTAL STATUS: Alert, oriented to person, place and time and Follows commands CRANIAL NERVES: PERRLA, EOM's intact, Face symmetric, No dysarthria, and Tongue protrudes midline MOTOR: Normal tone MOTOR STRENGTH: Moves all 4 extremities IMPRESSION: 1. Paresthesias of the skin 2. Mechanical low back pain PLAN: As above. Any problems or concerns to call me or (more content not included)... [facility] 01-17-2024 History of Presen t illness Narrative NEUROLOGY PROGRESS NOTE Vida Lima is a 78 year old female. Who has a history of paresthesias comes in for follow up. Interval History Vida Lima is a 78 year old female, with a history of chronic low back pain, weakness left lower extremity, diabetes, hypothyroidism, hypertension who presents with left lower extremity weakness? Daughter is here as well today patient states that about over a year ago she had fallen and landed on the left side of her hip and left lower extremity thigh area. Since then she has had chronic low back pain going to pain management. She has had weakness of the proximal left lower extremity has difficulty climbing up stairs. She also states that she does have a history of left shoulder pain but could not really tell if she also had weakness of the left upper extremity at that time. Symptoms persisting she has had physical therapy did not really help. EMG shows severe neuropathy. Did talk about doing upper extremity EMG but she wants to hold off on this for now. She does state that her diabetes has not been controlled. It is probably from neuropathy from the diabetes. She does have also low back pain so here pain actually is more of the left lower extremity not really consistent with neuropathy of the lower extremities when you would expect both feet involved. She has been seeing pain management already has been on the higher dose of gabapentin but to no avail. Will have her see spine medicine for another opinion as per her request. 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 Current Outpatient Medications on File Prior to Visit Medication Sig gabapentin (NEURONTIN) 300 mg capsule Take 1 capsule by mouth three times daily. PREMARIN vaginal cream USE 0.5GR VAGINALLY EVERY MON, WED AND FRI, APPLY WITH FINGERTIP, STOP FOR 3 TO 5 DAYS PRIOR TO SURG dicyclomine (BENTYL) 10 mg capsule Take 10 mg by mouth before meals and at bedtime. famotidine (PEPCID) 40 mg tablet Take 40 mg by mouth once daily. Naproxen Sodium 500 mg 24 hr tablet Take 500 mg by mouth daily with breakfast. levothyroxine 137 mcg ORAL tablet Take 1 tablet by mouth once daily. ynbnnbr-dsqbmghio-xrezqcs D3 500 mg(1,250mg) -200 unit ORAL per tablet Take 1 tablet by mouth three times daily with meals. olmesartan (BENICAR) 20 mg ORAL tablet Take 1 tablet by mouth once daily. metoprolol succinate XL (TOPROL XL) 100 mg ORAL Tb24 Take 1 tablet by mouth once daily. pravastatin (PRAVACHOL) 20 mg ORAL tablet Take 1 tablet by mouth daily at bedtime. amitriptyline 25 mg ORAL tablet Take 1 tablet by mouth daily at bedtime. sumatriptan 50 mg ORAL tablet Take 1 tablet by mouth as needed. omeprazole (PRILOSEC) 20 mg ORAL capsule Take 1 capsule by mouth once daily. Cyanocobalamin 2,500 mcg SUBLINGUAL Subl Dissolve under the tongue once daily. pyridoxine (VITAMIN B-6) 100 mg ORAL tablet Take 1 tablet by mouth once daily. Biotin 1 mg ORAL Tab Take 1 tablet by mouth once daily. No current facility-administered medications on file prior to visit. Social History Tobacco Use Smoking status: Former Packs/day: 2.00 Years: 18.00 Additional pack years: 0.00 Total pack years: 36.00 Types: Cigarettes Quit date: 09/18/1988 Years since quittin.3 Smokeless tobacco: Former Substance Use Topics Alcohol use: No family history is not on file. GENERAL:No weight loss, malaise or fevers., SEE HPI HEENT:Negative for frequent or significant headaches, No changes in hearing or vision, no nose bleeds or other nasal problems NECK:Negative for lumps, goiter, pain and significant neck swelling RESPIRATORY: Negative for cough, wheezing or shortness of breath. CARDIOVASCULAR: Negative for chest pain, leg swelling or palpitations. GASTROINTESTINAL: Negative for abdominal discomfort, blood in stools or black stools or change in bowel habits See HPI. All systems reviewed and are negative 01/17/24 1112 BP: 140/66 Pulse: 76 PHYSICAL EXAMINATION: General appearance: well appearing, alert, in no acute distress Neck: Supple Neurological exam: MENTAL STATUS: Alert, oriented to person, place and time and Follows commands CRANIAL NERVES: PERRLA, EOM's intact, Face symmetric, No dysarthria, and Tongue protrudes midline MOTOR: Normal tone MOTOR STRENGTH: Moves all 4 extremities IMPRESSION: 1. Paresthesias of the skin 2. Mechanical low back pain PLAN: As above. Any problems or concerns to call me or primary care physician immediately or go straight to the emergency department Return in about 6 months (around 07/19/2024). ASSESSMENT/PLAN: 1. Paresthesia of skin - ICD9: 782.0, ICD10: R20.2 (primary diagnosis) 2. Mechanical low back pain - ICD9: 724.2, ICD10: M54.59 - [facility] TO [facility] Travis Franco MD I spent a total of 30 minutes on the date of the service which included preparing to see the patient, gyud-tp-mkec patient care, completing clinical documentation, obtaining and/or reviewing separately obtained history, performing a medically appropriate examination, and counseling and educating the patient/family/caregiver. SIGNATURE: Travis Franco MD PATIENT NAME: Vida Lima DATE: January 17, 2024 TIME: 11:26 AM documented in this encounter [facility] 12-06-2023 History of Presen t illness Narrative Images from the original note were not included. [address] [place] [address] [facility] [id number] Patient: Vida Lima Date of : 1945 Encounter Date: 12/06/2023 History of Present Illness: The patient is a 78 y.o. female, a new patient, and is here for to self referral history of some elevation creatinine. History stones in the past. No gross hematuria no dysuria no flank pain. She feels well otherwise. I reviewed laboratory studies reviewed others as well. Just mildly elevated.. Chief Complaint: Urinalysis today: No results for input(s): EXTPOCURCO , EXTPOCURCH , EXTPOCAPP , EXTPOCURBS , EXTPOCURBIL , EXTPOCUKET , EXTPOCUSPG , EXTPOCUHGB , EXTPOCUPRO , EXTPOCUURO , EXTPOCULEU , EXTPOCUNIT , EXTPOCUWBC , EXTPOCUBLD , EXTPOCURBC , EXTPOCUCRY , EXTPOCUBAC , EXTPOCUTREP , EXTPOCUPH , EXTPOCULEE in the last 72 hours. Last BUN and creatinine: Lab Results Component Value Date BUN 29 (H) 10/25/2023 Lab Results Component Value Date CREATININE 1.05 (H) 10/25/2023 Last PSA: No results found for: PSA No results found for: PROSTATICSP Past Medical, Family, and Social History Update: The following portions of the patient's history were reviewed and updated as appropriate: allergies, current medications, past family history, past medical history, past social history, past surgical history and problem list. Past Medical History: Diagnosis Date Anemia Arthritis Back pain Cancer ([facility]) thyroid Cataract Chronic pain disorder Diabetes mellitus ([facility]) Diabetes mellitus type 2, controlled [place] Fractures Gastroparesis GERD (gastroesophageal reflux disease) Hypercholesterolemia Hypertension IBD (inflammatory bowel disease) Kidney stone Low back pain Migraine Numbness Phlebitis Seizures ([facility] precipitated by a migraine Shingles Sleep apnea Stroke [place] Patient reports she did not have a stroke Thyroid disease Visual impairment Weakness Past Surgical History: Procedure Laterality Date APPENDECTOMY BLADDER SURGERY suspension CHOLECYSTECTOMY CYSTOSCOPY UM SOLUTION N/A 06/20/2018 Performed by Shazia Suh MD at [facility] EXTRACTION CATARACT INTRAOCULAR LENS Right 12/04/2023 Performed by Jarred Infante DO at [facility] EXTRACTION CATARACT INTRAOCULAR LENS Left 11/06/2023 Performed by Jarred Infante DO at [facility] HYSTERECTOMY INJECTION BLOCK EPIDURAL CAUDAL STEROID N/A 10/13/2023 Performed by Jonn Zamora MD at [facility] BLOCK NERVE MEDIAL BRANCH: bilat L 2/3 3/4 Bilateral 02/17/2023 Performed by Jonn Zamora MD at [facility] BLOCK NERVE MEDIAL BRANCH: bilat L 2/3 3/4 Bilateral 01/20/2023 Performed by Jonn Zamora MD at [facility] BLOCK NERVE MEDIAL BRANCH: bilat L 4/5, 5/1 Bilateral 11/17/2023 Performed by Jonn Zamora MD at [facility] BLOCK NERVE: left cluneal Left 06/02/2023 Performed by Jonn Zamora MD at [facility] BLOCK NERVE: left cluneal Left 05/12/2023 Performed by Jonn Zamora MD at [facility] BLOCK SACROILIAC JOINT Right 10/28/2022 Performed by Jonn Zamora MD at [facility] BLOCK SACROILIAC JOINT Bilateral 10/07/2022 Performed by Jonn Zamora MD at [facility] BLOCK SACROILIAC JOINT: Left 09/02/2022 Performed by Jonn Zamora MD at [facility] INJECTION BURSA LARGE JOINT: left hip Left 01/06/2023 Performed by Jonn Zamora MD at [facility] INJECTION BURSA LARGE JOINT: right hip Right 12/02/2022 Performed by Jonn Zamora MD at [facility] INJECTION SPINE TRANSFORAMINAL: left L 4,5 Nroot Left 08/18/2023 Performed by Jonn Zamora MD at [facility] NASAL SEPTUM SURGERY OTHER SURGICAL HISTORY TVT x 2 OTHER SURGICAL HISTORY bowel surgery RADIOFREQUENCY ABLATION PERIPHERAL NERVE Left Cluneal Left 07/07/2023 Performed by Jonn Zamora MD at [facility] RADIOFREQUENCY ABLATION SPINAL: left L 2/3 3/4 Left 04/07/2023 Performed by Jonn Zamora MD at [facility] RADIOFREQUENCY ABLATION SPINAL: right L 2/3 3/4 Right 03/24/2023 Performed by Jonn Zamora MD at [facility] SHOULDER SURGERY Left VEIN LIGATION AND STRIPPING Family History Problem Relation Age of Onset Depression Father Mental illness Father Prostate cancer Father Arthritis Mother Diabetes Mother Heart disease Mother Current Outpatient Medications Medication Sig Dispense Refill acetaminophen (TYLENOL EXTRA STRENGTH) 500 mg tablet Take 2 tablets (1,000 mg total) by mouth every 6 (six) hours as needed for pain. allopurinol (ZYLOPRIM) 300 mg tablet Take 1 tablet (300 mg total) by mouth in the morning. atorvastatin (LIPITOR) 20 mg tablet Take 1 tablet (20 mg total) by mouth in the morning. cyanocobalamin (vitamin B-12) 500 MCG tablet Take 1 tablet (500 mcg total) by mouth in the morning. empagliflozin (JARDIANCE) 10 mg tablet tablet Take 1 tablet (10 mg total) by mouth in the morning. famotidine (PEPCID) 40 mg tablet TAKE 1 TABLET BY MOUTH EVERY MORNING AND 1 TABLET AT BEDTIME gabapentin (NEURONTIN) 300 mg capsule Take 2 capsules (600 mg total) by mouth in the morning and 2 capsules (600 mg total) before bedtime. hydroCHLOROthiazide (HYDRODIURIL) 25 mg tablet Take 1 tablet (25 mg total) by mouth daily. levothyroxine (SYNTHROID, LEVOTHROID) 88 MCG tablet Take 1 tablet (88 mcg total) by mouth in the morning. linaCLOtide (LINZESS) 72 mcg capsule Take 1 capsule (72 mcg total) by mouth daily as needed. losartan (COZAAR) 100 mg tablet Take 1 tablet (100 mg total) by mouth in the morning. meloxicam (MOBIC) 15 mg tablet TAKE 1 TABLET BY MOUTH EVERY DAY FOR 90 DAYS metoprolol succinate XL (TOPROL-XL) 100 mg 24 hr tablet Take 1 tablet (100 mg total) by mouth in the morning. omeprazole (PriLOSEC) 40 mg capsule Take 1 capsule (40 mg total) by mouth in the morning and at bedtime. ondansetron (ZOFRAN) 8 mg tablet uBeamTOCono-C VERIO TEST STRIPS strip USE DIRECTED TO TEST ONCE DAILY prednisoLONE acetate (PRED FORTE) 1 % ophthalmic suspension Administer 1 drop into the left eye in the morning and 1 drop before bedtime. traMADoL (ULTRAM) 50 mg tablet Take 1 tablet (50 mg total) by mouth in the morning. (Patient taking differently: Take 1 tablet (50 mg total) by mouth in the morning. Pt currently taking half a tab.) 30 tablet 0 No current facility-administered medications for this visit. (All medications reviewed and updated by provider since last office visit or hospitalization) Allergies: Cephalexin, Ciprofloxacin, Clindamycin, Codeine, Cyclobenzaprine, Demerol [meperidine], Glucophage [metformin], Lisinopril, Penicillins, and Percocet [oxycodone-acetaminophen] Tobacco History: Social History Tobacco Use Smoking Status Former Packs/day: 3.00 Years: 21.00 Additional pack years: 0.00 Total pack years: 63.00 Types: Cigarettes Quit date: 1988 Years since quittin.2 Smokeless Tobacco Never (If patient a smoker, smoking cessation counseling offered) Social History: Social History Substance and Sexual Activity Alcohol Use No Review of Systems: Constitutional: Weight loss or gain Eyes: Patient denies vision changes or diplopia (double vision). Ears, Nose, Nose and Throat: Patient denies tinnitus (ringing in ears), hearing loss, epistaxis (nose bleed), hoarseness, and dysphagia (hard to swallow). Respiratory: Patient denies dyspnea (shortness of breath), cough, hemotypsis (blood in sputum), and wheezing. Cardiovascular: Patient denies chest pain, palpitations, and shortness of breath. Gastrointestinal: Abdominal pain, Nausea, Vomiting, Bloating, and Diarrhea (chronic) Musculoskeletal: Joint pain/stiffness, Weakness, Swelling, and Backache Neurologic: Weakness Integument: Patient denies rashes and non-healing lesions. Psychiatric: Patient denies increased nervousness, mood changes, or depression. Endocrine: Thyroid trouble, Heat or cold intolerance, Diabetes, and Excessive urination Blood Disorders: Easy Bruising Physical Exam: BP 141/74 Pulse 65 Ht 157.5 cm (5' 2 ) Wt 84.8 kg (187 lb) BMI 34.20 kg/m General Alert., Cooperative. Not in acute distress. Non-toxic. Orientation - Oriented X3. Head and Neck Normocephalic, atraumatic with no lesions. No abnormal movements. Trachea - midline. Integumentary Normal coloration of skin. Skin Moisture - normal skin moisture. Chest and Lung Exam Quiet, even and easy respiratory effort with no use of accessory muscles. Neurologic NON-focal Uses a cane Assessment and Plan: Vida was seen today for kidney function . Diagnoses and all orders for this visit: Kidney stone - Ultrasound retroperitoneal complete; Future - Basic Metabolic Panel; Future - X-ray abdomen ap 1 view; Future Elevated serum creatinine Problem List High Kidney stone - Primary Overview ==== 12/06/2023 ==== no recent episode stones no flank pain ==== 04/25/2018 ==== has passed numerous script stone fragments. Had CT scan performed outside institution last few months. Plan: Patient bring CT on a disc. Bring her past fragments so we can send for analysis Relevant Orders Ultrasound retroperitoneal complete Basic Metabolic Panel X-ray abdomen ap 1 view Elevated serum creatinine Overview ==== 12/06/2023 ==== patient's self referral because of elevation creatinine for preoperative visit. I did review all of her creatinine studies. It is mildly elevated. She is on nitroglycerin thighs as well. History stones in the past. Workup elsewhere in the note. Follow-up: Shazia Suh MD Undiagnosed new problem with uncertain prognosis Equal to or greater than 3 distinct studies were ordered and or reviewed during this encounter This note was created with the assistance of a speech recognition program. While intending to generate a timely document that accurately reflects the content of the visit, no guarantee can be provided that every grammatical or spelling mistake has been or will be identified or corrected. Thank you for your understanding. documented in this encounter [facility] 12-01-2023 Nurse Note Preoperative Education Checklist- General Surgery date: 12/04/23 Surgery time: 1015a Arrival time: 815a 1. Bring a photo ID and your insurance card with you the day of surgery. You will check in at the main lobby of the [facility]- registration desk is straight ahead as soon as you walk in. Tell them you are here for surgery. 2. If you have a Living Will/Durable Power of [employer] for Health Care that is not on file here, please bring a copy the day of surgery. 3. Please shower/bathe the night before surgery with the provided soap or wipes. Do not shower the morning of surgery- you will do use wipes when you arrive here at the hospital before getting into your surgical gown. Do not shave the area of your procedure for 2 days prior to your surgery. 4. NO powder, lotion, perfume/cologne, aftershave, make-up, deodorant, or hair products after you have bathed. 5. NO nail ukrainian/acrylic on at least one finger. If you are having a hand, wrist or foot surgery then all nail ukrainian and artificial/acrylic nails must be removed from that hand or foot. 6. Avoid ALL Aspirin and non-steroidal anti-inflammatory drugs and certain vitamins (Ibuprofen, Advil, Aleve, Excedrin, Meloxicam, Celebrex, fish/krill oil, etc.) for 7 days prior to surgery as instructed by your surgeon and/or your prescribing doctor. Tylenol IS ALLOWED. If you are on Ticlid, Xarelto, Eliquis, Pradaxa, Plavix or Coumadin, please check with your prescribing doctor for instructions for when to stop them. 7. If you use an inhaler, continue to use it routinely. 8. Nothing to eat or drink (not even water, gum, mints, or hard candy!) AFTER midnight prior to your surgery. 9. Take only medications that you are instructed to on the morning of surgery with a TINY SIP OF WATER. 10. Choose a responsible adult that will be able to drive you home when you are discharged from your hospital stay for your surgery and can stay with you in your home for 24 hours after your procedure. You must NOT drive any vehicle or operate any machinery for 24 hours after surgery. 11. When you dress for your appointment, please wear loose fitting clothing that is appropriate to accommodate your surgical area procedure. BRING WITH YOU ANY DEVICES YOU MAY NEED: NINO hose, ice machine, sling/swath, brace or special shoe, oversized zip-up or button up shirt, CPAP machine if staying overnight. 12. Do NOT wear jewelry, watches, or any piercings or metal for surgery- leave these valuables and money at home. 13. Do NOT wear contact lenses for surgery- glasses are okay if needed. 14. The anesthesiologist will talk with you the day of surgery and will ask you to sign a Consent Form. 15. Refrain from smoking or any type of tobacco use for at least 8 hours and marijuana for 24 hours prior to arrival for your surgery. 16. If a GREEN BLOOD band is given to you, please bring it with you for the day of surgery. 17. Notify your surgeon if you develop any illness before your surgery. 18. If you are staying overnight, please DO NOT BRING your home medications with you. 19. If you have any questions prior to surgery, please call the Preadmission Testing office at [phone], Mon.-Fri. 7 a.m.-3 p.m. Leave a voicemail if needed. Pre-Surgery Instructions: Medication Instructions acetaminophen (TYLENOL EXTRA STRENGTH) 500 mg tablet Stop taking 0 days prior to procedure allopurinol (ZYLOPRIM) 300 mg tablet Stop taking 0 days prior to procedure atorvastatin (LIPITOR) 20 mg tablet Stop taking 0 days prior to procedure baclofen (LIORESAL) 10 mg tablet Stop taking 0 days prior to procedure cyanocobalamin (vitamin B-12) 500 MCG tablet Stop taking 0 days prior to procedure empagliflozin (JARDIANCE) 10 mg tablet tablet Stop taking 0 days prior to procedure famotidine (PEPCID) 40 mg tablet Stop taking 0 days prior to procedure gabapentin (NEURONTIN) 300 mg capsule Stop taking 0 days prior to procedure hydroCHLOROthiazide (HYDRODIURIL) 25 mg tablet Stop taking 0 days prior to procedure levothyroxine (SYNTHROID, LEVOTHROID) 88 MCG tablet Take morning of procedure linaCLOtide (LINZESS) 72 mcg capsule Stop taking 0 days prior to procedure losartan (COZAAR) 100 mg tablet Take morning of procedure meloxicam (MOBIC) 15 mg tablet Stop taking 0 days prior to procedure metoprolol succinate XL (TOPROL-XL) 100 mg 24 hr tablet Take morning of procedure omeprazole (PriLOSEC) 40 mg capsule Take morning of procedure ondansetron (ZOFRAN) 8 mg tablet Take morning of procedure if needed ONETOUCH VERIO TEST STRIPS strip Take morning of procedure prednisoLONE acetate (PRED FORTE) 1 % ophthalmic suspension Check with prescribing doctor for instructions traMADoL (ULTRAM) 50 mg tablet Stop taking 0 days prior to procedure [employer] [facility] 12-01-2023 Miscellaneous Notes Preoperative Education Checklist- General Surgery date: 12/04/23 Surgery time: 1015a Arrival time: 815a 1. Bring a photo ID and your insurance card with you the day of surgery. You will check in at the main lobby of the [facility]- registration desk is straight ahead as soon as you walk in. Tell them you are here for surgery. 2. If you have a Living Will/Durable Power of [employer] Pro[employer] for Health Care that is not on file here, please bring a copy the day of surgery. 3. Please shower/bathe the night before surgery with the provided soap or wipes. Do not shower the morning of surgery- you will do use wipes when you arrive here at the hospital before getting into your surgical gown. Do not shave the area of your procedure for 2 days prior to your surgery. 4. NO powder, lotion, perfume/cologne, aftershave, make-up, deodorant, or hair products after you have bathed. 5. NO nail ukrainian/acrylic on at least one finger. If you are having a hand, wrist or foot surgery then all nail ukrainian and artificial/acrylic nails must be removed from that hand or foot. 6. Avoid ALL Aspirin and non-steroidal anti-inflammatory drugs and certain vitamins (Ibuprofen, Advil, Aleve, Excedrin, Meloxicam, Celebrex, fish/krill oil, etc.) for 7 days prior to surgery as instructed by your surgeon and/or your prescribing doctor. Tylenol IS ALLOWED. If you are on Ticlid, Xarelto, Eliquis, Pradaxa, Plavix or Coumadin, please check with your prescribing doctor for instructions for when to stop them. 7. If you use an inhaler, continue to use it routinely. 8. Nothing to eat or drink (not even water, gum, mints, or hard candy!) AFTER midnight prior to your surgery. 9. Take only medications that you are instructed to on the morning of surgery with a TINY SIP OF WATER. 10. Choose a responsible adult that will be able to drive you home when you are discharged from your hospital stay for your surgery and can stay with you in your home for 24 hours after your procedure. You must NOT drive any vehicle or operate any machinery for 24 hours after surgery. 11. When you dress for your appointment, please wear loose fitting clothing that is appropriate to accommodate your surgical area procedure. BRING WITH YOU ANY DEVICES YOU MAY NEED: NINO hose, ice machine, sling/swath, brace or special shoe, oversized zip-up or button up shirt, CPAP machine if staying overnight. 12. Do NOT wear jewelry, watches, or any piercings or metal for surgery- leave these valuables and money at home. 13. Do NOT wear contact lenses for surgery- glasses are okay if needed. 14. The anesthesiologist will talk with you the day of surgery and will ask you to sign a Consent Form. 15. Refrain from smoking or any type of tobacco use for at least 8 hours and marijuana for 24 hours prior to arrival for your surgery. 16. If a GREEN BLOOD band is given to you, please bring it with you for the day of surgery. 17. Notify your surgeon if you develop any illness before your surgery. 18. If you are staying overnight, please DO NOT BRING your home medications with you. 19. If you have any questions prior to surgery, please call the Preadmission Testing office at [phone], Mon.-Fri. 7 a.m.-3 p.m. Leave a voicemail if needed. Pre-Surgery Instructions: Medication Instructions acetaminophen (TYLENOL EXTRA STRENGTH) 500 mg tablet Stop taking 0 days prior to procedure allopurinol (ZYLOPRIM) 300 mg tablet Stop taking 0 days prior to procedure atorvastatin (LIPITOR) 20 mg tablet Stop taking 0 days prior to procedure baclofen (LIORESAL) 10 mg tablet Stop taking 0 days prior to procedure cyanocobalamin (vitamin B-12) 500 MCG tablet Stop taking 0 days prior to procedure empagliflozin (JARDIANCE) 10 mg tablet tablet Stop taking 0 days prior to procedure famotidine (PEPCID) 40 mg tablet Stop taking 0 days prior to procedure gabapentin (NEURONTIN) 300 mg capsule Stop taking 0 days prior to procedure hydroCHLOROthiazide (HYDRODIURIL) 25 mg tablet Stop taking 0 days prior to procedure levothyroxine (SYNTHROID, LEVOTHROID) 88 MCG tablet Take morning of procedure linaCLOtide (LINZESS) 72 mcg capsule Stop taking 0 days prior to procedure losartan (COZAAR) 100 mg tablet Take morning of procedure meloxicam (MOBIC) 15 mg tablet Stop taking 0 days prior to procedure metoprolol succinate XL (TOPROL-XL) 100 mg 24 hr tablet Take morning of procedure omeprazole (PriLOSEC) 40 mg capsule Take morning of procedure ondansetron (ZOFRAN) 8 mg tablet Take morning of procedure if needed ONETOUCH VERIO TEST STRIPS strip Take morning of procedure prednisoLONE acetate (PRED FORTE) 1 % ophthalmic suspension Check with prescribing doctor for instructions traMADoL (ULTRAM) 50 mg tablet Stop taking 0 days prior to procedure documented in this encounter [facility] 11-30-2023 History of Presen t illness Narrative [facility] [address] [place] [address] Patient: Vida Lima Sex: female : 1945 Age: 78 y.o. PCP: HAYDER FRANCO MD 11/30/2023 Vida Lima is here for a(n) post procedure follow up 11/17/2023 bilateral L 4/5 5/1 medial branch block with 100% relief x2 hours. . Date of onset of pain: 05/2022 , pain has lasted greater than 3 months. Pain scale before treatment: 10/10 Pre-op pain score: 9/10 Post-op pain score: 0/10 2 hour post-op pain score: 0/10 4 hour post-op pain score: 5/10 Percentage of relief after and duration: 100% relief x 2 hours then 50% relief for remainder of the day. Pain scale after treatment: 04/27 Patient states she has changed how she takes her Gabapentin. She is taking 300 mg three times daily. She states taking 600 mg two times daily was making her too drowsy. Chief Complaint Patient presents with Back Pain HPI: PT/HEP 2022 no relief with back but relief with vertigo Back: 09/02/22 Lt SI Inj w/100% relief 10/07/22 Bilateral SI joint offered 100 % relief on the left which continues, She reports 100% relief for 1 hour then 80% relief for 2 hours then 40% relief for 1 week on the right 10/28/22 Right SI injection with 60% relief for 1 hour only. 12/02/22 Right hip injection with 100% relief x1 hour and 70% that continues 01/06/2023 left hip injection with 95% relief. Bilateral L 2/3, 3/4 medial branch block on 01/20/2023 with 100% relief for 2 hours then days later had great relief 03/24/2023 Right L2/3, 3/4 Radio Frequency Ablation and 04/07/2023 Left L2/3, 3/4 Radio Frequency Ablation both with 80% relief pre-proc pain 10/10 and post proc pain is 1-2/10 in lumbar spine 05/12/2023 Left Cluneal Nerve Block with 80% relief x 4-5 hours left cluneal nerve block on 06/02/2023 with 80% relief for 2 hours then 60-70% relief for 2 hours . 07/07/2023 left cluneal radiofrequency ablation with no relief 08/18/2023 Left L4/5 NRI with 0 relief 10/13/2023 caudal with 0% relief 11/17/2023 bilateral L 4/5 5/1 medial branch block with 100% relief x2 hours. Pre-proc pain 10/10 1 and 2 hours post proc 0/10 pain today 8/10 Back Pain This is a chronic problem. The current episode started more than 1 month ago (After a fall 05/2022). The problem occurs constantly. The problem has been gradually worsening (had 2 hours of relief) since onset. The pain is present in the lumbar spine and gluteal. The quality of the pain is described as aching, cramping and burning (lumbar burning when lying). The pain does not radiate. The pain is at a severity of 8/10 (10/10 anytime on legs for more then 5 minutes walking, 0/10 with sitting). Pain severity now: severe with ADL's. The pain is The same all the time (ambulation , difficulty sleeping ). The symptoms are aggravated by bending, standing, sitting, twisting and position (walking, stairs, transitioning from sitting to standing). Stiffness is present All day. Associated symptoms include weakness (BLE, cane and w/c to appt today). Pertinent negatives include no bladder incontinence, bowel incontinence, chest pain, fever, leg pain, numbness or tingling. (Patient can only ambulate 10 minutes at a time and then has to stop and rest due to pain.) Risk factors include poor posture, obesity and sedentary lifestyle. She has tried NSAIDs (KALLIE 07/2022 w/min relief. Meloxicam for OA, Gabapentin w/mod relief. Ice min relief. Heat w/min relief. OTC lidocaine cream w/mod relief. MDP no relief. TENS w/mod relief, Tylenol and IBU post fall 10/2022) for the symptoms. The treatment provided moderate relief. The effect of pain on patient's ADLS: Severe Impairment. 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 INJECTION BLOCK NERVE MEDIAL BRANCH: bilat L 2/3 3/4 Bilateral 02/17/2023 Performed by Jonn Zamora MD at [facility] INJECTION BLOCK NERVE MEDIAL BRANCH: bilat L 2/3 3/4 Bilateral 01/20/2023 Performed by Jonn Zamora MD at [facility] INJECTION BLOCK NERVE MEDIAL BRANCH: bilat L 4/5, 5/1 Bilateral 11/17/2023 Performed by Jonn Zamora MD at [facility] INJECTION BLOCK NERVE: left cluneal Left 06/02/2023 Performed by Jonn Zamora MD at [facility] INJECTION BLOCK NERVE: left cluneal Left 05/12/2023 Performed by Jonn Zamora MD at [facility] INJECTION BLOCK SACROILIAC JOINT Right 10/28/2022 Performed by Jonn Zamora MD at [facility] INJECTION BLOCK SACROILIAC JOINT Bilateral 10/07/2022 Performed by Jonn Zamora MD at [facility] INJECTION BLOCK SACROILIAC JOINT: Left 09/02/2022 Performed by Jonn Zamora MD at [facility] INJECTION BURSA LARGE JOINT: left hip Left 01/06/2023 Performed by Jonn Zamora MD at [facility] INJECTION BURSA LARGE JOINT: right hip Right 12/02/2022 Performed by Jonn Zamora MD at [facility] INJECTION SPINE TRANSFORAMINAL: left L 4,5 Nroot Left 08/18/2023 Performed by Jonn Zamora MD at [facility] NASAL SEPTUM SURGERY OTHER SURGICAL HISTORY TVT x 2 OTHER SURGICAL HISTORY bowel surgery RADIOFREQUENCY ABLATION PERIPHERAL NERVE Left Cluneal Left 07/07/2023 Performed by Jonn Zamora MD at [facility] RADIOFREQUENCY ABLATION SPINAL: left L 2/3 3/4 Left 04/07/2023 Performed by Jonn Zamora MD at [facility] RADIOFREQUENCY ABLATION SPINAL: right L 2/3 3/4 Right 03/24/2023 Performed by Jonn Zamora MD at [facility] SHOULDER SURGERY Left VEIN LIGATION AND STRIPPING Allergies Allergen Reactions Cephalexin nausea Ciprofloxacin hives Clindamycin Patient states cdiff Codeine Nausea,vomiting Cyclobenzaprine Demerol [Meperidine] vomiting Glucophage [Metformin] Lisinopril cough Penicillins Patient doesn't remember Percocet [Oxycodone-Acetaminophen] Nausea,vomiting Family History Problem Relation Age of Onset Depression Father Mental illness Father Prostate cancer Father Arthritis Mother Diabetes Mother Heart disease Mother Social History Socioeconomic History Marital status: Spouse name: Not on file Number of children: Not on file Years of education: Not on file Highest education level: Not on file Occupational History Not on file Tobacco Use Smoking status: Former Packs/day: 3.00 Years: 21.00 Additional pack years: 0.00 Total pack years: 63.00 Types: Cigarettes Quit date: 1988 Years since quittin.2 Smokeless tobacco: Never Vaping Use Vaping Use: Never used Substance and Sexual Activity Alcohol use: No Drug use: No Sexual activity: Defer Other Topics Concern Not on file Social History Narrative Not on file Social Determinants of Health Financial Resource Strain: Not on file Food Insecurity: No Food Insecurity (11/30/2023) Hunger Screening Food Insecurity - Worry: Never True Food Insecurity - Inability: Never True Transportation Needs: Not on file Physical Activity: Not on file Stress: Not on file Social Connections: Not on file Interpersonal Safety: Not on file Housing Instability: Not on file Review of Systems Constitutional: Negative for fever. Respiratory: Negative for cough and shortness of breath. Cardiovascular: Negative for chest pain. Gastrointestinal: Negative for bowel incontinence. Genitourinary: Negative for bladder incontinence, difficulty urinating and frequency. Musculoskeletal: Positive for back pain. Skin: Negative. Neurological: Positive for weakness (BLE, cane and w/c to appt today). Negative for tingling and numbness. Psychiatric/Behavioral: Negative. Vital Signs: BP 143/73 Pulse 72 Resp 14 Ht 157.5 cm (5' 2 ) Comment: stated Wt 84.8 kg (187 lb) SpO2 100% BMI 34.20 kg/m Physical Exam: GENERAL - Healthy patient that appears stated age. HEENT - Normocephalic / Atraumatic, Extraoccular movements intact, trachea midline, thyroid within normal limits. CV - pulse regular, Warm extremities with appropriate color of nailbeds. RESP - No obvious wheezing, No Shortness of Breath, No overexertion response to exam maneuvers. COORDINATION - remains intact. PSYCH - Alert and Oriented x4, Attentive and appropriate, constitutionally normal, displays normal mood and affect per situation, answered questions appropriately during examination, demonstrated appropriate attention during discussion, demonstrated appropriate cognitive reasoning and understanding of the medical condition by asking appropriate questions regarding the diagnosis and risks/benefits/alternatives of treatment modalities. No obvious deficits in memory, reasoning, or intellect. Lumbar: SKIN - No rashes or bruising in the area of the patient s pain. LYMPH NODES - demonstrate no obvious enlargement. EXTREMITIES - Lower extremities are warm, with minimal edema and palpable pulses. Tenderness to palpation noted in the lumbar spine and paraspinal musculature. Pain is elicited with flexion, extension, and lateral rotation of the lumbar spine. Range of motion is diminished with these motions due to pain. Facet palpation is noted to be painful and facet loading maneuvers elicit pain that is concordant with the patient s normal pain complaints. Some muscle spasm is noted in the overlying musculature. STRENGTH - noted to be 5 out of 5 all muscle groups bilateral lower extremities including muscles involving hip flexion and abduction, knee flexion and extension, as well as foot dorsiflexion and plantarflexion. No notable atrophy, fasciculations or spasm. SENSORY - No notable sensory deficits in the bilateral lower extremities to touch or pinprick in all dermatomal distributions. Straight Leg Raise is negative bilaterally. Gait is antalgic and assisted with ambulatory aid(s): W/C and Cane. Assessment/Treatment Plan: Vida was seen today for back pain. Diagnoses and all orders for this visit: Lumbosacral spondylosis without myelopathy - traMADoL (ULTRAM) 50 mg tablet; Take 1 tablet (50 mg total) by mouth in the morning. Encounter for long-term opiate analgesic use - Unlisted Lab Test; Future - Benzodiazepine; Future Begin Tramadol 50 mg 1 tablet daily PRN With Regard to medication management, it is felt that the patient would benefit from the changes mentioned above. This should provide symptomatic pain relief as part of the comprehensive pain management strategy outlined. Risks, Benefits, Side effects, and possible interactions of these medications were reviewed and the medication agreement has been discussed, agreed upon, and signed. The patient understands compliance concerns and the requirement of pill counts and drug screens while taking medications prescribed by this clinic. Urine Drug Screen - To monitor the safety of chronic medication therapy, we will order a Urine Drug Screen. This screen will test for illegal substances as well as prescription medications that we are providing to the patient. As part of our medication policy and contract, the patient has agreed to use only the medications provided by our office in the manner recommended and any deviation of that use can result in discontinuation of the medications from our clinic. Follow up 1 month The medications I have prescribed have been reviewed for medication interactions/contraindications and/or for upcoming procedures: continue current medication regimen without any changes. DISCUSSION: Treatment options discussed with patient and all questions answered to patient's satisfaction. Discussed the rules and regulations surrounding prescription of opioids and compliance at length. Failure to follow the rules and regulation will result in tapering and discontinuation of medications if applicable. The patient has been instructed as to the type of medication prescribed along with directions for use. Potential side effects have been discussed, along with risks and benefits of taking this medication. (S)he was instructed as to what to do if (s)he experiences side effects, including when to discontinue the medication. (S)he was advised to call this office in this event. Also discussed at length safety and security of RX and medications. Due to the high risk nature of this patient's pain medication regimen, frequent office visit refill appointments (every 1-3 months) are medically necessary to monitor for an addiction disorder. A prescription for naloxone was offered to the patient based on one of the following: The patient is co-prescribed an opioid with a benzodiazepine, sedative hypnotic drug, carisoprodal, tramadol, or gabapentin; the patient has a concurrent substance use disorder; and/or the dosage of narcotics exceeds 80 MED daily. The patient deferred this prescription after rationale was discussed in detail Prescribed medication that requires intensive monitoring for toxicity Tramadol. OARRS was reviewed, discussed and appropriate for medications prescribed. Treatment plans discussed but not opted for at this time: Repeat Lumbar medial branch block injection. Patient unable to afford due to current financial situation. The spine model was demonstrated and MRI was reviewed and used to explain the condition. Chronic conditions not treated during this visit that affected my overall medical decision making: Obesity and Diabetes OARRS: Reviewed. Scribe Statement: Scribed for and in the presence of DWAYNE ROWLAND by Malena Moran CNA. Provider Statement: I, DWAYNE ROWLAND, personally performed the services described in the documentation, as scribed by Malena Boonie, LAB TECHNICIAN in my presence, and it is both accurate and complete. Malena Moran CNA 11/30/23 1323 DWAYNE Rowland 12/07/23 1204 documented in this encounter [facility] 10-31-2023 History of Presen t illness Narrative [facility] [address] [place] [address] Patient: Vida Lima Sex: female : 1945 Age: 78 y.o. PCP: HAYDER FRANCO MD 10/31/2023 Vida Lima is here for a(n) post procedure follow up 10/13/2023 caudal with 0% relief. Pre-procedural pain was reported as 06/27. Chief Complaint Patient presents with Back Pain HPI: PT/HEP 2022 no relief with back but relief with vertigo Back: 09/02/22 Lt SI Inj w/100% relief 10/07/22 Bilateral SI joint offered 100 % relief on the left which continues, She reports 100% relief for 1 hour then 80% relief for 2 hours then 40% relief for 1 week on the right 10/28/22 Right SI injection with 60% relief for 1 hour only. 12/02/22 Right hip injection with 100% relief x1 hour and 70% that continues 01/06/2023 left hip injection with 95% relief. Bilateral L 2/3, 3/4 medial branch block on 01/20/2023 with 100% relief for 2 hours then days later had great relief 03/24/2023 Right L2/3, 3/4 Radio Frequency Ablation and 04/07/2023 Left L2/3, 3/4 Radio Frequency Ablation both with 80% relief 05/12/2023 Left Cluneal Nerve Block with 80% relief x 4-5 hours left cluneal nerve block on 06/02/2023 with 80% relief for 2 hours then 60-70% relief for 2 hours . 07/07/2023 left cluneal radiofrequency ablation with no relief 08/18/2023 Left L4/5 NRI with 0 relief 10/13/2023 caudal with 0% relief Back Pain This is a chronic problem. The current episode started more than 1 month ago (After a fall 05/2022). The problem occurs intermittently (instant relief with sitting of 0/10; pain with any activity up on feet and worsens in intensity the more prolonged it is). The problem has been gradually improving since onset. The pain is present in the lumbar spine. The quality of the pain is described as aching, cramping and burning. The pain is at a severity of 10/10 (10/10 anytime on legs for more then 5 minutes walking, 0/10 with sitting). Pain severity now: severe with ADL's. The pain is The same all the time (ambulation , difficulty sleeping ). The symptoms are aggravated by bending, standing, sitting, twisting and position (walking, stairs). Stiffness is present All day. Associated symptoms include weakness (BLE, cane and w/c to appt today). Pertinent negatives include no bladder incontinence, bowel incontinence, chest pain, fever, leg pain, numbness or tingling. (Patient can only ambulate 10 minutes at a time and then has to stop and rest due to pain.) Risk factors include poor posture, obesity and sedentary lifestyle. She has tried NSAIDs (KALLIE 07/2022 w/min relief. Meloxicam for OA, Gabapentin w/mod relief. Ice min relief. Heat w/min relief. OTC lidocaine cream w/mod relief. MDP no relief. TENS w/mod relief, Tylenol and IBU post fall 10/2022) for the symptoms. The treatment provided moderate relief. The effect of pain on patient's ADLS: Moderate-severe Impairment. Past Medical History: Diagnosis Date Anemia Arthritis Back pain Cancer ([facility]) thyroid Cataract Chronic pain disorder Diabetes mellitus ([facility]) Diabetes mellitus type 2, controlled ([facility]) Gastroparesis GERD (gastroesophageal reflux disease) Hypercholesterolemia Hypertension IBD (inflammatory bowel disease) Kidney stone Low back pain Migraine Numbness Phlebitis Seizures ([facility]) precipitated by a migraine Shingles Sleep apnea Stroke ([facility]) Thyroid disease Visual impairment Weakness Past Surgical History: Procedure Laterality Date APPENDECTOMY BLADDER SURGERY suspension CHOLECYSTECTOMY CYSTOSCOPY UM SOLUTION N/A 06/20/2018 Performed by Shazia Suh MD at [facility] HYSTERECTOMY INJECTION BLOCK EPIDURAL CAUDAL STEROID N/A 10/13/2023 Performed by Jonn Zamora MD at [facility] INJECTION BLOCK NERVE MEDIAL BRANCH: bilat L 2/3 3/4 Bilateral 02/17/2023 Performed by Jonn Zamora MD at [facility] INJECTION BLOCK NERVE MEDIAL BRANCH: bilat L 2/3 3/4 Bilateral 01/20/2023 Performed by Jonn Zamora MD at [facility] INJECTION BLOCK NERVE: left cluneal Left 06/02/2023 Performed by Jonn Zamora MD at [facility] INJECTION BLOCK NERVE: left cluneal Left 05/12/2023 Performed by Jonn Zamora MD at [facility] INJECTION BLOCK SACROILIAC JOINT Right 10/28/2022 Performed by Jonn Zamora MD at [facility] INJECTION BLOCK SACROILIAC JOINT Bilateral 10/07/2022 Performed by Jonn Zamora MD at [facility] INJECTION BLOCK SACROILIAC JOINT: Left 09/02/2022 Performed by Jonn Zamora MD at [facility] INJECTION BURSA LARGE JOINT: left hip Left 01/06/2023 Performed by Jonn Zamora MD at [facility] BURSA LARGE JOINT: right hip Right 12/02/2022 Performed by Jonn Zamora MD at [facility] INJECTION SPINE TRANSFORAMINAL: left L 4,5 Nroot Left 08/18/2023 Performed by Jonn Zamora MD at [facility] NASAL SEPTUM SURGERY OTHER SURGICAL HISTORY TVT x 2 OTHER SURGICAL HISTORY bowel surgery RADIOFREQUENCY ABLATION PERIPHERAL NERVE Left Cluneal Left 07/07/2023 Performed by Jonn Zamora MD at [facility] RADIOFREQUENCY ABLATION SPINAL: left L 2/3 3/4 Left 04/07/2023 Performed by Jonn Zamora MD at [facility] RADIOFREQUENCY ABLATION SPINAL: right L 2/3 3/4 Right 03/24/2023 Performed by Jonn Zamora MD at [facility] SHOULDER SURGERY Left VEIN LIGATION AND STRIPPING Allergies Allergen Reactions Cephalexin nausea Ciprofloxacin hives Clindamycin Patient states cdiff Codeine Nausea,vomiting Cyclobenzaprine Demerol [Meperidine] vomiting Glucophage [Metformin] Lisinopril cough Penicillins Patient doesn't remember Percocet [Oxycodone-Acetaminophen] Nausea,vomiting Family History Problem Relation Age of Onset Depression Father Mental illness Father Prostate cancer Father Arthritis Mother Diabetes Mother Heart disease Mother Social History Socioeconomic History Marital status: Spouse name: Not on file Number of children: Not on file Years of education: Not on file Highest education level: Not on file Occupational History Not on file Tobacco Use Smoking status: Former Smokeless tobacco: Never Vaping Use Vaping Use: Never used Substance and Sexual Activity Alcohol use: No Drug use: No Sexual activity: Defer Other Topics Concern Not on file Social History Narrative Not on file Social Determinants of Health Financial Resource Strain: Not on file Food Insecurity: No Food Insecurity (10/31/2023) Hunger Screening Food Insecurity - Worry: Never True Food Insecurity - Inability: Never True Transportation Needs: Not on file Physical Activity: Not on file Stress: Not on file Social Connections: Not on file Interpersonal Safety: Not on file Housing Instability: Not on file Review of Systems Constitutional: Negative for fever. HENT: Negative. Eyes: Negative. Respiratory: Negative. Cardiovascular: Negative for chest pain. Gastrointestinal: Negative. Negative for bowel incontinence. Endocrine: Negative. Genitourinary: Negative. Negative for bladder incontinence. Musculoskeletal: Positive for back pain. Skin: Negative. Neurological: Positive for weakness (BLE, cane and w/c to appt today). Negative for tingling and numbness. Vital Signs: BP 159/73 (BP Site: Left Arm, BP Postition: Sitting) Pulse 69 Resp 18 SpO2 99% Physical Exam: GENERAL - Healthy patient that appears stated age. HEENT - Normocephalic / Atraumatic, Extraoccular movements intact, trachea midline, thyroid within normal limits. CV - pulse regular, Warm extremities with appropriate color of nailbeds. RESP - No obvious wheezing, No Shortness of Breath, No overexertion response to exam maneuvers. COORDINATION - remains intact. PSYCH - Alert and Oriented x4, Attentive and appropriate, constitutionally normal, displays normal mood and affect per situation, answered questions appropriately during examination, demonstrated appropriate attention during discussion, demonstrated appropriate cognitive reasoning and understanding of the medical condition by asking appropriate questions regarding the diagnosis and risks/benefits/alternatives of treatment modalities. No obvious deficits in memory, reasoning, or intellect. Lumbar: SKIN - No rashes or bruising in the area of the patient s pain. LYMPH NODES - demonstrate no obvious enlargement. EXTREMITIES - Lower extremities are warm, with minimal edema and palpable pulses. Tenderness to palpation noted in the lumbar spine and paraspinal musculature. Pain is elicited with flexion, extension, and lateral rotation of the lumbar spine. Range of motion is diminished with these motions due to pain. Facet palpation is noted to be painful and facet loading maneuvers elicit pain that is concordant with the patient s normal pain complaints. Some muscle spasm is noted in the overlying musculature. STRENGTH - noted to be 5 out of 5 all muscle groups bilateral lower extremities including muscles involving hip flexion and abduction, knee flexion and extension, as well as foot dorsiflexion and plantarflexion. No notable atrophy, fasciculations or spasm. SENSORY - No notable sensory deficits in the bilateral lower extremities to touch or pinprick in all dermatomal distributions. Straight Leg Raise is negative bilaterally. Gait is antalgic and assisted with ambulatory aid(s): W/C and Cane. Assessment/Treatment Plan: Vida was seen today for back pain. Diagnoses and all orders for this visit: Lumbosacral spondylosis without myelopathy - Case request operating room: INJECTION BLOCK NERVE MEDIAL BRANCH: seymour [id number] Bilateral L4/5, 5/1 Facet Injection/Medial Branch Block - under fluoroscopy It is hopeful that the described procedure will provide symptomatic pain relief. It is felt to be medically necessary noting that the patient has tried and failed more conservative modalities of therapy and this is the next most appropriate step. The procedure was described in detail to the patient as well as the potential benefits of pain reduction alongside risks of the procedure and alternatives. Risks were described as including, but not limited to bleeding, infection, nerve damage, spinal cord injury, paralysis, stroke, dural puncture headache, and medication reaction. The patient expressed understanding regarding the risks and benefits and wishes to proceed. Diagnostic facet injections and medial branch blocks should provide information to confirm that the noted facet arthropathy is the patient s most significant pain generator. If this provides significant but only temporary pain relief, the patient may in the future be a candidate for radiofrequency denervation of the facet joints to provide pain relief for approximately 1 year. Follow up 2 weeks after procedure The medications prescribed have been reviewed for medication interactions/contraindications and/or for upcoming procedures: continue current medication regimen without any changes. DISCUSSION: Treatment options discussed with patient and all questions answered to patient's satisfaction. Discussed the rules and regulations surrounding prescription of opioids and compliance at length. Failure to follow the rules and regulation will result in tapering and discontinuation of medications if applicable. Prescribed medication that requires intensive monitoring for toxicity We do not currently prescribe any controlled substance from this practice. Treatment plans discussed but not opted for at this time: Lumbar RFA. Patient would like to proceed with the current outlined treatment plan before moving forward with any other options. The spine model was demonstrated and MRI was reviewed and used to explain the condition. Chronic conditions not treated during this visit that affected my overall medical decision making: Comorbidity- Obesity The patient does have a comorbid condition of obesity. This will be taken into account in that obesity will contribute to certain pain conditions. It can contribute to pain from degenerative disc disease as well as osteoarthritis of the joints. Many neuropathic symptoms are also amplified due to axial spine loading. Special benefits will also need to be given to procedures. Many procedures are technically more difficult in the light of severe obesity. I will also consider the possibility of undiagnosed obstructive sleep apnea (which often accompanies obesity) when prescribing any narcotic medications. I will weigh the risks and benefits and fully discuss them with the patient for these reasons. Comorbidity- Diabetes The patient has a history of diabetes mellitus currently managed with medications. This will need to be considered prior to any procedure that would require the injection of steroid in that the patient may experience a transient increase in glucose as a result. Additional consideration will need to be given to timing the procedure early in the morning in that the patient will need to be fasting prior to the administration of anesthesia. Every effort will be made to perform the procedure as a 1st case due to this condition. And the patient will be instructed to hold their diabetic medications on that morning. If necessary, a blood glucose test can also be performed that morning. The risks/ benefits/ and alternatives will be weighed and explained to the patient prior to any procedure. OARRS: Reviewed. Scribe Statement: Scribed for and in the presence of DWAYNE ROWLAND by Malena Moran CNA. Provider Statement: I, DWAYNE ROWLAND, personally performed the services described in the documentation, as scribed by Malena Moran CNA in my presence, and it is both accurate and complete. Malena Moran CNA 10/31/23 1133 DWAYNE Rowland 10/31/23 1513 documented in this encounter [facility] 10-31-2023 Instructions Malena Moran, KEATON - 10/31/2023 10:45 AM EST Facet Injection / Medial Branch Block (MBB) / Sacroiliac (SI) Joint Injection A facet injection and sacroiliac joint injection are injections of local anesthetic and steroid into a joint in the spine. A medial branch block is similar, but the medication is placed outside the joint space near the nerve that supplies the joint called the medial branch (steroid may or may not be used). You may require multiple injections depending upon how many joints are involved. How Long Will This Procedure Last? The extent and duration of pain relief may depend on the amount of inflammation and how many areas are involved. Other coexisting factors may be responsible for your pain. If your pain goes away for a short time, but then returns, you may be a candidate for radiofrequency ablation (RFA). Activity Be active. Attempt activities and movements that typically cause pain to see if it feels better while doing them. We will give you a pain diary. Please fill this out as directed by your nurse in pre-op. This will help your doctor determine the effectiveness of the injection, and how to proceed. Bring the pain diary with you to your follow-up appointment. Medications You should not take your pain medications for 4-6 hours before or after the injection in order to properly diagnose if the injection provides adequate relief. Resume your routine medications after your procedure. You may resume blood thinners per your regular schedule after the procedure. If you received sedation: If you received sedation for your procedure, you may feel sleepy or not yourself for several hours today. For the next 24 hours avoid activities that requires alertness or coordination. This includes: Driving or operating heavy machinery Using power tools Consuming alcohol Do not make important or complex decisions or sign legal documents in the next 24 hours. Other Instructions: If you feel severe pain at the injection site with swelling and redness, increased leg weakness, a fever of 101 or higher, headache (or worsening headache), changes in vision or urinary retention: Please call the office at , or have someone take you to the nearest emergency room. Tell the emergency room staff that you recently had a spine injection. A doctor must evaluate you for bleeding and injection complications. If you lose control over bowel, bladder, or legs: Go to the nearest emergency room. documented in this encounter [facility] 10-25-2023 Instructions Angelica Haskins RN - 10/25/2023 2:15 PM EST Preoperative Education Checklist- General Surgery date: 11/06/23 Surgery time: 0800 a.m. Arrival time: 0610 a.m. 1. Bring a photo ID and your insurance card with you the day of surgery. You will check in at the main lobby registration desk as soon as you walk in the entrance. 2. If you have a Living Will/Durable Power of [employer] for Health Care that is not on file here, please bring a copy the day of surgery. 3. Please wash your face with baby shampoo prior to procedure as instructed by your physician. 4. NO powder, lotion, perfume/cologne, aftershave, make-up, nail ukrainian on at least one finger, deodorant, or hair products after you have bathed. 5. Nothing to eat or drink (not even water, gum, mints, or hard candy!) AFTER midnight prior to your surgery. 6. Take only medications that you are instructed to on the morning of surgery with a TINY SIP OF WATER. 7. If you have an inhaler, use it routinely. 8. Choose a responsible adult that will be able to drive you home when you are discharged from your hospital stay for your surgery. You must NOT drive any vehicle or operate any machinery for 24 hours after surgery. 9. When you dress for your appointment, please wear comfortable clothing. 10. Do NOT wear jewelry, watches, or any piercings or metal for surgery. 11. Do NOT wear contact lenses for surgery- glasses are okay if needed. 12. The anesthesiologist will talk with you the day of surgery and will ask you to sign a Consent Form. 13. Refrain from smoking or any type of tobacco use for at least 8 hours or marijuana for 24 hours prior to arrival for your surgery. 14. Notify your surgeon if you develop any illness before your surgery. 15. If you have any questions prior to surgery, please call the Preadmission Testing office at [phone], Mon.-Fri. 7 a.m.-3 p.m. Leave a voicemail if needed. Pre-Surgery Instructions: Medication Instructions allopurinol (ZYLOPRIM) 300 mg tablet Stop taking 0 days prior to procedure atorvastatin (LIPITOR) 20 mg tablet Stop taking 0 days prior to procedure baclofen (LIORESAL) 10 mg tablet Stop taking 0 days prior to procedure cyanocobalamin (vitamin B-12) 500 MCG tablet Stop taking 0 days prior to procedure empagliflozin (JARDIANCE) 10 mg tablet tablet Stop taking 0 days prior to procedure famotidine (PEPCID) 40 mg tablet Take morning of procedure gabapentin (NEURONTIN) 300 mg capsule Stop taking 0 days prior to procedure hydroCHLOROthiazide (HYDRODIURIL) 25 mg tablet Stop taking 0 days prior to procedure levothyroxine (SYNTHROID, LEVOTHROID) 88 MCG tablet Take morning of procedure linaCLOtide (LINZESS) 72 mcg capsule Stop taking 0 days prior to procedure losartan (COZAAR) 100 mg tablet Take morning of procedure meloxicam (MOBIC) 15 mg tablet Stop taking 0 days prior to procedure metoprolol succinate XL (TOPROL-XL) 100 mg 24 hr tablet Take morning of procedure omeprazole (PriLOSEC) 40 mg capsule Take morning of procedure ondansetron (ZOFRAN) 8 mg tablet Stop taking 0 days prior to procedure ONETOUCH VERIO TEST STRIPS strip Stop taking 0 days prior to procedure documented in this encounter [facility] 10-25-2023 Miscellaneous Notes Preoperative Education Checklist- General Surgery date: 11/06/23 Surgery time: 0800 a.m. Arrival time: 0610 a.m. 1. Bring a photo ID and your insurance card with you the day of surgery. You will check in at the main lobby registration desk as soon as you walk in the entrance. 2. If you have a Living Will/Durable Power of [employer] for Health Care that is not on file here, please bring a copy the day of surgery. 3. Please wash your face with baby shampoo prior to procedure as instructed by your physician. 4. NO powder, lotion, perfume/cologne, aftershave, make-up, nail ukrainian on at least one finger, deodorant, or hair products after you have bathed. 5. Nothing to eat or drink (not even water, gum, mints, or hard candy!) AFTER midnight prior to your surgery. 6. Take only medications that you are instructed to on the morning of surgery with a TINY SIP OF WATER. 7. If you have an inhaler, use it routinely. 8. Choose a responsible adult that will be able to drive you home when you are discharged from your hospital stay for your surgery. You must NOT drive any vehicle or operate any machinery for 24 hours after surgery. 9. When you dress for your appointment, please wear comfortable clothing. 10. Do NOT wear jewelry, watches, or any piercings or metal for surgery. 11. Do NOT wear contact lenses for surgery- glasses are okay if needed. 12. The anesthesiologist will talk with you the day of surgery and will ask you to sign a Consent Form. 13. Refrain from smoking or any type of tobacco use for at least 8 hours or marijuana for 24 hours prior to arrival for your surgery. 14. Notify your surgeon if you develop any illness before your surgery. 15. If you have any questions prior to surgery, please call the Preadmission Testing office at [phone], Mon.-Fri. 7 a.m.-3 p.m. Leave a voicemail if needed. Pre-Surgery Instructions: Medication Instructions allopurinol (ZYLOPRIM) 300 mg tablet Stop taking 0 days prior to procedure atorvastatin (LIPITOR) 20 mg tablet Stop taking 0 days prior to procedure baclofen (LIORESAL) 10 mg tablet Stop taking 0 days prior to procedure cyanocobalamin (vitamin B-12) 500 MCG tablet Stop taking 0 days prior to procedure empagliflozin (JARDIANCE) 10 mg tablet tablet Stop taking 0 days prior to procedure famotidine (PEPCID) 40 mg tablet Take morning of procedure gabapentin (NEURONTIN) 300 mg capsule Stop taking 0 days prior to procedure hydroCHLOROthiazide (HYDRODIURIL) 25 mg tablet Stop taking 0 days prior to procedure levothyroxine (SYNTHROID, LEVOTHROID) 88 MCG tablet Take morning of procedure linaCLOtide (LINZESS) 72 mcg capsule Stop taking 0 days prior to procedure losartan (COZAAR) 100 mg tablet Take morning of procedure meloxicam (MOBIC) 15 mg tablet Stop taking 0 days prior to procedure metoprolol succinate XL (TOPROL-XL) 100 mg 24 hr tablet Take morning of procedure omeprazole (PriLOSEC) 40 mg capsule Take morning of procedure ondansetron (ZOFRAN) 8 mg tablet Stop taking 0 days prior to procedure ONETOUCH VERIO TEST STRIPS strip Stop taking 0 days prior to procedure Surgical instructions reviewed. Patient verbalized understanding. documented in this encounter [facility] 10-25-2023 Nurse Note Preoperative Education Checklist- General Surgery date: 11/06/23 Surgery time: 0800 a.m. Arrival time: 0610 a.m. 1. Bring a photo ID and your insurance card with you the day of surgery. You will check in at the main lobby registration desk as soon as you walk in the entrance. 2. If you have a Living Will/Durable Power of [employer] for Health Care that is not on file here, please bring a copy the day of surgery. 3. Please wash your face with baby shampoo prior to procedure as instructed by your physician. 4. NO powder, lotion, perfume/cologne, aftershave, make-up, nail ukrainian on at least one finger, deodorant, or hair products after you have bathed. 5. Nothing to eat or drink (not even water, gum, mints, or hard candy!) AFTER midnight prior to your surgery. 6. Take only medications that you are instructed to on the morning of surgery with a TINY SIP OF WATER. 7. If you have an inhaler, use it routinely. 8. Choose a responsible adult that will be able to drive you home when you are discharged from your hospital stay for your surgery. You must NOT drive any vehicle or operate any machinery for 24 hours after surgery. 9. When you dress for your appointment, please wear comfortable clothing. 10. Do NOT wear jewelry, watches, or any piercings or metal for surgery. 11. Do NOT wear contact lenses for surgery- glasses are okay if needed. 12. The anesthesiologist will talk with you the day of surgery and will ask you to sign a Consent Form. 13. Refrain from smoking or any type of tobacco use for at least 8 hours or marijuana for 24 hours prior to arrival for your surgery. 14. Notify your surgeon if you develop any illness before your surgery. 15. If you have any questions prior to surgery, please call the Preadmission Testing office at [phone], Mon.-Fri. 7 a.m.-3 p.m. Leave a voicemail if needed. Pre-Surgery Instructions: Medication Instructions allopurinol (ZYLOPRIM) 300 mg tablet Stop taking 0 days prior to procedure atorvastatin (LIPITOR) 20 mg tablet Stop taking 0 days prior to procedure baclofen (LIORESAL) 10 mg tablet Stop taking 0 days prior to procedure cyanocobalamin (vitamin B-12) 500 MCG tablet Stop taking 0 days prior to procedure empagliflozin (JARDIANCE) 10 mg tablet tablet Stop taking 0 days prior to procedure famotidine (PEPCID) 40 mg tablet Take morning of procedure gabapentin (NEURONTIN) 300 mg capsule Stop taking 0 days prior to procedure hydroCHLOROthiazide (HYDRODIURIL) 25 mg tablet Stop taking 0 days prior to procedure levothyroxine (SYNTHROID, LEVOTHROID) 88 MCG tablet Take morning of procedure linaCLOtide (LINZESS) 72 mcg capsule Stop taking 0 days prior to procedure losartan (COZAAR) 100 mg tablet Take morning of procedure meloxicam (MOBIC) 15 mg tablet Stop taking 0 days prior to procedure metoprolol succinate XL (TOPROL-XL) 100 mg 24 hr tablet Take morning of procedure omeprazole (PriLOSEC) 40 mg capsule Take morning of procedure ondansetron (ZOFRAN) 8 mg tablet Stop taking 0 days prior to procedure ONETOUCH VERIO TEST STRIPS strip Stop taking 0 days prior to procedure [facility] 10-25-2023 Nurse Note Surgical instructions reviewed. Patient verbalized understanding. [facility] 10-24-2023 Note HNO ID: [id number] Author: JONN VALENCIA RT(R) Service: ? Author Type: Technologist Type: Progress Notes Filed: 10/24/2023 15:20 Note Text: Radiology Service Progress Note PATIENT NAME: Vida Lima DATE OF SERVICE: October 24, 2023 TIME: 3:19 PM PATIENT IDENTITY VERIFICATION COMPLETED USING TWO (2) IDENTIFIERS: Name and Date of confirmed by patient verbally. FALL SCREENING: Has the patient had 2 falls in the last year or 1 fall with injury or currently using an Ambulatory Assistive Device (Walker, Cane, Wheelchair, Crutches, etc.)? Yes, Patient High Risk for Falls What interventions were put in place to prevent falls during this visit? Instructed Patient to Call for Help if Needed and Increased Observations by Caregivers PATIENT GENDER DATA: Female. status: : No status: NO. PATIENT RELEVANT IMPLANT DATA REVIEWED: Yes PATIENT PRESENTS WITH AN IMPLANTABLE OR ATTACHED HEAD OF ART: No RADIOLOGY DEPARTMENT: MR; Exam(s) Completed: Head: Routine Brain PERIPHERAL IV DATA: Not applicable SIGNED BY: RT Juan Manuel(R) October 24, 2023 3:19 PM [facility] 10-19-2023 Note HNO ID: [id number] Author: JENNIFER SPENCER MD Service: ? Author Type: Physician Type: Progress Notes Filed: 10/19/2023 12:28 Note Text: UNIVERSAL PROTOCOL / SAFETY CHECKLIST Procedure to be Performed: EMG Sign In: A Moment of CARE was completed. Personnel directly involved with the procedure wore the appropriate PPE (Personal Protective Equipment). Patient/Surrogate Stated/Verified: PATIENT VERIFIED(optional for EMERGENT procedures): Patient name, Date of , Relevant allergies, and The intended procedure Time Out Communication: Intended patient and procedure match the source documents. Correct side/site marked and visible. Sign Out: SIGN OUT (optional for EMERGENT procedures): Post-procedure follow-up management communicated and Plan of Care Visit completed when applicable. Zeynep Maria EMG Tech Jennifer Spencer MD [facility] 10-19-2023 History of Presen t illness Narrative UNIVERSAL PROTOCOL / SAFETY CHECKLIST Procedure to be Performed: EMG Sign In: A Moment of CARE was completed. Personnel directly involved with the procedure wore the appropriate PPE (Personal Protective Equipment). Patient/Surrogate Stated/Verified: PATIENT VERIFIED(optional for EMERGENT procedures): Patient name, Date of , Relevant allergies, and The intended procedure Time Out Communication: Intended patient and procedure match the source documents. Correct side/site marked and visible. Sign Out: SIGN OUT (optional for EMERGENT procedures): Post-procedure follow-up management communicated and Plan of Care Visit completed when applicable. Zeynep Maria EMG Tech Jennifer Spencer MD documented in this encounter [facility] 10-11-2023 Note HNO ID: [id number] Author: JENNIFER SPENCER MD Service: ? Author Type: Physician Type: Progress Notes Filed: 10/11/2023 09:49 Note Text: [facility] 10-11-2023 Note HNO ID: [id number] Author: TRAVIS FRANCO MD Service: ? Author Type: Physician Type: Progress Notes Filed: 10/11/2023 09:49 Note Text: NEUROLOGY CONSULT NOTE PATIENT NAME: Vida Lima DATE: October 11, 2023 PRIMARY CARE PHYSICIAN: Aruna Damico MD REASON FOR CONSULT: Left lower extremity weakness/left-sided weakness REQUESTING PHYSICIAN: Self My final recommendations will be communicated to the requesting health care provider by way of shared medical record for internal providers. ASSESSMENT: This is Vida Lima is a 78 year old female with a history of chronic low back pain, weakness left lower extremity, diabetes, hypothyroidism, hypertension who presents with left lower extremity weakness? Left-sided weakness. 1. 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 Left proximal lower extremity weakness PLAN: MRI of the brain will be ordered. EMG will be ordered as well. Any problems or concerns to call me or primary care physician immediately or go straight to the emergency department HISTORY OF PRESENT ILLNESS: Vida Lima is a 78 year old female, with a history of chronic low back pain, weakness left lower extremity, diabetes, hypothyroidism, hypertension who presents with left lower extremity weakness? Daughter is here as well today patient states that about over a year ago she had fallen and landed on the left side of her hip and left lower extremity thigh area. Since then she has had chronic low back pain going to pain management. She has had weakness of the proximal left lower extremity has difficulty climbing up stairs. She also states that she does have a history of left shoulder pain but could not really tell if she also had weakness of the left upper extremity at that time. Symptoms persisting she has had physical therapy did not really help. She was then advised to see neurology. COMPLETE REVIEW OF SYSTEMS: GENERAL: No weight loss, malaise or fevers RESPIRATORY: Negative for cough, hemoptysis, wheezing, COPD, dyspnea or shortness of breath CARDIOVASCULAR: Negative for chest pain, leg swelling, hypertension, CHF or palpitations GI: No nausea, vomiting, or diarrhea See HPI. All other systems reviewed and are negative. PAST MEDICAL HISTORY Diagnosis Date Fracture legs ankles nose tail bone GERD (gastroesophageal reflux disease) 07/11/2011 Goiter 12/08/2010 HTN (hypertension) 07/11/2011 Hyperlipidemia 07/11/2011 Personal history of unspecified urinary disorder Seizures (HCC) with migraines 4 years ago Thyroid cancer (HCC) s/p thyroidectomy No past surgical history on file. No family history on file. Social History Tobacco Use Smoking status: Former Packs/day: 2.00 Years: 18.00 Additional pack years: 0.00 Total pack years: 36.00 Types: Cigarettes Quit date: 09/18/1988 Years since quittin.0 Smokeless tobacco: Former Substance Use Topics Alcohol use: No MEDICATIONS: Current Outpatient Medications Medication Sig Dispense Refill gabapentin (NEURONTIN) 300 mg capsule Take 1 capsule by mouth three times daily. 270 capsule 3 PREMARIN vaginal cream USE 0.5GR VAGINALLY EVERY MON, WED AND FRI, APPLY WITH FINGERTIP, STOP FOR 3 TO 5 DAYS PRIOR TO SURG 30 g 0 dicyclomine (BENTYL) 10 mg capsule Take 10 mg by mouth before meals and at bedtime. famotidine (PEPCID) 40 mg tablet Take 40 mg by mouth once daily. Naproxen Sodium 500 mg 24 hr tablet Take 500 mg by mouth daily with breakfast. levothyroxine 137 mcg ORAL tablet Take 1 tablet by mouth once daily. 30 tablet 11 oqnyhuu-cprfcueyw-bquljxs D3 500 mg(1,250mg) -200 unit ORAL per tablet Take 1 tablet by mouth three times daily with meals. 90 tablet 1 olmesartan (BENICAR) 20 mg ORAL tablet Take 1 tablet by mouth once daily. 0 metoprolol succinate XL (TOPROL XL) 100 mg ORAL Tb24 Take 1 tablet by mouth once daily. 0 pravastatin (PRAVACHOL) 20 mg ORAL tablet Take 1 tablet by mouth daily at bedtime. 0 amitriptyline 25 mg ORAL tablet Take 1 tablet by mouth daily at bedtime. 0 sumatriptan 50 mg ORAL tablet Take 1 tablet by mouth as needed. 0 omeprazole (PRILOSEC) 20 mg ORAL capsule Take 1 capsule by mouth once daily. 0 Cyanocobalamin 2,500 mcg SUBLINGUAL Subl Dissolve under the tongue once daily. 0 pyridoxine (VITAMIN B-6) 100 mg ORAL tablet Take 1 tablet by mouth once daily. 0 Biotin 1 mg ORAL Tab Take 1 tablet by mouth once daily. 0 No current facility-administered medications for this visit. 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 [facility] 09-28-2023 History of Presen t illness Narrative [facility] [address] [place] [address] Patient: Vida Lima Sex: female : 1945 Age: 78 y.o. PCP: HAYDER FRANCO MD 09/28/2023 Vida Lima is here for a(n) follow up after completing a Lumbar spine MRI. Chief Complaint Patient presents with Back Pain HPI: PT/HEP 2022 no relief with back but relief with vertigo Back: 09/02/22 Lt SI Inj w/100% relief 10/07/22 Bilateral SI joint offered 100 % relief on the left which continues, She reports 100% relief for 1 hour then 80% relief for 2 hours then 40% relief for 1 week on the right 10/28/22 Right SI injection with 60% relief for 1 hour only. 12/02/22 Right hip injection with 100% relief x1 hour and 70% that continues 01/06/2023 left hip injection with 95% relief. Bilateral L 2/3, 3/4 medial branch block on 01/20/2023 with 100% relief for 2 hours then days later had great relief 03/24/2023 Right L2/3, 3/4 Radio Frequency Ablation and 04/07/2023 Left L2/3, 3/4 Radio Frequency Ablation both with 80% relief 05/12/2023 Left Cluneal Nerve Block with 80% relief x 4-5 hours left cluneal nerve block on 06/02/2023 with 80% relief for 2 hours then 60-70% relief for 2 hours . 07/07/2023 left cluneal radiofrequency ablation with no relief 08/18/2023 Left L4/5 NRI with 0 relief Back Pain This is a chronic problem. The current episode started more than 1 month ago (After a fall 05/2022). The problem occurs constantly (fluctuates in intensity; mild pain while sitting and severe pain while standing). The problem has been rapidly worsening since onset. The pain is present in the lumbar spine and gluteal. The quality of the pain is described as aching, cramping and burning. The pain is at a severity of 10/10 (10/10 anytime on legs for more then 5 minutes (ex standing or walking); 2/10 while sitting). The pain is mild. The pain is The same all the time (ambulation , difficulty sleeping ). The symptoms are aggravated by bending, standing, sitting, twisting and position (walking, stairs). Stiffness is present All day. Associated symptoms include weakness (BLE, cane and w/c to appt today). Pertinent negatives include no bladder incontinence, bowel incontinence, chest pain, fever, leg pain, numbness or tingling. (Patient can only ambulate 10 minutes at a time and then has to stop and rest due to pain.) Risk factors include poor posture, obesity and sedentary lifestyle. She has tried NSAIDs (KALLIE 07/2022 w/min relief. Meloxicam for OA, Gabapentin w/mod relief. Ice min relief. Heat w/min relief. OTC lidocaine cream w/mod relief. MDP no relief. TENS w/mod relief, Tylenol and IBU post fall 10/2022) for the symptoms. The treatment provided moderate relief. The effect of pain on patient's ADLS: Moderate Impairment. Past Medical History: Diagnosis Date Anemia Arthritis Back pain Cancer ([facility]) thyroid Chronic pain disorder Diabetes mellitus ([facility]) Gastroparesis GERD (gastroesophageal reflux disease) Hypercholesterolemia Hypertension IBD (inflammatory bowel disease) Kidney stone Low back pain Migraine Numbness Phlebitis Seizures ([facility]) precipitated by a migraine Shingles Sleep apnea Thyroid disease Weakness Past Surgical History: Procedure Laterality Date APPENDECTOMY BLADDER SURGERY suspension CHOLECYSTECTOMY CYSTOSCOPY UM SOLUTION N/A 06/20/2018 Performed by Shazia Suh MD at [facility] HYSTERECTOMY INJECTION BLOCK NERVE MEDIAL BRANCH: bilat L 2/3 3/4 Bilateral 02/17/2023 Performed by Jonn Zamora MD at [facility] INJECTION BLOCK NERVE MEDIAL BRANCH: bilat L 2/3 3/4 Bilateral 01/20/2023 Performed by Jonn Zamora MD at [facility] INJECTION BLOCK NERVE: left cluneal Left 06/02/2023 Performed by Jonn Zamora MD at [facility] INJECTION BLOCK NERVE: left cluneal Left 05/12/2023 Performed by Jonn Zamora MD at [facility] INJECTION BLOCK SACROILIAC JOINT Right 10/28/2022 Performed by Jonn Zamora MD at [facility] INJECTION BLOCK SACROILIAC JOINT Bilateral 10/07/2022 Performed by Jonn Zamora MD at [facility] INJECTION BLOCK SACROILIAC JOINT: Left 09/02/2022 Performed by Jonn Zamora MD at [facility] INJECTION BURSA LARGE JOINT: left hip Left 01/06/2023 Performed by Jonn Zamora MD at [facility] INJECTION BURSA LARGE JOINT: right hip Right 12/02/2022 Performed by Jonn Zamora MD at [facility] INJECTION SPINE TRANSFORAMINAL: left L 4,5 Nroot Left 08/18/2023 Performed by Jonn Zamora MD at [facility] NASAL SEPTUM SURGERY OTHER SURGICAL HISTORY TVT x 2 OTHER SURGICAL HISTORY bowel surgery RADIOFREQUENCY ABLATION PERIPHERAL NERVE Left Cluneal Left 07/07/2023 Performed by Jonn Zamora MD at [facility] RADIOFREQUENCY ABLATION SPINAL: left L 2/3 3/4 Left 04/07/2023 Performed by Jonn Zamora MD at [facility] RADIOFREQUENCY ABLATION SPINAL: right L 2/3 3/4 Right 03/24/2023 Performed by Jonn Zamora MD at [facility] SHOULDER SURGERY Left VEIN LIGATION AND STRIPPING Allergies Allergen Reactions Cephalexin nausea Ciprofloxacin hives Clindamycin Patient states cdiff Codeine Nausea,vomiting Cyclobenzaprine Demerol [Meperidine] vomiting Glucophage [Metformin] Lisinopril cough Penicillins Patient doesn't remember Percocet [Oxycodone-Acetaminophen] Nausea,vomiting Family History Problem Relation Age of Onset Depression Father Mental illness Father Prostate cancer Father Arthritis Mother Diabetes Mother Heart disease Mother Social History Socioeconomic History Marital status: Spouse name: Not on file Number of children: Not on file Years of education: Not on file Highest education level: Not on file Occupational History Not on file Tobacco Use Smoking status: Former Smokeless tobacco: Never Vaping Use Vaping Use: Never used Substance and Sexual Activity Alcohol use: No Drug use: No Sexual activity: Defer Other Topics Concern Not on file Social History Narrative Not on file Social Determinants of Health Financial Resource Strain: Not on file Food Insecurity: No Food Insecurity (09/28/2023) Hunger Screening Food Insecurity - Worry: Never True Food Insecurity - Inability: Never True Transportation Needs: Not on file Physical Activity: Not on file Stress: Not on file Social Connections: Not on file Interpersonal Safety: Not on file Review of Systems Constitutional: Negative. Negative for chills, fatigue and fever. HENT: Negative. Eyes: Negative. Respiratory: Negative. Negative for cough and choking. Cardiovascular: Negative. Negative for chest pain. Gastrointestinal: Negative. Negative for bowel incontinence. Genitourinary: Negative. Negative for bladder incontinence. Musculoskeletal: Positive for back pain and gait problem (wc to appt today). Skin: Negative. Negative for rash and wound. Neurological: Positive for weakness (BLE, cane and w/c to appt today). Negative for tingling and numbness. Hematological: Negative. Psychiatric/Behavioral: Negative. Negative for suicidal ideas. Vital Signs: BP 156/76 Pulse 67 Resp 18 Ht 157.5 cm (5' 2 ) Wt 89.4 kg (197 lb) SpO2 98% BMI 36.03 kg/m Physical Exam: GENERAL - Healthy patient that appears stated age. HEENT - Normocephalic / Atraumatic, Extraoccular movements intact, trachea midline, thyroid within normal limits. CV - pulse regular, Warm extremities with appropriate color of nailbeds. RESP - No obvious wheezing, No Shortness of Breath, No overexertion response to exam maneuvers. COORDINATION - remains intact. PSYCH - Alert and Oriented x4, Attentive and appropriate, constitutionally normal, displays normal mood and affect per situation, answered questions appropriately during examination, demonstrated appropriate attention during discussion, demonstrated appropriate cognitive reasoning and understanding of the medical condition by asking appropriate questions regarding the diagnosis and risks/benefits/alternatives of treatment modalities. No obvious deficits in memory, reasoning, or intellect. Lumbar: SKIN - No rashes or bruising in the area of the patient s pain. LYMPH NODES - demonstrate no obvious enlargement. EXTREMITIES - Lower extremities are warm, with minimal edema and palpable pulses. Tenderness to palpation noted in the lumbar spine and paraspinal musculature. Pain is elicited with flexion, extension, and lateral rotation of the lumbar spine. Range of motion is diminished with these motions due to pain. Facet palpation is noted to be somewhat tender and facet loading maneuvers are mildly positive, but not concordant with the patient s normal pain complaints. STRENGTH - noted to be 5 out of 5 all muscle groups bilateral lower extremities including muscles involving hip flexion and abduction, knee flexion and extension, as well as foot dorsiflexion and plantarflexion. No notable atrophy, fasciculations or spasm. SENSORY - No notable sensory deficits in the bilateral lower extremities to touch or pinprick in all dermatomal distributions. Straight Leg Raise is negative. Gait is antalgic and assisted with ambulatory aid(s): Cane. Assessment/Treatment Plan: Vida was seen today for back pain. Diagnoses and all orders for this visit: Spinal stenosis of lumbar region with neurogenic claudication - Case request operating room: INJECTION BLOCK EPIDURAL CAUDAL STEROID Caudal Epidural Steroid Injection - under fluoroscopy with the use of contrast dye (unless contraindicated) It is hopeful that the described procedure will provide symptomatic pain relief. It is felt to be medically necessary noting that the patient has tried and failed more conservative modalities of therapy and this is the next most appropriate step. The procedure was described in detail to the patient as well as the potential benefits of pain reduction alongside risks of the procedure and alternatives. Risks were described as including, but not limited to bleeding, infection, nerve damage, spinal cord injury, paralysis, stroke, dural puncture headache, and medication reaction. The patient expressed understanding regarding the risks and benefits and wishes to proceed. It was explained that Caudal injections often require a series of 2-3 before significant relief is noted, but we will determine after each injection if another one is indicated. Depending on the amount and duration of relief obtained from the injection, additional modalities of therapy including medications and physical therapy may need to be utilized alongside or following the injections. Follow up 2 weeks after procedure The medications prescribed have been reviewed for medication interactions/contraindications and/or for upcoming procedures: continue current medication regimen without any changes. DISCUSSION: Treatment options discussed with patient and all questions answered to patient's satisfaction. Discussed the rules and regulations surrounding prescription of opioids and compliance at length. Failure to follow the rules and regulation will result in tapering and discontinuation of medications if applicable. Prescribed medication that requires intensive monitoring for toxicity We do not currently prescribe any controlled substance from this practice. The spine model was demonstrated and MRI was reviewed and used to explain the condition. Chronic conditions not treated during this visit that affected my overall medical decision making: Comorbidity- Obesity The patient does have a comorbid condition of obesity. This will be taken into account in that obesity will contribute to certain pain conditions. It can contribute to pain from degenerative disc disease as well as osteoarthritis of the joints. Many neuropathic symptoms are also amplified due to axial spine loading. Special benefits will also need to be given to procedures. Many procedures are technically more difficult in the light of severe obesity. I will also consider the possibility of undiagnosed obstructive sleep apnea (which often accompanies obesity) when prescribing any narcotic medications. I will weigh the risks and benefits and fully discuss them with the patient for these reasons. Comorbidity- Diabetes The patient has a history of diabetes mellitus currently managed with medications. This will need to be considered prior to any procedure that would require the injection of steroid in that the patient may experience a transient increase in glucose as a result. Additional consideration will need to be given to timing the procedure early in the morning in that the patient will need to be fasting prior to the administration of anesthesia. Every effort will be made to perform the procedure as a 1st case due to this condition. And the patient will be instructed to hold their diabetic medications on that morning. If necessary, a blood glucose test can also be performed that morning. The risks/ benefits/ and alternatives will be weighed and explained to the patient prior to any procedure. OARRS: Reviewed. Scribe Statement: Scribed for and in the presence of DWAYNE ROWLAND by Malena Moran CNA. Provider Statement: I, DWAYNE ROWLAND, personally performed the services described in the documentation, as scribed by Malena Moran CNA in my presence, and it is both accurate and complete. Malena Moran CNA 09/28/23 1204 DWAYNE Rowland 09/28/23 1451 documented in this encounter [facility] 07-14-2022 Note [id number] [facility] 07-13-2022 Note [facility] SURGERY Clinical Discharge Summary PERSON INFORMATION Name VIDA LIMA Age 77 Years 1945 Sex FEMALE Language Syrian PCP HAYDER FRANCO Marital Status Med Service Pain Management Surgery Acct# Arrival 07/13/2022 06:56:00 Visit Reason LOW BACK PAIN Acuity LOS 013 22:39 Address: [address] [place] [id number] Comment: PROVIDER INFORMATION VITALS INFORMATION Vital Sign Triage Latest Temp Oral Temp Temporal Temp Intravascular Temp Axillary Temp Rectal 02 Sat 95 % 95 % Respiratory Rate Peripheral Pulse Rate Apical Heart Rate Blood Pressure / 83 mmHg / 102 mmHg Comment: MEDICAL INFORMATION Allergy Info: Demerol; Glucophage; lisinopril Prescriptions Given: allopurinol (allopurinol 300 mg oral tablet) 1 tab(s) Oral every day. biotin Oral every day. cholecalciferol (Vitamin D3) 1 tab(s) Oral every day. cranberry 1 tab(s) Oral every day. dicyclomine (dicyclomine 20 mg oral tablet) 0.5 tabs TID. famotidine (Pepcid) 20 Milligram Oral 2 times a day. gabapentin (gabapentin 300 mg oral capsule) 1 cap(s) Oral 2 times a day. hydrochlorothiazide-triamterene (!-hydrochlorothiazide-triamter margaret 25 mg-50 mg oral capsule) 1 cap(s) Oral every day. levothyroxine 77 Microgram Oral every day. linaclotide (Linzess 72 mcg oral capsule) every day. liothyronine (liothyronine 25 mcg oral tablet) 1 tab(s) Oral once a day (at bedtime). losartan (losartan 100 mg oral tablet) 1 tab(s) Oral every day. meloxicam (meloxicam 15 mg oral tablet) 1 tab(s) Oral every day. metoclopramide (metoclopramide 5 mg oral tablet) TAKE 1 TABLET BY MOUTH TWICE A DAY BEFORE MEALS FOR 30 DAYS. metoprolol 100 Milligram Oral every day. multivitamin with minerals (Hair, skin and Nails Multiple Vitamins with Minerals oral tablet) 1 tab(s) Oral every day. multivitamin with minerals (Vital-D) Oral every day. omeprazole 42 Milligram Oral 2 times a day. zinc sulfate (Zinc) Oral every day. Medication List: Medications to Continue That Have Not Changed Other Medications allopurinol (allopurinol 300 mg oral tablet) 1 tab(s) Oral every day. biotin Oral every day. cholecalciferol (Vitamin D3) 1 tab(s) Oral every day. cranberry 1 tab(s) Oral every day. dicyclomine (dicyclomine 20 mg oral tablet) 0.5 tabs TID. famotidine (Pepcid) 20 Milligram Oral 2 times a day. gabapentin (gabapentin 300 mg oral capsule) 1 cap(s) Oral 2 times a day. hydrochlorothiazide-triamterene (!-hydrochlorothiazide-triamter margaret 25 mg-50 mg oral capsule) 1 cap(s) Oral every day. levothyroxine 77 Microgram Oral every day. linaclotide (Linzess 72 mcg oral capsule) every day. liothyronine (liothyronine 25 mcg oral tablet) 1 tab(s) Oral once a day (at bedtime). losartan (losartan 100 mg oral tablet) 1 tab(s) Oral every day. meloxicam (meloxicam 15 mg oral tablet) 1 tab(s) Oral every day. metoclopramide (metoclopramide 5 mg oral tablet) TAKE 1 TABLET BY MOUTH TWICE A DAY BEFORE MEALS FOR 30 DAYS. metoprolol 100 Milligram Oral every day. multivitamin with minerals (Hair, skin and Nails Multiple Vitamins with Minerals oral tablet) 1 tab(s) Oral every day. multivitamin with minerals (Vital-D) Oral every day. omeprazole 42 Milligram Oral 2 times a day. zinc sulfate (Zinc) Oral every day. Medications to Continue That Have Not Changed Other Medications allopurinol (allopurinol 300 mg oral tablet) 1 tab(s) Oral every day. biotin Oral every day. cholecalciferol (Vitamin D3) 1 tab(s) Oral every day. cranberry 1 tab(s) Oral every day. dicyclomine (dicyclomine 20 mg oral tablet) 0.5 tabs TID. famotidine (Pepcid) 20 Milligram Oral 2 times a day. gabapentin (gabapentin 300 mg oral capsule) 1 cap(s) Oral 2 times a day. hydrochlorothiazide-triamterene (!-hydrochlorothiazide-triamter margaret 25 mg-50 mg oral capsule) 1 cap(s) Oral every day. levothyroxine 77 Microgram Oral every day. linaclotide (Linzess 72 mcg oral capsule) every day. liothyronine (liothyronine 25 mcg oral tablet) 1 tab(s) Oral once a day (at bedtime). losartan (losartan 100 mg oral tablet) 1 tab(s) Oral every day. meloxicam (meloxicam 15 mg oral tablet) 1 tab(s) Oral every day. metoclopramide (metoclopramide 5 mg oral tablet) TAKE 1 TABLET BY MOUTH TWICE A DAY BEFORE MEALS FOR 30 DAYS. metoprolol 100 Milligram Oral every day. multivitamin with minerals (Hair, skin and Nails Multiple Vitamins with Minerals oral tablet) 1 tab(s) Oral every day. multivitamin with minerals (Vital-D) Oral every day. omeprazole 42 Milligram Oral 2 times a day. zinc sulfate (Zinc) Oral every day. Medications to Continue That Have Not Changed Other Medications allopurinol (allopurinol 300 mg oral tablet) 1 tab(s) Oral every day. biotin Oral every day. cholecalciferol (Vitamin D3) 1 tab(s) Oral every day. cranberry 1 tab(s) Oral every day. dicyclomine (dicyclomine 20 mg oral tablet) 0.5 tabs TID. famotidine (Pepcid) 20 (more content not included)... [facility] 07-12-2022 Note [id number] The patient has been examined and the medical record reviewed. The indications for surgery and exam are unchanged. [Electronically Signed on: 07/13/2022 08:39 EDT] Marco Seymour MD [Verified on: 07/13/2022 08:39 EDT] Marco Seymour MD [Transcribed on: 07/12/2022 12:51 EDT] [facility] 05-30-2022 Note PROCEDURE: [employer] Signa HDXT 1.5 Sagittal T1, T2, STIR and axial T1 and T2 contiguous and cone down images through the lumbar spine were performed without contrast administration. HISTORY: Acute onset left hip pain FINDINGS: Normal lumbar vertebral body height and alignment. No bone marrow edema. No significant deep soft tissue inflammatory signal. Normal conus medullaris and filum terminale. Unremarkable paravertebral soft tissues. Bilateral peripelvic cyst formation, left greater than right. Unremarkable SI joints and sacral ala. T12-L1 and L1-2: Normal. L2-3: Minimal disc space loss. Mild central disc bulging. Mild facet arthropathy. No disc herniation, spinal canal or neuroforaminal stenosis. L3-4: Minimal disc space loss. Mild central disc bulging, facet arthropathy. No disc herniation, spinal canal or neuroforaminal stenosis. L4-5: Minimal disc space loss. Broad based left exit neuroforaminal zone disc herniation impressing upon the left L4 nerve root. No spinal canal stenosis. L5-S1: Minimal disc space loss. Mild central disc bulging. No spinal canal or neuroforaminal stenosis. IMPRESSION: 1. Left exit neuroforaminal zone L4-5 disc herniation impressing upon the left L4 nerve root. Report reported and signed by Alo Gonzalez on 05/30/2022 1452 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 Make sure you follow-up with your primary care doctor within the next 1-2 business days. The following attachments cannot be sent through Care Everywhere.Flank Pain (Syrian)Hypokalemia (Syrian)UTI (Urinary Tract Infection): Female (Syrian)documented in this encounter [employer] Phone: 06-03-2013 History general N arrative - Reported Type Medical History 06/03/13 EGD/Colonoscopy-mild erosive esophagitis, duodenitis, diverticulosis, esophageal spasm Medical History 04/20/07 Colonoscopy-D r [place]-adenomatous polyps Medical History Abdominal pain, righ t upper quadrant Medical History Nausea without vomiting Medical History Tubular adenoma of colon Medical History Hypertension, essent ial, benign Medical History Abdominal pain, othe r specified site Medical History Gastritis, other, specified, without mention of hemorrhage Medical History Esophagitis, acute Medical History Esophagitis, acute Medical History 03/06/17 Colonoscopy- marked diverticulosis and redundancy Surgical History Appendectomy Surgical History Gallbladder-[place] [facility] [place] Surgical History Hysterectomy-[place] Surgical History Heart Catheterization Surgical History Bladder Suspension x2-[facility] Surgical History Thyroidectomy [facility] Hospitalization History see above Hospitalization History C-Diff September or October 2015 [facility] Other Evaluation note* Diagnosis UTI (urinary tract infection), bacterial- Primary Urinary tract infection, site not specified documented in this encounter [employer] Phone: evaluation note* Diagnosis Flank pain- Primary Abdominal pain, unspecified site Acute cystitis without hematuria Acute cystitis Hypokalemia Hypopotassemia documented in this encounter [employer] Phone: evaluation noteNo InformationNort [facility] Other Evaluation note* Diagnosis Spinal stenosis of lumbar region with neurogenic claudication- Primary Spinal stenosis of lumbar region with neurogenic claudication- Primary Spinal stenosis of lumbar region with neurogenic claudication [facility] Peripheral neuropathy, idiopathic- Primary Unspecified hereditary and idiopathic peripheral neuropathy Radiculopathy, lumbar region Thoracic or lumbosacral neuritis or radiculitis, unspecified [facility] Lumbosacral spondylosis without myelopathy- Primary Lumbosacral spondylosis without myelopathy- Primary Lumbosacral spondylosis without myelopathy [facility] Diagnosis Kidney stone- Primary Calculus of kidney Elevated serum creatinine Other nonspecific findings on examination of blood [facility] Diagnosis Lumbosacral spondylosis without myelopathy- Primary Encounter for long-term opiate analgesic use Encounter for long-term (current) use of other medications [facility] Diagnosis Paresthesia of skin- Primary Disturbance of skin sensation Mechanical low back pain Lumbago documented in this encounter [facility] Discharge instructions* Instructions* Chris Infante MD - 07/28/2021 Take your medication as indicated and prescribed. Please take 1 tablet Bactrim twice daily for 5 days. Drink plenty of water while taking the antibiotics. Avoid drinking alcohol or drinks that have caffeine in it while taking antibiotics. For pain use acetaminophen (Tylenol) or ibuprofen (Motrin / Advil), you can take over the counter acetaminophen tablets (1 2 tablets of the 325-mg strength every 6 hours) or ibuprofen tablets (2 tablets every 4 hours). PLEASE RETURN TO THE EMERGENCY DEPARTMENT IMMEDIATELY for worsening symptoms, inability to urinate,worsening of blood in your urine, or if you develop any concerning symptoms such as: high fever notrelieved by acetaminophen (Tylenol) and/or ibuprofen (Motrin / Advil), chills, shortness of breath,chest pain, feeling of your heart fluttering or racing, persistent nausea and/or vomiting, vomitingup blood, blood in your stool, loss of consciousness, numbness, weakness or tingling in the arms orlegs or change in color of the extremities, changes in mental status, persistent headache, blurry vision, loss of bladder / bowel. documented in this [employer] Phone: InstructionsNot on filedocumented in this encounter [facility] filed[facility]ed in [facility] filedocumented in this [facility] filed[facility]ed in this [facility] Summary Purpose Family History No Family History Records FoundNo Family History Records FoundNo Family History Records FoundNo Family History Records FoundNo Family History Records FoundNo Family History Records FoundNo Family History Records FoundNo Family History Records FoundNo Family History Records FoundNo Family History Records FoundNo Family History Records FoundNo Family History Records FoundNo Family History Records Found Advance Directives No Advanced Directives Records FoundDocuments on File Type Date Recorded 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 ACP-Advance Directive ACP-Power of Honey 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 Documents on File Type Date Recorded 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 Advance Directive(s) 08/09/2011 8:25 PM Documents on File Type Date Recorded 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 Advance Directive(s) 08/09/2011 8:25 PM Reason for Referral Specialty Diagnoses / Procedures Referred By Kileyac t Referred To Contact Spine Susan Diagnoses Mechanical low back pain Procedures [facility] OFFICE/OUTPATIENT [facility] 60 [place] [address] [place] [address] Referral ID Status Reason Start Date Expiration Date Visits Requested Visits Authorized [id number] Authorized PCP Requested Referral 01/17/2024 01/16/2025 1 1 Specialty Diagnoses / Procedures Referred By Contac t Referred To Contact Diagnoses Lumbosacral spondylosis without myelopathy Procedures Case request operating room: INJECTION BLOCK NERVE MEDIAL BRANCH: bilat L45 51 Viky Pretty PA [address], [address] [place] [address] Referral ID Status Reason Start Date Expiration Date V isits Requested Visits Authorized [id number] Pending Review 10/31/2023 10/30/2024 1 1 Specialty Diagnoses / Procedures Referred By Contac t Referred To Contact Diagnoses Spinal stenosis of lumbar region with neurogenic claudication Procedures Case request operating room: INJECTION BLOCK EPIDURAL CAUDAL STEROID Viky Pretty PA [address], [address] [place] [id number] Referral ID Status Reason Start Date Expiration Date V isits Requested Visits Authorized [id number] Pending Review 09/28/2023 09/27/2024 1 1 Additional Source Comments INFORMATION SOURCE (unrecogn ized section and content) DATE CREATED AUTHOR 05/31/2019 [facility] DATE CREATED AUTHOR AUTHOR'S ORGANIZ ATION 08/19/2021 [facility] DATE CREATED AUTHOR AUTHOR'S ORGANIZ ATION 08/22/2021 [facility] DATE CREATED AUTHOR AUTHOR'S ORGANIZ ATION 10/26/2021 [facility] DATE CREATED AUTHOR AUTHOR'S ORGANIZ ATION 11/28/2021 [facility] DATE CREATED AUTHOR AUTHOR'S ORGANIZ ATION 12/20/2021 [facility] DATE CREATED AUTHOR AUTHOR'S ORGANIZ ATION 05/30/2022 [facility] dical Specialist DATE CREATED AUTHOR AUTHOR'S ORGANIZ ATION 06/21/2022 [facility] DATE CREATED AUTHOR AUTHOR'S ORGANIZ ATION 10/24/2022 [facility] DATE CREATED AUTHOR AUTHOR'S ORGANIZ ATION 12/07/2023 [facility] DATE CREATED AUTHOR AUTHOR'S ORGANIZ ATION 12/07/2023 [facility] DATE CREATED AUTHOR AUTHOR'S ORGANIZ ATION 01/06/2024 [facility] dical Specialists EP[facility] DATE CREATED AUTHOR AUTHOR'S ORGANIZ ATION 01/18/2024 [facility] Reason for Visit (unrecogniz ed section and content) Reason Comments Abdominal Pain right up abdomen Reason Comments Flank Pain worse after BM today , onset today, going on over months Reason Comments Back Pain Reason Comments EMG Specialty Diagnoses / Procedures Referred By Tata larios Referred To Contact [facility] Diagnoses Weakness of left lower extremity Procedures EMG(NEURO/NI) NERVE CONDUCTION STUDIES 9-10 [place] [address] [place] [address] Neurological Susan [address] [place] [address] Referral ID Status Reason Start Date Expiration Date V isits Requested Visits Authorized [id number] Closed Auto-Generate d Referral 10/11/2023 10/11/2024 1 1 Reason Comments Results Discussed MRI brain and Emg. States that her diabetes is not well controlled. Does not really have pain from neuropathy she states. Reason Comments Kidney Function Reason Comments Back Pain Reason Comments Established Patient Ordered Prescriptions (unrec ognized section and content) Prescription Sig Dispensed Refills Start Date End Da te sulfamethoxazole-trimetho prim (BACTRIM DS) 800-160 MG per tablet Take 1 tablet by mouth 2 times daily for 5 days 10 tablet 0 07/28/2021 08/02/2021 Prescription Sig Dispensed Refills Start Date End Da te nitrofurantoin, macrocrystal-monohydrate , (MACROBID) 100 MG capsule Take 1 capsule by mouth 2 times daily for 10 days 20 capsule 0 11/26/2021 12/06/2021 Scheduled Active and Recently Administ ered Medications (unrecognized section and content) Medication Order 07/26/2021 07/27/2021 07/28/2021 acetaminophen (TYLENOL) tablet 650 mg (COMPLETED) 650 mg, Oral, ONCE, On Mon07/27/21 at 2044, For 1 dose, Maximum dose of acetaminophen is 4000 mg from all sources in 24 hours. 2057 (Given - Provider: Gillian White RN) fentaNYL (SUBLIMAZE) injection 50 mcg (COMPLETED) 50 mcg, IntraVENous, ONCE, On Mon07/27/21 at 2044, For 1 dose, If oral and IV narcotics ordered, use oral first and only use IV if oral is ineffective or cannot take oral. Do Not give oral and IV within 1 hour of each other unless specifically ordered. 2058 (Given - Provider: Gillian White RN) ondansetron (ZOFRAN) injection 4 mg (COMPLETED) 4 mg, IntraVENous, ONCE, On Mon07/27/21 at 2030, For 1 dose 2032 (Given - Provider: Merle Simms RN) potassium chloride (KLOR-CON M) extended release tablet 40 mEq (COMPLETED) 40 mEq, Oral, ONCE, On Mon07/28/21 at 0100, For 1 dose, Do not crush, chew, or suck on tablet. Tablet may also be broken in half and each half swallowed separately. 0122 (Given - Provid er: Luis Duran RN) sulfamethoxazole-trimethopr im (BACTRIM DS;SEPTRA DS) 800-160 MG per tablet 1 tablet 1 tablet, Oral, ONCE, On Mon07/28/21 at 0100, For 1 dose 0100 (Due) PRN Medication Order 07/26/2021 07/27/2021 07/28/2021 iopamidol (ISOVUE-370) 76 % injection 75 mL (COMPLETED) 75 mL, IntraVENous, IMG ONCE PRN, Other, Starting on Mon07/28/21 at 0001, For 1 dose 0020 (Given - Provid er: Sheree Crandall) Scheduled Medication Order 11/24/2021 11/25/2021 11/26/2021 0.9 % sodium chloride bolus (COMPLETED) 1,000 mL (13 mL/kg), IntraVENous, at 1,000 mL/hr, Administer over 1 Hours, ONCE, On Mon11/26/21 at 1915, For 1 dose 1920 (New Bag - Prov ider: Natacha Pool RN)2304 (Stopped - Provider: Natacha Pool RN) 0.9 % sodium chloride bolus 80 mL (1.04 mL/kg), IntraVENous, at 160 mL/hr, Administer over 0.5 Hours, ONCE, On Mon11/26/21 at 2015, For 1 dose 2036 (Bolus from Bag - Provider: Millicent Livingston RN) acetaminophen (TYLENOL) tablet 1,000 mg (COMPLETED) 1,000 mg, Oral, ONCE, On Mon11/26/21 at 2300, For 1 dose 2305 (Given - Provid er: Natacha Pool RN) famotidine (PEPCID) injection 20 mg (COMPLETED) 20 mg, IntraVENous, ONCE, On Mon11/26/21 at 1915, For 1 dose, IV Push over minimum of 2 minutes - Dilute with 10 mL NS 1922 (Given - Provid er: Natacha Pool RN) fentaNYL (SUBLIMAZE) injection 50 mcg (COMPLETED) 50 mcg, IntraVENous, ONCE, On Mon11/26/21 at 1915, For 1 dose, If oral and IV narcotics ordered, use oral first and only use IV if oral is ineffective or cannot take oral. Do Not give oral and IV within 1 hour of each other unless specifically ordered. 1922 (Given - Provid er: Natacha Pool RN) fentaNYL (SUBLIMAZE) injection 50 mcg (COMPLETED) 50 mcg, IntraVENous, ONCE, On Mon11/26/21 at 2100, For 1 dose, If oral and IV narcotics ordered, use oral first and only use IV if oral is ineffective or cannot take oral. Do Not give oral and IV within 1 hour of each other unless specifically ordered. 2222 (Given - Provid er: Natacha Pool RN) ketorolac (TORADOL) injection 30 mg (COMPLETED) 30 mg, IntraVENous, ONCE, On Mon11/26/21 at 2100, For 1 dose, Do not administer for more than 5 days. 2101 (Given - Provid er: Natacha Pool RN) nitrofurantoin (macrocrystal-monohydrate) (MACROBID) capsule 100 mg 100 mg, Oral, EVERY 12 HOURS SCHEDULED (2 times per day), First dose on Mon11/26/21 at 2300 230 (Given - Provid er: Natacha oPol RN) ondansetron (ZOFRAN) injection 4 mg (COMPLETED) 4 mg, IntraVENous, ONCE, On Mon11/26/21 at 1915, For 1 dose 1922 (Given - Provid er: Natacha Pool RN) ondansetron (ZOFRAN) injection 4 mg (COMPLETED) 4 mg, IntraVENous, ONCE, On Mon11/26/21 at 2300, For 1 dose 230 (Given - Provid er: Natacha Pool RN) PRN Medication Order 11/24/2021 11/25/2021 11/26/2021 iopamidol (ISOVUE-370) 76 % injection 75 mL (COMPLETED) 75 mL, IntraVENous, IMG ONCE PRN, Other, Starting on Mon11/26/21 at 2011, For 1 dose 2036 (Given - Provid er: Millicent Livingston RN) sodium chloride flush 0.9 % injection 10 mL 10 mL, IntraVENous, PRN, Line Care, Starting on Mon11/26/21 at 2011 2036 (Given - Provid er: Millicent Livingston RN) Care Teams (unrecognized sec tion and content) Technical Support Analyst Relationship Specialty Start Date End Date Aruna Damico PCP - General 11/04/14 Technical Support Analyst Relationship Specialty Start Date End Date Aruna Damico PCP - General 11/04/14 Technical Support Analyst Relationship Specialty Start Date End Date Hayder Franco MD [address] [place] [address] PCP - General Internal Medicine 11/10/22 Technical Support Analyst Relationship Specialty Start Date End Date Aruna Damico MD PCP - General Family Medicine 12/08/10 Technical Support Analyst Relationship Specialty Start Date End Date Hayder Franco MD [address] [place] [address] PCP - General Internal Medicine 11/10/22 Technical Support Analyst Relationship Specialty Start Date End Date Hayder Franco MD [address] [place] [address] PCP - General Internal Medicine 11/10/22 Technical Support Analyst Relationship Specialty Start Date End Date Aruna Damico MD PCP - General Family Medicine 12/08/10 Technical Support Analyst Relationship Specialty Start Date End Date Hayder Franco MD [address] [place] [address] PCP - General Internal Medicine 11/10/22 Technical Support Analyst Relationship Specialty Start Date End Date Hayder Franco MD [address], [address] [place] [address] PCP - General Internal Medicine 11/10/22 Technical Support Analyst Relationship Specialty Start Date End Date Hayder Franco MD [address] [place] [address] PCP - General Internal Medicine 11/10/22 Technical Support Analyst Relationship Specialty Start Date End Date Hayder Franco II, MD [address] [place] [address] PCP - General Internal Medicine 01/17/24 Source Comments (unrecognize d section and content) In the event this informatio n is protected by the Federal Confidentiality of Alcohol and Drug Abuse Patient Records regulations: The Federal rules restrict any use of the information to criminally investigate or prosecute any alcohol or drug abuse patient.[facility] the event this information is protected by the Federal Confidentiality of Alcohol and Drug Abuse Patient Records regulations: The Federal rules restrict any use of the information to criminally investigate or prosecute any alcohol or drug abuse patient.[facility] the event this information is protected by the Federal Confidentiality of Alcohol and Drug Abuse Patient Records regulations: The Federal rules restrict any use of the information to criminally investigate or prosecute any alcohol or drug abuse patient.[facility] FOR RECORDS PERTAINING TO PATIENTS WHO ARE OR HAVE BEEN ENROLLED IN A CHEMICAL DEPENDENCY/SUBSTANCEABUSE PROGRAM, SOME INFORMATION MAY BE OMITTED. This clinical summary was aggregated from multiple sources. Caution should be exercised in using it in the provision of clinical care. This summary normalizes information from multiple sources, and as a consequence, information in this document may materially change the coding, format and clinical context of patient data. In addition, data may be omitted in some cases. CLINICAL DECISIONS SHOULD BE BASED ON THE PRIMARY CLINICAL RECORDS. [facility]. provides no warranty or guarantee of the accuracy or completeness of information in this document.
--- NOTE | 2024-01-27 18:44 | ECG_ITS ---
[facility] Test Date: 2024-01-27 Pat Name: JOJO DE SANTIAGO Department: Room: - Gender: Female [employer] Helper: : [id number] Requested By: MICHELE BRIONES Order Number: [id number] Reading MD: SHAKIRA WILDER Measurements Intervals [place] Rate: 79 P: 61 AL: 160 QRS: 6 QRSD: 88 T: 13 QT: 416 QTc: 451 Interpretive Statements 1100 Sinus rhythm [address] depression [address] & [place] abnormality 8304 Long QTc interval 9150 abnormal ECG Electronically Signed On 01-28-2024 21:52:24 EDT by SHAKIRA WILDER
--- NOTE | 2024-01-27 18:52 | ED_ITS ---
HPI HPI - General Adult General Chief complaint: Nausea/Vomiting/Diarrhea Stated complaint: Nausea/Vomiting Time Seen by Provider: 01/27/24 18:36 Source: patient Mode of arrival: Wheelchair Limitations: no limitations History of Present Illness HPI narrative: Patient is a 78-year-old female who returns to the emergency department for continued nausea and discomfort. She was seen in this emergency department 3 days ago for the same. She had labs and CT scan performed for nausea and vomiting. CT showed a questionable area of mild nonspecific colitis so the patient was started on Zofran, Bentyl and Flagyl. She was able to take the Flagyl today but states that she has been nauseous and uncomfortable all day. She is not continuing to vomit. She has not had any diarrhea. She has no significant abdominal pain at this time. She has had no objective fevers. She is passing little urine. Related Data Home Medications ?Medication ?Instructions ?Recorded ?Confirmed allopurinol 300 mg tablet 300 mg PO AC 09/14/23 01/27/24 atorvastatin 20 mg tablet 20 mg PO AC 09/14/23 01/27/24 baclofen 10 mg tablet 10 mg PO ACHS 09/14/23 01/27/24 cyanocobalamin (vitamin B-12) 500 mcg PO DAILY 09/14/23 01/27/24 1,000 mcg tablet,extended release empagliflozin 10 mg tablet 10 mg PO DAILY 09/14/23 01/27/24 (Jardiance) famotidine 40 mg tablet 40 mg PO ACHS 09/14/23 01/27/24 hydrochlorothiazide 25 mg tablet 25 mg PO DAILY 09/14/23 01/27/24 levothyroxine 88 mcg tablet 88 mcg PO DAILY 09/14/23 01/27/24 meloxicam 15 mg tablet 15 mg PO DAILY 09/14/23 01/27/24 metoprolol succinate 100 mg 100 mg PO DAILY 09/14/23 01/27/24 tablet,extended release 24 hr omeprazole 40 mg capsule,delayed 40 mg PO ACHS 09/14/23 01/27/24 release ondansetron HCl 8 mg tablet 8 mg PO Q12H PRN nausea and 09/14/23 01/27/24 vomiting Previous Rx's ?Medication ?Instructions ?Recorded promethazine 25 mg tablet 25 mg PO Q6H PRN nausea and 01/27/24 vomiting #12 tabs sucralfate 1 gram tablet (Carafate) 1 g PO Q6H PRN abdominal pain #12 01/27/24 tabs Allergies Allergy/AdvReac Type Severity Reaction Status Date / Time meperidine [From Demerol] Allergy Intermediate Nausea Verified 01/27/24 18:43 CODINE Allergy Intermediate Nausea Uncoded 01/27/24 18:43 Opioid HPI Opioid Management Most Recent Opioid Data: Last Pain Scale 5 09/14/23 02:30 Review of Systems ROS Constitutional Denies: fever or chills Ears, nose, mouth, and throat Denies: throat pain or nasal congestion Cardiovascular Denies: chest pain Respiratory Denies: shortness of breath or cough Gastrointestinal Reports: abdominal pain and nausea; Denies: vomiting or diarrhea Musculoskeletal Denies: back pain Integumentary/Breast Denies: rash Hematologic/Lymphatic Denies: easy bruising or easy bleeding PFSH PFSH Medical History Diabetes ?E11.9 - Type 2 diabetes mellitus without complications (ICD-10) Gastroparesis ?K31.84 - Gastroparesis (ICD-10) Hypertension ?I10 - Essential (primary) hypertension (ICD-10) Social History Smoking status: Never smoker Exam Narrative Exam Narrative: Gen.: Awake, alert, Uncomfortable but in no distress Head: Normocephalic, atraumatic ENT: Moist mucous membranes Respiratory: No respiratory distress, lungs clear bilaterally Cardio: Regular rate and rhythm Gastrointestinal: Abdomen is soft, nondistended and nontender to palpation; No guarding or rebound Extremities: Moves extremities equally, no pedal edema Psych: Normal mood and affect Neuro: No focal neuro deficit Skin: Warm, dry, intact Constitutional Vital Signs, click to edit/add: Last Vital Signs Temp 98.3 F 01/27/24 18:39 Pulse 77 01/27/24 20:52 Resp 20 01/27/24 20:52 BP 168/96 H 01/27/24 20:52 Pulse Ox 96 01/27/24 20:52 O2 Del Method Room Air 01/27/24 20:52 Course Vital Signs Vital signs: Vital Signs Temperature 98.3 F 01/27/24 18:39 Pulse Rate 87 01/27/24 18:39 Respiratory Rate 18 01/27/24 18:39 Blood Pressure 194/101 H 01/27/24 18:39 Pulse Oximetry 98 01/27/24 18:39 Oxygen Delivery Method Room Air 01/27/24 18:39 Temperature 98.3 F 01/27/24 18:39 Pulse Rate 77 01/27/24 20:52 Respiratory Rate 20 01/27/24 20:52 Blood Pressure 168/96 H 01/27/24 20:52 Pulse Oximetry 96 01/27/24 20:52 Oxygen Delivery Method Room Air 01/27/24 20:52 Medical Decision Making MDM Narrative Medical decision making narrative: Patient is clinically improved After IV fluids, Phenergan and Pepcid. She had no episodes of emesis in the ER. Her lab studies are stable with no leukocytosis and abdomen is soft and benign with no complaints of abdominal pain. On my reevaluation, The patient is resting comfortably and taking ice chips orally. EKG, troponin, lab studies are unremarkable. As the patient has no abdominal tenderness and has not developed any diarrhea, the small questionable area of colitis on CT previously is likely inflammatory versus viral. I instructed the patient to stop taking the Flagyl as I believe this may be upsetting her stomach further. Patient will be discharged home on Phenergan and given instructions for clear liquid diet. She is also given a prescription of Carafate and Pepcid. Follow- up with PCP and return to the ER if symptoms change or worsen Medical Records Medical records reviewed: Yes I reviewed the patient's medical records Lab Data Lab results reviewed: Yes I reviewed the patient's lab results Labs: Lab Results 01/27/24 Range/Units 18:50 WBC 7.7 (4.0-11.0) 10^3/uL RBC 4.53 (4.20-5.40) 10^6/uL Hgb 13.8 (12.0-16.0) g/dL Hct 42.7 (36.0-48.0) % MCV 94.3 (81.0-99.0) fL MCH 30.5 (26.7-34.0) pg MCHC 32.3 (29.9-35.2) g/dL RDW 13.6 (11.0-15.0) % Plt Count 219 (150-450) 10^3/uL MPV 12.0 (9.5-13.5) fL Neut % (Auto) 59.7 (43.0-75.0) % Lymph % (Auto) 30.6 (20.5-60.0) % [place] % (Auto) 7.3 (1.7-12.0) % Eos % (Auto) 1.8 (0.9-7.0) % Baso % (Auto) 0.5 (0.2-2.0) % Neut # (Auto) 4.6 (1.4-6.5) 10^3/uL Lymph # (Auto) 2.3 (1.2-3.8) 10^3/uL [place] # (Auto) 0.6 (0.3-0.8) 10^3/uL Eos # (Auto) 0.1 (0.0-0.7) 10^3/uL Baso # (Auto) 0.0 (0.0-0.1) 10^3/uL Abs Immat Gran (auto) 0.01 (0.00-0.03) 10^3/uL Imm/Tot Granulo (auto) 0.1 (0.0-0.5) % Sodium 141 (136-145) mmol/L Potassium 3.6 (3.5-5.1) mmol/L Chloride 103 (98-107) mmol/L Carbon Dioxide 19.1 L (21.0-32.0) mmol/L Anion Gap 22.5 BUN 13.0 (7.0-18.0) mg/dL Creatinine 0.97 (0.55-1.02) mg/dL Est GFR ( Amer) >60 (>=60) Est GFR (Non-Af Amer) 56 L (>=60) BUN/Creatinine Ratio 13.4 Glucose 116 H (74-106) mg/dL Lactate 1.5 (0.4-2.0) mmol/L Calcium 10.0 (8.5-10.1) mg/dL Total Bilirubin 2.1 H (0.2-1.0) mg/dL AST 15 (15-37) U/L ALT 17 (14-59) U/L Alkaline Phosphatase 93 (46-116) U/L Troponin I High Sens 7.8 (4.0-51.3) pg/mL Total Protein 7.2 (6.4-8.2) g/dL Albumin 4.5 (3.4-5.0) g/dL Globulin 2.7 g/dL Albumin/Globulin Ratio 1.7 Lipase 30.0 (16.0-77.0) U/L ECG Data Attestation: I personally reviewed and interpreted this ECG as follows: (Normal sinus rhythm at a rate of 79, minimal ST depression, no acute ST elevation or ectopy. Artifact noted. EKG reviewed by attending physician.) Discharge Plan Discharge Stand Alone Forms: Portal Instructions Chief Complaint: Nausea/Vomiting/Diarrhea Clinical Impression: Nausea Patient Disposition: Home, Self-Care Time of Disposition Decision: 20:53 Condition: Good Prescriptions / Home Meds: New sucralfate [Carafate] 1 gram tablet 1 g PO Q6H PRN (Reason: abdominal pain) Qty: 12 0RF promethazine 25 mg tablet 25 mg PO Q6H PRN (Reason: nausea and vomiting) Qty: 12 0RF No Action cyanocobalamin (vitamin B-12) 1,000 mcg tablet extended release 500 mcg PO DAILY atorvastatin 20 mg tablet 20 mg PO AC ondansetron HCl 8 mg tablet 8 mg PO Q12H PRN (Reason: nausea and vomiting) meloxicam 15 mg tablet 15 mg PO DAILY famotidine 40 mg tablet 40 mg PO ACHS metoprolol succinate 100 mg tablet extended release 24 hr 100 mg PO DAILY omeprazole 40 mg capsule,delayed release(DR/EC) 40 mg PO ACHS levothyroxine 88 mcg tablet 88 mcg PO DAILY baclofen 10 mg tablet 10 mg PO ACHS allopurinol 300 mg tablet 300 mg PO AC hydrochlorothiazide 25 mg tablet 25 mg PO DAILY Jardiance 10 mg tablet 10 mg PO DAILY Print Language: Australian Instructions: Acute Nausea and Vomiting (ED) Additional Instructions: Follow clear liquid diet x 24-48 hours; use Phenergan, Pepcid and Carafate for your symptoms Referrals: MICHELE BRIONES [Primary Care Provider] - 1 week Discharge Date/Time: 01/27/24 21:23
[2024-01-27 19:13] LABS: Basophils Percent Auto 0.5 % (0.2-2.0); Eosinophils Absolute Auto 0.1 10^3/uL (0.0-0.7); Eosinophils Percent Auto 1.8 % (0.9-7.0); Hematocrit 42.7 % (36.0-48.0); Hemoglobin 13.8 g/dL (12.0-16.0); Immature Granulocytes Abs Auto 0.01 10^3/uL (0.00-0.03); Immature Granulocytes Pct Auto 0.1 % (0.0-0.5); Lymphocytes Absolute Auto 2.3 10^3/uL (1.2-3.8); Lymphocytes Percent Auto 30.6 % (20.5-60.0); Mean Corpuscular HGB Conc 32.3 g/dL (29.9-35.2); Mean Corpuscular Hemoglobin 30.5 pg (26.7-34.0); Mean Corpuscular Volume 94.3 fL (81.0-99.0); Monocytes Absolute Auto 0.6 10^3/uL (0.3-0.8); Monocytes Percent Auto 7.3 % (1.7-12.0); Neutrophils Absolute Auto 4.6 10^3/uL (1.4-6.5); Neutrophils Percent Auto 59.7 % (43.0-75.0); Platelet Count 219 10^3/uL (150-450); Red Blood Count 4.53 10^6/uL (4.20-5.40); Red Cell Distribution Width 13.6 % (11.0-15.0); White Blood Count 7.7 10^3/uL (4.0-11.0)
[2024-01-27] MEDS: 0.9 % SODIUM CHLORIDE 1,000 ML 1000 ML IV (19:14)
[2024-01-27] MEDS: PROMETHAZINE HCL 25 MG in 0.9 % SODIUM CHLORIDE 50 ML 204 MG IV (19:14)
[2024-01-27] MEDS: FAMOTIDINE/PF 20 MG/2 ML VIAL IV (19:15)
[2024-01-27 19:29] LABS: Lactate/Lactic Acid 1.5 mmol/L (0.4-2.0)
[2024-01-27 19:38] LABS: Alanine Aminotransferase 17 U/L (14-59); Albumin Globulin Ratio 1.7; Albumin Level 4.5 g/dL (3.4-5.0); Alkaline Phosphatase 93 U/L (46-116); Anion Gap 22.5; Aspartate Amino Transferase 15 U/L (15-37); BUN Creatinine Ratio 13.4; Bilirubin Total 2.1 mg/dL (0.2-1.0); Carbon Dioxide 19.1 mmol/L (21.0-32.0); Chloride 103 mmol/L (98-107); Estimated GFR (African America >60 (>=60); Estimated GFR (Non-African Ame 56 (>=60); Globulin 2.7 g/dL; Glucose 116 mg/dL (74-106); Potassium 3.6 mmol/L (3.5-5.1); Sodium 141 mmol/L (136-145); Total Protein 7.2 g/dL (6.4-8.2); Troponin I High Sensitivity 7.8 pg/mL (4.0-51.3)
[2024-01-27 19:40] VITALS: BP 180/104; PULSE 85; O2SAT 97
[2024-01-27 20:52] VITALS: BP 168/96; PULSE 77; O2SAT 96
[2024-01-27] MEDS: PROMETHAZINE HCL 25 MG TABLET PO (21:12)
== END 2024-01-27 21:23 | disposition home or self-care (01) ==
PROVIDERS: Physician Assistant; Emergency Provider Internal Medicine; PCP Internal Medicine
DX: R11.0 Nausea (principal); Z79.899 Other long term (current) drug therapy; E11.9 Type 2 diabetes mellitus without complications; I10 Essential (primary) hypertension; Z79.84 Long term (current) use of oral hypoglycemic drugs
CPT/HCPCS: 36415; 80053; 83605; 83690; 84484; 85025; 93005; 96374; 96375; 99285